=== PATIENT | female | born 2000 | race Caucasian/White ===

== ENCOUNTER 2021-09-24 18:46 | Emergency (ER) | payer MEDICAID, OTHER ==
[2021-09-24 18:57] VITALS: BP 139/86
== END 2021-09-24 21:17 | disposition left against medical advice (07) ==
LOC: ED 18:46
DX: Z53.21 Procedure and treatment not carried out due to patient leaving prior to being seen by health care provider (principal)

== ENCOUNTER 2021-10-07 08:49 | Outpatient (CLI) | payer OTHER | END 2021-10-07 08:50 | disposition short-term general hospital (02) | LOC: EMS 08:49 | DX: R10.31 Right lower quadrant pain (principal); R10.33 Periumbilical pain | CPT/HCPCS: A0425; A0427 ==

== ENCOUNTER 2021-12-06 16:07 | Emergency (ER) | payer OTHER ==
[2021-12-06 16:25] VITALS: BP 143/108
--- OUTSIDE RECORDS SUMMARY | 2021-12-06 16:31 | EXTERNAL MEDICAL SUMMARY RPT | Continuity of Care Document ---
:2000 Author Organization [facility] Address [address] [place] [address] Phone Allergies and Intolerances date description facility type (no date) Penicillins [facility] (unknown) (no date) amoxicillin [facility] (unknown) (no date) bismuth subsalicylate [facility] (unknow n) (no date) cinnamon [facility] (unknown) Encounters No information. Functional Status No information. Immunizations No information. Medications date description facility Ondansetron 4 MG Disintegrating Tablet [facility] + Acetaminophen 325 MG / Hydrocodone Is [facility] Bitartrate 5 MG Oral Tablet Problems No information. Procedures date description facility + General Physician [facility] Results/Labs test date author facility value unit interpret ation Result panel 1 (unknown) (no date) (unknown) (unknown) 0.6 % (unkn own) (unknown) (no date) (unknown) (unknown) 100 /uL (unkn own) (unknown) (no date) (unknown) (unknown) 12.0 X10 3/uL (unkn own) (unknown) (no date) (unknown) (unknown) 12.7 g/dL (unkn own) (unknown) (no date) (unknown) (unknown) 13.8 % (unkn own) (unknown) (no date) (unknown) (unknown) 2.0 % (unkn own) (unknown) (no date) (unknown) (unknown) 200 /uL (unkn own) (unknown) (no date) (unknown) (unknown) 22.3 % (unkn own) (unknown) (no date) (unknown) (unknown) 2700 /uL (unkn own) (unknown) (no date) (unknown) (unknown) 28.3 PG (unkn own) (unknown) (no date) (unknown) (unknown) 32.7 % (unkn own) (unknown) (no date) (unknown) (unknown) 359 X10 3/uL (unkn own) (unknown) (no date) (unknown) (unknown) 38.9 % (unkn own) (unknown) (no date) (unknown) (unknown) 4.49 X10 6/uL (unkn own) (unknown) (no date) (unknown) (unknown) 4.9 % (unkn own) (unknown) (no date) (unknown) (unknown) 600 /uL (unkn own) (unknown) (no date) (unknown) (unknown) 70.2 % (unkn own) (unknown) (no date) (unknown) (unknown) 8400 /uL (unkn own) (unknown) (no date) (unknown) (unknown) 86.7 fL (unkn own) Result panel 2 (unknown) (no (unknown) (unknown) (no value) (units (unk nown) date) unknown) (unknown) (no (unknown) (unknown) [address] [place] [address] (units (unknown) date) unknown) (unknown) (no (unknown) (unknown) [place], [place] (units ( unknown) date) [id number] unknown) (unknown) (no (unknown) (unknown) [facility] (units (unknown) date) unknown) (unknown) (no (unknown) (unknown) Signed (units (unkno wn) date) unknown) (unknown) (no (unknown) (unknown) Ultrasound Report (units (unknown) date) unknown) (unknown) (no (unknown) (unknown) (no value) (units (unk nown) date) unknown) (unknown) (no (unknown) (unknown) 09/30/21 (units (unkno wn) date) unknown) (unknown) (no (unknown) (unknown) Approved by: Juve (units (unknown) date) Lea Lagos on unknown) 09/30/2021 at 23:14 (unknown) (no (unknown) (unknown) Biliary ducts: (units (unknown) date) Intrahepatic bile unknown) ducts are non-dilated. Extrahepatic bile (unknown) (no (unknown) (unknown) COMPARISON: None. (units (unknown) date) unknown) (unknown) (no (unknown) (unknown) Dictated by: Juve (units (unknown) date) Lea Lagos on unknown) 09/30/2021 at 23:12 (unknown) (no (unknown) (unknown) FINDINGS: (units (unkn own) date) unknown) (unknown) (no (unknown) (unknown) Gallbladder: (units (u nknown) date) There is no unknown) gallstone. No gallbladder wall thickening or (unknown) (no (unknown) (unknown) Hepatomegaly and (units (unknown) date) hepatic steatosis. unknown) No discrete hepatic lesion. (unknown) (no (unknown) (unknown) IMPRESSION: (units (un known) date) unknown) (unknown) (no (unknown) (unknown) INDICATIONS: (units (u nknown) date) severe epigastric unknown) pain, radiation to back (unknown) (no (unknown) (unknown) Liver: Liver is (units (unknown) date) enlarged and unknown) measures 22.6 cm in length. Diffusely increased (unknown) (no (unknown) (unknown) No biliary ductal (units (unknown) date) dilatation. unknown) (unknown) (no (unknown) (unknown) Normal appearing (units (unknown) date) gallbladder. No unknown) cholelithiasis or acute cholecystitis. (unknown) (no (unknown) (unknown) Pancreas: (units (unkn own) date) Visualized unknown) portions of the pancreas are sonographically normal. (unknown) (no (unknown) (unknown) Real-time (units (unkn own) date) scanning was unknown) performed of the abdominal and retroperitoneal organs, (unknown) (no (unknown) (unknown) TECHNIQUE: (units (unk nown) date) unknown) (unknown) (no (unknown) (unknown) documentation. (units (unknown) date) unknown) (unknown) (no (unknown) (unknown) fluid. No (units (unkn own) date) sonographic Hassan unknown) sign. (unknown) (no (unknown) (unknown) measures 5.6 mm. (units (unknown) date) Normal is 6-7 mm unknown) or less in diameter, or 10 mm or less (unknown) (no (unknown) (unknown) parenchymal (units (un known) date) echotexture is unknown) seen. No discrete hepatic lesion. (unknown) (no (unknown) (unknown) post-cholecystect (units (unknown) date) pauline. unknown) (unknown) (no (unknown) (unknown) Accession Number: (units (unknown) date) [id number] unknown) (unknown) (no (unknown) (unknown) Age/Sex: 21 / F (units (unknown) date) Date of Service: unknown) (unknown) (no (unknown) (unknown) : 2000 (units (unknown) date) Acct:[id number] unknown) (unknown) (no (unknown) (unknown) Loc: ED (units (unkno wn) date) unknown) (unknown) (no (unknown) (unknown) [id number] (units (unk nown) date) unknown) (unknown) (no (unknown) (unknown) Ordering (units (unkno wn) date) Provider: unknown) Otto Rosa D.O. (unknown) (no (unknown) (unknown) PROCEDURE: US (units ( unknown) date) ABDOMEN LIMITED unknown) (unknown) (no (unknown) (unknown) Patient: (units (unkno wn) date) Emily Johnson J unknown) MR#: (unknown) (no (unknown) (unknown) Procedure: US (units ( unknown) date) abdomen limited unknown) (unknown) (no (unknown) (unknown) duct caliber (units (u nknown) date) unknown) (unknown) (no (unknown) (unknown) liver (units (unkno wn) date) unknown) (unknown) (no (unknown) (unknown) pericholecystic (units (unknown) date) unknown) (unknown) (no (unknown) (unknown) with image (units (unk nown) date) unknown) Result panel 3 (unknown) (no date) (unknown) (unknown) > 60 mL/min (unkn own) (unknown) (no date) (unknown) (unknown) 0.4 mg/dL (unkn own) (unknown) (no date) (unknown) (unknown) 0.59 mg/dL (unkn own) (unknown) (no date) (unknown) (unknown) 1.4 (units unknown) (unknown) (unknown) (no date) (unknown) (unknown) 10 mg/dL (unkn own) (unknown) (no date) (unknown) (unknown) 100 mg/dL (unkn own) (unknown) (no date) (unknown) (unknown) 104 U/L (unkn own) (unknown) (no date) (unknown) (unknown) 105 mmol/L (unkn own) (unknown) (no date) (unknown) (unknown) 137 mmol/L (unkn own) (unknown) (no date) (unknown) (unknown) 16.9 (units unknown) (unknown) (unknown) (no date) (unknown) (unknown) 24 mmol/L (unkn own) (unknown) (no date) (unknown) (unknown) 3.2 g/dL (unkn own) (unknown) (no date) (unknown) (unknown) 4.2 mmol/L (unkn own) (unknown) (no date) (unknown) (unknown) 4.6 g/dL (unkn own) (unknown) (no date) (unknown) (unknown) 44 IU/L (unkn own) (unknown) (no date) (unknown) (unknown) 7.8 g/dL (unkn own) (unknown) (no date) (unknown) (unknown) 77 IU/L (unkn own) (unknown) (no date) (unknown) (unknown) 8.9 mg/dL (unkn own) (unknown) (no date) (unknown) (unknown) 93 U/L (unkn own) Result panel 4 (unknown) (no (unknown) (unknown) (no value) (units (unk nown) date) unknown) (unknown) (no (unknown) (unknown) Date of Service: (units (unknown) date) 09/30/21 unknown) (unknown) (no (unknown) (unknown) (no value) (units (unk nown) date) unknown) (unknown) (no (unknown) (unknown) 09/30/21 20:50 (units (unknown) date) unknown) (unknown) (no (unknown) (unknown) Admin: 09/30/21 (units (unknown) date) 21:30 Dose: 1,000 unknown) mls/hr (unknown) (no (unknown) (unknown) Allergies (units (unkn own) date) unknown) (unknown) (no (unknown) (unknown) Documented By: (units (unknown) date) NR unknown) (unknown) (no (unknown) (unknown) ED Orders (units (unkn own) date) unknown) (unknown) (no (unknown) (unknown) Emergency Report (units (unknown) date) unknown) (unknown) (no (unknown) (unknown) [facility] (units (unknown) date) [address] unknown) [place] [address] (unknown) (no (unknown) (unknown) Lab Results (units (un known) date) unknown) (unknown) (no (unknown) (unknown) Last Admin: (units (un known) date) 09/30/21 20:49 unknown) Dose: 4 mg (unknown) (no (unknown) (unknown) Last Admin: (units (un known) date) 09/30/21 20:49 unknown) Dose: 40 mg (unknown) (no (unknown) (unknown) Last Admin: (units (un known) date) 09/30/21 21:29 unknown) Dose: 0.5 mg (unknown) (no (unknown) (unknown) Last Infusion: (units (unknown) date) 09/30/21 23:09 unknown) Dose: 0 mls/hr (unknown) (no (unknown) (unknown) Stop: 09/30/21 (units (unknown) date) 20:28 unknown) (unknown) (no (unknown) (unknown) Stop: 09/30/21 (units (unknown) date) 21:11 unknown) (unknown) (no (unknown) (unknown) Stop: 09/30/21 (units (unknown) date) 22:09 unknown) (unknown) (no (unknown) (unknown) Vital Signs - 8 (units (unknown) date) hr unknown) (unknown) (no (unknown) (unknown) (no value) (units (unk nown) date) unknown) (unknown) (no (unknown) (unknown) 09/30/21 (units (unkno wn) date) 09/30/21 unknown) Range/Units (unknown) (no (unknown) (unknown) 20:50 20:50 (units (un known) date) unknown) (unknown) (no (unknown) (unknown) 09/30/21 (units (unkno wn) date) unknown) (unknown) (no (unknown) (unknown) [id number] (units (unkn own) date) unknown) (unknown) (no (unknown) (unknown) 07/24/22 20:28 (units (unknown) date) unknown) (unknown) (no (unknown) (unknown) 09/30/21 20:50 (units (unknown) date) unknown) (unknown) (no (unknown) (unknown) 09/30/21 21:32 (units (unknown) date) unknown) (unknown) (no (unknown) (unknown) 20:15 (units (unkno wn) date) unknown) (unknown) (no (unknown) (unknown) ALT 44 H (<35) (units (unknown) date) IU/L unknown) (unknown) (no (unknown) (unknown) AST 77 H (14-36) (units (unknown) date) IU/L unknown) (unknown) (no (unknown) (unknown) Age/Sex: 21 / F (units (unknown) date) unknown) (unknown) (no (unknown) (unknown) Albumin 4.6 (units (un known) date) (3.5-5.0) g/dL unknown) (unknown) (no (unknown) (unknown) Albumin/Globulin (units (unknown) date) Ratio 1.4 unknown) (1.0-2.8) (unknown) (no (unknown) (unknown) Alkaline (units (unkno wn) date) Phosphatase 104 unknown) (38-126) U/L (unknown) (no (unknown) (unknown) Allergy/AdvReac (units (unknown) date) Type Severity unknown) Reaction Status Date / Time (unknown) (no (unknown) (unknown) BUN 10 (7-17) (units ( unknown) date) mg/dL unknown) (unknown) (no (unknown) (unknown) BUN/Creatinine (units (unknown) date) Ratio 16.9 (6-22) unknown) (unknown) (no (unknown) (unknown) Baso # (Auto) (units ( unknown) date) 100 (0-100) /uL unknown) (unknown) (no (unknown) (unknown) Baso % (Auto) (units ( unknown) date) 0.6 (0-2) % unknown) (unknown) (no (unknown) (unknown) Blood Pressure (units (unknown) date) 143/87 H 09/30/21 unknown) 20:15 (unknown) (no (unknown) (unknown) Blood Pressure (units (unknown) date) 143/87 H unknown) (unknown) (no (unknown) (unknown) COVID19 -Nasal (units (unknown) date) RAPID/Pre-Proc unknown) Stat (unknown) (no (unknown) (unknown) Calcium 8.9 (units (un known) date) (8.4-10.2) mg/dL unknown) (unknown) (no (unknown) (unknown) Carbon Dioxide (units (unknown) date) 24 (22-32) mmol/L unknown) (unknown) (no (unknown) (unknown) Chief complaint: (units (unknown) date) Nausea/Vomiting/D unknown) iarrhea (unknown) (no (unknown) (unknown) Chloride 105 (units (u nknown) date) (98-107) mmol/L unknown) (unknown) (no (unknown) (unknown) Complete Blood (units (unknown) date) Count AUTO DIFF unknown) Stat (unknown) (no (unknown) (unknown) Comprehensive (units ( unknown) date) Metabolic Panel unknown) Stat (unknown) (no (unknown) (unknown) Course (units (unkno wn) date) unknown) (unknown) (no (unknown) (unknown) Creatinine 0.59 (units (unknown) date) (0.52-1.04) mg/dL unknown) (unknown) (no (unknown) (unknown) : 2000 (units (unknown) date) Acct:[id number] unknown) (unknown) (no (unknown) (unknown) Discontinued (units (u nknown) date) Medications unknown) (unknown) (no (unknown) (unknown) ER Physician: (units ( unknown) date) Otto Rosa unknown) D.O. (unknown) (no (unknown) (unknown) Eos # (Auto) 200 (units (unknown) date) (0-450) /uL unknown) (unknown) (no (unknown) (unknown) Eos % (Auto) 2.0 (units (unknown) date) (2-4) % unknown) (unknown) (no (unknown) (unknown) Estimated GFR > (units (unknown) date) 60 (>60) mL/min unknown) (unknown) (no (unknown) (unknown) Exam (units (unkno wn) date) unknown) (unknown) (no (unknown) (unknown) General (units (unkno wn) date) unknown) (unknown) (no (unknown) (unknown) GenericComposite (units (unknown) date) [Plt Count 359 unknown) (150-400) X10^3/uL ] (unknown) (no (unknown) (unknown) GenericComposite (units (unknown) date) [RBC 4.49 unknown) (4.0-5.2) X10^6/uL ] (unknown) (no (unknown) (unknown) GenericComposite (units (unknown) date) [WBC 12.0 H unknown) (4.5-11.0) X10^3/uL ] (unknown) (no (unknown) (unknown) Globulin 3.2 (units (u nknown) date) (1.7-4.1) g/dL unknown) (unknown) (no (unknown) (unknown) Glucose 100 (units (un known) date) (70-100) mg/dL unknown) (unknown) (no (unknown) (unknown) HPI - (units (unkno wn) date) Nausea/Vomiting/D unknown) iarrhea (unknown) (no (unknown) (unknown) Hct 38.9 (36-46) (units (unknown) date) % unknown) (unknown) (no (unknown) (unknown) Hgb 12.7 (units (unkno wn) date) (12.0-16.0) g/dL unknown) (unknown) (no (unknown) (unknown) Hydromorphone (units ( unknown) date) HCl unknown) (Hydromorphone 0.5 Mg Inj) 0.5 mg IV NOW ONE (unknown) (no (unknown) (unknown) Initial Vital (units ( unknown) date) Signs unknown) (unknown) (no (unknown) (unknown) Initial Vital (units ( unknown) date) Signs: unknown) (unknown) (no (unknown) (unknown) Lab Data (units (unkno wn) date) unknown) (unknown) (no (unknown) (unknown) Labs: (units (unkno wn) date) unknown) (unknown) (no (unknown) (unknown) Lipase 93 (units (unkn own) date) (23-300) U/L unknown) (unknown) (no (unknown) (unknown) Lipase Stat (units (un known) date) unknown) (unknown) (no (unknown) (unknown) Lymph # (Auto) (units (unknown) date) 2700 (6692-2571) unknown) /uL (unknown) (no (unknown) (unknown) Lymph % (Auto) (units (unknown) date) 22.3 L (25-40) % unknown) (unknown) (no (unknown) (unknown) MCH 28.3 (26-34) (units (unknown) date) PG unknown) (unknown) (no (unknown) (unknown) MCHC 32.7 (units (unkn own) date) (30-36) % unknown) (unknown) (no (unknown) (unknown) MCV 86.7 (units (unkno wn) date) (80-100) fL unknown) (unknown) (no (unknown) (unknown) MDM - (units (unkno wn) date) Nausea/Vomiting/D unknown) iarrhea (unknown) (no (unknown) (unknown) Mode of arrival: (units (unknown) date) Ambulatory unknown) (unknown) (no (unknown) (unknown) Mills # (Auto) (units ( unknown) date) 600 (0-900) /uL unknown) (unknown) (no (unknown) (unknown) [place] % (Auto) (units ( unknown) date) 4.9 (3-14) % unknown) (unknown) (no (unknown) (unknown) Neut # (Auto) (units ( unknown) date) 8400 H unknown) (3363-0102) /uL (unknown) (no (unknown) (unknown) Neut % (Auto) (units ( unknown) date) 70.2 (50-75) % unknown) (unknown) (no (unknown) (unknown) Ondansetron HCl (units (unknown) date) (Ondansetron 4 unknown) Mg/2 Ml Inj) 4 mg IV NOW ONE (unknown) (no (unknown) (unknown) Ordered: (units (unkno wn) date) unknown) (unknown) (no (unknown) (unknown) Orders (units (unkno wn) date) unknown) (unknown) (no (unknown) (unknown) Oxygen Delivery (units (unknown) date) Method 09/30/21 unknown) 20:15 (unknown) (no (unknown) (unknown) Oxygen Delivery (units (unknown) date) Method Room Air unknown) (unknown) (no (unknown) (unknown) Pantoprazole (units (u nknown) date) Sodium unknown) (Pantoprazole 40 Mg Vial) 40 mg IV NOW ONE (unknown) (no (unknown) (unknown) Patient History (units (unknown) date) unknown) (unknown) (no (unknown) (unknown) Patient: (units (unkno wn) date) Emily Johnson J unknown) MR#: M (unknown) (no (unknown) (unknown) Penicillins (units (un known) date) Allergy Verified unknown) 09/30/21 20:17 (unknown) (no (unknown) (unknown) Potassium 4.2 (units ( unknown) date) (3.4-5.1) mmol/L unknown) (unknown) (no (unknown) (unknown) Pulse Oximetry (units (unknown) date) 98 09/30/21 20:15 unknown) (unknown) (no (unknown) (unknown) Pulse Oximetry (units (unknown) date) 98 unknown) (unknown) (no (unknown) (unknown) Pulse Rate 98 H (units (unknown) date) 09/30/21 20:15 unknown) (unknown) (no (unknown) (unknown) Pulse Rate 98 H (units (unknown) date) unknown) (unknown) (no (unknown) (unknown) RDW 13.8 (units (unkno wn) date) (11.6-14.8) % unknown) (unknown) (no (unknown) (unknown) Related Data (units (u nknown) date) unknown) (unknown) (no (unknown) (unknown) Respiratory Rate (units (unknown) date) 22 09/30/21 20:15 unknown) (unknown) (no (unknown) (unknown) Respiratory Rate (units (unknown) date) 22 unknown) (unknown) (no (unknown) (unknown) Result diagrams: (units (unknown) date) unknown) (unknown) (no (unknown) (unknown) Signed By: (units (unk nown) date) unknown) (unknown) (no (unknown) (unknown) Sodium 137 (units (unk n) date) (137-145) mmol/L unknown) (unknown) (no (unknown) (unknown) Sodium Chloride (units (unknown) date) (Normal Saline unknown) 0.9%) 1,000 mls @ 1,000 mls/hr IV BOLUS ONE (unknown) (no (unknown) (unknown) Source: patient (units (unknown) date) unknown) (unknown) (no (unknown) (unknown) Stated (units (unkno wn) date) complaint: acid unknown) reflux, vomiting four days (unknown) (no (unknown) (unknown) Temperature 97.9 (units (unknown) date) F 09/30/21 20:15 unknown) (unknown) (no (unknown) (unknown) Temperature 97.9 (units (unknown) date) F unknown) (unknown) (no (unknown) (unknown) Time Seen by (units (u nknown) date) Provider: unknown) 09/30/21 20:18 (unknown) (no (unknown) (unknown) Total Bilirubin (units (unknown) date) 0.4 (0.2-1.3) unknown) mg/dL (unknown) (no (unknown) (unknown) Total Protein (units ( unknown) date) 7.8 (6.3-8.2) unknown) g/dL (unknown) (no (unknown) (unknown) US abdomen (units (unk nown) date) limited Stat unknown) (unknown) (no (unknown) (unknown) Vital Signs (units (un known) date) unknown) (unknown) (no (unknown) (unknown) Vital signs: (units (u nknown) date) unknown) (unknown) (no (unknown) (unknown) [Embedded Image (units (unknown) date) Not Available] unknown) (unknown) (no (unknown) (unknown) tobacco type: (units ( unknown) date) vaping unknown) Result panel 5 (unknown) (no (unknown) (unknown) (no value) (units (unk nown) date) unknown) (unknown) (no (unknown) (unknown) [address] [place] [address] (units (unknown) date) unknown) (unknown) (no (unknown) (unknown) [place], [place] (units ( unknown) date) [id number] unknown) (unknown) (no (unknown) (unknown) CT Scan Report (units (unknown) date) unknown) (unknown) (no (unknown) (unknown) [facility] (units (unknown) date) unknown) (unknown) (no (unknown) (unknown) Signed (units (unkno wn) date) unknown) (unknown) (no (unknown) (unknown) (no value) (units (unk nown) date) unknown) (unknown) (no (unknown) (unknown) 09/30/21 (units (unkno wn) date) unknown) (unknown) (no (unknown) (unknown) 1. Normal (units (unkn own) date) appendix. unknown) Questionable ascending colon wall thickening, low-grade (unknown) (no (unknown) (unknown) 2. Mildly (units (unkn own) date) prominent unknown) mesenteric lymph nodes particularly in right lower quadrant (unknown) (no (unknown) (unknown) 3. (units (unkno wn) date) Hepatosplenomegaly unknown) . Moderate to severe hepatic steatosis, no discrete (unknown) (no (unknown) (unknown) ABDOMEN: (units (unkno wn) date) unknown) (unknown) (no (unknown) (unknown) Abdominal Nodes: (units (unknown) date) No retroperitoneal unknown) or mesenteric adenopathy by size criteria. (unknown) (no (unknown) (unknown) Adrenal Glands: (units (unknown) date) Unremarkable. unknown) (unknown) (no (unknown) (unknown) After the (units (unkn own) date) administration of unknown) intravenous contrast, axial sections acquired from (unknown) (no (unknown) (unknown) Approved by: Juve Burtonunits (unknown) dateRoselyn Lagos M.D. on unknown) 10/01/2021 at 0:13 (unknown) (no (unknown) (unknown) Biliary ducts: (units (unknown) date) Unremarkable. unknown) (unknown) (no (unknown) (unknown) Bladder: (units (unkno wn) date) Unremarkable. unknown) (unknown) (no (unknown) (unknown) Bones: There is (units (unknown) date) no suspicious bony unknown) lesion. No acute vertebral body (unknown) (no (unknown) (unknown) COMPARISON: (units (un known) date) [facility], unknown) US, US ABDOMEN LIMITED, 09/30/2021, 22:21. (unknown) (no (unknown) (unknown) Dictated by: Juve (units (unknown) date) Lea Lagos on unknown) 10/01/2021 at 0:07 (unknown) (no (unknown) (unknown) FINDINGS: (units (unkn own) date) unknown) (unknown) (no (unknown) (unknown) Gallbladder: (units (u nknown) date) Unremarkable. unknown) (unknown) (no (unknown) (unknown) Heart: No (units (unkn own) date) significant unknown) findings. (unknown) (no (unknown) (unknown) IMPRESSION: (units (un known) date) unknown) (unknown) (no (unknown) (unknown) INDICATIONS: (units (u nknown) date) severe abdominal unknown) pain (unknown) (no (unknown) (unknown) Image quality: (units (unknown) date) Excellent. unknown) (unknown) (no (unknown) (unknown) Kidneys and (units (un known) date) Ureters: No renal unknown) stones or hydronephrosis. Small bilateral renal (unknown) (no (unknown) (unknown) Liver: (units (unkno wn) date) Hepatomegaly and unknown) severe hepatic steatosis is seen, no discrete hepatic (unknown) (no (unknown) (unknown) Lung bases: (units (un known) date) Unremarkable. unknown) (unknown) (no (unknown) (unknown) Miscellaneous: No (units (unknown) date) hernias are seen. unknown) (unknown) (no (unknown) (unknown) PELVIS: (units (unkno wn) date) unknown) (unknown) (no (unknown) (unknown) Pancreas: (units (unkn own) date) Unremarkable. unknown) (unknown) (no (unknown) (unknown) Pelvic Nodes: No (units (unknown) date) enlarged lymph unknown) nodes. (unknown) (no (unknown) (unknown) Pelvic Organs: (units (unknown) date) Unremarkable. unknown) (unknown) (no (unknown) (unknown) Peritoneum: No (units (unknown) date) abnormal unknown) intraperitoneal fluid. No free air. (unknown) (no (unknown) (unknown) Small (units (unkno wn) date) unknown) (unknown) (no (unknown) (unknown) Spleen: There is (units (unknown) date) mild splenomegaly, unknown) no discrete splenic lesion.. (unknown) (no (unknown) (unknown) Stomach and (units (un known) date) Bowel: There is no unknown) bowel obstruction. No stomach or small bowel (unknown) (no (unknown) (unknown) TECHNIQUE: (units (unk nown) date) unknown) (unknown) (no (unknown) (unknown) Ventral Wall: (units ( unknown) date) Small umbilical unknown) hernia is seen containing fat only. (unknown) (no (unknown) (unknown) Vessels: Aorta (units (unknown) date) and inferior vena unknown) cava are normal in size. (unknown) (no (unknown) (unknown) bases to the (units (u nknown) date) pubic symphysis. unknown) Coronal and sagittal reformats were performed. (unknown) (no (unknown) (unknown) cannot be (units (unkn own) date) excluded. unknown) (unknown) (no (unknown) (unknown) collection. (units (un known) date) unknown) (unknown) (no (unknown) (unknown) colon wall (units (unk nown) date) thickening is unknown) seen. No significant mesenteric fat stranding. No (unknown) (no (unknown) (unknown) cysts are seen (units (unknown) date) measures up to 1 unknown) cm in size in midpole of left kidney. (unknown) (no (unknown) (unknown) fluid or free (units ( unknown) date) air. unknown) (unknown) (no (unknown) (unknown) fracture. (units (unkn own) date) Degenerative disc unknown) disease at L5-S1 level is seen. (unknown) (no (unknown) (unknown) lesion. (units (unkno wn) date) unknown) (unknown) (no (unknown) (unknown) lymph nodes are (units (unknown) date) seen scattered in unknown) right lower quadrant mesentery measures up to (unknown) (no (unknown) (unknown) of mA and/or kV (units (unknown) date) according to unknown) patient size. (unknown) (no (unknown) (unknown) radiation dose (units (unknown) date) reduction, the unknown) following was used: automated exposure control, (unknown) (no (unknown) (unknown) size. (units (unkno wn) date) unknown) (unknown) (no (unknown) (unknown) thickening. (units (un known) date) Appendix is unknown) visualized and is normal in size and appearance. Mild (unknown) (no (unknown) (unknown) which can be seen (units (unknown) date) associated with unknown) mesenteric adenitis. No abscess collection. (unknown) (no (unknown) (unknown) 7 mm in (units (unkno wn) date) unknown) (unknown) (no (unknown) (unknown) Accession Number: (units (unknown) date) [id number] unknown) (unknown) (no (unknown) (unknown) Age/Sex: 21 / F (units (unknown) date) Date of Service: unknown) (unknown) (no (unknown) (unknown) : 2000 (units (unknown) date) Acct:[id number] unknown) (unknown) (no (unknown) (unknown) For (units (unkno wn) date) unknown) (unknown) (no (unknown) (unknown) Loc: ED (units (unkno wn) date) unknown) (unknown) (no (unknown) (unknown) [id number] (units (unk nown) date) unknown) (unknown) (no (unknown) (unknown) No free (units (unkno wn) date) unknown) (unknown) (no (unknown) (unknown) Ordering (units (unkno wn) date) Provider: unknown) Otto Rosa D.O. (unknown) (no (unknown) (unknown) PROCEDURE: CT (units ( unknown) date) ABDOMEN PELVIS W unknown) CON (unknown) (no (unknown) (unknown) Patient: (units (unkno wn) date) Emily Johnson J unknown) MR#: (unknown) (no (unknown) (unknown) Procedure: CT (units ( unknown) date) abdomen pelvis w unknown) con (unknown) (no (unknown) (unknown) abdomen (units (unkno wn) date) unknown) (unknown) (no (unknown) (unknown) abscess (units (unkno wn) date) unknown) (unknown) (no (unknown) (unknown) adjustment (units (unk nown) date) unknown) (unknown) (no (unknown) (unknown) ascending (units (unkn own) date) unknown) (unknown) (no (unknown) (unknown) colitis (units (unkno wn) date) unknown) (unknown) (no (unknown) (unknown) compression (units (un known) date) unknown) (unknown) (no (unknown) (unknown) cortical (units (unkno wn) date) unknown) (unknown) (no (unknown) (unknown) hepatic (units (unkno wn) date) unknown) (unknown) (no (unknown) (unknown) lesion.. (units (unkno wn) date) unknown) (unknown) (no (unknown) (unknown) the lung (units (unkno wn) date) unknown) (unknown) (no (unknown) (unknown) wall (units (unkno wn) date) unknown) Result panel 6 (unknown) (no (unknown) (unknown) (no value) (units (unk nown) date) unknown) (unknown) (no (unknown) (unknown) Radiologist's (units ( unknown) date) Impression: unknown) (unknown) (no (unknown) (unknown) *Please continue (units (unknown) date) to take your unknown) regular medications as directed. (unknown) (no (unknown) (unknown) Date of Service: (units (unknown) date) 09/30/21 unknown) (unknown) (no (unknown) (unknown) (no value) (units (unk nown) date) unknown) (unknown) (no (unknown) (unknown) 09/30/21 20:50 (units (unknown) date) unknown) (unknown) (no (unknown) (unknown) [address] [place] [address] (units (unknown) date) unknown) (unknown) (no (unknown) (unknown) Admin: 09/30/21 (units (unknown) date) 21:30 Dose: 1,000 unknown) mls/hr (unknown) (no (unknown) (unknown) Allergies (units (unkn own) date) unknown) (unknown) (no (unknown) (unknown) [place], [place] (units ( unknown) date) [id number] unknown) (unknown) (no (unknown) (unknown) CT Scan Report (units (unknown) date) unknown) (unknown) (no (unknown) (unknown) Close (units (unkno wn) date) unknown) (unknown) (no (unknown) (unknown) Documented By: (units (unknown) date) ADK unknown) (unknown) (no (unknown) (unknown) Documented By: NR (units (unknown) date) unknown) (unknown) (no (unknown) (unknown) ED Orders (units (unkn own) date) unknown) (unknown) (no (unknown) (unknown) Emergency Report (units (unknown) date) unknown) (unknown) (no (unknown) (unknown) [facility] (units (unknown) date) unknown) (unknown) (no (unknown) (unknown) [facility] (units (unknown) date) [address] unknown) [place] [address] (unknown) (no (unknown) (unknown) Lab Results (units (un known) date) unknown) (unknown) (no (unknown) (unknown) Last Admin: (units (un known) date) 09/30/21 20:49 unknown) Dose: 4 mg (unknown) (no (unknown) (unknown) Last Admin: (units (un known) date) 09/30/21 20:49 unknown) Dose: 40 mg (unknown) (no (unknown) (unknown) Last Admin: (units (un known) date) 09/30/21 21:29 unknown) Dose: 0.5 mg (unknown) (no (unknown) (unknown) Last Admin: (units (un known) date) 09/30/21 23:34 unknown) Dose: 0.5 mg (unknown) (no (unknown) (unknown) Last Infusion: (units (unknown) date) 09/30/21 23:09 unknown) Dose: 0 mls/hr (unknown) (no (unknown) (unknown) Launch?Image (units (u nknown) date) unknown) (unknown) (no (unknown) (unknown) Signed (units (unkno wn) date) unknown) (unknown) (no (unknown) (unknown) Stop: 09/30/21 (units (unknown) date) 20:28 unknown) (unknown) (no (unknown) (unknown) Stop: 09/30/21 (units (unknown) date) 21:11 unknown) (unknown) (no (unknown) (unknown) Stop: 09/30/21 (units (unknown) date) 22:09 unknown) (unknown) (no (unknown) (unknown) Stop: 09/30/21 (units (unknown) date) 23:32 unknown) (unknown) (no (unknown) (unknown) Vital Signs - 8 (units (unknown) date) hr unknown) (unknown) (no (unknown) (unknown) [x ] New (units (unkno wn) date) medication unknown) prescriptions sent to your pharmacy: [ ] (unknown) (no (unknown) (unknown) (no value) (units (unk nown) date) unknown) (unknown) (no (unknown) (unknown) 09/30/21 09/30/21 (units (unknown) date) Range/Units unknown) (unknown) (no (unknown) (unknown) 20:50 20:50 (units (un known) date) unknown) (unknown) (no (unknown) (unknown) 09/30/21 (units (unkno wn) date) unknown) (unknown) (no (unknown) (unknown) Abdominal pain, (units (unknown) date) Acute mesenteric unknown) adenitis (unknown) (no (unknown) (unknown) Small (units (unkno wn) date) unknown) (unknown) (no (unknown) (unknown) rales, or (units (unkn own) date) rhonchi. unknown) (unknown) (no (unknown) (unknown) * As we discussed (units (unknown) date) your history and unknown) physical exam as well as labs and imaging are (unknown) (no (unknown) (unknown) *If you do not (units (unknown) date) have a primary unknown) care provider please contact the [facility] (unknown) (no (unknown) (unknown) *Please consider (units (unknown) date) a clear liquid unknown) diet for the next 24-48 hours and then slowly (unknown) (no (unknown) (unknown) *Please follow up (units (unknown) date) with your primary unknown) care provider in 2-3 days, call for an (unknown) (no (unknown) (unknown) *Return to (units (unk nown) date) Emergency unknown) Department if you should have any new, worsening or (unknown) (no (unknown) (unknown) *What to do: (units (u nknown) date) unknown) (unknown) (no (unknown) (unknown) *You have been (units (unknown) date) diagnosed with unknown) [abdominal pain likely due to mesenteric (unknown) (no (unknown) (unknown) - (units (unkno wn) date) unknown) (unknown) (no (unknown) (unknown) [phone] (units (unkn own) date) unknown) (unknown) (no (unknown) (unknown) 00:00 (units (unkno wn) date) unknown) (unknown) (no (unknown) (unknown) 09/30/21 (units (unkno wn) date) unknown) (unknown) (no (unknown) (unknown) 09/30/21 20:50 (units (unknown) date) unknown) (unknown) (no (unknown) (unknown) 09/30/21 21:32 (units (unknown) date) unknown) (unknown) (no (unknown) (unknown) 09/30/21 23:31 (units (unknown) date) unknown) (unknown) (no (unknown) (unknown) 10/01/21 00:00 (units (unknown) date) unknown) (unknown) (no (unknown) (unknown) 1. Normal (units (unkn own) date) appendix.? unknown) Questionable ascending colon wall thickening, low-grade (unknown) (no (unknown) (unknown) 12 point review (units (unknown) date) of systems is unknown) negative except for those stated above (unknown) (no (unknown) (unknown) 2. Mildly (units (unkn own) date) prominent unknown) mesenteric lymph nodes particularly in right lower quadrant (unknown) (no (unknown) (unknown) 20:15 09/30/21 (units (unknown) date) unknown) (unknown) (no (unknown) (unknown) 20:57 09/30/21 (units (unknown) date) unknown) (unknown) (no (unknown) (unknown) 20:58 (units (unkno wn) date) unknown) (unknown) (no (unknown) (unknown) 20:58 09/30/21 (units (unknown) date) unknown) (unknown) (no (unknown) (unknown) 21:00 09/30/21 (units (unknown) date) unknown) (unknown) (no (unknown) (unknown) 21:30 (units (unkno wn) date) unknown) (unknown) (no (unknown) (unknown) 22:00 09/30/21 (units (unknown) date) unknown) (unknown) (no (unknown) (unknown) 22:30 09/30/21 (units (unknown) date) unknown) (unknown) (no (unknown) (unknown) 21-year-old (units (un known) date) female nonsmoker unknown) with history of acid reflux and esophageal ulcers (unknown) (no (unknown) (unknown) 23:00 (units (unkno wn) date) unknown) (unknown) (no (unknown) (unknown) 23:30 10/01/21 (units (unknown) date) unknown) (unknown) (no (unknown) (unknown) 3.? (units (unkno wn) date) Hepatosplenomegaly unknown) .? Moderate to severe hepatic steatosis, no discrete (unknown) (no (unknown) (unknown) 7 mm in (units (unkno wn) date) unknown) (unknown) (no (unknown) (unknown) ? (units (unkno wn) date) unknown) (unknown) (no (unknown) (unknown) ABDOMEN: (units (unkno wn) date) unknown) (unknown) (no (unknown) (unknown) ALT 44 H (<35) (units (unknown) date) IU/L unknown) (unknown) (no (unknown) (unknown) AST 77 H (14-36) (units (unknown) date) IU/L unknown) (unknown) (no (unknown) (unknown) Abdomen (units (unkno wn) date) Ultrasound unknown) (Signed) (unknown) (no (unknown) (unknown) Abdomen/Pelvis CT (units (unknown) date) (Signed) unknown) (unknown) (no (unknown) (unknown) Abdominal Nodes:? (units (unknown) date) No retroperitoneal unknown) or mesenteric adenopathy by size criteria.? (unknown) (no (unknown) (unknown) Accession Number: (units (unknown) date) [id number] ?? unknown) (unknown) (no (unknown) (unknown) Acct:[id number] (units (unknown) date) unknown) (unknown) (no (unknown) (unknown) Activity (units (unkno wn) date) Restrictions/Addit unknown) ional Instructions: (unknown) (no (unknown) (unknown) Adrenal Glands:? (units (unknown) date) Unremarkable.? ? unknown) (unknown) (no (unknown) (unknown) After the (units (unkn own) date) administration of unknown) intravenous contrast, axial sections acquired from (unknown) (no (unknown) (unknown) Age/Sex: 21 / F (units (unknown) date) unknown) (unknown) (no (unknown) (unknown) Age/Sex: 21 / F (units (unknown) date) unknown) (unknown) (no (unknown) (unknown) Albumin 4.6 (units (un known) date) (3.5-5.0) g/dL unknown) (unknown) (no (unknown) (unknown) Albumin/Globulin (units (unknown) date) Ratio 1.4 unknown) (1.0-2.8) (unknown) (no (unknown) (unknown) Alkaline (units (unkno wn) date) Phosphatase 104 unknown) (38-126) U/L (unknown) (no (unknown) (unknown) Allergy/AdvReac (units (unknown) date) Type Severity unknown) Reaction Status Date / Time (unknown) (no (unknown) (unknown) Approved by: Juve (units (unknown) date) Lea Lagos on unknown) 10/01/2021 at 0:13 ? (unknown) (no (unknown) (unknown) BACK: Nontender (units (unknown) date) without deformity unknown) or crepitance. No flank tenderness. (unknown) (no (unknown) (unknown) BUN 10 (7-17) (units ( unknown) date) mg/dL unknown) (unknown) (no (unknown) (unknown) BUN/Creatinine (units (unknown) date) Ratio 16.9 (6-22) unknown) (unknown) (no (unknown) (unknown) Baso # (Auto) 100 (units (unknown) date) (0-100) /uL unknown) (unknown) (no (unknown) (unknown) Baso % (Auto) 0.6 (units (unknown) date) (0-2) % unknown) (unknown) (no (unknown) (unknown) Biliary ducts:? (units (unknown) date) Unremarkable.? ? unknown) (unknown) (no (unknown) (unknown) Bladder:? (units (unkn own) date) Unremarkable.? ? unknown) (unknown) (no (unknown) (unknown) Blood Pressure (units (unknown) date) unknown) (unknown) (no (unknown) (unknown) Blood Pressure (units (unknown) date) unknown) (unknown) (no (unknown) (unknown) Blood Pressure (units (unknown) date) 143/87 H 09/30/21 unknown) 20:15 (unknown) (no (unknown) (unknown) Blood Pressure (units (unknown) date) 129/81 unknown) (unknown) (no (unknown) (unknown) Blood Pressure (units (unknown) date) 143/87 H unknown) (unknown) (no (unknown) (unknown) Bones:? There is (units (unknown) date) no suspicious bony unknown) lesion.? No acute vertebral body compression (unknown) (no (unknown) (unknown) CARDIOVASCULAR: (units (unknown) date) Denies chest pain, unknown) palpitations, orthopnea, edema, (unknown) (no (unknown) (unknown) CARDIOVASCULAR: (units (unknown) date) Regular rate and unknown) rhythm without murmurs, gallops, or rubs. (unknown) (no (unknown) (unknown) COMPARISON:? (units (u nknown) date) [facility], unknown) US, ABDOMEN LIMITED, 09/30/2021, 22:21. (unknown) (no (unknown) (unknown) COVID19 -Nasal (units (unknown) date) RAPID/Pre-Proc unknown) Stat (unknown) (no (unknown) (unknown) CT abdomen pelvis (units (unknown) date) w con Stat unknown) (unknown) (no (unknown) (unknown) CT scan - (units (unkn own) date) abdomen/pelvis: unknown) (unknown) (no (unknown) (unknown) Calcium 8.9 (units (un known) date) (8.4-10.2) mg/dL unknown) (unknown) (no (unknown) (unknown) Carbon Dioxide 24 (units (unknown) date) (22-32) mmol/L unknown) (unknown) (no (unknown) (unknown) Chief complaint: (units (unknown) date) Nausea/Vomiting/Di unknown) arrhea (unknown) (no (unknown) (unknown) Chloride 105 (units (u nknown) date) (98-107) mmol/L unknown) (unknown) (no (unknown) (unknown) Clinical (units (unkno wn) date) Impression: unknown) (unknown) (no (unknown) (unknown) Complete Blood (units (unknown) date) Count AUTO DIFF unknown) Stat (unknown) (no (unknown) (unknown) Comprehensive (units ( unknown) date) Metabolic Panel unknown) Stat (unknown) (no (unknown) (unknown) Course (units (unkno wn) date) unknown) (unknown) (no (unknown) (unknown) Creatinine 0.59 (units (unknown) date) (0.52-1.04) mg/dL unknown) (unknown) (no (unknown) (unknown) : 2000 (units (unknown) date) Acct:[id number] unknown) (unknown) (no (unknown) (unknown) : 2000 (units (unknown) date) unknown) (unknown) (no (unknown) (unknown) Date of Service: (units (unknown) date) 09/30/21 unknown) (unknown) (no (unknown) (unknown) Departure (units (unkn own) date) unknown) (unknown) (no (unknown) (unknown) Dictated by: Juve (units (unknown) date) Lea Lagos on unknown) 10/01/2021 at 0:07 ? ? (unknown) (no (unknown) (unknown) Discharge Plan (units (unknown) date) unknown) (unknown) (no (unknown) (unknown) Discontinued (units (u nknown) date) Medications unknown) (unknown) (no (unknown) (unknown) ENT: Nose without (units (unknown) date) bleeding, purulent unknown) drainage. Throat without erythema, (unknown) (no (unknown) (unknown) ER Physician: (units ( unknown) date) Otto Rosa D.O. unknown) (unknown) (no (unknown) (unknown) EXTREMITIES: No (units (unknown) date) edema or joint unknown) tenderness. (unknown) (no (unknown) (unknown) EYES: Pupils (units (u nknown) date) equal round and unknown) reactive. Extraocular motions intact. No scleral (unknown) (no (unknown) (unknown) Eos # (Auto) 200 (units (unknown) date) (0-450) /uL unknown) (unknown) (no (unknown) (unknown) Eos % (Auto) 2.0 (units (unknown) date) (2-4) % unknown) (unknown) (no (unknown) (unknown) Estimated GFR > (units (unknown) date) 60 (>60) mL/min unknown) (unknown) (no (unknown) (unknown) Exam (units (unkno wn) date) unknown) (unknown) (no (unknown) (unknown) Exam Narrative: (units (unknown) date) unknown) (unknown) (no (unknown) (unknown) FINDINGS:? (units (unk nown) date) unknown) (unknown) (no (unknown) (unknown) Findings and (units (u nknown) date) discharge unknown) diagnosis discussed with patient/family followed by (unknown) (no (unknown) (unknown) For (units (unkno wn) date) unknown) (unknown) (no (unknown) (unknown) GASTROINTESTINAL: (units (unknown) date) See HPI unknown) (unknown) (no (unknown) (unknown) GASTROINTESTINAL: (units (unknown) date) Abdomen soft, unknown) tender in the epigastrium, nondistended. (unknown) (no (unknown) (unknown) GENERAL: Denies (units (unknown) date) chills, fatigue, unknown) malaise, fever, sweats. (unknown) (no (unknown) (unknown) GENERAL: [21] (units ( unknown) date) year old patient unknown) appears stated age. Well-developed patient, in (unknown) (no (unknown) (unknown) : Denies (units (unk nown) date) dysuria, unknown) frequency, incontinence, hematuria, urinary retention. (unknown) (no (unknown) (unknown) Gallbladder:? (units ( unknown) date) Unremarkable.? unknown) (unknown) (no (unknown) (unknown) General (units (unkno wn) date) unknown) (unknown) (no (unknown) (unknown) GenericComposite[ (units (unknown) date) Plt Count 359 unknown) (150-400) X10^3/uL ] (unknown) (no (unknown) (unknown) GenericComposite[ (units (unknown) date) RBC 4.49 (4.0-5.2) unknown) X10^6/uL ] (unknown) (no (unknown) (unknown) GenericComposite[ (units (unknown) date) WBC 12.0 H unknown) (4.5-11.0) X10^3/uL ] (unknown) (no (unknown) (unknown) Globulin 3.2 (units (u nknown) date) (1.7-4.1) g/dL unknown) (unknown) (no (unknown) (unknown) Glucose 100 (units (un known) date) (70-100) mg/dL unknown) (unknown) (no (unknown) (unknown) HEAD: Atraumatic. (units (unknown) date) Normocephalic. unknown) (unknown) (no (unknown) (unknown) HEENT: Denies (units ( unknown) date) sinus pain, ear unknown) pain, sore throat, difficulty swallowing, (unknown) (no (unknown) (unknown) HPI - (units (unkno wn) date) Nausea/Vomiting/Di unknown) arrhea (unknown) (no (unknown) (unknown) HPI Narrative: (units (unknown) date) unknown) (unknown) (no (unknown) (unknown) Hct 38.9 (36-46) (units (unknown) date) % unknown) (unknown) (no (unknown) (unknown) Heart:? No (units (unk nown) date) significant unknown) findings. (unknown) (no (unknown) (unknown) Hgb 12.7 (units (unkno wn) date) (12.0-16.0) g/dL unknown) (unknown) (no (unknown) (unknown) History of (units (unk nown) date) Present Illness unknown) (unknown) (no (unknown) (unknown) History, physical (units (unknown) date) exam, labs, unknown) imaging, and response to therapies have been (unknown) (no (unknown) (unknown) Hydromorphone HCl (units (unknown) date) (Hydromorphone 0.5 unknown) Mg Inj) 0.5 mg IV NOW ONE (unknown) (no (unknown) (unknown) IMPRESSION:? (units (u nknown) date) unknown) (unknown) (no (unknown) (unknown) INDICATIONS:? (units ( unknown) date) severe abdominal unknown) pain (unknown) (no (unknown) (unknown) Image quality:? (units (unknown) date) Excellent.? unknown) (unknown) (no (unknown) (unknown) Imaging Data (units (u nknown) date) unknown) (unknown) (no (unknown) (unknown) Initial Vital (units ( unknown) date) Signs unknown) (unknown) (no (unknown) (unknown) Initial Vital (units ( unknown) date) Signs: unknown) (unknown) (no (unknown) (unknown) Instructions: DI (units (unknown) date) for Abdominal unknown) Pain-Adult (unknown) (no (unknown) (unknown) Kidneys and (units (un known) date) Ureters:? No renal unknown) stones or hydronephrosis.? Small bilateral renal (unknown) (no (unknown) (unknown) Lab Data (units (unkno wn) date) unknown) (unknown) (no (unknown) (unknown) Labs: (units (unkno wn) date) unknown) (unknown) (no (unknown) (unknown) Lipase 93 (units (unkn own) date) (23-300) U/L unknown) (unknown) (no (unknown) (unknown) Lipase Stat (units (un known) date) unknown) (unknown) (no (unknown) (unknown) Lagos,Juve (units (unkno wn) date) unknown) (unknown) (no (unknown) (unknown) Liver:? (units (unkno wn) date) Hepatomegaly and unknown) severe hepatic steatosis is seen, no discrete hepatic (unknown) (no (unknown) (unknown) Loc: ED (units (unkno wn) date) unknown) (unknown) (no (unknown) (unknown) Lung bases:? (units (u nknown) date) Unremarkable. unknown) (unknown) (no (unknown) (unknown) Lymph # (Auto) (units (unknown) date) 2700 ([id number]) unknown) /uL (unknown) (no (unknown) (unknown) Lymph % (Auto) (units (unknown) date) 22.3 L (25-40) % unknown) (unknown) (no (unknown) (unknown) MCH 28.3 (26-34) (units (unknown) date) PG unknown) (unknown) (no (unknown) (unknown) MCHC 32.7 (30-36) (units (unknown) date) % unknown) (unknown) (no (unknown) (unknown) MCV 86.7 (80-100) (units (unknown) date) fL unknown) (unknown) (no (unknown) (unknown) MDM - (units (unkno wn) date) Nausea/Vomiting/Di unknown) arrhea (unknown) (no (unknown) (unknown) MDM Narrative (units ( unknown) date) unknown) (unknown) (no (unknown) (unknown) MR#: [id number] (units (unknown) date) unknown) (unknown) (no (unknown) (unknown) MUSCULOSKELETAL: (units (unknown) date) denies weakness, unknown) joint pain, or bony pain (unknown) (no (unknown) (unknown) Medical decision (units (unknown) date) making narrative: unknown) (unknown) (no (unknown) (unknown) Miscellaneous: No (units (unknown) date) hernias are seen. unknown) ? ? (unknown) (no (unknown) (unknown) Mode of arrival: (units (unknown) date) Ambulatory unknown) (unknown) (no (unknown) (unknown) Mills # (Auto) 600 (units (unknown) date) (0-900) /uL unknown) (unknown) (no (unknown) (unknown) Mills % (Auto) 4.9 (units (unknown) date) (3-14) % unknown) (unknown) (no (unknown) (unknown) Multiple (units (unkno wn) date) etiologies for unknown) patient's symptoms considered include, but not limited (unknown) (no (unknown) (unknown) NECK: Trachea (units ( unknown) date) midline. Non unknown) tender (unknown) (no (unknown) (unknown) NEURO: AOx3. (units (u nknown) date) unknown) (unknown) (no (unknown) (unknown) NEUROLOGIC: (units (un known) date) Denies weakness, unknown) headache, numbness, change in speech, confusion, (unknown) (no (unknown) (unknown) Narrative (units (unkn own) date) unknown) (unknown) (no (unknown) (unknown) Narrative: (units (unk nown) date) unknown) (unknown) (no (unknown) (unknown) Neut # (Auto) (units ( unknown) date) 8400 H (3952-6155) unknown) /uL (unknown) (no (unknown) (unknown) Neut % (Auto) (units ( unknown) date) 70.2 (50-75) % unknown) (unknown) (no (unknown) (unknown) No free (units (unkno wn) date) unknown) (unknown) (no (unknown) (unknown) Ondansetron HCl (units (unknown) date) (Ondansetron 4 unknown) Mg/2 Ml Inj) 4 mg IV NOW ONE (unknown) (no (unknown) (unknown) Ordered: (units (unkno wn) date) unknown) (unknown) (no (unknown) (unknown) Ordering (units (unkno wn) date) Provider: unknown) Otto Rosa D.O. (unknown) (no (unknown) (unknown) Orders (units (unkno wn) date) unknown) (unknown) (no (unknown) (unknown) Oxygen Delivery (units (unknown) date) Method unknown) (unknown) (no (unknown) (unknown) Oxygen Delivery (units (unknown) date) Method unknown) (unknown) (no (unknown) (unknown) Oxygen Delivery (units (unknown) date) Method 09/30/21 unknown) 20:15 (unknown) (no (unknown) (unknown) Oxygen Delivery (units (unknown) date) Method Room Air unknown) (unknown) (no (unknown) (unknown) PELVIS: (units (unkno wn) date) unknown) (unknown) (no (unknown) (unknown) PROCEDURE:? CT (units (unknown) date) ABDOMEN PELVIS W unknown) CON (unknown) (no (unknown) (unknown) PSYCHIATRIC: No (units (unknown) date) concerning unknown) psychosocial issues. (unknown) (no (unknown) (unknown) Pain has been (units ( unknown) date) well controlled unknown) and patient is tolerating oral hydration. (unknown) (no (unknown) (unknown) Pancreas:? (units (unk nown) date) Unremarkable.? ? unknown) (unknown) (no (unknown) (unknown) Pantoprazole (units (u nknown) date) Sodium unknown) (Pantoprazole 40 Mg Vial) 40 mg IV NOW ONE (unknown) (no (unknown) (unknown) Patient (units (unkno wn) date) Disposition: Home unknown) (unknown) (no (unknown) (unknown) Patient History (units (unknown) date) unknown) (unknown) (no (unknown) (unknown) Patient's (units (unkn own) date) symptoms improved unknown) over duration of stay with above-stated therapies. (unknown) (no (unknown) (unknown) Patient: (units (unkno wn) date) Emily Johnson unknown) MR#: M (unknown) (no (unknown) (unknown) Patient: (units (unkno wn) date) Emily Johnson unknown) (unknown) (no (unknown) (unknown) Pelvic Nodes: No (units (unknown) date) enlarged lymph unknown) nodes.? (unknown) (no (unknown) (unknown) Pelvic Organs:? (units (unknown) date) Unremarkable.? ? unknown) (unknown) (no (unknown) (unknown) Penicillins (units (un known) date) Allergy Verified unknown) 09/30/21 20:17 (unknown) (no (unknown) (unknown) Peritoneum:? No (units (unknown) date) abnormal unknown) intraperitoneal fluid.? No free air.? (unknown) (no (unknown) (unknown) Potassium 4.2 (units ( unknown) date) (3.4-5.1) mmol/L unknown) (unknown) (no (unknown) (unknown) Procedure: CT (units ( unknown) date) abdomen pelvis w unknown) con (unknown) (no (unknown) (unknown) Pulse Oximetry 98 (units (unknown) date) 09/30/21 20:15 unknown) (unknown) (no (unknown) (unknown) Pulse Oximetry 98 (units (unknown) date) 97 unknown) (unknown) (no (unknown) (unknown) Pulse Oximetry 97 (units (unknown) date) 93 unknown) (unknown) (no (unknown) (unknown) Pulse Oximetry 97 (units (unknown) date) 96 95 unknown) (unknown) (no (unknown) (unknown) Pulse Oximetry 98 (units (unknown) date) 99 99 unknown) (unknown) (no (unknown) (unknown) Pulse Rate 100 H (units (unknown) date) 91 H unknown) (unknown) (no (unknown) (unknown) Pulse Rate 98 H (units (unknown) date) 09/30/21 20:15 unknown) (unknown) (no (unknown) (unknown) Pulse Rate 81 78 (units (unknown) date) unknown) (unknown) (no (unknown) (unknown) Pulse Rate 89 89 (units (unknown) date) 92 H unknown) (unknown) (no (unknown) (unknown) Pulse Rate 98 H (units (unknown) date) 99 H 102 H unknown) (unknown) (no (unknown) (unknown) RDW 13.8 (units (unkno wn) date) (11.6-14.8) % unknown) (unknown) (no (unknown) (unknown) RESPIRATORY: Clear (units (unknown) date) to auscultation. unknown) Breath sounds equal bilaterally. No wheezes, (unknown) (no (unknown) (unknown) RESPIRATORY: (units (u nknown) date) Denies dyspnea, unknown) cough, wheezing, hemoptysis, sputum. (unknown) (no (unknown) (unknown) Related Data (units (u nknown) date) unknown) (unknown) (no (unknown) (unknown) Resource line at (units (unknown) date) [phone]. They unknown) will ask some questions about your medical (unknown) (no (unknown) (unknown) Respiratory Rate (units (unknown) date) unknown) (unknown) (no (unknown) (unknown) Respiratory Rate (units (unknown) date) unknown) (unknown) (no (unknown) (unknown) Respiratory Rate (units (unknown) date) 22 09/30/21 20:15 unknown) (unknown) (no (unknown) (unknown) Respiratory Rate (units (unknown) date) 22 unknown) (unknown) (no (unknown) (unknown) Result diagrams: (units (unknown) date) unknown) (unknown) (no (unknown) (unknown) Return (units (unkno wn) date) precautions unknown) discussed with patient/family whom verbalize understanding. (unknown) (no (unknown) (unknown) Review of Systems (units (unknown) date) unknown) (unknown) (no (unknown) (unknown) SKIN: Denies (units (u nknown) date) rash, skin unknown) lesions, or other (unknown) (no (unknown) (unknown) SKIN: No rash or (units (unknown) date) erythema of unknown) visible areas (unknown) (no (unknown) (unknown) She has had poor (units (unknown) date) appetite and unknown) multiple episodes of vomiting and feels weak, (unknown) (no (unknown) (unknown) Signed By: (units (unk nown) date) unknown) (unknown) (no (unknown) (unknown) Sodium 137 (units (unk nown) date) (137-145) mmol/L unknown) (unknown) (no (unknown) (unknown) Sodium Chloride (units (unknown) date) (Normal Saline unknown) 0.9%) 1,000 mls @ 1,000 mls/hr IV BOLUS ONE (unknown) (no (unknown) (unknown) Source: patient (units (unknown) date) unknown) (unknown) (no (unknown) (unknown) Spleen:? There is (units (unknown) date) mild splenomegaly, unknown) no discrete splenic lesion..? ? (unknown) (no (unknown) (unknown) Stated complaint: (units (unknown) date) acid reflux, unknown) vomiting four days (unknown) (no (unknown) (unknown) Stomach and (units (un known) date) Bowel:? There is unknown) no bowel obstruction.? No stomach or small bowel (unknown) (no (unknown) (unknown) TECHNIQUE:? (units (un known) date) unknown) (unknown) (no (unknown) (unknown) Temperature (units (un known) date) unknown) (unknown) (no (unknown) (unknown) Temperature (units (un known) date) unknown) (unknown) (no (unknown) (unknown) Temperature 97.9 (units (unknown) date) F 09/30/21 20:15 unknown) (unknown) (no (unknown) (unknown) Temperature 97.9 (units (unknown) date) F unknown) (unknown) (no (unknown) (unknown) Time Seen by (units (u nknown) date) Provider: 09/30/21 unknown) 20:18 (unknown) (no (unknown) (unknown) Total Bilirubin (units (unknown) date) 0.4 (0.2-1.3) unknown) mg/dL (unknown) (no (unknown) (unknown) Total Protein 7.8 (units (unknown) date) (6.3-8.2) g/dL unknown) (unknown) (no (unknown) (unknown) US - abdomen: (units ( unknown) date) unknown) (unknown) (no (unknown) (unknown) US abdomen (units (unk nown) date) limited Stat unknown) (unknown) (no (unknown) (unknown) Ventral Wall: ? (units (unknown) date) Small umbilical unknown) hernia is seen containing fat only. (unknown) (no (unknown) (unknown) Vessels:? Aorta (units (unknown) date) and inferior vena unknown) cava are normal in size.? (unknown) (no (unknown) (unknown) Vital Signs (units (un known) date) unknown) (unknown) (no (unknown) (unknown) Vital signs: (units (u nknown) date) unknown) (unknown) (no (unknown) (unknown) [Embedded Image (units (unknown) date) Not Available] unknown) (unknown) (no (unknown) (unknown) abdomen (units (unkno wn) date) unknown) (unknown) (no (unknown) (unknown) abscess (units (unkno wn) date) unknown) (unknown) (no (unknown) (unknown) adenitis.] (units (unk nown) date) unknown) (unknown) (no (unknown) (unknown) adjustment (units (unk nown) date) unknown) (unknown) (no (unknown) (unknown) advance to regular (units (unknown) date) as tolerated. unknown) Also, try to avoid alcohol, nicotine, caffeine, (unknown) (no (unknown) (unknown) appointment. Let (units (unknown) date) them know you were unknown) seen in the Emergency Department and that we (unknown) (no (unknown) (unknown) ascending (units (unkn own) date) unknown) (unknown) (no (unknown) (unknown) ask that you be (units (unknown) date) seen in follow up. unknown) We will electronically transmit a record of (unknown) (no (unknown) (unknown) bases to the (units (u nknown) date) pubic symphysis.? unknown) Coronal and sagittal reformats were performed.? (unknown) (no (unknown) (unknown) cannot be (units (unkn own) date) excluded. unknown) (unknown) (no (unknown) (unknown) colitis (units (unkno wn) date) unknown) (unknown) (no (unknown) (unknown) collection. (units (un known) date) unknown) (unknown) (no (unknown) (unknown) colon wall (units (unk nown) date) thickening is unknown) seen.? No significant mesenteric fat stranding.? No (unknown) (no (unknown) (unknown) concerning (units (unk nown) date) symptoms, such as unknown) [fever greater than 101 F, shaking chills, (unknown) (no (unknown) (unknown) constipation (units (u nknown) date) denies dysuria, unknown) frequency or urgency. (unknown) (no (unknown) (unknown) cortical (units (unkno wn) date) unknown) (unknown) (no (unknown) (unknown) cysts are seen (units (unknown) date) measures up to 1 unknown) cm in size in midpole of left kidney. (unknown) (no (unknown) (unknown) dizziness. (units (unk nown) date) unknown) (unknown) (no (unknown) (unknown) dizzy and (units (unkn own) date) lightheaded. She unknown) states she is felt this way in the past when her (unknown) (no (unknown) (unknown) evidence of (units (un known) date) gallbladder unknown) disease, pancreatitis, bowel obstruction, etc. (unknown) (no (unknown) (unknown) fluid or free (units ( unknown) date) air. unknown) (unknown) (no (unknown) (unknown) fracture.? (units (unk nown) date) Degenerative disc unknown) disease at L5-S1 level is seen. (unknown) (no (unknown) (unknown) hepatic (units (unkno wn) date) unknown) (unknown) (no (unknown) (unknown) history and help (units (unknown) date) get you set up unknown) with a doctor in the community. (unknown) (no (unknown) (unknown) icterus. No (units (un known) date) injection or unknown) drainage. (unknown) (no (unknown) (unknown) kidney stone (units (u nknown) date) versus unknown) diverticulitis versus other (unknown) (no (unknown) (unknown) lesion. (units (unkno wn) date) unknown) (unknown) (no (unknown) (unknown) lesion.. ? (units (unk nown) date) unknown) (unknown) (no (unknown) (unknown) lymph nodes are (units (unknown) date) seen scattered in unknown) right lower quadrant mesentery measures up to (unknown) (no (unknown) (unknown) mild distress. (units (unknown) date) unknown) (unknown) (no (unknown) (unknown) of mA and/or kV (units (unknown) date) according to unknown) patient size.? (unknown) (no (unknown) (unknown) prescribed and (units (unknown) date) denies any dietary unknown) indiscretions. She is had no diarrhea or (unknown) (no (unknown) (unknown) presents with a (units (unknown) date) chief complaint of unknown) epigastric pain and nausea and vomiting for (unknown) (no (unknown) (unknown) radiation dose (units (unknown) date) reduction, the unknown) following was used:? automated exposure control, (unknown) (no (unknown) (unknown) reassuring. (units (un known) date) unknown) (unknown) (no (unknown) (unknown) reflux is acting (units (unknown) date) up. She states she unknown) is been taking her medications as (unknown) (no (unknown) (unknown) require a (units (unkn own) date) specific or unknown) immediate intervention. Specifically, there is no (unknown) (no (unknown) (unknown) seizures, (units (unkn own) date) incoordination. unknown) (unknown) (no (unknown) (unknown) size. (units (unkno wn) date) unknown) (unknown) (no (unknown) (unknown) spicy, acidic or (units (unknown) date) fatty foods as unknown) this may worsen your symptoms (unknown) (no (unknown) (unknown) the lung (units (unkno wn) date) unknown) (unknown) (no (unknown) (unknown) the past few days. (units (unknown) date) She states her unknown) pain is across her upper abdomen and radiates (unknown) (no (unknown) (unknown) thickening.? (units (u nknown) date) Appendix is unknown) visualized and is normal in size and appearance.? Mild (unknown) (no (unknown) (unknown) to her back. She (units (unknown) date) states it seems to unknown) be worse when she moves as well as eats. (unknown) (no (unknown) (unknown) to: [Pancreatitis (units (unknown) date) versus gallbladder unknown) disease versus Bowel obstruction versus (unknown) (no (unknown) (unknown) tobacco type: (units ( unknown) date) vaping unknown) (unknown) (no (unknown) (unknown) today's note if (units (unknown) date) your PCP is in our unknown) system (unknown) (no (unknown) (unknown) tonsillar (units (unkn own) date) hypertrophy or unknown) exudate. Airway patent. (unknown) (no (unknown) (unknown) verbalization of (units (unknown) date) understanding unknown) (unknown) (no (unknown) (unknown) very reassuring. (units (unknown) date) There is no unknown) evidence of any severe diagnoses that would (unknown) (no (unknown) (unknown) wall (units (unkno wn) date) unknown) (unknown) (no (unknown) (unknown) which can be seen (units (unknown) date) associated with unknown) mesenteric adenitis.? No abscess collection.? (unknown) (no (unknown) (unknown) worsening pain, (units (unknown) date) persistent unknown) vomiting or other bothersome symptoms] Result panel 7 (unknown) (no date) (unknown) (unknown) Negative (units (unkn own) unknown) Result panel 8 (unknown) (no (unknown) (unknown) (no value) (units (unk nown) date) unknown) (unknown) (no (unknown) (unknown) Radiologist's (units ( unknown) date) Impression: unknown) (unknown) (no (unknown) (unknown) *Please continue (units (unknown) date) to take your unknown) regular medications as directed. (unknown) (no (unknown) (unknown) Date of Service: (units (unknown) date) 09/30/21 unknown) (unknown) (no (unknown) (unknown) (no value) (units (unk nown) date) unknown) (unknown) (no (unknown) (unknown) <Electronically (units (unknown) date) signed by Otto unknown) Maral Rosa> (unknown) (no (unknown) (unknown) 09/30/21 20:50 (units (unknown) date) unknown) (unknown) (no (unknown) (unknown) 10/01/21 0029 (units ( unknown) date) unknown) (unknown) (no (unknown) (unknown) [address] (units (unknown) date) unknown) (unknown) (no (unknown) (unknown) Admin: 09/30/21 (units (unknown) date) 21:30 Dose: 1,000 unknown) mls/hr (unknown) (no (unknown) (unknown) Allergies (units (unkn own) date) unknown) (unknown) (no (unknown) (unknown) [place] (units ( unknown) date) [id number] unknown) (unknown) (no (unknown) (unknown) CT Scan Report (units (unknown) date) unknown) (unknown) (no (unknown) (unknown) Close (units (unkno wn) date) unknown) (unknown) (no (unknown) (unknown) Documented By: (units (unknown) date) ADK unknown) (unknown) (no (unknown) (unknown) Documented By: NR (units (unknown) date) unknown) (unknown) (no (unknown) (unknown) ED Orders (units (unkn own) date) unknown) (unknown) (no (unknown) (unknown) Emergency Report (units (unknown) date) unknown) (unknown) (no (unknown) (unknown) [facility] (units (unknown) date) unknown) (unknown) (no (unknown) (unknown) [facility] (units (unknown) date) [address] unknown) [place] [id number] (unknown) (no (unknown) (unknown) Lab Results (units (un known) date) unknown) (unknown) (no (unknown) (unknown) Last Admin: (units (un known) date) 09/30/21 20:49 unknown) Dose: 4 mg (unknown) (no (unknown) (unknown) Last Admin: (units (un known) date) 09/30/21 20:49 unknown) Dose: 40 mg (unknown) (no (unknown) (unknown) Last Admin: (units (un known) date) 09/30/21 21:29 unknown) Dose: 0.5 mg (unknown) (no (unknown) (unknown) Last Admin: (units (un known) date) 09/30/21 23:34 unknown) Dose: 0.5 mg (unknown) (no (unknown) (unknown) Last Infusion: (units (unknown) date) 09/30/21 23:09 unknown) Dose: 0 mls/hr (unknown) (no (unknown) (unknown) Launch?Image (units (u nknown) date) unknown) (unknown) (no (unknown) (unknown) Signed (units (unkno wn) date) unknown) (unknown) (no (unknown) (unknown) Stop: 09/30/21 (units (unknown) date) 20:28 unknown) (unknown) (no (unknown) (unknown) Stop: 09/30/21 (units (unknown) date) 21:11 unknown) (unknown) (no (unknown) (unknown) Stop: 09/30/21 (units (unknown) date) 22:09 unknown) (unknown) (no (unknown) (unknown) Stop: 09/30/21 (units (unknown) date) 23:32 unknown) (unknown) (no (unknown) (unknown) Vital Signs - 8 (units (unknown) date) hr unknown) (unknown) (no (unknown) (unknown) [x ] New (units (unkno wn) date) medication unknown) prescriptions sent to your pharmacy: [ ] (unknown) (no (unknown) (unknown) (no value) (units (unk nown) date) unknown) (unknown) (no (unknown) (unknown) 09/30/21 09/30/21 (units (unknown) date) Range/Units unknown) (unknown) (no (unknown) (unknown) 20:50 20:50 (units (un known) date) unknown) (unknown) (no (unknown) (unknown) 09/30/21 (units (unkno wn) date) unknown) (unknown) (no (unknown) (unknown) Abdominal pain, (units (unknown) date) Acute mesenteric unknown) adenitis (unknown) (no (unknown) (unknown) Small (units (unkno wn) date) unknown) (unknown) (no (unknown) (unknown) rales, or (units (unkn own) date) rhonchi. unknown) (unknown) (no (unknown) (unknown) * As we discussed (units (unknown) date) your history and unknown) physical exam as well as labs and imaging are (unknown) (no (unknown) (unknown) *If you do not (units (unknown) date) have a primary unknown) care provider please contact the [facility] (unknown) (no (unknown) (unknown) *Please consider (units (unknown) date) a clear liquid unknown) diet for the next 24-48 hours and then slowly (unknown) (no (unknown) (unknown) *Please follow up (units (unknown) date) with your primary unknown) care provider in 2-3 days, call for an (unknown) (no (unknown) (unknown) *Return to (units (unk nown) date) Emergency unknown) Department if you should have any new, worsening or (unknown) (no (unknown) (unknown) *What to do: (units (u nknown) date) unknown) (unknown) (no (unknown) (unknown) *You have been (units (unknown) date) diagnosed with unknown) [abdominal pain likely due to mesenteric (unknown) (no (unknown) (unknown) - (units (unkno wn) date) unknown) (unknown) (no (unknown) (unknown) [id number] (units (unkn own) date) unknown) (unknown) (no (unknown) (unknown) 00:00 (units (unkno wn) date) unknown) (unknown) (no (unknown) (unknown) 09/30/21 (units (unkno wn) date) unknown) (unknown) (no (unknown) (unknown) 09/30/21 20:50 (units (unknown) date) unknown) (unknown) (no (unknown) (unknown) 09/30/21 21:32 (units (unknown) date) unknown) (unknown) (no (unknown) (unknown) 09/30/21 23:31 (units (unknown) date) unknown) (unknown) (no (unknown) (unknown) 10/01/21 00:00 (units (unknown) date) unknown) (unknown) (no (unknown) (unknown) 1. Normal (units (unkn own) date) appendix.? unknown) Questionable ascending colon wall thickening, low-grade (unknown) (no (unknown) (unknown) 12 point review (units (unknown) date) of systems is unknown) negative except for those stated above (unknown) (no (unknown) (unknown) 2. Mildly (units (unkn own) date) prominent unknown) mesenteric lymph nodes particularly in right lower quadrant (unknown) (no (unknown) (unknown) 20:15 09/30/21 (units (unknown) date) unknown) (unknown) (no (unknown) (unknown) 20:57 09/30/21 (units (unknown) date) unknown) (unknown) (no (unknown) (unknown) 20:58 (units (unkno wn) date) unknown) (unknown) (no (unknown) (unknown) 20:58 09/30/21 (units (unknown) date) unknown) (unknown) (no (unknown) (unknown) 21:00 09/30/21 (units (unknown) date) unknown) (unknown) (no (unknown) (unknown) 21:30 (units (unkno wn) date) unknown) (unknown) (no (unknown) (unknown) 22:00 09/30/21 (units (unknown) date) unknown) (unknown) (no (unknown) (unknown) 22:30 09/30/21 (units (unknown) date) unknown) (unknown) (no (unknown) (unknown) 21-year-old (units (un known) date) female nonsmoker unknown) with history of acid reflux and esophageal ulcers (unknown) (no (unknown) (unknown) 23:00 (units (unkno wn) date) unknown) (unknown) (no (unknown) (unknown) 23:30 10/01/21 (units (unknown) date) unknown) (unknown) (no (unknown) (unknown) 3.? (units (unkno wn) date) Hepatosplenomegaly unknown) .? Moderate to severe hepatic steatosis, no discrete (unknown) (no (unknown) (unknown) 7 mm in (units (unkno wn) date) unknown) (unknown) (no (unknown) (unknown) ? (units (unkno wn) date) unknown) (unknown) (no (unknown) (unknown) ABDOMEN: (units (unkno wn) date) unknown) (unknown) (no (unknown) (unknown) ALT 44 H (<35) (units (unknown) date) IU/L unknown) (unknown) (no (unknown) (unknown) AST 77 H (14-36) (units (unknown) date) IU/L unknown) (unknown) (no (unknown) (unknown) Abdomen (units (unkno wn) date) Ultrasound unknown) (Signed) (unknown) (no (unknown) (unknown) Abdomen/Pelvis CT (units (unknown) date) (Signed) unknown) (unknown) (no (unknown) (unknown) Abdominal Nodes:? (units (unknown) date) No retroperitoneal unknown) or mesenteric adenopathy by size criteria.? (unknown) (no (unknown) (unknown) Accession Number: (units (unknown) date) [id number] ?? unknown) (unknown) (no (unknown) (unknown) Acct:[id number] (units (unknown) date) unknown) (unknown) (no (unknown) (unknown) Activity (units (unkno wn) date) Restrictions/Addit unknown) ional Instructions: (unknown) (no (unknown) (unknown) Adrenal Glands:? (units (unknown) date) Unremarkable.? ? unknown) (unknown) (no (unknown) (unknown) After the (units (unkn own) date) administration of unknown) intravenous contrast, axial sections acquired from (unknown) (no (unknown) (unknown) Age/Sex: 21 / F (units (unknown) date) unknown) (unknown) (no (unknown) (unknown) Age/Sex: 21 / F (units (unknown) date) unknown) (unknown) (no (unknown) (unknown) Albumin 4.6 (units (un known) date) (3.5-5.0) g/dL unknown) (unknown) (no (unknown) (unknown) Albumin/Globulin (units (unknown) date) Ratio 1.4 unknown) (1.0-2.8) (unknown) (no (unknown) (unknown) Alkaline (units (unkno wn) date) Phosphatase 104 unknown) (38-126) U/L (unknown) (no (unknown) (unknown) Allergy/AdvReac (units (unknown) date) Type Severity unknown) Reaction Status Date / Time (unknown) (no (unknown) (unknown) Approved by: Juve Burtonunits (unknown) date) Lea Lagos on unknown) 10/01/2021 at 0:13 ? (unknown) (no (unknown) (unknown) BACK: Nontender (units (unknown) date) without deformity unknown) or crepitance. No flank tenderness. (unknown) (no (unknown) (unknown) BUN 10 (7-17) (units ( unknown) date) mg/dL unknown) (unknown) (no (unknown) (unknown) BUN/Creatinine (units (unknown) date) Ratio 16.9 (6-22) unknown) (unknown) (no (unknown) (unknown) Baso # (Auto) 100 (units (unknown) date) (0-100) /uL unknown) (unknown) (no (unknown) (unknown) Baso % (Auto) 0.6 (units (unknown) date) (0-2) % unknown) (unknown) (no (unknown) (unknown) Biliary ducts:? (units (unknown) date) Unremarkable.? ? unknown) (unknown) (no (unknown) (unknown) Bladder:? (units (unkn own) date) Unremarkable.? ? unknown) (unknown) (no (unknown) (unknown) Blood Pressure (units (unknown) date) unknown) (unknown) (no (unknown) (unknown) Blood Pressure (units (unknown) date) unknown) (unknown) (no (unknown) (unknown) Blood Pressure (units (unknown) date) 143/87 H 09/30/21 unknown) 20:15 (unknown) (no (unknown) (unknown) Blood Pressure (units (unknown) date) 129/81 unknown) (unknown) (no (unknown) (unknown) Blood Pressure (units (unknown) date) 143/87 H unknown) (unknown) (no (unknown) (unknown) Bones:? There is (units (unknown) date) no suspicious bony unknown) lesion.? No acute vertebral body compression (unknown) (no (unknown) (unknown) CARDIOVASCULAR: (units (unknown) date) Denies chest pain, unknown) palpitations, orthopnea, edema, (unknown) (no (unknown) (unknown) CARDIOVASCULAR: (units (unknown) date) Regular rate and unknown) rhythm without murmurs, gallops, or rubs. (unknown) (no (unknown) (unknown) COMPARISON:? (units (u nknown) date) [facility], unknown) US, US ABDOMEN LIMITED, 09/30/2021, 22:21. (unknown) (no (unknown) (unknown) COVID19 -Nasal (units (unknown) date) RAPID/Pre-Proc unknown) Stat (unknown) (no (unknown) (unknown) CT abdomen pelvis (units (unknown) date) w con Stat unknown) (unknown) (no (unknown) (unknown) CT scan - (units (unkn own) date) abdomen/pelvis: unknown) (unknown) (no (unknown) (unknown) Calcium 8.9 (units (un known) date) (8.4-10.2) mg/dL unknown) (unknown) (no (unknown) (unknown) Carbon Dioxide 24 (units (unknown) date) (22-32) mmol/L unknown) (unknown) (no (unknown) (unknown) Chief complaint: (units (unknown) date) Nausea/Vomiting/Di unknown) arrhea (unknown) (no (unknown) (unknown) Chloride 105 (units (u nknown) date) (98-107) mmol/L unknown) (unknown) (no (unknown) (unknown) Clinical (units (unkno wn) date) Impression: unknown) (unknown) (no (unknown) (unknown) Complete Blood (units (unknown) date) Count AUTO DIFF unknown) Stat (unknown) (no (unknown) (unknown) Comprehensive (units ( unknown) date) Metabolic Panel unknown) Stat (unknown) (no (unknown) (unknown) Course (units (unkno wn) date) unknown) (unknown) (no (unknown) (unknown) Creatinine 0.59 (units (unknown) date) (0.52-1.04) mg/dL unknown) (unknown) (no (unknown) (unknown) : 2000 (units (unknown) date) Acct:[id number] unknown) (unknown) (no (unknown) (unknown) : 2000 (units (unknown) date) unknown) (unknown) (no (unknown) (unknown) Date of Service: (units (unknown) date) 09/30/21 unknown) (unknown) (no (unknown) (unknown) Departure (units (unkn own) date) unknown) (unknown) (no (unknown) (unknown) Dictated by: Juve Burtonunits (unknown) date) Lea Lagos on unknown) 10/01/2021 at 0:07 ? ? (unknown) (no (unknown) (unknown) Discharge Plan (units (unknown) date) unknown) (unknown) (no (unknown) (unknown) Discontinued (units (u nknown) date) Medications unknown) (unknown) (no (unknown) (unknown) ENT: Nose without (units (unknown) date) bleeding, purulent unknown) drainage. Throat without erythema, (unknown) (no (unknown) (unknown) ER Physician: (units ( unknown) date) Otto Rosa D.O. unknown) (unknown) (no (unknown) (unknown) EXTREMITIES: No (units (unknown) date) edema or joint unknown) tenderness. (unknown) (no (unknown) (unknown) EYES: Pupils (units (u nknown) date) equal round and unknown) reactive. Extraocular motions intact. No scleral (unknown) (no (unknown) (unknown) Eos # (Auto) 200 (units (unknown) date) (0-450) /uL unknown) (unknown) (no (unknown) (unknown) Eos % (Auto) 2.0 (units (unknown) date) (2-4) % unknown) (unknown) (no (unknown) (unknown) Estimated GFR > (units (unknown) date) 60 (>60) mL/min unknown) (unknown) (no (unknown) (unknown) Exam (units (unkno wn) date) unknown) (unknown) (no (unknown) (unknown) Exam Narrative: (units (unknown) date) unknown) (unknown) (no (unknown) (unknown) FINDINGS:? (units (unk nown) date) unknown) (unknown) (no (unknown) (unknown) Findings and (units (u nknown) date) discharge unknown) diagnosis discussed with patient/family followed by (unknown) (no (unknown) (unknown) For (units (unkno wn) date) unknown) (unknown) (no (unknown) (unknown) GASTROINTESTINAL: (units (unknown) date) See HPI unknown) (unknown) (no (unknown) (unknown) GASTROINTESTINAL: (units (unknown) date) Abdomen soft, unknown) tender in the epigastrium, nondistended. (unknown) (no (unknown) (unknown) GENERAL: Denies (units (unknown) date) chills, fatigue, unknown) malaise, fever, sweats. (unknown) (no (unknown) (unknown) GENERAL: [21] (units ( unknown) date) year old patient unknown) appears stated age. Well-developed patient, in (unknown) (no (unknown) (unknown) : Denies (units (unk nown) date) dysuria, unknown) frequency, incontinence, hematuria, urinary retention. (unknown) (no (unknown) (unknown) Gallbladder:? (units ( unknown) date) Unremarkable.? unknown) (unknown) (no (unknown) (unknown) General (units (unkno wn) date) unknown) (unknown) (no (unknown) (unknown) GenericComposite[ (units (unknown) date) Plt Count 359 unknown) (150-400) X10^3/uL ] (unknown) (no (unknown) (unknown) GenericComposite[ (units (unknown) date) RBC 4.49 (4.0-5.2) unknown) X10^6/uL ] (unknown) (no (unknown) (unknown) GenericComposite[ (units (unknown) date) WBC 12.0 H unknown) (4.5-11.0) X10^3/uL ] (unknown) (no (unknown) (unknown) Globulin 3.2 (units (u nknown) date) (1.7-4.1) g/dL unknown) (unknown) (no (unknown) (unknown) Glucose 100 (units (un known) date) (70-100) mg/dL unknown) (unknown) (no (unknown) (unknown) HEAD: Atraumatic. (units (unknown) date) Normocephalic. unknown) (unknown) (no (unknown) (unknown) HEENT: Denies (units ( unknown) date) sinus pain, ear unknown) pain, sore throat, difficulty swallowing, (unknown) (no (unknown) (unknown) HPI - (units (unkno wn) date) Nausea/Vomiting/Di unknown) arrhea (unknown) (no (unknown) (unknown) HPI Narrative: (units (unknown) date) unknown) (unknown) (no (unknown) (unknown) Hct 38.9 (36-46) (units (unknown) date) % unknown) (unknown) (no (unknown) (unknown) Heart:? No (units (unk nown) date) significant unknown) findings. (unknown) (no (unknown) (unknown) Hgb 12.7 (units (unkno wn) date) (12.0-16.0) g/dL unknown) (unknown) (no (unknown) (unknown) History of (units (unk nown) date) Present Illness unknown) (unknown) (no (unknown) (unknown) History, physical (units (unknown) date) exam, labs, unknown) imaging, and response to therapies have been (unknown) (no (unknown) (unknown) Hydromorphone HCl (units (unknown) date) (Hydromorphone 0.5 unknown) Mg Inj) 0.5 mg IV NOW ONE (unknown) (no (unknown) (unknown) IMPRESSION:? (units (u nknown) date) unknown) (unknown) (no (unknown) (unknown) INDICATIONS:? (units ( unknown) date) severe abdominal unknown) pain (unknown) (no (unknown) (unknown) Image quality:? (units (unknown) date) Excellent.? unknown) (unknown) (no (unknown) (unknown) Imaging Data (units (u nknown) date) unknown) (unknown) (no (unknown) (unknown) Initial Vital (units ( unknown) date) Signs unknown) (unknown) (no (unknown) (unknown) Initial Vital (units ( unknown) date) Signs: unknown) (unknown) (no (unknown) (unknown) Instructions: DI (units (unknown) date) for Abdominal unknown) Pain-Adult (unknown) (no (unknown) (unknown) Kidneys and (units (un known) date) Ureters:? No renal unknown) stones or hydronephrosis.? Small bilateral renal (unknown) (no (unknown) (unknown) Lab Data (units (unkno wn) date) unknown) (unknown) (no (unknown) (unknown) Labs: (units (unkno wn) date) unknown) (unknown) (no (unknown) (unknown) Lipase 93 (units (unkn own) date) (23-300) U/L unknown) (unknown) (no (unknown) (unknown) Lipase Stat (units (un known) date) unknown) (unknown) (no (unknown) (unknown) [place],Juve (units (unkno wn) date) unknown) (unknown) (no (unknown) (unknown) Liver:? (units (unkno wn) date) Hepatomegaly and unknown) severe hepatic steatosis is seen, no discrete hepatic (unknown) (no (unknown) (unknown) Loc: ED (units (unkno wn) date) unknown) (unknown) (no (unknown) (unknown) Lung bases:? (units (u nknown) date) Unremarkable. unknown) (unknown) (no (unknown) (unknown) Lymph # (Auto) (units (unknown) date) 2700 ([id number]) unknown) /uL (unknown) (no (unknown) (unknown) Lymph % (Auto) (units (unknown) date) 22.3 L (25-40) % unknown) (unknown) (no (unknown) (unknown) MCH 28.3 (26-34) (units (unknown) date) PG unknown) (unknown) (no (unknown) (unknown) MCHC 32.7 (30-36) (units (unknown) date) % unknown) (unknown) (no (unknown) (unknown) MCV 86.7 (80-100) (units (unknown) date) fL unknown) (unknown) (no (unknown) (unknown) MDM - (units (unkno wn) date) Nausea/Vomiting/Di unknown) arrhea (unknown) (no (unknown) (unknown) MDM Narrative (units ( unknown) date) unknown) (unknown) (no (unknown) (unknown) MR#: [id number] (units (unknown) date) unknown) (unknown) (no (unknown) (unknown) MUSCULOSKELETAL: (units (unknown) date) denies weakness, unknown) joint pain, or bony pain (unknown) (no (unknown) (unknown) Medical decision (units (unknown) date) making narrative: unknown) (unknown) (no (unknown) (unknown) Miscellaneous: No (units (unknown) date) hernias are seen. unknown) ? ? (unknown) (no (unknown) (unknown) Mode of arrival: (units (unknown) date) Ambulatory unknown) (unknown) (no (unknown) (unknown) Mills # (Auto) 600 (units (unknown) date) (0-900) /uL unknown) (unknown) (no (unknown) (unknown) Mills % (Auto) 4.9 (units (unknown) date) (3-14) % unknown) (unknown) (no (unknown) (unknown) Multiple (units (unkno wn) date) etiologies for unknown) patient's symptoms considered include, but not limited (unknown) (no (unknown) (unknown) NECK: Trachea (units ( unknown) date) midline. Non unknown) tender (unknown) (no (unknown) (unknown) NEURO: AOx3. (units (u nknown) date) unknown) (unknown) (no (unknown) (unknown) NEUROLOGIC: (units (un known) date) Denies weakness, unknown) headache, numbness, change in speech, confusion, (unknown) (no (unknown) (unknown) Narrative (units (unkn own) date) unknown) (unknown) (no (unknown) (unknown) Narrative: (units (unk nown) date) unknown) (unknown) (no (unknown) (unknown) Neut # (Auto) (units ( unknown) date) 8400 H ([id number]) unknown) /uL (unknown) (no (unknown) (unknown) Neut % (Auto) (units ( unknown) date) 70.2 (50-75) % unknown) (unknown) (no (unknown) (unknown) No free (units (unkno wn) date) unknown) (unknown) (no (unknown) (unknown) Ondansetron HCl (units (unknown) date) (Ondansetron 4 unknown) Mg/2 Ml Inj) 4 mg IV NOW ONE (unknown) (no (unknown) (unknown) Ordered: (units (unkno wn) date) unknown) (unknown) (no (unknown) (unknown) Ordering (units (unkno wn) date) Provider: unknown) Otto Rosa D.O. (unknown) (no (unknown) (unknown) Orders (units (unkno wn) date) unknown) (unknown) (no (unknown) (unknown) Oxygen Delivery (units (unknown) date) Method unknown) (unknown) (no (unknown) (unknown) Oxygen Delivery (units (unknown) date) Method unknown) (unknown) (no (unknown) (unknown) Oxygen Delivery (units (unknown) date) Method 09/30/21 unknown) 20:15 (unknown) (no (unknown) (unknown) Oxygen Delivery (units (unknown) date) Method Room Air unknown) (unknown) (no (unknown) (unknown) PELVIS: (units (unkno wn) date) unknown) (unknown) (no (unknown) (unknown) PROCEDURE:? CT (units (unknown) date) ABDOMEN PELVIS W unknown) CON (unknown) (no (unknown) (unknown) PSYCHIATRIC: No (units (unknown) date) concerning unknown) psychosocial issues. (unknown) (no (unknown) (unknown) Pain has been (units ( unknown) date) well controlled unknown) and patient is tolerating oral hydration. (unknown) (no (unknown) (unknown) Pancreas:? (units (unk nown) date) Unremarkable.? ? unknown) (unknown) (no (unknown) (unknown) Pantoprazole (units (u nknown) date) Sodium unknown) (Pantoprazole 40 Mg Vial) 40 mg IV NOW ONE (unknown) (no (unknown) (unknown) Patient (units (unkno wn) date) Disposition: Home unknown) (unknown) (no (unknown) (unknown) Patient History (units (unknown) date) unknown) (unknown) (no (unknown) (unknown) Patient's (units (unkn own) date) symptoms improved unknown) over duration of stay with above-stated therapies. (unknown) (no (unknown) (unknown) Patient: (units (unkno wn) date) Emily Johnson unknown) MR#: M (unknown) (no (unknown) (unknown) Patient: (units (unkno wn) date) Emily Johnson unknown) (unknown) (no (unknown) (unknown) Pelvic Nodes: No (units (unknown) date) enlarged lymph unknown) nodes.? (unknown) (no (unknown) (unknown) Pelvic Organs:? (units (unknown) date) Unremarkable.? ? unknown) (unknown) (no (unknown) (unknown) Penicillins (units (un known) date) Allergy Verified unknown) 09/30/21 20:17 (unknown) (no (unknown) (unknown) Peritoneum:? No (units (unknown) date) abnormal unknown) intraperitoneal fluid.? No free air.? (unknown) (no (unknown) (unknown) Potassium 4.2 (units ( unknown) date) (3.4-5.1) mmol/L unknown) (unknown) (no (unknown) (unknown) Procedure: CT (units ( unknown) date) abdomen pelvis w unknown) con (unknown) (no (unknown) (unknown) Pulse Oximetry 98 (units (unknown) date) 09/30/21 20:15 unknown) (unknown) (no (unknown) (unknown) Pulse Oximetry 98 (units (unknown) date) 97 unknown) (unknown) (no (unknown) (unknown) Pulse Oximetry 97 (units (unknown) date) 93 unknown) (unknown) (no (unknown) (unknown) Pulse Oximetry 97 (units (unknown) date) 96 95 unknown) (unknown) (no (unknown) (unknown) Pulse Oximetry 98 (units (unknown) date) 99 99 unknown) (unknown) (no (unknown) (unknown) Pulse Rate 100 H (units (unknown) date) 91 H unknown) (unknown) (no (unknown) (unknown) Pulse Rate 98 H (units (unknown) date) 09/30/21 20:15 unknown) (unknown) (no (unknown) (unknown) Pulse Rate 81 78 (units (unknown) date) unknown) (unknown) (no (unknown) (unknown) Pulse Rate 89 89 (units (unknown) date) 92 H unknown) (unknown) (no (unknown) (unknown) Pulse Rate 98 H (units (unknown) date) 99 H 102 H unknown) (unknown) (no (unknown) (unknown) RDW 13.8 (units (unkno wn) date) (11.6-14.8) % unknown) (unknown) (no (unknown) (unknown) RESPIRATORY: Clear (units (unknown) date) to auscultation. unknown) Breath sounds equal bilaterally. No wheezes, (unknown) (no (unknown) (unknown) RESPIRATORY: (units (u nknown) date) Denies dyspnea, unknown) cough, wheezing, hemoptysis, sputum. (unknown) (no (unknown) (unknown) Related Data (units (u nknown) date) unknown) (unknown) (no (unknown) (unknown) Resource line at (units (unknown) date) [phone]. They unknown) will ask some questions about your medical (unknown) (no (unknown) (unknown) Respiratory Rate (units (unknown) date) unknown) (unknown) (no (unknown) (unknown) Respiratory Rate (units (unknown) date) unknown) (unknown) (no (unknown) (unknown) Respiratory Rate (units (unknown) date) 09/30/21 20:15 unknown) (unknown) (no (unknown) (unknown) Respiratory Rate (units (unknown) date) 22 unknown) (unknown) (no (unknown) (unknown) Result diagrams: (units (unknown) date) unknown) (unknown) (no (unknown) (unknown) Return (units (unkno wn) date) precautions unknown) discussed with patient/family whom verbalize understanding. (unknown) (no (unknown) (unknown) Review of Systems (units (unknown) date) unknown) (unknown) (no (unknown) (unknown) SKIN: Denies (units (u nknown) date) rash, skin unknown) lesions, or other (unknown) (no (unknown) (unknown) SKIN: No rash or (units (unknown) date) erythema of unknown) visible areas (unknown) (no (unknown) (unknown) She has had poor (units (unknown) date) appetite and unknown) multiple episodes of vomiting and feels weak, (unknown) (no (unknown) (unknown) Signed By: (units (unk nown) date) unknown) (unknown) (no (unknown) (unknown) Sodium 137 (units (unk nown) date) (137-145) mmol/L unknown) (unknown) (no (unknown) (unknown) Sodium Chloride (units (unknown) date) (Normal Saline unknown) 0.9%) 1,000 mls @ 1,000 mls/hr IV BOLUS ONE (unknown) (no (unknown) (unknown) Source: patient (units (unknown) date) unknown) (unknown) (no (unknown) (unknown) Spleen:? There is (units (unknown) date) mild splenomegaly, unknown) no discrete splenic lesion..? ? (unknown) (no (unknown) (unknown) Stated complaint: (units (unknown) date) acid reflux, unknown) vomiting four days (unknown) (no (unknown) (unknown) Stomach and (units (un known) date) Bowel:? There is unknown) no bowel obstruction.? No stomach or small bowel (unknown) (no (unknown) (unknown) TECHNIQUE:? (units (un known) date) unknown) (unknown) (no (unknown) (unknown) Temperature (units (un known) date) unknown) (unknown) (no (unknown) (unknown) Temperature (units (un known) date) unknown) (unknown) (no (unknown) (unknown) Temperature 97.9 (units (unknown) date) F 09/30/21 20:15 unknown) (unknown) (no (unknown) (unknown) Temperature 97.9 (units (unknown) date) F unknown) (unknown) (no (unknown) (unknown) Time Seen by (units (u nknown) date) Provider: 09/30/21 unknown) 20:18 (unknown) (no (unknown) (unknown) Total Bilirubin (units (unknown) date) 0.4 (0.2-1.3) unknown) mg/dL (unknown) (no (unknown) (unknown) Total Protein 7.8 (units (unknown) date) (6.3-8.2) g/dL unknown) (unknown) (no (unknown) (unknown) US - abdomen: (units ( unknown) date) unknown) (unknown) (no (unknown) (unknown) US abdomen (units (unk nown) date) limited Stat unknown) (unknown) (no (unknown) (unknown) Ventral Wall: ? (units (unknown) date) Small umbilical unknown) hernia is seen containing fat only. (unknown) (no (unknown) (unknown) Vessels:? Aorta (units (unknown) date) and inferior vena unknown) cava are normal in size.? (unknown) (no (unknown) (unknown) Vital Signs (units (un known) date) unknown) (unknown) (no (unknown) (unknown) Vital signs: (units (u nknown) date) unknown) (unknown) (no (unknown) (unknown) [Embedded Image (units (unknown) date) Not Available] unknown) (unknown) (no (unknown) (unknown) abdomen (units (unkno wn) date) unknown) (unknown) (no (unknown) (unknown) abscess (units (unkno wn) date) unknown) (unknown) (no (unknown) (unknown) adenitis.] (units (unk nown) date) unknown) (unknown) (no (unknown) (unknown) adjustment (units (unk nown) date) unknown) (unknown) (no (unknown) (unknown) advance to regular (units (unknown) date) as tolerated. unknown) Also, try to avoid alcohol, nicotine, caffeine, (unknown) (no (unknown) (unknown) appointment. Let (units (unknown) date) them know you were unknown) seen in the Emergency Department and that we (unknown) (no (unknown) (unknown) ascending (units (unkn own) date) unknown) (unknown) (no (unknown) (unknown) ask that you be (units (unknown) date) seen in follow up. unknown) We will electronically transmit a record of (unknown) (no (unknown) (unknown) bases to the (units (u nknown) date) pubic symphysis.? unknown) Coronal and sagittal reformats were performed.? (unknown) (no (unknown) (unknown) cannot be (units (unkn own) date) excluded. unknown) (unknown) (no (unknown) (unknown) colitis (units (unkno wn) date) unknown) (unknown) (no (unknown) (unknown) collection. (units (un known) date) unknown) (unknown) (no (unknown) (unknown) colon wall (units (unk nown) date) thickening is unknown) seen.? No significant mesenteric fat stranding.? No (unknown) (no (unknown) (unknown) concerning (units (unk nown) date) symptoms, such as unknown) [fever greater than 101 F, shaking chills, (unknown) (no (unknown) (unknown) constipation (units (u nknown) date) denies dysuria, unknown) frequency or urgency. (unknown) (no (unknown) (unknown) cortical (units (unkno wn) date) unknown) (unknown) (no (unknown) (unknown) cysts are seen (units (unknown) date) measures up to 1 unknown) cm in size in midpole of left kidney. (unknown) (no (unknown) (unknown) dizziness. (units (unk nown) date) unknown) (unknown) (no (unknown) (unknown) dizzy and (units (unkn own) date) lightheaded. She unknown) states she is felt this way in the past when her (unknown) (no (unknown) (unknown) evidence of (units (un known) date) gallbladder unknown) disease, pancreatitis, bowel obstruction, etc. (unknown) (no (unknown) (unknown) fluid or free (units ( unknown) date) air. unknown) (unknown) (no (unknown) (unknown) fracture.? (units (unk nown) date) Degenerative disc unknown) disease at L5-S1 level is seen. (unknown) (no (unknown) (unknown) hepatic (units (unkno wn) date) unknown) (unknown) (no (unknown) (unknown) history and help (units (unknown) date) get you set up unknown) with a doctor in the community. (unknown) (no (unknown) (unknown) icterus. No (units (un known) date) injection or unknown) drainage. (unknown) (no (unknown) (unknown) kidney stone (units (u nknown) date) versus unknown) diverticulitis versus other (unknown) (no (unknown) (unknown) lesion. (units (unkno wn) date) unknown) (unknown) (no (unknown) (unknown) lesion.. ? (units (unk nown) date) unknown) (unknown) (no (unknown) (unknown) lymph nodes are (units (unknown) date) seen scattered in unknown) right lower quadrant mesentery measures up to (unknown) (no (unknown) (unknown) mild distress. (units (unknown) date) unknown) (unknown) (no (unknown) (unknown) of mA and/or kV (units (unknown) date) according to unknown) patient size.? (unknown) (no (unknown) (unknown) prescribed and (units (unknown) date) denies any dietary unknown) indiscretions. She is had no diarrhea or (unknown) (no (unknown) (unknown) presents with a (units (unknown) date) chief complaint of unknown) epigastric pain and nausea and vomiting for (unknown) (no (unknown) (unknown) radiation dose (units (unknown) date) reduction, the unknown) following was used:? automated exposure control, (unknown) (no (unknown) (unknown) reassuring. (units (un known) date) unknown) (unknown) (no (unknown) (unknown) reflux is acting (units (unknown) date) up. She states she unknown) is been taking her medications as (unknown) (no (unknown) (unknown) require a (units (unkn own) date) specific or unknown) immediate intervention. Specifically, there is no (unknown) (no (unknown) (unknown) seizures, (units (unkn own) date) incoordination. unknown) (unknown) (no (unknown) (unknown) size. (units (unkno wn) date) unknown) (unknown) (no (unknown) (unknown) spicy, acidic or (units (unknown) date) fatty foods as unknown) this may worsen your symptoms (unknown) (no (unknown) (unknown) the lung (units (unkno wn) date) unknown) (unknown) (no (unknown) (unknown) the past few days. (units (unknown) date) She states her unknown) pain is across her upper abdomen and radiates (unknown) (no (unknown) (unknown) thickening.? (units (u nknown) date) Appendix is unknown) visualized and is normal in size and appearance.? Mild (unknown) (no (unknown) (unknown) to her back. She (units (unknown) date) states it seems to unknown) be worse when she moves as well as eats. (unknown) (no (unknown) (unknown) to: [Pancreatitis (units (unknown) date) versus gallbladder unknown) disease versus Bowel obstruction versus (unknown) (no (unknown) (unknown) tobacco type: (units ( unknown) date) vaping unknown) (unknown) (no (unknown) (unknown) today's note if (units (unknown) date) your PCP is in our unknown) system (unknown) (no (unknown) (unknown) tonsillar (units (unkn own) date) hypertrophy or unknown) exudate. Airway patent. (unknown) (no (unknown) (unknown) verbalization of (units (unknown) date) understanding unknown) (unknown) (no (unknown) (unknown) very reassuring. (units (unknown) date) There is no unknown) evidence of any severe diagnoses that would (unknown) (no (unknown) (unknown) wall (units (unkno wn) date) unknown) (unknown) (no (unknown) (unknown) which can be seen (units (unknown) date) associated with unknown) mesenteric adenitis.? No abscess collection.? (unknown) (no (unknown) (unknown) worsening pain, (units (unknown) date) persistent unknown) vomiting or other bothersome symptoms] Result panel 9 (unknown) (no date) (unknown) (unknown) 0 /uL (unkn own) (unknown) (no date) (unknown) (unknown) 0.5 % (unkn own) (unknown) (no date) (unknown) (unknown) 1.8 % (unkn own) (unknown) (no date) (unknown) (unknown) 100 /uL (unkn own) (unknown) (no date) (unknown) (unknown) 12.4 g/dL (unkn own) (unknown) (no date) (unknown) (unknown) 13.3 % (unkn own) (unknown) (no date) (unknown) (unknown) 1900 /uL (unkn own) (unknown) (no date) (unknown) (unknown) 22.5 % (unkn own) (unknown) (no date) (unknown) (unknown) 29.2 PG (unkn own) (unknown) (no date) (unknown) (unknown) 304 X10 3/uL (unkn own) (unknown) (no date) (unknown) (unknown) 33.7 % (unkn own) (unknown) (no date) (unknown) (unknown) 36.7 % (unkn own) (unknown) (no date) (unknown) (unknown) 4.24 X10 6/uL (unkn own) (unknown) (no date) (unknown) (unknown) 500 /uL (unkn own) (unknown) (no date) (unknown) (unknown) 5800 /uL (unkn own) (unknown) (no date) (unknown) (unknown) 6.4 % (unkn own) (unknown) (no date) (unknown) (unknown) 68.8 % (unkn own) (unknown) (no date) (unknown) (unknown) 8.4 X10 3/uL (unkn own) (unknown) (no date) (unknown) (unknown) 86.6 fL (unkn own) Result panel 10 (unknown) (no date) (unknown) (unknown) > 60 mL/min (unkn own) (unknown) (no date) (unknown) (unknown) 0.4 mg/dL (unkn own) (unknown) (no date) (unknown) (unknown) 0.66 mg/dL (unkn own) (unknown) (no date) (unknown) (unknown) 1.4 (units (unkn own) unknown) (unknown) (no date) (unknown) (unknown) 1.9 mg/dL (unkn own) (unknown) (no date) (unknown) (unknown) 105 mmol/L (unkn own) (unknown) (no date) (unknown) (unknown) 109 mg/dL (unkn own) (unknown) (no date) (unknown) (unknown) 13 mg/dL (unkn own) (unknown) (no date) (unknown) (unknown) 137 mmol/L (unkn own) (unknown) (no date) (unknown) (unknown) 19.7 (units (unkn own) unknown) (unknown) (no date) (unknown) (unknown) 27 mmol/L (unkn own) (unknown) (no date) (unknown) (unknown) 3.0 g/dL (unkn own) (unknown) (no date) (unknown) (unknown) 34 U/L (unkn own) (unknown) (no date) (unknown) (unknown) 38 IU/L (unkn own) (unknown) (no date) (unknown) (unknown) 4.2 g/dL (unkn own) (unknown) (no date) (unknown) (unknown) 4.2 mmol/L (unkn own) (unknown) (no date) (unknown) (unknown) 66 IU/L (unkn own) (unknown) (no date) (unknown) (unknown) 7.2 g/dL (unkn own) (unknown) (no date) (unknown) (unknown) 8.8 mg/dL (unkn own) (unknown) (no date) (unknown) (unknown) 80 U/L (unkn own) (unknown) (no date) (unknown) (unknown) 87 U/L (unkn own) (unknown) (no date) (unknown) (unknown) Test not % (unkn own) performed (unknown) (no date) (unknown) (unknown) Test not ng/mL (unkn own) performed Result panel 11 (unknown) (no (unknown) (unknown) (no value) (units (unk nown) date) unknown) (unknown) (no (unknown) (unknown) Date of Service: (units (unknown) date) 10/07/21 unknown) (unknown) (no (unknown) (unknown) (no value) (units (unk nown) date) unknown) (unknown) (no (unknown) (unknown) 10/07/21 09:45 (units (unknown) date) unknown) (unknown) (no (unknown) (unknown) 1 tab PO Q4-6H (units (unknown) date) PRN (Reason: unknown) pain) Qty: 10 0RF (unknown) (no (unknown) (unknown) 4 mg PO TID-QID (units (unknown) date) PRN (Reason: unknown) nausea and vomiting) Qty: 10 0RF (unknown) (no (unknown) (unknown) Allergies (units (unkn own) date) unknown) (unknown) (no (unknown) (unknown) ED Orders (units (unkn own) date) unknown) (unknown) (no (unknown) (unknown) Emergency Report (units (unknown) date) unknown) (unknown) (no (unknown) (unknown) [facility] (units (unknown) date) [address] unknown) [place] [address] (unknown) (no (unknown) (unknown) Lab Results (units (un known) date) unknown) (unknown) (no (unknown) (unknown) Previous Rx's (units ( unknown) date) unknown) (unknown) (no (unknown) (unknown) Stop: 10/07/21 (units (unknown) date) 10:03 unknown) (unknown) (no (unknown) (unknown) Vital Signs - 8 (units (unknown) date) hr unknown) (unknown) (no (unknown) (unknown) (no value) (units (unk nown) date) unknown) (unknown) (no (unknown) (unknown) 10/07/21 (units (unkno wn) date) 10/07/21 unknown) Range/Units (unknown) (no (unknown) (unknown) 09:45 09:45 (units (un known) date) unknown) (unknown) (no (unknown) (unknown) hydrocodone-acet (units (unknown) date) aminophen 5-325 unknown) mg tablet (unknown) (no (unknown) (unknown) ondansetron 4 mg (units (unknown) date) tablet,disintegra unknown) ting (unknown) (no (unknown) (unknown) 10/07/21 (units (unkno wn) date) unknown) (unknown) (no (unknown) (unknown) Medication (units (unk nown) date) Instructions unknown) Recorded (unknown) (no (unknown) (unknown) (bismuth)] (units (unk nown) date) unknown) (unknown) (no (unknown) (unknown) [id number] (units (unkn own) date) unknown) (unknown) (no (unknown) (unknown) 10/07/21 09:33 (units (unknown) date) unknown) (unknown) (no (unknown) (unknown) 10/07/21 09:45 (units (unknown) date) unknown) (unknown) (no (unknown) (unknown) 09:33 (units (unkno wn) date) unknown) (unknown) (no (unknown) (unknown) ALT 38 H (<35) (units (unknown) date) IU/L unknown) (unknown) (no (unknown) (unknown) AST 66 H (14-36) (units (unknown) date) IU/L unknown) (unknown) (no (unknown) (unknown) Age/Sex: 21 / F (units (unknown) date) unknown) (unknown) (no (unknown) (unknown) Albumin 4.2 (units (un known) date) (3.5-5.0) g/dL unknown) (unknown) (no (unknown) (unknown) Albumin/Globulin (units (unknown) date) Ratio 1.4 unknown) (1.0-2.8) (unknown) (no (unknown) (unknown) Alkaline (units (unkno wn) date) Phosphatase 87 unknown) (38-126) U/L (unknown) (no (unknown) (unknown) Allergy/AdvReac (units (unknown) date) Type Severity unknown) Reaction Status Date / Time (unknown) (no (unknown) (unknown) BUN 13 (7-17) (units ( unknown) date) mg/dL unknown) (unknown) (no (unknown) (unknown) BUN/Creatinine (units (unknown) date) Ratio 19.7 (6-22) unknown) (unknown) (no (unknown) (unknown) Baso # (Auto) 0 (units (unknown) date) (0-100) /uL unknown) (unknown) (no (unknown) (unknown) Baso % (Auto) (units ( unknown) date) 0.5 (0-2) % unknown) (unknown) (no (unknown) (unknown) CK-MB (CK-2) TNP (units (unknown) date) unknown) (unknown) (no (unknown) (unknown) CK-MB (CK-2) Rel (units (unknown) date) Index TNP unknown) (unknown) (no (unknown) (unknown) Calcium 8.8 (units (un known) date) (8.4-10.2) mg/dL unknown) (unknown) (no (unknown) (unknown) Carbon Dioxide (units (unknown) date) 27 (22-32) mmol/L unknown) (unknown) (no (unknown) (unknown) Chief Complaint: (units (unknown) date) Abdominal Pain unknown) (unknown) (no (unknown) (unknown) Chloride 105 (units (u nknown) date) (98-107) mmol/L unknown) (unknown) (no (unknown) (unknown) Complete Blood (units (unknown) date) Count AUTO DIFF unknown) Stat (unknown) (no (unknown) (unknown) Comprehensive (units ( unknown) date) Metabolic Panel unknown) Stat (unknown) (no (unknown) (unknown) Course (units (unkno wn) date) unknown) (unknown) (no (unknown) (unknown) Creatinine 0.66 (units (unknown) date) (0.52-1.04) mg/dL unknown) (unknown) (no (unknown) (unknown) : 2000 (units (unknown) date) Acct:[id number] unknown) (unknown) (no (unknown) (unknown) Departure (units (unkn own) date) unknown) (unknown) (no (unknown) (unknown) Discharge Plan (units (unknown) date) unknown) (unknown) (no (unknown) (unknown) Discontinued (units (u nknown) date) Medications unknown) (unknown) (no (unknown) (unknown) EKG-12 Lead Stat (units (unknown) date) unknown) (unknown) (no (unknown) (unknown) ER Physician: (units ( unknown) date) Dulce Fernandez unknown) D.O. (unknown) (no (unknown) (unknown) Eos # (Auto) 100 (units (unknown) date) (0-450) /uL unknown) (unknown) (no (unknown) (unknown) Eos % (Auto) 1.8 (units (unknown) date) L (2-4) % unknown) (unknown) (no (unknown) (unknown) Estimated GFR > (units (unknown) date) 60 (>60) mL/min unknown) (unknown) (no (unknown) (unknown) Exam (units (unkno wn) date) unknown) (unknown) (no (unknown) (unknown) General (units (unkno wn) date) unknown) (unknown) (no (unknown) (unknown) GenericComposite (units (unknown) date) [Plt Count 304 unknown) (150-400) X10^3/uL ] (unknown) (no (unknown) (unknown) GenericComposite (units (unknown) date) [RBC 4.24 unknown) (4.0-5.2) X10^6/uL ] (unknown) (no (unknown) (unknown) GenericComposite (units (unknown) date) [WBC 8.4 unknown) (4.5-11.0) X10^3/uL ] (unknown) (no (unknown) (unknown) Globulin 3.0 (units (u nknown) date) (1.7-4.1) g/dL unknown) (unknown) (no (unknown) (unknown) Glucose 109 H (units ( unknown) date) (70-100) mg/dL unknown) (unknown) (no (unknown) (unknown) HPI - Abdominal (units (unknown) date) Pain unknown) (unknown) (no (unknown) (unknown) Hct 36.7 (36-46) (units (unknown) date) % unknown) (unknown) (no (unknown) (unknown) Hgb 12.4 (units (unkno wn) date) (12.0-16.0) g/dL unknown) (unknown) (no (unknown) (unknown) Initial Vital (units ( unknown) date) Signs unknown) (unknown) (no (unknown) (unknown) Initial Vital (units ( unknown) date) Signs: unknown) (unknown) (no (unknown) (unknown) Ketorolac (units (unkn own) date) Tromethamine unknown) (Ketorolac 30 Mg/Ml Vial) 15 mg IV NOW ONE (unknown) (no (unknown) (unknown) Lab Data (units (unkno wn) date) unknown) (unknown) (no (unknown) (unknown) Labs: (units (unkno wn) date) unknown) (unknown) (no (unknown) (unknown) Lipase 80 (units (unkn own) date) (23-300) U/L unknown) (unknown) (no (unknown) (unknown) Lipase Stat (units (un known) date) unknown) (unknown) (no (unknown) (unknown) Lymph # (Auto) (units (unknown) date) 1900 (0320-6714) unknown) /uL (unknown) (no (unknown) (unknown) Lymph % (Auto) (units (unknown) date) 22.5 L (25-40) % unknown) (unknown) (no (unknown) (unknown) MCH 29.2 (26-34) (units (unknown) date) PG unknown) (unknown) (no (unknown) (unknown) MCHC 33.7 (units (unkn own) date) (30-36) % unknown) (unknown) (no (unknown) (unknown) MCV 86.6 (units (unkno wn) date) (80-100) fL unknown) (unknown) (no (unknown) (unknown) MDM - Abdominal (units (unknown) date) Pain unknown) (unknown) (no (unknown) (unknown) Magnesium 1.9 (units ( unknown) date) (1.6-2.3) mg/dL unknown) (unknown) (no (unknown) (unknown) Magnesium Stat (units (unknown) date) unknown) (unknown) (no (unknown) (unknown) Mode of arrival: (units (unknown) date) EMS unknown) (unknown) (no (unknown) (unknown) Mills # (Auto) (units ( unknown) date) 500 (0-900) /uL unknown) (unknown) (no (unknown) (unknown) Mills % (Auto) (units ( unknown) date) 6.4 (3-14) % unknown) (unknown) (no (unknown) (unknown) Neut # (Auto) (units ( unknown) date) 5800 (1328-8777) unknown) /uL (unknown) (no (unknown) (unknown) Neut % (Auto) (units ( unknown) date) 68.8 (50-75) % unknown) (unknown) (no (unknown) (unknown) No Action (units (unkn own) date) unknown) (unknown) (no (unknown) (unknown) Ordered: (units (unkno wn) date) unknown) (unknown) (no (unknown) (unknown) Orders (units (unkno wn) date) unknown) (unknown) (no (unknown) (unknown) Patient History (units (unknown) date) unknown) (unknown) (no (unknown) (unknown) Patient: (units (unkno wn) date) Volavsteven,Emily J unknown) MR#: M (unknown) (no (unknown) (unknown) Penicillins (units (un known) date) Allergy Verified unknown) 09/30/21 20:17 (unknown) (no (unknown) (unknown) Potassium 4.2 (units ( unknown) date) (3.4-5.1) mmol/L unknown) (unknown) (no (unknown) (unknown) Prescriptions: (units (unknown) date) unknown) (unknown) (no (unknown) (unknown) RDW 13.3 (units (unkno wn) date) (11.6-14.8) % unknown) (unknown) (no (unknown) (unknown) Related Data (units (u nknown) date) unknown) (unknown) (no (unknown) (unknown) Result diagrams: (units (unknown) date) unknown) (unknown) (no (unknown) (unknown) Signed By: (units (unk nown) date) unknown) (unknown) (no (unknown) (unknown) Smoking Status: (units (unknown) date) Former smoker unknown) (unknown) (no (unknown) (unknown) Smoking Status: (units (unknown) date) Former smoker unknown) (unknown) (no (unknown) (unknown) Social History (units (unknown) date) (Reviewed unknown) 10/01/21 @ 00:20 by Otto Rosa DO) (unknown) (no (unknown) (unknown) Sodium 137 (units (unk nown) date) (137-145) mmol/L unknown) (unknown) (no (unknown) (unknown) Source: patient (units (unknown) date) and EMS unknown) (unknown) (no (unknown) (unknown) Stated (units (unkno wn) date) Complaint: Abd unknown) pain (unknown) (no (unknown) (unknown) Substance Use (units ( unknown) date) Type: marijuana unknown) (unknown) (no (unknown) (unknown) Temperature 98.0 (units (unknown) date) F 10/07/21 09:33 unknown) (unknown) (no (unknown) (unknown) Temperature 98.0 (units (unknown) date) F unknown) (unknown) (no (unknown) (unknown) Time Seen by (units (u nknown) date) Provider: unknown) 10/07/21 09:34 (unknown) (no (unknown) (unknown) Total Bilirubin (units (unknown) date) 0.4 (0.2-1.3) unknown) mg/dL (unknown) (no (unknown) (unknown) Total Creatine (units (unknown) date) Kinase 34 unknown) (30-135) U/L (unknown) (no (unknown) (unknown) Total Protein (units ( unknown) date) 7.2 (6.3-8.2) unknown) g/dL (unknown) (no (unknown) (unknown) Troponin + CK (units ( unknown) date) Cardiac Panel unknown) Stat (unknown) (no (unknown) (unknown) Vital Signs (units (un known) date) unknown) (unknown) (no (unknown) (unknown) Vital signs: (units (u nknown) date) unknown) (unknown) (no (unknown) (unknown) [Embedded Image (units (unknown) date) Not Available] unknown) (unknown) (no (unknown) (unknown) [From Maalox (units (u nknown) date) Total Relief unknown) (unknown) (no (unknown) (unknown) alcohol intake (units (unknown) date) frequency: unknown) holidays/special occasions only (unknown) (no (unknown) (unknown) amoxicillin (units (un known) date) Allergy Verified unknown) 10/07/21 09:37 (unknown) (no (unknown) (unknown) bismuth (units (unkno wn) date) subsalicylate unknown) Allergy Verified 10/07/21 09:37 (unknown) (no (unknown) (unknown) cinnamon Allergy (units (unknown) date) Verified 10/07/21 unknown) 09:37 (unknown) (no (unknown) (unknown) hydrocodone 5 (units ( unknown) date) mg-acetaminophen unknown) 325 1 tab PO Q4-6H PRN pain #10 tabs 10/01/21 (unknown) (no (unknown) (unknown) mg tablet (units (unkn own) date) unknown) (unknown) (no (unknown) (unknown) ondansetron 4 mg (units (unknown) date) disintegrating 4 unknown) mg PO TID-QID PRN nausea and 10/01/21 (unknown) (no (unknown) (unknown) tablet vomiting (units (unknown) date) #10 tabs unknown) (unknown) (no (unknown) (unknown) tobacco type: (units ( unknown) date) vaping unknown) Result panel 12 (unknown) (no date) (unknown) (unknown) > 60 mL/min (unkn own) (unknown) (no date) (unknown) (unknown) < 0.012 ng/mL (unkn own) (unknown) (no date) (unknown) (unknown) 0.4 mg/dL (unkn own) (unknown) (no date) (unknown) (unknown) 0.66 mg/dL (unkn own) (unknown) (no date) (unknown) (unknown) 1.4 (units (unkn own) unknown) (unknown) (no date) (unknown) (unknown) 1.9 mg/dL (unkn own) (unknown) (no date) (unknown) (unknown) 105 mmol/L (unkn own) (unknown) (no date) (unknown) (unknown) 109 mg/dL (unkn own) (unknown) (no date) (unknown) (unknown) 13 mg/dL (unkn own) (unknown) (no date) (unknown) (unknown) 137 mmol/L (unkn own) (unknown) (no date) (unknown) (unknown) 19.7 (units (unkn own) unknown) (unknown) (no date) (unknown) (unknown) 27 mmol/L (unkn own) (unknown) (no date) (unknown) (unknown) 3.0 g/dL (unkn own) (unknown) (no date) (unknown) (unknown) 34 U/L (unkn own) (unknown) (no date) (unknown) (unknown) 38 IU/L (unkn own) (unknown) (no date) (unknown) (unknown) 4.2 g/dL (unkn own) (unknown) (no date) (unknown) (unknown) 4.2 mmol/L (unkn own) (unknown) (no date) (unknown) (unknown) 66 IU/L (unkn own) (unknown) (no date) (unknown) (unknown) 7.2 g/dL (unkn own) (unknown) (no date) (unknown) (unknown) 8.8 mg/dL (unkn own) (unknown) (no date) (unknown) (unknown) 80 U/L (unkn own) (unknown) (no date) (unknown) (unknown) 87 U/L (unkn own) (unknown) (no date) (unknown) (unknown) Test not % (unkn own) performed (unknown) (no date) (unknown) (unknown) Test not ng/mL (unkn own) performed Result panel 13 (unknown) (no (unknown) (unknown) (no value) (units (unk nown) date) unknown) (unknown) (no (unknown) (unknown) Date of Service: (units (unknown) date) 10/07/21 unknown) (unknown) (no (unknown) (unknown) (no value) (units (unk nown) date) unknown) (unknown) (no (unknown) (unknown) 10/07/21 09:45 (units (unknown) date) unknown) (unknown) (no (unknown) (unknown) 1 tab PO Q4-6H (units (unknown) date) PRN (Reason: pain) unknown) Qty: 10 0RF (unknown) (no (unknown) (unknown) 4 mg PO TID-QID (units (unknown) date) PRN (Reason: unknown) nausea and vomiting) Qty: 10 0RF (unknown) (no (unknown) (unknown) Allergies (units (unkn own) date) unknown) (unknown) (no (unknown) (unknown) ED Orders (units (unkn own) date) unknown) (unknown) (no (unknown) (unknown) Emergency Report (units (unknown) date) unknown) (unknown) (no (unknown) (unknown) [facility] (units (unknown) date) [address] unknown) [place] [address] (unknown) (no (unknown) (unknown) Lab Results (units (un known) date) unknown) (unknown) (no (unknown) (unknown) Previous Rx's (units ( unknown) date) unknown) (unknown) (no (unknown) (unknown) Stop: 10/07/21 (units (unknown) date) 10:03 unknown) (unknown) (no (unknown) (unknown) Vital Signs - 8 (units (unknown) date) hr unknown) (unknown) (no (unknown) (unknown) (no value) (units (unk nown) date) unknown) (unknown) (no (unknown) (unknown) 10/07/21 10/07/21 (units (unknown) date) Range/Units unknown) (unknown) (no (unknown) (unknown) 09:45 09:45 (units (un known) date) unknown) (unknown) (no (unknown) (unknown) hydrocodone-aceta (units (unknown) date) minophen 5-325 mg unknown) tablet (unknown) (no (unknown) (unknown) ondansetron 4 mg (units (unknown) date) tablet,disintegrat unknown) ing (unknown) (no (unknown) (unknown) 10/07/21 (units (unkno wn) date) unknown) (unknown) (no (unknown) (unknown) Medication (units (unk nown) date) Instructions unknown) Recorded (unknown) (no (unknown) (unknown) (bismuth)] (units (unk nown) date) unknown) (unknown) (no (unknown) (unknown) [id number] (units (unkn own) date) unknown) (unknown) (no (unknown) (unknown) 10/07/21 09:33 (units (unknown) date) unknown) (unknown) (no (unknown) (unknown) 10/07/21 09:45 (units (unknown) date) unknown) (unknown) (no (unknown) (unknown) 09:33 (units (unkno wn) date) unknown) (unknown) (no (unknown) (unknown) 12 point review (units (unknown) date) of systems is unknown) negative except for those stated above and HPI (unknown) (no (unknown) (unknown) ABDOMEN: Soft, (units (unknown) date) suprapubic pain no unknown) guarding no rebound no epigastric pain no (unknown) (no (unknown) (unknown) ALT 38 H (<35) (units (unknown) date) IU/L unknown) (unknown) (no (unknown) (unknown) AST 66 H (14-36) (units (unknown) date) IU/L unknown) (unknown) (no (unknown) (unknown) Age/Sex: 21 / F (units (unknown) date) unknown) (unknown) (no (unknown) (unknown) Albumin 4.2 (units (un known) date) (3.5-5.0) g/dL unknown) (unknown) (no (unknown) (unknown) Albumin/Globulin (units (unknown) date) Ratio 1.4 unknown) (1.0-2.8) (unknown) (no (unknown) (unknown) Alkaline (units (unkno wn) date) Phosphatase 87 unknown) (38-126) U/L (unknown) (no (unknown) (unknown) Allergy/AdvReac (units (unknown) date) Type Severity unknown) Reaction Status Date / Time (unknown) (no (unknown) (unknown) BUN 13 (7-17) (units ( unknown) date) mg/dL unknown) (unknown) (no (unknown) (unknown) BUN/Creatinine (units (unknown) date) Ratio 19.7 (6-22) unknown) (unknown) (no (unknown) (unknown) Baso # (Auto) 0 (units (unknown) date) (0-100) /uL unknown) (unknown) (no (unknown) (unknown) Baso % (Auto) 0.5 (units (unknown) date) (0-2) % unknown) (unknown) (no (unknown) (unknown) CARDIOVASCULAR: (units (unknown) date) Denies chest pain, unknown) palpitations, orthopnea, edema (unknown) (no (unknown) (unknown) CARDIOVASCULAR: (units (unknown) date) Regular rate and unknown) rhythm without murmurs, rubs or gallops. (unknown) (no (unknown) (unknown) CK-MB (CK-2) TNP (units (unknown) date) unknown) (unknown) (no (unknown) (unknown) CK-MB (CK-2) Rel (units (unknown) date) Index TNP unknown) (unknown) (no (unknown) (unknown) Calcium 8.8 (units (un known) date) (8.4-10.2) mg/dL unknown) (unknown) (no (unknown) (unknown) Carbon Dioxide 27 (units (unknown) date) (22-32) mmol/L unknown) (unknown) (no (unknown) (unknown) Chief Complaint: (units (unknown) date) Abdominal Pain unknown) (unknown) (no (unknown) (unknown) Chloride 105 (units (u nknown) date) (98-107) mmol/L unknown) (unknown) (no (unknown) (unknown) Complete Blood (units (unknown) date) Count AUTO DIFF unknown) Stat (unknown) (no (unknown) (unknown) Comprehensive (units ( unknown) date) Metabolic Panel unknown) Stat (unknown) (no (unknown) (unknown) Course (units (unkno wn) date) unknown) (unknown) (no (unknown) (unknown) Creatinine 0.66 (units (unknown) date) (0.52-1.04) mg/dL unknown) (unknown) (no (unknown) (unknown) : 2000 (units (unknown) date) Acct:[id number] unknown) (unknown) (no (unknown) (unknown) Departure (units (unkn own) date) unknown) (unknown) (no (unknown) (unknown) Discharge Plan (units (unknown) date) unknown) (unknown) (no (unknown) (unknown) Discontinued (units (u nknown) date) Medications unknown) (unknown) (no (unknown) (unknown) EKG-12 Lead Stat (units (unknown) date) unknown) (unknown) (no (unknown) (unknown) ER Physician: (units ( unknown) date) Dulce Fernandez unknown) D.O. (unknown) (no (unknown) (unknown) EXTREMITIES: (units (u nknown) date) Normal range of unknown) motion, no clubbing or edema. Neurovascularly (unknown) (no (unknown) (unknown) Eos # (Auto) 100 (units (unknown) date) (0-450) /uL unknown) (unknown) (no (unknown) (unknown) Eos % (Auto) 1.8 (units (unknown) date) L (2-4) % unknown) (unknown) (no (unknown) (unknown) Estimated GFR > (units (unknown) date) 60 (>60) mL/min unknown) (unknown) (no (unknown) (unknown) Exam (units (unkno wn) date) unknown) (unknown) (no (unknown) (unknown) GASTROINTESTINAL: (units (unknown) date) See HPI unknown) (unknown) (no (unknown) (unknown) GENERAL: Obese (units (unknown) date) 21-year-old female unknown) and in no acute distress. (unknown) (no (unknown) (unknown) GENERAL: Denies (units (unknown) date) chills, fatigue, unknown) malaise, fever, sweats, travel (unknown) (no (unknown) (unknown) : Denies (units (unkn own) date) dysuria, unknown) frequency, incontinence, hematuria, urinary retention, flank (unknown) (no (unknown) (unknown) : No CVA (units (unk nown) date) tenderness unknown) (unknown) (no (unknown) (unknown) General (units (unkno wn) date) unknown) (unknown) (no (unknown) (unknown) GenericComposite[ (units (unknown) date) Plt Count 304 unknown) (150-400) X10^3/uL ] (unknown) (no (unknown) (unknown) GenericComposite[ (units (unknown) date) RBC 4.24 (4.0-5.2) unknown) X10^6/uL ] (unknown) (no (unknown) (unknown) GenericComposite[ (units (unknown) date) WBC 8.4 (4.5-11.0) unknown) X10^3/uL ] (unknown) (no (unknown) (unknown) Globulin 3.0 (units (u nknown) date) (1.7-4.1) g/dL unknown) (unknown) (no (unknown) (unknown) Glucose 109 H (units ( unknown) date) (70-100) mg/dL unknown) (unknown) (no (unknown) (unknown) HEENT: Denies (units ( unknown) date) sinus pain, ear unknown) pain, sore throat, difficulty swallowing, neck (unknown) (no (unknown) (unknown) HEENT: Head (units (un known) date) atraumatic,EOMI, unknown) pupils reactive, face symmetric, moist mucous (unknown) (no (unknown) (unknown) HPI - Abdominal (units (unknown) date) Pain unknown) (unknown) (no (unknown) (unknown) HPI narrative: (units (unknown) date) unknown) (unknown) (no (unknown) (unknown) Hct 36.7 (36-46) (units (unknown) date) % unknown) (unknown) (no (unknown) (unknown) Hgb 12.4 (units (unkno wn) date) (12.0-16.0) g/dL unknown) (unknown) (no (unknown) (unknown) History of (units (unk nown) date) Present Illness unknown) (unknown) (no (unknown) (unknown) Initial Vital (units ( unknown) date) Signs unknown) (unknown) (no (unknown) (unknown) Initial Vital (units ( unknown) date) Signs: unknown) (unknown) (no (unknown) (unknown) Ketorolac (units (unkn own) date) Tromethamine unknown) (Ketorolac 30 Mg/Ml Vial) 15 mg IV NOW ONE (unknown) (no (unknown) (unknown) Lab Data (units (unkno wn) date) unknown) (unknown) (no (unknown) (unknown) Labs: (units (unkno wn) date) unknown) (unknown) (no (unknown) (unknown) Lipase 80 (units (unkn own) date) (23-300) U/L unknown) (unknown) (no (unknown) (unknown) Lipase Stat (units (un known) date) unknown) (unknown) (no (unknown) (unknown) Lymph # (Auto) (units (unknown) date) 1900 (6930-2352) unknown) /uL (unknown) (no (unknown) (unknown) Lymph % (Auto) (units (unknown) date) 22.5 L (25-40) % unknown) (unknown) (no (unknown) (unknown) MCH 29.2 (26-34) (units (unknown) date) PG unknown) (unknown) (no (unknown) (unknown) MCHC 33.7 (30-36) (units (unknown) date) % unknown) (unknown) (no (unknown) (unknown) MCV 86.6 (80-100) (units (unknown) date) fL unknown) (unknown) (no (unknown) (unknown) MDM - Abdominal (units (unknown) date) Pain unknown) (unknown) (no (unknown) (unknown) MUSCULOSKELETAL: (units (unknown) date) Denies weakness, unknown) joint pain, or bony pain (unknown) (no (unknown) (unknown) Magnesium 1.9 (units ( unknown) date) (1.6-2.3) mg/dL unknown) (unknown) (no (unknown) (unknown) Magnesium Stat (units (unknown) date) unknown) (unknown) (no (unknown) (unknown) Mode of arrival: (units (unknown) date) EMS unknown) (unknown) (no (unknown) (unknown) Mills # (Auto) 500 (units (unknown) date) (0-900) /uL unknown) (unknown) (no (unknown) (unknown) Mills % (Auto) 6.4 (units (unknown) date) (3-14) % unknown) (unknown) (no (unknown) (unknown) NEUROLOGIC: (units (un known) date) Denies weakness, unknown) dizziness, headache, numbness, change in speech, (unknown) (no (unknown) (unknown) NEUROLOGICAL: (units ( unknown) date) Alert and oriented unknown) x4.Normal gait and speech. (unknown) (no (unknown) (unknown) Narrative: (units (unk nown) date) unknown) (unknown) (no (unknown) (unknown) Neut # (Auto) (units ( unknown) date) 5800 (0042-0518) unknown) /uL (unknown) (no (unknown) (unknown) Neut % (Auto) (units ( unknown) date) 68.8 (50-75) % unknown) (unknown) (no (unknown) (unknown) No Action (units (unkn own) date) unknown) (unknown) (no (unknown) (unknown) Ordered: (units (unkno wn) date) unknown) (unknown) (no (unknown) (unknown) Orders (units (unkno wn) date) unknown) (unknown) (no (unknown) (unknown) PSYCHIATRIC: No (units (unknown) date) concerning unknown) psychosocial issues. (unknown) (no (unknown) (unknown) Patient History (units (unknown) date) unknown) (unknown) (no (unknown) (unknown) Patient is a (units (u nknown) date) 21-year-old female unknown) with history of depression anxiety presenting (unknown) (no (unknown) (unknown) Patient: (units (unkno wn) date) Emily Johnson J unknown) MR#: M (unknown) (no (unknown) (unknown) Penicillins (units (un known) date) Allergy Verified unknown) 09/30/21 20:17 (unknown) (no (unknown) (unknown) Potassium 4.2 (units ( unknown) date) (3.4-5.1) mmol/L unknown) (unknown) (no (unknown) (unknown) Prescriptions: (units (unknown) date) unknown) (unknown) (no (unknown) (unknown) RDW 13.3 (units (unkno wn) date) (11.6-14.8) % unknown) (unknown) (no (unknown) (unknown) RESPIRATORY: (units (u nknown) date) Breath sounds unknown) equal bilaterally, no wheezes rales or rhonchi. (unknown) (no (unknown) (unknown) RESPIRATORY: (units (u nknown) date) Denies dyspnea, unknown) cough, wheezing, hemoptysis, sputum. (unknown) (no (unknown) (unknown) Related Data (units (u nknown) date) unknown) (unknown) (no (unknown) (unknown) Result diagrams: (units (unknown) date) unknown) (unknown) (no (unknown) (unknown) Review of Systems (units (unknown) date) unknown) (unknown) (no (unknown) (unknown) SKIN: No rash, no (units (unknown) date) erythema, no unknown) pruritus (unknown) (no (unknown) (unknown) SKIN: Warm, dry, (units (unknown) date) no laceration, no unknown) petechiae, no rashes or lesions. (unknown) (no (unknown) (unknown) Signed By: (units (unk nown) date) unknown) (unknown) (no (unknown) (unknown) Smoking Status: (units (unknown) date) Former smoker unknown) (unknown) (no (unknown) (unknown) Smoking Status: (units (unknown) date) Former smoker unknown) (unknown) (no (unknown) (unknown) Social History (units (unknown) date) (Reviewed 10/07/21 unknown) @ 10:36 by Dulce Fernandez DO) (unknown) (no (unknown) (unknown) Sodium 137 (units (unk nown) date) (137-145) mmol/L unknown) (unknown) (no (unknown) (unknown) Source: patient (units (unknown) date) and EMS unknown) (unknown) (no (unknown) (unknown) Stated Complaint: (units (unknown) date) Abd pain unknown) (unknown) (no (unknown) (unknown) Substance Use (units ( unknown) date) Type: marijuana unknown) (unknown) (no (unknown) (unknown) Temperature 98.0 (units (unknown) date) F 10/07/21 09:33 unknown) (unknown) (no (unknown) (unknown) Temperature 98.0 (units (unknown) date) F unknown) (unknown) (no (unknown) (unknown) Time Seen by (units (u nknown) date) Provider: 10/07/21 unknown) 09:34 (unknown) (no (unknown) (unknown) Total Bilirubin (units (unknown) date) 0.4 (0.2-1.3) unknown) mg/dL (unknown) (no (unknown) (unknown) Total Creatine (units (unknown) date) Kinase 34 unknown) (30-135) U/L (unknown) (no (unknown) (unknown) Total Protein 7.2 (units (unknown) date) (6.3-8.2) g/dL unknown) (unknown) (no (unknown) (unknown) Troponin + CK (units ( unknown) date) Cardiac Panel Stat unknown) (unknown) (no (unknown) (unknown) Troponin I < (units (u nknown) date) 0.012 (0.01-0.034) unknown) ng/mL (unknown) (no (unknown) (unknown) Vital Signs (units (un known) date) unknown) (unknown) (no (unknown) (unknown) Vital signs: (units (u nknown) date) unknown) (unknown) (no (unknown) (unknown) [Embedded Image (units (unknown) date) Not Available] unknown) (unknown) (no (unknown) (unknown) [From Maalox (units (u nknown) date) Total Relief unknown) (unknown) (no (unknown) (unknown) adenitis with (units ( unknown) date) normal blood work. unknown) She was discharged home and was doing okay (unknown) (no (unknown) (unknown) alcohol intake (units (unknown) date) frequency: unknown) holidays/special occasions only (unknown) (no (unknown) (unknown) amoxicillin (units (un known) date) Allergy Verified unknown) 10/07/21 09:37 (unknown) (no (unknown) (unknown) and is feeling (units (unknown) date) slightly better. unknown) She denies any flank pain or radiation. No (unknown) (no (unknown) (unknown) bismuth (units (unkno wn) date) subsalicylate unknown) Allergy Verified 10/07/21 09:37 (unknown) (no (unknown) (unknown) breath but is not (units (unknown) date) right now. She no unknown) longer has chest pain. She is complaining (unknown) (no (unknown) (unknown) cinnamon Allergy (units (unknown) date) Verified 10/07/21 unknown) 09:37 (unknown) (no (unknown) (unknown) confusion (units (unkn own) date) unknown) (unknown) (no (unknown) (unknown) discharge. No (units ( unknown) date) significant unknown) vaginal bleeding. She was given morphine with EMS (unknown) (no (unknown) (unknown) epigastric or (units ( unknown) date) right upper unknown) quadrant pain. (unknown) (no (unknown) (unknown) had some (units (unkno wn) date) epigastric pain. 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 (units (unknown) date) She denies painful unknown) or frequent urination. No abnormal vaginal (unknown) (no (unknown) (unknown) ondansetron 4 mg (units (unknown) date) disintegrating 4 unknown) mg PO TID-QID PRN nausea and 10/01/21 (unknown) (no (unknown) (unknown) pain (units (unkno wn) date) unknown) (unknown) (no (unknown) (unknown) pain. (units (unkno wn) date) unknown) (unknown) (no (unknown) (unknown) radiates from her (units (unknown) date) suprapubic area up unknown) to her chest. She sometimes gets short of (unknown) (no (unknown) (unknown) right upper (units (un known) date) quadrant unknown) (unknown) (no (unknown) (unknown) tablet vomiting (units (unknown) date) #10 tabs unknown) (unknown) (no (unknown) (unknown) tobacco type: (units ( unknown) date) vaping unknown) (unknown) (no (unknown) (unknown) today with (units (unk nown) date) suprapubic pain. unknown) She was here and evaluated on 09/30/2021 when she (unknown) (no (unknown) (unknown) until this (units (unk nown) date) morning when she unknown) had sudden onset of suprapubic pain. She says it Result panel 14 (unknown) (no (unknown) (unknown) (no value) (units (unk nown) date) unknown) (unknown) (no (unknown) (unknown) [address] [place] [address] (units (unknown) date) unknown) (unknown) (no (unknown) (unknown) [place] (units ( unknown) date) [id number] unknown) (unknown) (no (unknown) (unknown) CT Scan Report (units (unknown) date) unknown) (unknown) (no (unknown) (unknown) [facility] (units (unknown) date) unknown) (unknown) (no (unknown) (unknown) Signed (units (unkno wn) date) unknown) (unknown) (no (unknown) (unknown) (no value) (units (unk nown) date) unknown) (unknown) (no (unknown) (unknown) Kidneys are (units (un known) date) normal in size, unknown) without hydronephrosis or nephrolithiasis. (unknown) (no (unknown) (unknown) 10/07/21 (units (unkno wn) date) unknown) (unknown) (no (unknown) (unknown) 1. Constipation (units (unknown) date) with distension of unknown) the terminal ileum by fecal material. (unknown) (no (unknown) (unknown) 2. Hepatomegaly, (units (unknown) date) diffuse hepatic unknown) steatosis. (unknown) (no (unknown) (unknown) 3. No evidence of (units (unknown) date) acute abdominal unknown) process. (unknown) (no (unknown) (unknown) ABDOMEN: (units (unkno wn) date) unknown) (unknown) (no (unknown) (unknown) Approved by: (units (u nknown) date) Brady Espitia unknownRoselyn Tate on 10/07/2021 at 11:50 (unknown) (no (unknown) (unknown) Bones: No (units (unkn own) date) suspicious bony unknown) lesions. No vertebral body compression fractures. (unknown) (no (unknown) (unknown) COMPARISON: (units (un known) date) [facility], unknown) CT, CT ABDOMEN PELVIS W CON, 09/30/2021, 23:53. (unknown) (no (unknown) (unknown) Dictated by: (units (u nknown) date) apoorva Smith M.D. on 10/07/2021 at 11:46 (unknown) (no (unknown) (unknown) FINDINGS: (units (unkn own) date) unknown) (unknown) (no (unknown) (unknown) Genitourinary: (units (unknown) date) Bladder wall unknown) thickness is normal. (unknown) (no (unknown) (unknown) IMPRESSION: (units (un known) date) unknown) (unknown) (no (unknown) (unknown) INDICATIONS: (units (u nknown) date) Continued unknown) suprapubic pain (unknown) (no (unknown) (unknown) Image quality: (units (unknown) date) Excellent. unknown) (unknown) (no (unknown) (unknown) Lung bases: Lung (units (unknown) date) bases are clear. unknown) Heart size is normal. (unknown) (no (unknown) (unknown) Miscellaneous: No (units (unknown) date) inguinal hernias unknown) or adenopathy. (unknown) (no (unknown) (unknown) Miscellaneous: No (units (unknown) date) ventral hernias. unknown) (unknown) (no (unknown) (unknown) Nodes and (units (unkn own) date) vessels: No unknown) retroperitoneal or mesenteric adenopathy by size (unknown) (no (unknown) (unknown) Noncontrast 5 mm (units (unknown) date) thick sections unknown) acquired from the diaphragms to the symphysis. (unknown) (no (unknown) (unknown) PELVIS: (units (unkno wn) date) unknown) (unknown) (no (unknown) (unknown) Peritoneum and (units (unknown) date) bowel: Unenhanced unknown) bowel loops demonstrate normal wall thickness (unknown) (no (unknown) (unknown) Solid organs: (units ( unknown) date) Again noted is a unknown) paddle megaly and moderate to severe diffuse (unknown) (no (unknown) (unknown) TECHNIQUE: (units (unk nown) date) unknown) (unknown) (no (unknown) (unknown) and inferior vena (units (unknown) date) cava are normal in unknown) caliber. (unknown) (no (unknown) (unknown) caliber. No free (units (unknown) date) fluid or air. unknown) Moderate right colonic fecal debris is (unknown) (no (unknown) (unknown) contours. Spleen (units (unknown) date) is normal in size. unknown) It measures 11.5 cm in length. No (unknown) (no (unknown) (unknown) coronal and (units (un known) date) sagittal reformats unknown) were then performed. For radiation dose (unknown) (no (unknown) (unknown) following was (units ( unknown) date) used: automated unknown) exposure control, adjustment of mA and/or kV (unknown) (no (unknown) (unknown) material. (units (unkn own) date) unknown) (unknown) (no (unknown) (unknown) patient size. (units ( unknown) date) unknown) (unknown) (no (unknown) (unknown) steatosis. (units (unk nown) date) Findings are unknown) unchanged. Gallbladder is unremarkable . Pancreas is (unknown) (no (unknown) (unknown) the previous (units (u nknown) date) study, the unknown) terminal ileum has developed distension secondary to (unknown) (no (unknown) (unknown) 5 mm (units (unkno wn) date) unknown) (unknown) (no (unknown) (unknown) Accession Number: (units (unknown) date) [id number] unknown) (unknown) (no (unknown) (unknown) Age/Sex: 21 / F (units (unknown) date) Date of Service: unknown) (unknown) (no (unknown) (unknown) : 2000 (units (unknown) date) Acct:[id number] unknown) (unknown) (no (unknown) (unknown) Loc: ED (units (unkno wn) date) unknown) (unknown) (no (unknown) (unknown) [id number] (units (unk nown) date) unknown) (unknown) (no (unknown) (unknown) Ordering (units (unkno wn) date) Provider: unknown) Dulce Fernandez D.O. (unknown) (no (unknown) (unknown) PROCEDURE: CT (units ( unknown) date) ABDOMEN PELVIS WO unknown) CON (unknown) (no (unknown) (unknown) Patient: (units (unkno wn) date) Emily Johnson J unknown) MR#: (unknown) (no (unknown) (unknown) Procedure: CT (units ( unknown) date) abdomen pelvis wo unknown) con (unknown) (no (unknown) (unknown) according to (units (u nknown) date) unknown) (unknown) (no (unknown) (unknown) adrenal nodules. (units (unknown) date) unknown) (unknown) (no (unknown) (unknown) and (units (unkno wn) date) unknown) (unknown) (no (unknown) (unknown) criteria. Aorta (units (unknown) date) unknown) (unknown) (no (unknown) (unknown) fecalized (units (unkn own) date) unknown) (unknown) (no (unknown) (unknown) hepatic (units (unkno wn) date) unknown) (unknown) (no (unknown) (unknown) normal in (units (unkn own) date) unknown) (unknown) (no (unknown) (unknown) present. Since (units (unknown) date) unknown) (unknown) (no (unknown) (unknown) reduction, the (units (unknown) date) unknown) Result panel 15 (unknown) (no date) (unknown) (unknown) Negative (units (unkn own) unknown) Result panel 16 (unknown) (no date) (unknown) (unknown) Negative (units (unkn own) unknown) Result panel 17 (unknown) (no (unknown) (unknown) (no value) (units (unk nown) date) unknown) (unknown) (no (unknown) (unknown) Radiologist's (units ( unknown) date) Impression: unknown) (unknown) (no (unknown) (unknown) Date of Service: (units (unknown) date) 10/07/21 unknown) (unknown) (no (unknown) (unknown) (no value) (units (unk nown) date) unknown) (unknown) (no (unknown) (unknown) 10/07/21 09:45 (units (unknown) date) unknown) (unknown) (no (unknown) (unknown) 1 tab PO Q4-6H (units (unknown) date) PRN (Reason: pain) unknown) Qty: 10 0RF (unknown) (no (unknown) (unknown) 4 mg PO TID-QID (units (unknown) date) PRN (Reason: unknown) nausea and vomiting) Qty: 10 0RF (unknown) (no (unknown) (unknown) Allergies (units (unkn own) date) unknown) (unknown) (no (unknown) (unknown) Documented By: (units (unknown) date) CSD unknown) (unknown) (no (unknown) (unknown) Documented By: (units (unknown) date) RLS unknown) (unknown) (no (unknown) (unknown) ED Orders (units (unkn own) date) unknown) (unknown) (no (unknown) (unknown) Emergency Report (units (unknown) date) unknown) (unknown) (no (unknown) (unknown) [facility] (units (unknown) date) [address] unknown) [place] [address] (unknown) (no (unknown) (unknown) Lab Results (units (un known) date) unknown) (unknown) (no (unknown) (unknown) Last Admin: (units (un known) date) 10/07/21 10:54 unknown) Dose: 15 mg (unknown) (no (unknown) (unknown) Last Admin: (units (un known) date) 10/07/21 12:13 unknown) Dose: 1 mg (unknown) (no (unknown) (unknown) Previous Rx's (units ( unknown) date) unknown) (unknown) (no (unknown) (unknown) Signed (units (unkno wn) date) unknown) (unknown) (no (unknown) (unknown) Stop: 10/07/21 (units (unknown) date) 10:03 unknown) (unknown) (no (unknown) (unknown) Stop: 10/07/21 (units (unknown) date) 11:43 unknown) (unknown) (no (unknown) (unknown) Vital Signs - 8 (units (unknown) date) hr unknown) (unknown) (no (unknown) (unknown) [At your request (units (unknown) date) you're medications unknown) have been faxed to] (unknown) (no (unknown) (unknown) (no value) (units (unk nown) date) unknown) (unknown) (no (unknown) (unknown) 10/07/21 10/07/21 (units (unknown) date) 10/07/21 unknown) Range/Units (unknown) (no (unknown) (unknown) 10/07/21 (units (unkno wn) date) Range/Units unknown) (unknown) (no (unknown) (unknown) 09:45 09:45 09:45 (units (unknown) date) unknown) (unknown) (no (unknown) (unknown) 11:07 (units (unkno wn) date) unknown) (unknown) (no (unknown) (unknown) hydrocodone-aceta (units (unknown) date) minophen 5-325 mg unknown) tablet (unknown) (no (unknown) (unknown) ondansetron 4 mg (units (unknown) date) tablet,disintegrat unknown) ing (unknown) (no (unknown) (unknown) 10/07/21 (units (unkno wn) date) unknown) (unknown) (no (unknown) (unknown) Constipation (units (u nknown) date) unknown) (unknown) (no (unknown) (unknown) Medication (units (unk nown) date) Instructions unknown) Recorded (unknown) (no (unknown) (unknown) nodules. (units (unkno wn) date) unknown) (unknown) (no (unknown) (unknown) symptoms (units (unkno wn) date) unknown) (unknown) (no (unknown) (unknown) (bismuth)] (units (unk nown) date) unknown) (unknown) (no (unknown) (unknown) *Continue to take (units (unknown) date) medications as unknown) directed (unknown) (no (unknown) (unknown) *Follow up with (units (unknown) date) your primary care unknown) provider in 2-3 days or call [phone] (unknown) (no (unknown) (unknown) *Return to ER if (units (unknown) date) you should have unknown) [such as] [or] any new, worsening or concerning (unknown) (no (unknown) (unknown) *What to do: At (units (unknown) date) this time your CT unknown) and blood work were reassuring. The lymph (unknown) (no (unknown) (unknown) *You have been (units (unknown) date) diagnosed with unknown) constipation (unknown) (no (unknown) (unknown) [id number] (units (unkn own) date) unknown) (unknown) (no (unknown) (unknown) 10/07/21 09:33 (units (unknown) date) unknown) (unknown) (no (unknown) (unknown) 10/07/21 09:45 (units (unknown) date) unknown) (unknown) (no (unknown) (unknown) 10/07/21 11:07 (units (unknown) date) unknown) (unknown) (no (unknown) (unknown) 10/07/21 11:42 (units (unknown) date) unknown) (unknown) (no (unknown) (unknown) 09:33 (units (unkno wn) date) unknown) (unknown) (no (unknown) (unknown) 1. Constipation (units (unknown) date) with distension of unknown) the terminal ileum by fecal material. (unknown) (no (unknown) (unknown) 12 point review (units (unknown) date) of systems is unknown) negative except for those stated above and HPI (unknown) (no (unknown) (unknown) 2. Hepatomegaly, (units (unknown) date) diffuse hepatic unknown) steatosis.? (unknown) (no (unknown) (unknown) 3. No evidence of (units (unknown) date) acute abdominal unknown) process. (unknown) (no (unknown) (unknown) 5 mm (units (unkno wn) date) unknown) (unknown) (no (unknown) (unknown) ? (units (unkno wn) date) unknown) (unknown) (no (unknown) (unknown) ?Kidneys are (units (u nknown) date) normal in size, unknown) without hydronephrosis or nephrolithiasis.? (unknown) (no (unknown) (unknown) ABDOMEN: Soft, (units (unknown) date) suprapubic pain no unknown) guarding no rebound no epigastric pain no (unknown) (no (unknown) (unknown) ABDOMEN:? (units (unkn own) date) unknown) (unknown) (no (unknown) (unknown) ALT (<35) IU/L (units (unknown) date) unknown) (unknown) (no (unknown) (unknown) ALT 38 H (<35) (units (unknown) date) IU/L unknown) (unknown) (no (unknown) (unknown) AST (14-36) IU/L (units (unknown) date) unknown) (unknown) (no (unknown) (unknown) AST 66 H (14-36) (units (unknown) date) IU/L unknown) (unknown) (no (unknown) (unknown) Accession Number: (units (unknown) date) [id number] ?? unknown) (unknown) (no (unknown) (unknown) Acct:[id number] (units (unknown) date) unknown) (unknown) (no (unknown) (unknown) Activity (units (unkno wn) date) Restrictions/Addit unknown) ional Instructions: (unknown) (no (unknown) (unknown) Age/Sex: 21 / F (units (unknown) date) unknown) (unknown) (no (unknown) (unknown) Age/Sex: 21 / F (units (unknown) date) unknown) (unknown) (no (unknown) (unknown) Albumin (3.5-5.0) (units (unknown) date) g/dL unknown) (unknown) (no (unknown) (unknown) Albumin 4.2 (units (un known) date) (3.5-5.0) g/dL unknown) (unknown) (no (unknown) (unknown) Albumin/Globulin (units (unknown) date) Ratio (1.0-2.8) unknown) (unknown) (no (unknown) (unknown) Albumin/Globulin (units (unknown) date) Ratio 1.4 unknown) (1.0-2.8) (unknown) (no (unknown) (unknown) Alkaline (units (unkno wn) date) Phosphatase unknown) (38-126) U/L (unknown) (no (unknown) (unknown) Alkaline (units (unkno wn) date) Phosphatase 87 unknown) (38-126) U/L (unknown) (no (unknown) (unknown) Allergy/AdvReac (units (unknown) date) Type Severity unknown) Reaction Status Date / Time (unknown) (no (unknown) (unknown) BUN (7-17) mg/dL (units (unknown) date) unknown) (unknown) (no (unknown) (unknown) BUN 13 (7-17) (units ( unknown) date) mg/dL unknown) (unknown) (no (unknown) (unknown) BUN/Creatinine (units (unknown) date) Ratio (6-22) unknown) (unknown) (no (unknown) (unknown) BUN/Creatinine (units (unknown) date) Ratio 19.7 (6-22) unknown) (unknown) (no (unknown) (unknown) Baso # (Auto) (units ( unknown) date) (0-100) /uL unknown) (unknown) (no (unknown) (unknown) Baso # (Auto) 0 (units (unknown) date) (0-100) /uL unknown) (unknown) (no (unknown) (unknown) Baso % (Auto) (units ( unknown) date) (0-2) % unknown) (unknown) (no (unknown) (unknown) Baso % (Auto) 0.5 (units (unknown) date) (0-2) % unknown) (unknown) (no (unknown) (unknown) Bones:? No (units (unk nown) date) suspicious bony unknown) lesions.? No vertebral body compression fractures.? (unknown) (no (unknown) (unknown) CARDIOVASCULAR: (units (unknown) date) Denies chest pain, unknown) palpitations, orthopnea, edema (unknown) (no (unknown) (unknown) CARDIOVASCULAR: (units (unknown) date) Regular rate and unknown) rhythm without murmurs, rubs or gallops. (unknown) (no (unknown) (unknown) CK-MB (CK-2) (units (u nknown) date) unknown) (unknown) (no (unknown) (unknown) CK-MB (CK-2) TNP (units (unknown) date) unknown) (unknown) (no (unknown) (unknown) CK-MB (CK-2) Rel (units (unknown) date) Index unknown) (unknown) (no (unknown) (unknown) CK-MB (CK-2) Rel (units (unknown) date) Index TNP unknown) (unknown) (no (unknown) (unknown) COMPARISON:? (units (u nknown) date) [facility], unknown) CT, CT ABDOMEN PELVIS W CON, 09/30/2021, 23:53. (unknown) (no (unknown) (unknown) COVID19 -Nasal (units (unknown) date) RAPID/Pre-Proc unknown) Stat (unknown) (no (unknown) (unknown) CT abdomen pelvis (units (unknown) date) wo con Stat unknown) (unknown) (no (unknown) (unknown) CT scan - (units (unkn own) date) abdomen/pelvis: unknown) (unknown) (no (unknown) (unknown) CT shows (units (unkno wn) date) resolution of unknown) previous mesenteric adenitis but does show new onset (unknown) (no (unknown) (unknown) Calcium (units (unkno wn) date) (8.4-10.2) mg/dL unknown) (unknown) (no (unknown) (unknown) Calcium 8.8 (units (un known) date) (8.4-10.2) mg/dL unknown) (unknown) (no (unknown) (unknown) Carbon Dioxide (units (unknown) date) (22-32) mmol/L unknown) (unknown) (no (unknown) (unknown) Carbon Dioxide 27 (units (unknown) date) (22-32) mmol/L unknown) (unknown) (no (unknown) (unknown) Chief Complaint: (units (unknown) date) Abdominal Pain unknown) (unknown) (no (unknown) (unknown) Chloride (98-107) (units (unknown) date) mmol/L unknown) (unknown) (no (unknown) (unknown) Chloride 105 (units (u nknown) date) (98-107) mmol/L unknown) (unknown) (no (unknown) (unknown) Clinical (units (unkno wn) date) Impression: unknown) (unknown) (no (unknown) (unknown) Complete Blood (units (unknown) date) Count AUTO DIFF unknown) Stat (unknown) (no (unknown) (unknown) Comprehensive (units ( unknown) date) Metabolic Panel unknown) Stat (unknown) (no (unknown) (unknown) Course (units (unkno wn) date) unknown) (unknown) (no (unknown) (unknown) Creatinine (units (unk nown) date) (0.52-1.04) mg/dL unknown) (unknown) (no (unknown) (unknown) Creatinine 0.66 (units (unknown) date) (0.52-1.04) mg/dL unknown) (unknown) (no (unknown) (unknown) : 2000 (units (unknown) date) Acct:[id number] unknown) (unknown) (no (unknown) (unknown) : 2000 (units (unknown) date) unknown) (unknown) (no (unknown) (unknown) Date of Service: (units (unknown) date) 10/07/21 unknown) (unknown) (no (unknown) (unknown) Departure (units (unkn own) date) unknown) (unknown) (no (unknown) (unknown) Dictated by: (units (u nknown) date) apoorva Smith M.D. on 10/07/2021 at 11:4 (unknown) (no (unknown) (unknown) Discharge Plan (units (unknown) date) unknown) (unknown) (no (unknown) (unknown) Discontinued (units (u nknown) date) Medications unknown) (unknown) (no (unknown) (unknown) EKG-12 Lead Stat (units (unknown) date) unknown) (unknown) (no (unknown) (unknown) ER Physician: (units ( unknown) date) Dulce Fernandez unknown) D.O. (unknown) (no (unknown) (unknown) EXTREMITIES: (units (u nknown) date) Normal range of unknown) motion, no clubbing or edema. Neurovascularly (unknown) (no (unknown) (unknown) Eos # (Auto) (units (u nknown) date) (0-450) /uL unknown) (unknown) (no (unknown) (unknown) Eos # (Auto) 100 (units (unknown) date) (0-450) /uL unknown) (unknown) (no (unknown) (unknown) Eos % (Auto) (units (u nknown) date) (2-4) % unknown) (unknown) (no (unknown) (unknown) Eos % (Auto) 1.8 (units (unknown) date) L (2-4) % unknown) (unknown) (no (unknown) (unknown) Estimated GFR > (units (unknown) date) 60 (>60) mL/min unknown) (unknown) (no (unknown) (unknown) Estimated GFR (units ( unknown) date) (>60) mL/min unknown) (unknown) (no (unknown) (unknown) Exam (units (unkno wn) date) unknown) (unknown) (no (unknown) (unknown) FINDINGS:? (units (unk nown) date) unknown) (unknown) (no (unknown) (unknown) GASTROINTESTINAL: (units (unknown) date) See HPI unknown) (unknown) (no (unknown) (unknown) GENERAL: Obese (units (unknown) date) 21-year-old female unknown) and in no acute distress. (unknown) (no (unknown) (unknown) GENERAL: Denies (units (unknown) date) chills, fatigue, unknown) malaise, fever, sweats, travel (unknown) (no (unknown) (unknown) : Denies (units (unkn own) date) dysuria, unknown) frequency, incontinence, hematuria, urinary retention, flank (unknown) (no (unknown) (unknown) : No CVA (units (unk nown) date) tenderness unknown) (unknown) (no (unknown) (unknown) General (units (unkno wn) date) unknown) (unknown) (no (unknown) (unknown) GenericComposite[ (units (unknown) date) Plt Count unknown) (150-400) X10^3/uL ] (unknown) (no (unknown) (unknown) GenericComposite[ (units (unknown) date) Plt Count 304 unknown) (150-400) X10^3/uL ] (unknown) (no (unknown) (unknown) GenericComposite[ (units (unknown) date) RBC (4.0-5.2) unknown) X10^6/uL ] (unknown) (no (unknown) (unknown) GenericComposite[ (units (unknown) date) RBC 4.24 (4.0-5.2) unknown) X10^6/uL ] (unknown) (no (unknown) (unknown) GenericComposite[ (units (unknown) date) WBC (4.5-11.0) unknown) X10^3/uL ] (unknown) (no (unknown) (unknown) GenericComposite[ (units (unknown) date) WBC 8.4 (4.5-11.0) unknown) X10^3/uL ] (unknown) (no (unknown) (unknown) Genitourinary:? (units (unknown) date) Bladder wall unknown) thickness is normal.? (unknown) (no (unknown) (unknown) Globulin (units (unkno wn) date) (1.7-4.1) g/dL unknown) (unknown) (no (unknown) (unknown) Globulin 3.0 (units (u nknown) date) (1.7-4.1) g/dL unknown) (unknown) (no (unknown) (unknown) Glucose (70-100) (units (unknown) date) mg/dL unknown) (unknown) (no (unknown) (unknown) Glucose 109 H (units ( unknown) date) (70-100) mg/dL unknown) (unknown) (no (unknown) (unknown) HEENT: Denies (units ( unknown) date) sinus pain, ear unknown) pain, sore throat, difficulty swallowing, neck (unknown) (no (unknown) (unknown) HEENT: Head (units (un known) date) atraumatic,EOMI, unknown) pupils reactive, face symmetric, moist mucous (unknown) (no (unknown) (unknown) HPI - Abdominal (units (unknown) date) Pain unknown) (unknown) (no (unknown) (unknown) HPI narrative: (units (unknown) date) unknown) (unknown) (no (unknown) (unknown) Hct (36-46) % (units ( unknown) date) unknown) (unknown) (no (unknown) (unknown) Hct 36.7 (36-46) (units (unknown) date) % unknown) (unknown) (no (unknown) (unknown) Hgb (12.0-16.0) (units (unknown) date) g/dL unknown) (unknown) (no (unknown) (unknown) Hgb 12.4 (units (unkno wn) date) (12.0-16.0) g/dL unknown) (unknown) (no (unknown) (unknown) History of (units (unk nown) date) Present Illness unknown) (unknown) (no (unknown) (unknown) Hydromorphone HCl (units (unknown) date) (Hydromorphone 1 unknown) Mg Inj) 1 mg IV NOW ONE (unknown) (no (unknown) (unknown) IMPRESSION:? (units (u nknown) date) unknown) (unknown) (no (unknown) (unknown) INDICATIONS:? (units ( unknown) date) Continued unknown) suprapubic pain (unknown) (no (unknown) (unknown) Image quality:? (units (unknown) date) Excellent.? unknown) (unknown) (no (unknown) (unknown) Imaging Data (units (u nknown) date) unknown) (unknown) (no (unknown) (unknown) Initial Vital (units ( unknown) date) Signs unknown) (unknown) (no (unknown) (unknown) Initial Vital (units ( unknown) date) Signs: unknown) (unknown) (no (unknown) (unknown) Instructions: DI (units (unknown) date) for Constipation unknown) (unknown) (no (unknown) (unknown) Ketorolac (units (unkn own) date) Tromethamine unknown) (Ketorolac 30 Mg/Ml Vial) 15 mg IV NOW ONE (unknown) (no (unknown) (unknown) Lab Data (units (unkno wn) date) unknown) (unknown) (no (unknown) (unknown) Labs: (units (unkno wn) date) unknown) (unknown) (no (unknown) (unknown) Lipase (23-300) (units (unknown) date) U/L unknown) (unknown) (no (unknown) (unknown) Lipase 80 (units (unkn own) date) (23-300) U/L unknown) (unknown) (no (unknown) (unknown) Lipase Stat (units (un known) date) unknown) (unknown) (no (unknown) (unknown) Loc: ED (units (unkno wn) date) unknown) (unknown) (no (unknown) (unknown) Lung bases:? Lung (units (unknown) date) bases are clear.? unknown) Heart size is normal.? (unknown) (no (unknown) (unknown) Lymph # (Auto) (units (unknown) date) (6784-3798) /uL unknown) (unknown) (no (unknown) (unknown) Lymph # (Auto) (units (unknown) date) 1900 (2432-3284) unknown) /uL (unknown) (no (unknown) (unknown) Lymph % (Auto) (units (unknown) date) (25-40) % unknown) (unknown) (no (unknown) (unknown) Lymph % (Auto) (units (unknown) date) 22.5 L (25-40) % unknown) (unknown) (no (unknown) (unknown) MCH (26-34) PG (units (unknown) date) unknown) (unknown) (no (unknown) (unknown) MCH 29.2 (26-34) (units (unknown) date) PG unknown) (unknown) (no (unknown) (unknown) MCHC (30-36) % (units (unknown) date) unknown) (unknown) (no (unknown) (unknown) MCHC 33.7 (30-36) (units (unknown) date) % unknown) (unknown) (no (unknown) (unknown) MCV (80-100) fL (units (unknown) date) unknown) (unknown) (no (unknown) (unknown) MCV 86.6 (80-100) (units (unknown) date) fL unknown) (unknown) (no (unknown) (unknown) MDM - Abdominal (units (unknown) date) Pain unknown) (unknown) (no (unknown) (unknown) MDM Narrative (units ( unknown) date) unknown) (unknown) (no (unknown) (unknown) MR#: [id number] (units (unknown) date) unknown) (unknown) (no (unknown) (unknown) MUSCULOSKELETAL: (units (unknown) date) Denies weakness, unknown) joint pain, or bony pain (unknown) (no (unknown) (unknown) Magnesium (units (unkn own) date) (1.6-2.3) mg/dL unknown) (unknown) (no (unknown) (unknown) Magnesium 1.9 (units ( unknown) date) (1.6-2.3) mg/dL unknown) (unknown) (no (unknown) (unknown) Magnesium Stat (units (unknown) date) unknown) (unknown) (no (unknown) (unknown) Medical decision (units (unknown) date) making narrative: unknown) (unknown) (no (unknown) (unknown) Miscellaneous:? (units (unknown) date) No inguinal unknown) hernias or adenopathy.? (unknown) (no (unknown) (unknown) Miscellaneous:? (units (unknown) date) No ventral unknown) hernias.? (unknown) (no (unknown) (unknown) Mode of arrival: (units (unknown) date) EMS unknown) (unknown) (no (unknown) (unknown) Mills # (Auto) (units ( unknown) date) (0-900) /uL unknown) (unknown) (no (unknown) (unknown) Mills # (Auto) 500 (units (unknown) date) (0-900) /uL unknown) (unknown) (no (unknown) (unknown) Mills % (Auto) (units ( unknown) date) (3-14) % unknown) (unknown) (no (unknown) (unknown) Mills % (Auto) 6.4 (units (unknown) date) (3-14) % unknown) (unknown) (no (unknown) (unknown) NEUROLOGIC: (units (un known) date) Denies weakness, unknown) dizziness, headache, numbness, change in speech, (unknown) (no (unknown) (unknown) NEUROLOGICAL: (units ( unknown) date) Alert and oriented unknown) x4.Normal gait and speech. (unknown) (no (unknown) (unknown) Narrative: (units (unk nown) date) unknown) (unknown) (no (unknown) (unknown) Neut # (Auto) (units ( unknown) date) (2875-1709) /uL unknown) (unknown) (no (unknown) (unknown) Neut # (Auto) (units ( unknown) date) 5800 (2629-2234) unknown) /uL (unknown) (no (unknown) (unknown) Neut % (Auto) (units ( unknown) date) (50-75) % unknown) (unknown) (no (unknown) (unknown) Neut % (Auto) (units ( unknown) date) 68.8 (50-75) % unknown) (unknown) (no (unknown) (unknown) No Action (units (unkn own) date) unknown) (unknown) (no (unknown) (unknown) Nodes and (units (unkn own) date) vessels:? No unknown) retroperitoneal or mesenteric adenopathy by size (unknown) (no (unknown) (unknown) Noncontrast 5 mm (units (unknown) date) thick sections unknown) acquired from the diaphragms to the symphysis.? (unknown) (no (unknown) (unknown) Ordered: (units (unkno wn) date) unknown) (unknown) (no (unknown) (unknown) Ordering (units (unkno wn) date) Provider: unknown) Botnick,Dulce D.O. (unknown) (no (unknown) (unknown) Orders (units (unkno wn) date) unknown) (unknown) (no (unknown) (unknown) PELVIS:? (units (unkno wn) date) unknown) (unknown) (no (unknown) (unknown) PROCEDURE:? CT (units (unknown) date) ABDOMEN PELVIS WO unknown) CON (unknown) (no (unknown) (unknown) PSYCHIATRIC: No (units (unknown) date) concerning unknown) psychosocial issues. (unknown) (no (unknown) (unknown) Patient (units (unkno wn) date) Disposition: Home unknown) (unknown) (no (unknown) (unknown) Patient History (units (unknown) date) unknown) (unknown) (no (unknown) (unknown) Patient is a (units (u nknown) date) 21-year-old female unknown) with history of depression anxiety presenting (unknown) (no (unknown) (unknown) Patient is here (units (unknown) date) today with unknown) suprapubic pain. Blood work is overall reassuring. (unknown) (no (unknown) (unknown) Patient: (units (unkno wn) date) DavidEmily avila unknown) MR#: M (unknown) (no (unknown) (unknown) Patient: (units (unkno wn) date) Salo Johnsonisaak Ceja unknown) (unknown) (no (unknown) (unknown) Penicillins (units (un known) date) Allergy Verified unknown) 09/30/21 20:17 (unknown) (no (unknown) (unknown) Peritoneum and (units (unknown) date) bowel:? Unenhanced unknown) bowel loops demonstrate normal wall thickness (unknown) (no (unknown) (unknown) Potassium (units (unkn own) date) (3.4-5.1) mmol/L unknown) (unknown) (no (unknown) (unknown) Potassium 4.2 (units ( unknown) date) (3.4-5.1) mmol/L unknown) (unknown) (no (unknown) (unknown) Test (units (unknown) date) Serum,Qual Stat unknown) (unknown) (no (unknown) (unknown) Prescriptions: (units (unknown) date) unknown) (unknown) (no (unknown) (unknown) Procedure: CT (units ( unknown) date) abdomen pelvis wo unknown) con (unknown) (no (unknown) (unknown) RDW (11.6-14.8) % (units (unknown) date) unknown) (unknown) (no (unknown) (unknown) RDW 13.3 (units (unkno wn) date) (11.6-14.8) % unknown) (unknown) (no (unknown) (unknown) RESPIRATORY: (units (u nknown) date) Breath sounds unknown) equal bilaterally, no wheezes rales or rhonchi. (unknown) (no (unknown) (unknown) RESPIRATORY: (units (u nknown) date) Denies dyspnea, unknown) cough, wheezing, hemoptysis, sputum. (unknown) (no (unknown) (unknown) Related Data (units (u nknown) date) unknown) (unknown) (no (unknown) (unknown) Result diagrams: (units (unknown) date) unknown) (unknown) (no (unknown) (unknown) Review of Systems (units (unknown) date) unknown) (unknown) (no (unknown) (unknown) SARS-CoV-2 (PCR) (units (unknown) date) (Negative) unknown) (unknown) (no (unknown) (unknown) SARS-CoV-2 (PCR) (units (unknown) date) Negative unknown) (Negative) (unknown) (no (unknown) (unknown) SKIN: No rash, no (units (unknown) date) erythema, no unknown) pruritus (unknown) (no (unknown) (unknown) SKIN: Warm, dry, (units (unknown) date) no laceration, no unknown) petechiae, no rashes or lesions. (unknown) (no (unknown) (unknown) Serum , (units (unknown) date) Qual Negative unknown) (Negative) (unknown) (no (unknown) (unknown) Serum , (units (unknown) date) Qual (Negative) unknown) (unknown) (no (unknown) (unknown) Signed By: (units (unk nown) date) unknown) (unknown) (no (unknown) (unknown) Smoking Status: (units (unknown) date) Former smoker unknown) (unknown) (no (unknown) (unknown) Smoking Status: (units (unknown) date) Former smoker unknown) (unknown) (no (unknown) (unknown) Social History (units (unknown) date) (Reviewed 10/07/21 unknown) @ 10:36 by Dulce Fernandez DO) (unknown) (no (unknown) (unknown) Sodium (137-145) (units (unknown) date) mmol/L unknown) (unknown) (no (unknown) (unknown) Sodium 137 (units (unk nown) date) (137-145) mmol/L unknown) (unknown) (no (unknown) (unknown) Solid organs:? (units (unknown) date) Again noted is a unknown) paddle megaly and moderate to severe diffuse (unknown) (no (unknown) (unknown) Source: patient (units (unknown) date) and EMS unknown) (unknown) (no (unknown) (unknown) Stated Complaint: (units (unknown) date) Abd pain unknown) (unknown) (no (unknown) (unknown) Substance Use (units ( unknown) date) Type: marijuana unknown) (unknown) (no (unknown) (unknown) TECHNIQUE:? (units (un known) date) unknown) (unknown) (no (unknown) (unknown) Temperature 98.0 (units (unknown) date) F 10/07/21 09:33 unknown) (unknown) (no (unknown) (unknown) Temperature 98.0 (units (unknown) date) F unknown) (unknown) (no (unknown) (unknown) Time Seen by (units (u nknown) date) Provider: 10/07/21 unknown) 09:34 (unknown) (no (unknown) (unknown) Total Bilirubin (units (unknown) date) (0.2-1.3) mg/dL unknown) (unknown) (no (unknown) (unknown) Total Bilirubin (units (unknown) date) 0.4 (0.2-1.3) unknown) mg/dL (unknown) (no (unknown) (unknown) Total Creatine (units (unknown) date) Kinase (30-135) unknown) U/L (unknown) (no (unknown) (unknown) Total Creatine (units (unknown) date) Kinase 34 unknown) (30-135) U/L (unknown) (no (unknown) (unknown) Total Protein (units ( unknown) date) (6.3-8.2) g/dL unknown) (unknown) (no (unknown) (unknown) Total Protein 7.2 (units (unknown) date) (6.3-8.2) g/dL unknown) (unknown) (no (unknown) (unknown) Troponin + CK (units ( unknown) date) Cardiac Panel Stat unknown) (unknown) (no (unknown) (unknown) Troponin I < (units (u nknown) date) 0.012 (0.01-0.034) unknown) ng/mL (unknown) (no (unknown) (unknown) Troponin I (units (unk nown) date) (0.01-0.034) ng/mL unknown) (unknown) (no (unknown) (unknown) Vital Signs (units (un known) date) unknown) (unknown) (no (unknown) (unknown) Vital signs: (units (u nknown) date) unknown) (unknown) (no (unknown) (unknown) [Embedded Image (units (unknown) date) Not Available] unknown) (unknown) (no (unknown) (unknown) [From Maalox (units (u nknown) date) Total Relief unknown) (unknown) (no (unknown) (unknown) [and follow up (units (unknown) date) with ortho, unknown) urology etc] (unknown) (no (unknown) (unknown) according to (units (u nknown) date) unknown) (unknown) (no (unknown) (unknown) adenitis with (units ( unknown) date) normal blood work. unknown) She was discharged home and was doing okay (unknown) (no (unknown) (unknown) alcohol intake (units (unknown) date) frequency: unknown) holidays/special occasions only (unknown) (no (unknown) (unknown) amoxicillin (units (un known) date) Allergy Verified unknown) 10/07/21 09:37 (unknown) (no (unknown) (unknown) and (units (unkno wn) date) unknown) (unknown) (no (unknown) (unknown) and inferior vena (units (unknown) date) cava are normal in unknown) caliber.? (unknown) (no (unknown) (unknown) and is feeling (units (unknown) date) slightly better. unknown) She denies any flank pain or radiation. No (unknown) (no (unknown) (unknown) bismuth (units (unkno wn) date) subsalicylate unknown) Allergy Verified 10/07/21 09:37 (unknown) (no (unknown) (unknown) breath but is not (units (unknown) date) right now. She no unknown) longer has chest pain. She is complaining (unknown) (no (unknown) (unknown) caliber.? No free (units (unknown) date) fluid or air.? unknown) Moderate right colonic fecal debris is (unknown) (no (unknown) (unknown) cinnamon Allergy (units (unknown) date) Verified 10/07/21 unknown) 09:37 (unknown) (no (unknown) (unknown) confusion (units (unkn own) date) unknown) (unknown) (no (unknown) (unknown) constipation. (units ( unknown) date) unknown) (unknown) (no (unknown) (unknown) contours.? Spleen (units (unknown) date) is normal in unknown) size.? It measures 11.5 cm in length.? No adrenal (unknown) (no (unknown) (unknown) coronal and (units (un known) date) sagittal reformats unknown) were then performed.? For radiation dose (unknown) (no (unknown) (unknown) criteria.? Aorta (units (unknown) date) unknown) (unknown) (no (unknown) (unknown) discharge. No (units ( unknown) date) significant unknown) vaginal bleeding. She was given morphine with EMS (unknown) (no (unknown) (unknown) epigastric or (units ( unknown) date) right upper unknown) quadrant pain. (unknown) (no (unknown) (unknown) fecalized (units (unkn own) date) unknown) (unknown) (no (unknown) (unknown) following was (units ( unknown) date) used:? automated unknown) exposure control, adjustment of mA and/or kV (unknown) (no (unknown) (unknown) had some (units (unkno wn) date) epigastric pain. 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 (units (unkn own) date) unknown) (unknown) (no (unknown) (unknown) membranes (units (unkn own) date) unknown) (unknown) (no (unknown) (unknown) mg tablet (units (unkn own) date) unknown) (unknown) (no (unknown) (unknown) nodes that were (units (unknown) date) previously swollen unknown) are better. Your CT today shows (unknown) (no (unknown) (unknown) normal in (units (unkn own) date) unknown) (unknown) (no (unknown) (unknown) of severe pain. (units (unknown) date) She denies painful unknown) or frequent urination. No abnormal vaginal (unknown) (no (unknown) (unknown) ondansetron 4 mg (units (unknown) date) disintegrating 4 unknown) mg PO TID-QID PRN nausea and 10/01/21 (unknown) (no (unknown) (unknown) pain (units (unkno wn) date) unknown) (unknown) (no (unknown) (unknown) pain. (units (unkno wn) date) unknown) (unknown) (no (unknown) (unknown) patient size.? (units (unknown) date) unknown) (unknown) (no (unknown) (unknown) present.? Since (units (unknown) date) unknown) (unknown) (no (unknown) (unknown) radiates from her (units (unknown) date) suprapubic area up unknown) to her chest. She sometimes gets short of (unknown) (no (unknown) (unknown) reduction, the (units (unknown) date) unknown) (unknown) (no (unknown) (unknown) right upper (units (un known) date) quadrant unknown) (unknown) (no (unknown) (unknown) steatosis.? (units (un known) date) Findings are unknown) unchanged.? Gallbladder is unremarkable .? Pancreas is (unknown) (no (unknown) (unknown) tablet vomiting (units (unknown) date) #10 tabs unknown) (unknown) (no (unknown) (unknown) the previous (units (u nknown) date) study, the unknown) terminal ileum has developed distension secondary to (unknown) (no (unknown) (unknown) tobacco type: (units ( unknown) date) vaping unknown) (unknown) (no (unknown) (unknown) today with (units (unk nown) date) suprapubic pain. unknown) She was here and evaluated on 09/30/2021 when she (unknown) (no (unknown) (unknown) until this (units (unk nown) date) morning when she unknown) had sudden onset of suprapubic pain. She says it Result panel 18 (unknown) (no (unknown) (unknown) (no value) (units (unk nown) date) unknown) (unknown) (no (unknown) (unknown) Radiologist's (units ( unknown) date) Impression: unknown) (unknown) (no (unknown) (unknown) Date of Service: (units (unknown) date) 10/07/21 unknown) (unknown) (no (unknown) (unknown) (no value) (units (unk nown) date) unknown) (unknown) (no (unknown) (unknown) 10/07/21 09:45 (units (unknown) date) unknown) (unknown) (no (unknown) (unknown) 1 tab PO Q4-6H (units (unknown) date) PRN (Reason: pain) unknown) Qty: 10 0RF (unknown) (no (unknown) (unknown) 4 mg PO TID-QID (units (unknown) date) PRN (Reason: unknown) nausea and vomiting) Qty: 10 0RF (unknown) (no (unknown) (unknown) Allergies (units (unkn own) date) unknown) (unknown) (no (unknown) (unknown) Documented By: (units (unknown) date) [facility]SD unknown) (unknown) (no (unknown) (unknown) Documented By: (units (unknown) date) RLS unknown) (unknown) (no (unknown) (unknown) ED Orders (units (unkn own) date) unknown) (unknown) (no (unknown) (unknown) Emergency Report (units (unknown) date) unknown) (unknown) (no (unknown) (unknown) [facility] (units (unknown) date) [address] unknown) [place] [address] (unknown) (no (unknown) (unknown) Lab Results (units (un known) date) unknown) (unknown) (no (unknown) (unknown) Last Admin: (units (un known) date) 10/07/21 10:54 unknown) Dose: 15 mg (unknown) (no (unknown) (unknown) Last Admin: (units (un known) date) 10/07/21 12:13 unknown) Dose: 1 mg (unknown) (no (unknown) (unknown) Previous Rx's (units ( unknown) date) unknown) (unknown) (no (unknown) (unknown) Signed (units (unkno wn) date) unknown) (unknown) (no (unknown) (unknown) Stop: 10/07/21 (units (unknown) date) 10:03 unknown) (unknown) (no (unknown) (unknown) Stop: 10/07/21 (units (unknown) date) 11:43 unknown) (unknown) (no (unknown) (unknown) Stop: 10/07/21 (units (unknown) date) 13:01 unknown) (unknown) (no (unknown) (unknown) Vital Signs - 8 (units (unknown) date) hr unknown) (unknown) (no (unknown) (unknown) (no value) (units (unk nown) date) unknown) (unknown) (no (unknown) (unknown) 10/07/21 10/07/21 (units (unknown) date) 10/07/21 unknown) Range/Units (unknown) (no (unknown) (unknown) 10/07/21 (units (unkno wn) date) Range/Units unknown) (unknown) (no (unknown) (unknown) 09:45 09:45 09:45 (units (unknown) date) unknown) (unknown) (no (unknown) (unknown) 11:07 (units (unkno wn) date) unknown) (unknown) (no (unknown) (unknown) hydrocodone-aceta (units (unknown) date) minophen 5-325 mg unknown) tablet (unknown) (no (unknown) (unknown) ondansetron 4 mg (units (unknown) date) tablet,disintegrat unknown) ing (unknown) (no (unknown) (unknown) 10/07/21 (units (unkno wn) date) unknown) (unknown) (no (unknown) (unknown) Constipation (units (u nknown) date) unknown) (unknown) (no (unknown) (unknown) Medication (units (unk nown) date) Instructions unknown) Recorded (unknown) (no (unknown) (unknown) nodules. (units (unkno wn) date) unknown) (unknown) (no (unknown) (unknown) (bismuth)] (units (unk nown) date) unknown) (unknown) (no (unknown) (unknown) *Continue to take (units (unknown) date) medications as unknown) directed (unknown) (no (unknown) (unknown) *Follow up with (units (unknown) date) your primary care unknown) provider in 2-3 days or call [phone] (unknown) (no (unknown) (unknown) *Return to ER if (units (unknown) date) you should have unknown) increasing abdominal pain persistent vomiting, (unknown) (no (unknown) (unknown) *What to do: At (units (unknown) date) this time your CT unknown) and blood work were reassuring. The lymph (unknown) (no (unknown) (unknown) *You have been (units (unknown) date) diagnosed with unknown) constipation (unknown) (no (unknown) (unknown) [id number] (units (unkn own) date) unknown) (unknown) (no (unknown) (unknown) 10/07/21 09:33 (units (unknown) date) unknown) (unknown) (no (unknown) (unknown) 10/07/21 09:45 (units (unknown) date) unknown) (unknown) (no (unknown) (unknown) 10/07/21 11:07 (units (unknown) date) unknown) (unknown) (no (unknown) (unknown) 10/07/21 11:42 (units (unknown) date) unknown) (unknown) (no (unknown) (unknown) 09:33 (units (unkno wn) date) unknown) (unknown) (no (unknown) (unknown) 1. Constipation (units (unknown) date) with distension of unknown) the terminal ileum by fecal material. (unknown) (no (unknown) (unknown) 12 point review (units (unknown) date) of systems is unknown) negative except for those stated above and HPI (unknown) (no (unknown) (unknown) 2. Hepatomegaly, (units (unknown) date) diffuse hepatic unknown) steatosis.? (unknown) (no (unknown) (unknown) 3. No evidence of (units (unknown) date) acute abdominal unknown) process. (unknown) (no (unknown) (unknown) 5 mm (units (unkno wn) date) unknown) (unknown) (no (unknown) (unknown) ? (units (unkno wn) date) unknown) (unknown) (no (unknown) (unknown) ?Kidneys are (units (u nknown) date) normal in size, unknown) without hydronephrosis or nephrolithiasis.? (unknown) (no (unknown) (unknown) ABDOMEN: Soft, (units (unknown) date) suprapubic pain no unknown) guarding no rebound no epigastric pain no (unknown) (no (unknown) (unknown) ABDOMEN:? (units (unkn own) date) unknown) (unknown) (no (unknown) (unknown) ALT (<35) IU/L (units (unknown) date) unknown) (unknown) (no (unknown) (unknown) ALT 38 H (<35) (units (unknown) date) IU/L unknown) (unknown) (no (unknown) (unknown) AST (14-36) IU/L (units (unknown) date) unknown) (unknown) (no (unknown) (unknown) AST 66 H (14-36) (units (unknown) date) IU/L unknown) (unknown) (no (unknown) (unknown) Accession Number: (units (unknown) date) [id number] ?? unknown) (unknown) (no (unknown) (unknown) Acct:[id number] (units (unknown) date) unknown) (unknown) (no (unknown) (unknown) Activity (units (unkno wn) date) Restrictions/Addit unknown) ional Instructions: (unknown) (no (unknown) (unknown) Age/Sex: 21 / F (units (unknown) date) unknown) (unknown) (no (unknown) (unknown) Age/Sex: 21 / F (units (unknown) date) unknown) (unknown) (no (unknown) (unknown) Albumin (units (unkno wn) date) (3.5-5.0) g/dL unknown) (unknown) (no (unknown) (unknown) Albumin 4.2 (units (un known) date) (3.5-5.0) g/dL unknown) (unknown) (no (unknown) (unknown) Albumin/Globulin (units (unknown) date) Ratio (1.0-2.8) unknown) (unknown) (no (unknown) (unknown) Albumin/Globulin (units (unknown) date) Ratio 1.4 unknown) (1.0-2.8) (unknown) (no (unknown) (unknown) Alkaline (units (unkno wn) date) Phosphatase unknown) (38-126) U/L (unknown) (no (unknown) (unknown) Alkaline (units (unkno wn) date) Phosphatase 87 unknown) (38-126) U/L (unknown) (no (unknown) (unknown) Allergy/AdvReac (units (unknown) date) Type Severity unknown) Reaction Status Date / Time (unknown) (no (unknown) (unknown) BUN (7-17) mg/dL (units (unknown) date) unknown) (unknown) (no (unknown) (unknown) BUN 13 (7-17) (units ( unknown) date) mg/dL unknown) (unknown) (no (unknown) (unknown) BUN/Creatinine (units (unknown) date) Ratio (6-22) unknown) (unknown) (no (unknown) (unknown) BUN/Creatinine (units (unknown) date) Ratio 19.7 (6-22) unknown) (unknown) (no (unknown) (unknown) Baso # (Auto) (units ( unknown) date) (0-100) /uL unknown) (unknown) (no (unknown) (unknown) Baso # (Auto) 0 (units (unknown) date) (0-100) /uL unknown) (unknown) (no (unknown) (unknown) Baso % (Auto) (units ( unknown) date) (0-2) % unknown) (unknown) (no (unknown) (unknown) Baso % (Auto) 0.5 (units (unknown) date) (0-2) % unknown) (unknown) (no (unknown) (unknown) Bones:? No (units (unk nown) date) suspicious bony unknown) lesions.? No vertebral body compression fractures.? (unknown) (no (unknown) (unknown) CARDIOVASCULAR: (units (unknown) date) Denies chest pain, unknown) palpitations, orthopnea, edema (unknown) (no (unknown) (unknown) CARDIOVASCULAR: (units (unknown) date) Regular rate and unknown) rhythm without murmurs, rubs or gallops. (unknown) (no (unknown) (unknown) CK-MB (CK-2) (units (u nknown) date) unknown) (unknown) (no (unknown) (unknown) CK-MB (CK-2) TNP (units (unknown) date) unknown) (unknown) (no (unknown) (unknown) CK-MB (CK-2) Rel (units (unknown) date) Index unknown) (unknown) (no (unknown) (unknown) CK-MB (CK-2) Rel (units (unknown) date) Index TNP unknown) (unknown) (no (unknown) (unknown) COMPARISON:? (units (u nknown) date) [facility], unknown) CT, CT ABDOMEN PELVIS W CON, 09/30/2021, 23:53. (unknown) (no (unknown) (unknown) COVID19 -Nasal (units (unknown) date) RAPID/Pre-Proc unknown) Stat (unknown) (no (unknown) (unknown) CT abdomen pelvis (units (unknown) date) wo con Stat unknown) (unknown) (no (unknown) (unknown) CT scan - (units (unkn own) date) abdomen/pelvis: unknown) (unknown) (no (unknown) (unknown) CT shows (units (unkno wn) date) resolution of unknown) previous mesenteric adenitis but does show new onset (unknown) (no (unknown) (unknown) Calcium (units (unkno wn) date) (8.4-10.2) mg/dL unknown) (unknown) (no (unknown) (unknown) Calcium 8.8 (units (un known) date) (8.4-10.2) mg/dL unknown) (unknown) (no (unknown) (unknown) Carbon Dioxide (units (unknown) date) (22-32) mmol/L unknown) (unknown) (no (unknown) (unknown) Carbon Dioxide 27 (units (unknown) date) (22-32) mmol/L unknown) (unknown) (no (unknown) (unknown) Chief Complaint: (units (unknown) date) Abdominal Pain unknown) (unknown) (no (unknown) (unknown) Chloride (98-107) (units (unknown) date) mmol/L unknown) (unknown) (no (unknown) (unknown) Chloride 105 (units (u nknown) date) (98-107) mmol/L unknown) (unknown) (no (unknown) (unknown) Clinical (units (unkno wn) date) Impression: unknown) (unknown) (no (unknown) (unknown) Complete Blood (units (unknown) date) Count AUTO DIFF unknown) Stat (unknown) (no (unknown) (unknown) Comprehensive (units ( unknown) date) Metabolic Panel unknown) Stat (unknown) (no (unknown) (unknown) Course (units (unkno wn) date) unknown) (unknown) (no (unknown) (unknown) Creatinine (units (unk nown) date) (0.52-1.04) mg/dL unknown) (unknown) (no (unknown) (unknown) Creatinine 0.66 (units (unknown) date) (0.52-1.04) mg/dL unknown) (unknown) (no (unknown) (unknown) : 2000 (units (unknown) date) Acct:[id number] unknown) (unknown) (no (unknown) (unknown) : 2000 (units (unknown) date) unknown) (unknown) (no (unknown) (unknown) Date of Service: (units (unknown) date) 10/07/21 unknown) (unknown) (no (unknown) (unknown) Departure (units (unkn own) date) unknown) (unknown) (no (unknown) (unknown) Dictated by: (units (u nknown) date) apoorva Smith M.D. on 10/07/2021 at 11:4 (unknown) (no (unknown) (unknown) Discharge Plan (units (unknown) date) unknown) (unknown) (no (unknown) (unknown) Discontinued (units (u nknown) date) Medications unknown) (unknown) (no (unknown) (unknown) EKG-12 Lead Stat (units (unknown) date) unknown) (unknown) (no (unknown) (unknown) ER Physician: (units ( unknown) date) Dulce Fernandez unknown) D.O. (unknown) (no (unknown) (unknown) EXTREMITIES: (units (u nknown) date) Normal range of unknown) motion, no clubbing or edema. Neurovascularly (unknown) (no (unknown) (unknown) Eos # (Auto) (units (u nknown) date) (0-450) /uL unknown) (unknown) (no (unknown) (unknown) Eos # (Auto) 100 (units (unknown) date) (0-450) /uL unknown) (unknown) (no (unknown) (unknown) Eos % (Auto) (units (u nknown) date) (2-4) % unknown) (unknown) (no (unknown) (unknown) Eos % (Auto) 1.8 (units (unknown) date) L (2-4) % unknown) (unknown) (no (unknown) (unknown) Estimated GFR > (units (unknown) date) 60 (>60) mL/min unknown) (unknown) (no (unknown) (unknown) Estimated GFR (units ( unknown) date) (>60) mL/min unknown) (unknown) (no (unknown) (unknown) Exam (units (unkno wn) date) unknown) (unknown) (no (unknown) (unknown) FINDINGS:? (units (unk nown) date) unknown) (unknown) (no (unknown) (unknown) GASTROINTESTINAL: (units (unknown) date) See HPI unknown) (unknown) (no (unknown) (unknown) GENERAL: Obese (units (unknown) date) 21-year-old female unknown) and in no acute distress. (unknown) (no (unknown) (unknown) GENERAL: Denies (units (unknown) date) chills, fatigue, unknown) malaise, fever, sweats, travel (unknown) (no (unknown) (unknown) : Denies (units (unkn own) date) dysuria, unknown) frequency, incontinence, hematuria, urinary retention, flank (unknown) (no (unknown) (unknown) : No CVA (units (unk nown) date) tenderness unknown) (unknown) (no (unknown) (unknown) General (units (unkno wn) date) unknown) (unknown) (no (unknown) (unknown) GenericComposite[ (units (unknown) date) Plt Count unknown) (150-400) X10^3/uL ] (unknown) (no (unknown) (unknown) GenericComposite[ (units (unknown) date) Plt Count 304 unknown) (150-400) X10^3/uL ] (unknown) (no (unknown) (unknown) GenericComposite[ (units (unknown) date) RBC (4.0-5.2) unknown) X10^6/uL ] (unknown) (no (unknown) (unknown) GenericComposite[ (units (unknown) date) RBC 4.24 (4.0-5.2) unknown) X10^6/uL ] (unknown) (no (unknown) (unknown) GenericComposite[ (units (unknown) date) WBC (4.5-11.0) unknown) X10^3/uL ] (unknown) (no (unknown) (unknown) GenericComposite[ (units (unknown) date) WBC 8.4 (4.5-11.0) unknown) X10^3/uL ] (unknown) (no (unknown) (unknown) Genitourinary:? (units (unknown) date) Bladder wall unknown) thickness is normal.? (unknown) (no (unknown) (unknown) Globulin (units (unkno wn) date) (1.7-4.1) g/dL unknown) (unknown) (no (unknown) (unknown) Globulin 3.0 (units (u nknown) date) (1.7-4.1) g/dL unknown) (unknown) (no (unknown) (unknown) Glucose (70-100) (units (unknown) date) mg/dL unknown) (unknown) (no (unknown) (unknown) Glucose 109 H (units ( unknown) date) (70-100) mg/dL unknown) (unknown) (no (unknown) (unknown) HEENT: Denies (units ( unknown) date) sinus pain, ear unknown) pain, sore throat, difficulty swallowing, neck (unknown) (no (unknown) (unknown) HEENT: Head (units (un known) date) atraumatic,EOMI, unknown) pupils reactive, face symmetric, moist mucous (unknown) (no (unknown) (unknown) HPI - Abdominal (units (unknown) date) Pain unknown) (unknown) (no (unknown) (unknown) HPI narrative: (units (unknown) date) unknown) (unknown) (no (unknown) (unknown) Hct (36-46) % (units ( unknown) date) unknown) (unknown) (no (unknown) (unknown) Hct 36.7 (36-46) (units (unknown) date) % unknown) (unknown) (no (unknown) (unknown) Hgb (12.0-16.0) (units (unknown) date) g/dL unknown) (unknown) (no (unknown) (unknown) Hgb 12.4 (units (unkno wn) date) (12.0-16.0) g/dL unknown) (unknown) (no (unknown) (unknown) History of (units (unk nown) date) Present Illness unknown) (unknown) (no (unknown) (unknown) Hydromorphone HCl (units (unknown) date) (Hydromorphone 1 unknown) Mg Inj) 1 mg IV NOW ONE (unknown) (no (unknown) (unknown) IMPRESSION:? (units (u nknown) date) unknown) (unknown) (no (unknown) (unknown) INDICATIONS:? (units ( unknown) date) Continued unknown) suprapubic pain (unknown) (no (unknown) (unknown) Image quality:? (units (unknown) date) Excellent.? unknown) (unknown) (no (unknown) (unknown) Imaging Data (units (u nknown) date) unknown) (unknown) (no (unknown) (unknown) Initial Vital (units ( unknown) date) Signs unknown) (unknown) (no (unknown) (unknown) Initial Vital (units ( unknown) date) Signs: unknown) (unknown) (no (unknown) (unknown) Instructions: DI (units (unknown) date) for Constipation unknown) (unknown) (no (unknown) (unknown) Ketorolac (units (unkn own) date) Tromethamine unknown) (Ketorolac 30 Mg/Ml Vial) 15 mg IV NOW ONE (unknown) (no (unknown) (unknown) Lab Data (units (unkno wn) date) unknown) (unknown) (no (unknown) (unknown) Labs: (units (unkno wn) date) unknown) (unknown) (no (unknown) (unknown) Lipase (23-300) (units (unknown) date) U/L unknown) (unknown) (no (unknown) (unknown) Lipase 80 (units (unkn own) date) (23-300) U/L unknown) (unknown) (no (unknown) (unknown) Lipase Stat (units (un known) date) unknown) (unknown) (no (unknown) (unknown) Loc: ED (units (unkno wn) date) unknown) (unknown) (no (unknown) (unknown) Lung bases:? Lung (units (unknown) date) bases are clear.? unknown) Heart size is normal.? (unknown) (no (unknown) (unknown) Lymph # (Auto) (units (unknown) date) (0938-8810) /uL unknown) (unknown) (no (unknown) (unknown) Lymph # (Auto) (units (unknown) date) 1900 (3751-7014) unknown) /uL (unknown) (no (unknown) (unknown) Lymph % (Auto) (units (unknown) date) (25-40) % unknown) (unknown) (no (unknown) (unknown) Lymph % (Auto) (units (unknown) date) 22.5 L (25-40) % unknown) (unknown) (no (unknown) (unknown) MCH (26-34) PG (units (unknown) date) unknown) (unknown) (no (unknown) (unknown) MCH 29.2 (26-34) (units (unknown) date) PG unknown) (unknown) (no (unknown) (unknown) MCHC (30-36) % (units (unknown) date) unknown) (unknown) (no (unknown) (unknown) MCHC 33.7 (30-36) (units (unknown) date) % unknown) (unknown) (no (unknown) (unknown) MCV (80-100) fL (units (unknown) date) unknown) (unknown) (no (unknown) (unknown) MCV 86.6 (80-100) (units (unknown) date) fL unknown) (unknown) (no (unknown) (unknown) MDM - Abdominal (units (unknown) date) Pain unknown) (unknown) (no (unknown) (unknown) MDM Narrative (units ( unknown) date) unknown) (unknown) (no (unknown) (unknown) MR#: [id number] (units (unknown) date) unknown) (unknown) (no (unknown) (unknown) MUSCULOSKELETAL: (units (unknown) date) Denies weakness, unknown) joint pain, or bony pain (unknown) (no (unknown) (unknown) Magnesium (units (unkn own) date) (1.6-2.3) mg/dL unknown) (unknown) (no (unknown) (unknown) Magnesium 1.9 (units ( unknown) date) (1.6-2.3) mg/dL unknown) (unknown) (no (unknown) (unknown) Magnesium Citrate (units (unknown) date) (Magnesium Citrate unknown) 300 Ml Solution) 300 ml PO NOW ONE (unknown) (no (unknown) (unknown) Magnesium Stat (units (unknown) date) unknown) (unknown) (no (unknown) (unknown) Magnesium citrate (units (unknown) date) 1 bottle as needed unknown) for constipation (unknown) (no (unknown) (unknown) Medical decision (units (unknown) date) making narrative: unknown) (unknown) (no (unknown) (unknown) Miscellaneous:? (units (unknown) date) No inguinal unknown) hernias or adenopathy.? (unknown) (no (unknown) (unknown) Miscellaneous:? (units (unknown) date) No ventral unknown) hernias.? (unknown) (no (unknown) (unknown) Mode of arrival: (units (unknown) date) EMS unknown) (unknown) (no (unknown) (unknown) Mills # (Auto) (units ( unknown) date) (0-900) /uL unknown) (unknown) (no (unknown) (unknown) Mills # (Auto) 500 (units (unknown) date) (0-900) /uL unknown) (unknown) (no (unknown) (unknown) Mills % (Auto) (units ( unknown) date) (3-14) % unknown) (unknown) (no (unknown) (unknown) Mills % (Auto) 6.4 (units (unknown) date) (3-14) % unknown) (unknown) (no (unknown) (unknown) NEUROLOGIC: (units (un known) date) Denies weakness, unknown) dizziness, headache, numbness, change in speech, (unknown) (no (unknown) (unknown) NEUROLOGICAL: (units ( unknown) date) Alert and oriented unknown) x4.Normal gait and speech. (unknown) (no (unknown) (unknown) Narrative: (units (unk nown) date) unknown) (unknown) (no (unknown) (unknown) Neut # (Auto) (units ( unknown) date) (8866-2493) /uL unknown) (unknown) (no (unknown) (unknown) Neut # (Auto) (units ( unknown) date) 5800 (2027-9245) unknown) /uL (unknown) (no (unknown) (unknown) Neut % (Auto) (units ( unknown) date) (50-75) % unknown) (unknown) (no (unknown) (unknown) Neut % (Auto) (units ( unknown) date) 68.8 (50-75) % unknown) (unknown) (no (unknown) (unknown) No Action (units (unkn own) date) unknown) (unknown) (no (unknown) (unknown) Nodes and (units (unkn own) date) vessels:? No unknown) retroperitoneal or mesenteric adenopathy by size (unknown) (no (unknown) (unknown) Noncontrast 5 mm (units (unknown) date) thick sections unknown) acquired from the diaphragms to the symphysis.? (unknown) (no (unknown) (unknown) Ordered: (units (unkno wn) date) unknown) (unknown) (no (unknown) (unknown) Ordering (units (unkno wn) date) Provider: unknown) Dulce Fernandez D.O. (unknown) (no (unknown) (unknown) Orders (units (unkno wn) date) unknown) (unknown) (no (unknown) (unknown) PELVIS:? (units (unkno wn) date) unknown) (unknown) (no (unknown) (unknown) PROCEDURE:? CT (units (unknown) date) ABDOMEN PELVIS WO unknown) CON (unknown) (no (unknown) (unknown) PSYCHIATRIC: No (units (unknown) date) concerning unknown) psychosocial issues. (unknown) (no (unknown) (unknown) Pain was (units (unkno wn) date) significantly unknown) worse this. She has been constipated in the past she is (unknown) (no (unknown) (unknown) Patient (units (unkno wn) date) Disposition: Home unknown) (unknown) (no (unknown) (unknown) Patient History (units (unknown) date) unknown) (unknown) (no (unknown) (unknown) Patient is a (units (u nknown) date) 21-year-old female unknown) with history of depression anxiety presenting (unknown) (no (unknown) (unknown) Patient is here (units (unknown) date) today with unknown) suprapubic pain. Blood work is overall reassuring. (unknown) (no (unknown) (unknown) Patient: (units (unkno wn) date) Emily Johnson unknown) MR#: [id number] (unknown) (no (unknown) (unknown) Patient: (units (unkno wn) date) Emily Johnson unknown) (unknown) (no (unknown) (unknown) Penicillins (units (un known) date) Allergy Verified unknown) 09/30/21 20:17 (unknown) (no (unknown) (unknown) Peritoneum and (units (unknown) date) bowel:? Unenhanced unknown) bowel loops demonstrate normal wall thickness (unknown) (no (unknown) (unknown) Potassium (units (unkn own) date) (3.4-5.1) mmol/L unknown) (unknown) (no (unknown) (unknown) Potassium 4.2 (units ( unknown) date) (3.4-5.1) mmol/L unknown) (unknown) (no (unknown) (unknown) Test (units (unknown) date) Serum,Qual Stat unknown) (unknown) (no (unknown) (unknown) Prescriptions: (units (unknown) date) unknown) (unknown) (no (unknown) (unknown) Procedure: CT (units ( unknown) date) abdomen pelvis wo unknown) con (unknown) (no (unknown) (unknown) RDW (11.6-14.8) % (units (unknown) date) unknown) (unknown) (no (unknown) (unknown) RDW 13.3 (units (unkno wn) date) (11.6-14.8) % unknown) (unknown) (no (unknown) (unknown) RESPIRATORY: (units (u nknown) date) Breath sounds unknown) equal bilaterally, no wheezes rales or rhonchi. (unknown) (no (unknown) (unknown) RESPIRATORY: (units (u nknown) date) Denies dyspnea, unknown) cough, wheezing, hemoptysis, sputum. (unknown) (no (unknown) (unknown) Related Data (units (u nknown) date) unknown) (unknown) (no (unknown) (unknown) Result diagrams: (units (unknown) date) unknown) (unknown) (no (unknown) (unknown) Review of Systems (units (unknown) date) unknown) (unknown) (no (unknown) (unknown) SARS-CoV-2 (PCR) (units (unknown) date) (Negative) unknown) (unknown) (no (unknown) (unknown) SARS-CoV-2 (PCR) (units (unknown) date) Negative unknown) (Negative) (unknown) (no (unknown) (unknown) SKIN: No rash, no (units (unknown) date) erythema, no unknown) pruritus (unknown) (no (unknown) (unknown) SKIN: Warm, dry, (units (unknown) date) no laceration, no unknown) petechiae, no rashes or lesions. (unknown) (no (unknown) (unknown) Serum , (units (unknown) date) Qual Negative unknown) (Negative) (unknown) (no (unknown) (unknown) Serum , (units (unknown) date) Qual (Negative) unknown) (unknown) (no (unknown) (unknown) Signed By: (units (unk nown) date) unknown) (unknown) (no (unknown) (unknown) Smoking Status: (units (unknown) date) Former smoker unknown) (unknown) (no (unknown) (unknown) Smoking Status: (units (unknown) date) Former smoker unknown) (unknown) (no (unknown) (unknown) Social History (units (unknown) date) (Reviewed 10/07/21 unknown) @ 10:36 by Dulce Fernandez DO) (unknown) (no (unknown) (unknown) Sodium (137-145) (units (unknown) date) mmol/L unknown) (unknown) (no (unknown) (unknown) Sodium 137 (units (unk nown) date) (137-145) mmol/L unknown) (unknown) (no (unknown) (unknown) Solid organs:? (units (unknown) date) Again noted is a unknown) paddle megaly and moderate to severe diffuse (unknown) (no (unknown) (unknown) Source: patient (units (unknown) date) and EMS unknown) (unknown) (no (unknown) (unknown) Stated Complaint: (units (unknown) date) Abd pain unknown) (unknown) (no (unknown) (unknown) Substance Use (units ( unknown) date) Type: marijuana unknown) (unknown) (no (unknown) (unknown) TECHNIQUE:? (units (un known) date) unknown) (unknown) (no (unknown) (unknown) Temperature 98.0 (units (unknown) date) F 10/07/21 09:33 unknown) (unknown) (no (unknown) (unknown) Temperature 98.0 (units (unknown) date) F unknown) (unknown) (no (unknown) (unknown) Time Seen by (units (u nknown) date) Provider: 10/07/21 unknown) 09:34 (unknown) (no (unknown) (unknown) Total Bilirubin (units (unknown) date) (0.2-1.3) mg/dL unknown) (unknown) (no (unknown) (unknown) Total Bilirubin (units (unknown) date) 0.4 (0.2-1.3) unknown) mg/dL (unknown) (no (unknown) (unknown) Total Creatine (units (unknown) date) Kinase (30-135) unknown) U/L (unknown) (no (unknown) (unknown) Total Creatine (units (unknown) date) Kinase 34 (30-135) unknown) U/L (unknown) (no (unknown) (unknown) Total Protein (units ( unknown) date) (6.3-8.2) g/dL unknown) (unknown) (no (unknown) (unknown) Total Protein 7.2 (units (unknown) date) (6.3-8.2) g/dL unknown) (unknown) (no (unknown) (unknown) Troponin + CK (units ( unknown) date) Cardiac Panel Stat unknown) (unknown) (no (unknown) (unknown) Troponin I < (units (u nknown) date) 0.012 (0.01-0.034) unknown) ng/mL (unknown) (no (unknown) (unknown) Troponin I (units (unk nown) date) (0.01-0.034) ng/mL unknown) (unknown) (no (unknown) (unknown) Vital Signs (units (un known) date) unknown) (unknown) (no (unknown) (unknown) Vital signs: (units (u nknown) date) unknown) (unknown) (no (unknown) (unknown) [Embedded Image (units (unknown) date) Not Available] unknown) (unknown) (no (unknown) (unknown) [From Maalox (units (u nknown) date) Total Relief unknown) (unknown) (no (unknown) (unknown) according to (units (u nknown) date) unknown) (unknown) (no (unknown) (unknown) adenitis with (units ( unknown) date) normal blood work. unknown) She was discharged home and was doing okay (unknown) (no (unknown) (unknown) alcohol intake (units (unknown) date) frequency: unknown) holidays/special occasions only (unknown) (no (unknown) (unknown) allergic to some (units (unknown) date) MiraLax but states unknown) magnesium citrate helps her. (unknown) (no (unknown) (unknown) amoxicillin (units (un known) date) Allergy Verified unknown) 10/07/21 09:37 (unknown) (no (unknown) (unknown) and (units (unkno wn) date) unknown) (unknown) (no (unknown) (unknown) and inferior vena (units (unknown) date) cava are normal in unknown) caliber.? (unknown) (no (unknown) (unknown) and is feeling (units (unknown) date) slightly better. unknown) She denies any flank pain or radiation. No (unknown) (no (unknown) (unknown) bismuth (units (unkno wn) date) subsalicylate unknown) Allergy Verified 10/07/21 09:37 (unknown) (no (unknown) (unknown) breath but is not (units (unknown) date) right now. She no unknown) longer has chest pain. She is complaining (unknown) (no (unknown) (unknown) caliber.? No free (units (unknown) date) fluid or air.? unknown) Moderate right colonic fecal debris is (unknown) (no (unknown) (unknown) cinnamon Allergy (units (unknown) date) Verified 10/07/21 unknown) 09:37 (unknown) (no (unknown) (unknown) confusion (units (unkn own) date) unknown) (unknown) (no (unknown) (unknown) constipation. (units ( unknown) date) unknown) (unknown) (no (unknown) (unknown) constipation. (units ( unknown) date) Patient states unknown) that she did have a bowel movement last night. (unknown) (no (unknown) (unknown) contours.? Spleen (units (unknown) date) is normal in unknown) size.? It measures 11.5 cm in length.? No adrenal (unknown) (no (unknown) (unknown) coronal and (units (un known) date) sagittal reformats unknown) were then performed.? For radiation dose (unknown) (no (unknown) (unknown) criteria.? Aorta (units (unknown) date) unknown) (unknown) (no (unknown) (unknown) discharge. No (units ( unknown) date) significant unknown) vaginal bleeding. She was given morphine with EMS (unknown) (no (unknown) (unknown) epigastric or (units ( unknown) date) right upper unknown) quadrant pain. (unknown) (no (unknown) (unknown) fecalized (units (unkn own) date) unknown) (unknown) (no (unknown) (unknown) fever greater (units ( unknown) date) than 100.4 or any unknown) new, worsening or concerning symptoms (unknown) (no (unknown) (unknown) following was (units ( unknown) date) used:? automated unknown) exposure control, adjustment of mA and/or kV (unknown) (no (unknown) (unknown) had some (units (unkno wn) date) epigastric pain. 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 (units (unkn own) date) unknown) (unknown) (no (unknown) (unknown) membranes (units (unkn own) date) unknown) (unknown) (no (unknown) (unknown) mg tablet (units (unkn own) date) unknown) (unknown) (no (unknown) (unknown) nodes that were (units (unknown) date) previously swollen unknown) are better. Your CT today shows (unknown) (no (unknown) (unknown) normal in (units (unkn own) date) unknown) (unknown) (no (unknown) (unknown) of severe pain. (units (unknown) date) She denies painful unknown) or frequent urination. No abnormal vaginal (unknown) (no (unknown) (unknown) ondansetron 4 mg (units (unknown) date) disintegrating 4 unknown) mg PO TID-QID PRN nausea and 10/01/21 (unknown) (no (unknown) (unknown) pain (units (unkno wn) date) unknown) (unknown) (no (unknown) (unknown) pain. (units (unkno wn) date) unknown) (unknown) (no (unknown) (unknown) patient size.? (units (unknown) date) unknown) (unknown) (no (unknown) (unknown) present.? Since (units (unknown) date) unknown) (unknown) (no (unknown) (unknown) radiates from her (units (unknown) date) suprapubic area up unknown) to her chest. She sometimes gets short of (unknown) (no (unknown) (unknown) reduction, the (units (unknown) date) unknown) (unknown) (no (unknown) (unknown) right upper (units (un known) date) quadrant unknown) (unknown) (no (unknown) (unknown) steatosis.? (units (un known) date) Findings are unknown) unchanged.? Gallbladder is unremarkable .? Pancreas is (unknown) (no (unknown) (unknown) tablet vomiting (units (unknown) date) #10 tabs unknown) (unknown) (no (unknown) (unknown) the previous (units (u nknown) date) study, the unknown) terminal ileum has developed distension secondary to (unknown) (no (unknown) (unknown) tobacco type: (units ( unknown) date) vaping unknown) (unknown) (no (unknown) (unknown) today with (units (unk nown) date) suprapubic pain. unknown) She was here and evaluated on 09/30/2021 when she (unknown) (no (unknown) (unknown) until this (units (unk nown) date) morning when she unknown) had sudden onset of suprapubic pain. She says it Result panel 19 (unknown) (no (unknown) (unknown) (no value) (units (unk nown) date) unknown) (unknown) (no (unknown) (unknown) Radiologist's (units ( unknown) date) Impression: unknown) (unknown) (no (unknown) (unknown) Date of Service: (units (unknown) date) 10/07/21 unknown) (unknown) (no (unknown) (unknown) (no value) (units (unk nown) date) unknown) (unknown) (no (unknown) (unknown) <Electronically (units (unknown) date) signed by Dulce unknown) Maral Fernandez> (unknown) (no (unknown) (unknown) 10/07/21 09:45 (units (unknown) date) unknown) (unknown) (no (unknown) (unknown) 10/07/21 1702 (units ( unknown) date) unknown) (unknown) (no (unknown) (unknown) 1 tab PO Q4-6H (units (unknown) date) PRN (Reason: pain) unknown) Qty: 10 0RF (unknown) (no (unknown) (unknown) 4 mg PO TID-QID (units (unknown) date) PRN (Reason: unknown) nausea and vomiting) Qty: 10 0RF (unknown) (no (unknown) (unknown) Allergies (units (unkn own) date) unknown) (unknown) (no (unknown) (unknown) Documented By: AT (units (unknown) date) unknown) (unknown) (no (unknown) (unknown) Documented By: (units (unknown) date) CSD unknown) (unknown) (no (unknown) (unknown) Documented By: (units (unknown) date) RLS unknown) (unknown) (no (unknown) (unknown) ED Orders (units (unkn own) date) unknown) (unknown) (no (unknown) (unknown) Emergency Report (units (unknown) date) unknown) (unknown) (no (unknown) (unknown) [facility] (units (unknown) date) [address] unknown) [place] [address] (unknown) (no (unknown) (unknown) Lab Results (units (un known) date) unknown) (unknown) (no (unknown) (unknown) Last Admin: (units (un known) date) 10/07/21 10:54 unknown) Dose: 15 mg (unknown) (no (unknown) (unknown) Last Admin: (units (un known) date) 10/07/21 12:13 unknown) Dose: 1 mg (unknown) (no (unknown) (unknown) Last Admin: (units (un known) date) 10/07/21 13:25 unknown) Dose: 300 ml (unknown) (no (unknown) (unknown) Previous Rx's (units ( unknown) date) unknown) (unknown) (no (unknown) (unknown) Signed (units (unkno wn) date) unknown) (unknown) (no (unknown) (unknown) Stop: 10/07/21 (units (unknown) date) 10:03 unknown) (unknown) (no (unknown) (unknown) Stop: 10/07/21 (units (unknown) date) 11:43 unknown) (unknown) (no (unknown) (unknown) Stop: 10/07/21 (units (unknown) date) 13:01 unknown) (unknown) (no (unknown) (unknown) Vital Signs - 8 (units (unknown) date) hr unknown) (unknown) (no (unknown) (unknown) (no value) (units (unk nown) date) unknown) (unknown) (no (unknown) (unknown) 10/07/21 10/07/21 (units (unknown) date) 10/07/21 unknown) Range/Units (unknown) (no (unknown) (unknown) 10/07/21 (units (unkno wn) date) Range/Units unknown) (unknown) (no (unknown) (unknown) 09:45 09:45 09:45 (units (unknown) date) unknown) (unknown) (no (unknown) (unknown) 11:07 (units (unkno wn) date) unknown) (unknown) (no (unknown) (unknown) hydrocodone-aceta (units (unknown) date) minophen 5-325 mg unknown) tablet (unknown) (no (unknown) (unknown) ondansetron 4 mg (units (unknown) date) tablet,disintegrat unknown) ing (unknown) (no (unknown) (unknown) 10/07/21 (units (unkno wn) date) unknown) (unknown) (no (unknown) (unknown) Constipation (units (u nknown) date) unknown) (unknown) (no (unknown) (unknown) Medication (units (unk nown) date) Instructions unknown) Recorded (unknown) (no (unknown) (unknown) nodules. (units (unkno wn) date) unknown) (unknown) (no (unknown) (unknown) (bismuth)] (units (unk nown) date) unknown) (unknown) (no (unknown) (unknown) *Continue to take (units (unknown) date) medications as unknown) directed (unknown) (no (unknown) (unknown) *Follow up with (units (unknown) date) your primary care unknown) provider in 2-3 days or call [phone] (unknown) (no (unknown) (unknown) *Return to ER if (units (unknown) date) you should have unknown) increasing abdominal pain persistent vomiting, (unknown) (no (unknown) (unknown) *What to do: At (units (unknown) date) this time your CT unknown) and blood work were reassuring. The lymph (unknown) (no (unknown) (unknown) *You have been (units (unknown) date) diagnosed with unknown) constipation (unknown) (no (unknown) (unknown) [id number] (units (unkn own) date) unknown) (unknown) (no (unknown) (unknown) 10/07/21 09:33 (units (unknown) date) unknown) (unknown) (no (unknown) (unknown) 10/07/21 09:45 (units (unknown) date) unknown) (unknown) (no (unknown) (unknown) 10/07/21 11:07 (units (unknown) date) unknown) (unknown) (no (unknown) (unknown) 10/07/21 11:42 (units (unknown) date) unknown) (unknown) (no (unknown) (unknown) 09:24 10/07/21 (units (unknown) date) unknown) (unknown) (no (unknown) (unknown) 09:27 (units (unkno wn) date) unknown) (unknown) (no (unknown) (unknown) 09:27 10/07/21 (units (unknown) date) unknown) (unknown) (no (unknown) (unknown) 09:30 (units (unkno wn) date) unknown) (unknown) (no (unknown) (unknown) 09:30 10/07/21 (units (unknown) date) unknown) (unknown) (no (unknown) (unknown) 09:33 10/07/21 (units (unknown) date) unknown) (unknown) (no (unknown) (unknown) 1. Constipation (units (unknown) date) with distension of unknown) the terminal ileum by fecal material. (unknown) (no (unknown) (unknown) 10:00 10/07/21 (units (unknown) date) unknown) (unknown) (no (unknown) (unknown) 10:30 (units (unkno wn) date) unknown) (unknown) (no (unknown) (unknown) 10:30 10/07/21 (units (unknown) date) unknown) (unknown) (no (unknown) (unknown) 11:00 (units (unkno wn) date) unknown) (unknown) (no (unknown) (unknown) 11:00 10/07/21 (units (unknown) date) unknown) (unknown) (no (unknown) (unknown) 11:03 10/07/21 (units (unknown) date) unknown) (unknown) (no (unknown) (unknown) 11:30 (units (unkno wn) date) unknown) (unknown) (no (unknown) (unknown) 11:30 10/07/21 (units (unknown) date) unknown) (unknown) (no (unknown) (unknown) 12 point review (units (unknown) date) of systems is unknown) negative except for those stated above and HPI (unknown) (no (unknown) (unknown) 12:07 10/07/21 (units (unknown) date) unknown) (unknown) (no (unknown) (unknown) 12:16 (units (unkno wn) date) unknown) (unknown) (no (unknown) (unknown) 12:16 10/07/21 (units (unknown) date) unknown) (unknown) (no (unknown) (unknown) 12:30 (units (unkno wn) date) unknown) (unknown) (no (unknown) (unknown) 12:30 10/07/21 (units (unknown) date) unknown) (unknown) (no (unknown) (unknown) 13:00 (units (unkno wn) date) unknown) (unknown) (no (unknown) (unknown) 13:00 10/07/21 (units (unknown) date) unknown) (unknown) (no (unknown) (unknown) 2. Hepatomegaly, (units (unknown) date) diffuse hepatic unknown) steatosis.? (unknown) (no (unknown) (unknown) 3. No evidence of (units (unknown) date) acute abdominal unknown) process. (unknown) (no (unknown) (unknown) 5 mm (units (unkno wn) date) unknown) (unknown) (no (unknown) (unknown) ? (units (unkno wn) date) unknown) (unknown) (no (unknown) (unknown) ?Kidneys are (units (u nknown) date) normal in size, unknown) without hydronephrosis or nephrolithiasis.? (unknown) (no (unknown) (unknown) ABDOMEN: Soft, (units (unknown) date) suprapubic pain no unknown) guarding no rebound no epigastric pain no (unknown) (no (unknown) (unknown) ABDOMEN:? (units (unkn own) date) unknown) (unknown) (no (unknown) (unknown) ALT (<35) IU/L (units (unknown) date) unknown) (unknown) (no (unknown) (unknown) ALT 38 H (<35) (units (unknown) date) IU/L unknown) (unknown) (no (unknown) (unknown) AST (14-36) IU/L (units (unknown) date) unknown) (unknown) (no (unknown) (unknown) AST 66 H (14-36) (units (unknown) date) IU/L unknown) (unknown) (no (unknown) (unknown) Accession Number: (units (unknown) date) [id number] ?? unknown) (unknown) (no (unknown) (unknown) Acct:[id number] (units (unknown) date) unknown) (unknown) (no (unknown) (unknown) Activity (units (unkno wn) date) Restrictions/Addit unknown) ional Instructions: (unknown) (no (unknown) (unknown) Age/Sex: 21 / F (units (unknown) date) unknown) (unknown) (no (unknown) (unknown) Age/Sex: 21 / F (units (unknown) date) unknown) (unknown) (no (unknown) (unknown) Albumin (3.5-5.0) (units (unknown) date) g/dL unknown) (unknown) (no (unknown) (unknown) Albumin 4.2 (units (un known) date) (3.5-5.0) g/dL unknown) (unknown) (no (unknown) (unknown) Albumin/Globulin (units (unknown) date) Ratio (1.0-2.8) unknown) (unknown) (no (unknown) (unknown) Albumin/Globulin (units (unknown) date) Ratio 1.4 unknown) (1.0-2.8) (unknown) (no (unknown) (unknown) Alkaline (units (unkno wn) date) Phosphatase unknown) (38-126) U/L (unknown) (no (unknown) (unknown) Alkaline (units (unkno wn) date) Phosphatase 87 unknown) (38-126) U/L (unknown) (no (unknown) (unknown) Allergy/AdvReac (units (unknown) date) Type Severity unknown) Reaction Status Date / Time (unknown) (no (unknown) (unknown) BUN (7-17) mg/dL (units (unknown) date) unknown) (unknown) (no (unknown) (unknown) BUN 13 (7-17) (units ( unknown) date) mg/dL unknown) (unknown) (no (unknown) (unknown) BUN/Creatinine (units (unknown) date) Ratio (6-22) unknown) (unknown) (no (unknown) (unknown) BUN/Creatinine (units (unknown) date) Ratio 19.7 (6-22) unknown) (unknown) (no (unknown) (unknown) Baso # (Auto) (units ( unknown) date) (0-100) /uL unknown) (unknown) (no (unknown) (unknown) Baso # (Auto) 0 (units (unknown) date) (0-100) /uL unknown) (unknown) (no (unknown) (unknown) Baso % (Auto) (units ( unknown) date) (0-2) % unknown) (unknown) (no (unknown) (unknown) Baso % (Auto) 0.5 (units (unknown) date) (0-2) % unknown) (unknown) (no (unknown) (unknown) Blood Pressure (units (unknown) date) unknown) (unknown) (no (unknown) (unknown) Blood Pressure (units (unknown) date) 129/72 unknown) (unknown) (no (unknown) (unknown) Blood Pressure (units (unknown) date) 128/71 unknown) (unknown) (no (unknown) (unknown) Blood Pressure (units (unknown) date) 135/102 H unknown) (unknown) (no (unknown) (unknown) Blood Pressure (units (unknown) date) 101/57 L 96/61 unknown) (unknown) (no (unknown) (unknown) Blood Pressure (units (unknown) date) 118/58 L 121/83 unknown) (unknown) (no (unknown) (unknown) Blood Pressure (units (unknown) date) 127/90 116/73 unknown) (unknown) (no (unknown) (unknown) Blood Pressure (units (unknown) date) 95/62 unknown) (unknown) (no (unknown) (unknown) Bones:? No (units (unk nown) date) suspicious bony unknown) lesions.? No vertebral body compression fractures.? (unknown) (no (unknown) (unknown) CARDIOVASCULAR: (units (unknown) date) Denies chest pain, unknown) palpitations, orthopnea, edema (unknown) (no (unknown) (unknown) CARDIOVASCULAR: (units (unknown) date) Regular rate and unknown) rhythm without murmurs, rubs or gallops. (unknown) (no (unknown) (unknown) CK-MB (CK-2) (units (u nknown) date) unknown) (unknown) (no (unknown) (unknown) CK-MB (CK-2) TNP (units (unknown) date) unknown) (unknown) (no (unknown) (unknown) CK-MB (CK-2) Rel (units (unknown) date) Index unknown) (unknown) (no (unknown) (unknown) CK-MB (CK-2) Rel (units (unknown) date) Index TNP unknown) (unknown) (no (unknown) (unknown) COMPARISON:? (units (u nknown) date) [facility], unknown) CT, CT ABDOMEN PELVIS W JETT, 09/30/2021, 23:53. (unknown) (no (unknown) (unknown) COVID19 -Nasal (units (unknown) date) RAPID/Pre-Proc unknown) Stat (unknown) (no (unknown) (unknown) CT abdomen pelvis (units (unknown) date) wo con Stat unknown) (unknown) (no (unknown) (unknown) CT scan - (units (unkn own) date) abdomen/pelvis: unknown) (unknown) (no (unknown) (unknown) CT shows (units (unkno wn) date) resolution of unknown) previous mesenteric adenitis but does show new onset (unknown) (no (unknown) (unknown) Calcium (units (unkno wn) date) (8.4-10.2) mg/dL unknown) (unknown) (no (unknown) (unknown) Calcium 8.8 (units (un known) date) (8.4-10.2) mg/dL unknown) (unknown) (no (unknown) (unknown) Carbon Dioxide (units (unknown) date) (22-32) mmol/L unknown) (unknown) (no (unknown) (unknown) Carbon Dioxide 27 (units (unknown) date) (22-32) mmol/L unknown) (unknown) (no (unknown) (unknown) Chief Complaint: (units (unknown) date) Abdominal Pain unknown) (unknown) (no (unknown) (unknown) Chloride (98-107) (units (unknown) date) mmol/L unknown) (unknown) (no (unknown) (unknown) Chloride 105 (units (u nknown) date) (98-107) mmol/L unknown) (unknown) (no (unknown) (unknown) Clinical (units (unkno wn) date) Impression: unknown) (unknown) (no (unknown) (unknown) Complete Blood (units (unknown) date) Count AUTO DIFF unknown) Stat (unknown) (no (unknown) (unknown) Comprehensive (units ( unknown) date) Metabolic Panel unknown) Stat (unknown) (no (unknown) (unknown) Course (units (unkno wn) date) unknown) (unknown) (no (unknown) (unknown) Creatinine (units (unk nown) date) (0.52-1.04) mg/dL unknown) (unknown) (no (unknown) (unknown) Creatinine 0.66 (units (unknown) date) (0.52-1.04) mg/dL unknown) (unknown) (no (unknown) (unknown) : 2000 (units (unknown) date) Acct:[id number] unknown) (unknown) (no (unknown) (unknown) : 2000 (units (unknown) date) unknown) (unknown) (no (unknown) (unknown) Date of Service: (units (unknown) date) 10/07/21 unknown) (unknown) (no (unknown) (unknown) Departure (units (unkn own) date) unknown) (unknown) (no (unknown) (unknown) Dictated by: (units (u nknown) date) apoorva Smith M.D. on 10/07/2021 at 11:4 (unknown) (no (unknown) (unknown) Discharge Plan (units (unknown) date) unknown) (unknown) (no (unknown) (unknown) Discontinued (units (u nknown) date) Medications unknown) (unknown) (no (unknown) (unknown) EKG-12 Lead Stat (units (unknown) date) unknown) (unknown) (no (unknown) (unknown) ER Physician: (units ( unknown) date) Dulce Fernandez unknown) D.O. (unknown) (no (unknown) (unknown) EXTREMITIES: (units (u nknown) date) Normal range of unknown) motion, no clubbing or edema. Neurovascularly (unknown) (no (unknown) (unknown) Eos # (Auto) (units (u nknown) date) (0-450) /uL unknown) (unknown) (no (unknown) (unknown) Eos # (Auto) 100 (units (unknown) date) (0-450) /uL unknown) (unknown) (no (unknown) (unknown) Eos % (Auto) (units (u nknown) date) (2-4) % unknown) (unknown) (no (unknown) (unknown) Eos % (Auto) 1.8 (units (unknown) date) L (2-4) % unknown) (unknown) (no (unknown) (unknown) Estimated GFR > (units (unknown) date) 60 (>60) mL/min unknown) (unknown) (no (unknown) (unknown) Estimated GFR (units ( unknown) date) (>60) mL/min unknown) (unknown) (no (unknown) (unknown) Exam (units (unkno wn) date) unknown) (unknown) (no (unknown) (unknown) FINDINGS:? (units (unk nown) date) unknown) (unknown) (no (unknown) (unknown) GASTROINTESTINAL: (units (unknown) date) See HPI unknown) (unknown) (no (unknown) (unknown) GENERAL: Obese (units (unknown) date) 21-year-old female unknown) and in no acute distress. (unknown) (no (unknown) (unknown) GENERAL: Denies (units (unknown) date) chills, fatigue, unknown) malaise, fever, sweats, travel (unknown) (no (unknown) (unknown) : Denies (units (unkn own) date) dysuria, unknown) frequency, incontinence, hematuria, urinary retention, flank (unknown) (no (unknown) (unknown) : No CVA (units (unk nown) date) tenderness unknown) (unknown) (no (unknown) (unknown) General (units (unkno wn) date) unknown) (unknown) (no (unknown) (unknown) GenericComposite[ (units (unknown) date) Plt Count unknown) (150-400) X10^3/uL ] (unknown) (no (unknown) (unknown) GenericComposite[ (units (unknown) date) Plt Count 304 unknown) (150-400) X10^3/uL ] (unknown) (no (unknown) (unknown) GenericComposite[ (units (unknown) date) RBC (4.0-5.2) unknown) X10^6/uL ] (unknown) (no (unknown) (unknown) GenericComposite[ (units (unknown) date) RBC 4.24 (4.0-5.2) unknown) X10^6/uL ] (unknown) (no (unknown) (unknown) GenericComposite[ (units (unknown) date) WBC (4.5-11.0) unknown) X10^3/uL ] (unknown) (no (unknown) (unknown) GenericComposite[ (units (unknown) date) WBC 8.4 (4.5-11.0) unknown) X10^3/uL ] (unknown) (no (unknown) (unknown) Genitourinary:? (units (unknown) date) Bladder wall unknown) thickness is normal.? (unknown) (no (unknown) (unknown) Globulin (units (unkno wn) date) (1.7-4.1) g/dL unknown) (unknown) (no (unknown) (unknown) Globulin 3.0 (units (u nknown) date) (1.7-4.1) g/dL unknown) (unknown) (no (unknown) (unknown) Glucose (70-100) (units (unknown) date) mg/dL unknown) (unknown) (no (unknown) (unknown) Glucose 109 H (units (unknown) date) (70-100) mg/dL unknown) (unknown) (no (unknown) (unknown) HEENT: Denies (units ( unknown) date) sinus pain, ear unknown) pain, sore throat, difficulty swallowing, neck (unknown) (no (unknown) (unknown) HEENT: Head (units (un known) date) atraumatic,EOMI, unknown) pupils reactive, face symmetric, moist mucous (unknown) (no (unknown) (unknown) HPI - Abdominal (units (unknown) date) Pain unknown) (unknown) (no (unknown) (unknown) HPI narrative: (units (unknown) date) unknown) (unknown) (no (unknown) (unknown) Hct (36-46) % (units ( unknown) date) unknown) (unknown) (no (unknown) (unknown) Hct 36.7 (36-46) (units (unknown) date) % unknown) (unknown) (no (unknown) (unknown) Hgb (12.0-16.0) (units (unknown) date) g/dL unknown) (unknown) (no (unknown) (unknown) Hgb 12.4 (units (unkno wn) date) (12.0-16.0) g/dL unknown) (unknown) (no (unknown) (unknown) History of (units (unk nown) date) Present Illness unknown) (unknown) (no (unknown) (unknown) Hydromorphone HCl (units (unknown) date) (Hydromorphone 1 unknown) Mg Inj) 1 mg IV NOW ONE (unknown) (no (unknown) (unknown) IMPRESSION:? (units (u nknown) date) unknown) (unknown) (no (unknown) (unknown) INDICATIONS:? (units ( unknown) date) Continued unknown) suprapubic pain (unknown) (no (unknown) (unknown) Image quality:? (units (unknown) date) Excellent.? unknown) (unknown) (no (unknown) (unknown) Imaging Data (units (u nknown) date) unknown) (unknown) (no (unknown) (unknown) Initial Vital (units ( unknown) date) Signs unknown) (unknown) (no (unknown) (unknown) Initial Vital (units ( unknown) date) Signs: unknown) (unknown) (no (unknown) (unknown) Instructions: DI (units (unknown) date) for Constipation unknown) (unknown) (no (unknown) (unknown) Ketorolac (units (unkn own) date) Tromethamine unknown) (Ketorolac 30 Mg/Ml Vial) 15 mg IV NOW ONE (unknown) (no (unknown) (unknown) Lab Data (units (unkno wn) date) unknown) (unknown) (no (unknown) (unknown) Labs: (units (unkno wn) date) unknown) (unknown) (no (unknown) (unknown) Lipase (23-300) (units (unknown) date) U/L unknown) (unknown) (no (unknown) (unknown) Lipase 80 (units (unkn own) date) (23-300) U/L unknown) (unknown) (no (unknown) (unknown) Lipase Stat (units (un known) date) unknown) (unknown) (no (unknown) (unknown) Loc: ED (units (unkno wn) date) unknown) (unknown) (no (unknown) (unknown) Lung bases:? Lung (units (unknown) date) bases are clear.? unknown) Heart size is normal.? (unknown) (no (unknown) (unknown) Lymph # (Auto) (units (unknown) date) (8797-3335) /uL unknown) (unknown) (no (unknown) (unknown) Lymph # (Auto) (units (unknown) date) 1900 (1732-4786) unknown) /uL (unknown) (no (unknown) (unknown) Lymph % (Auto) (units (unknown) date) (25-40) % unknown) (unknown) (no (unknown) (unknown) Lymph % (Auto) (units (unknown) date) 22.5 L (25-40) % unknown) (unknown) (no (unknown) (unknown) MCH (26-34) PG (units (unknown) date) unknown) (unknown) (no (unknown) (unknown) MCH 29.2 (26-34) (units (unknown) date) PG unknown) (unknown) (no (unknown) (unknown) MCHC (30-36) % (units (unknown) date) unknown) (unknown) (no (unknown) (unknown) MCHC 33.7 (30-36) (units (unknown) date) % unknown) (unknown) (no (unknown) (unknown) MCV (80-100) fL (units (unknown) date) unknown) (unknown) (no (unknown) (unknown) MCV 86.6 (80-100) (units (unknown) date) fL unknown) (unknown) (no (unknown) (unknown) MDM - Abdominal (units (unknown) date) Pain unknown) (unknown) (no (unknown) (unknown) MDM Narrative (units ( unknown) date) unknown) (unknown) (no (unknown) (unknown) MR#: [id number] (units (unknown) date) unknown) (unknown) (no (unknown) (unknown) MUSCULOSKELETAL: (units (unknown) date) Denies weakness, unknown) joint pain, or bony pain (unknown) (no (unknown) (unknown) Magnesium (units (unkn own) date) (1.6-2.3) mg/dL unknown) (unknown) (no (unknown) (unknown) Magnesium 1.9 (units ( unknown) date) (1.6-2.3) mg/dL unknown) (unknown) (no (unknown) (unknown) Magnesium Citrate (units (unknown) date) (Magnesium Citrate unknown) 300 Ml Solution) 300 ml PO NOW ONE (unknown) (no (unknown) (unknown) Magnesium Stat (units (unknown) date) unknown) (unknown) (no (unknown) (unknown) Magnesium citrate (units (unknown) date) 1 bottle as needed unknown) for constipation (unknown) (no (unknown) (unknown) Medical decision (units (unknown) date) making narrative: unknown) (unknown) (no (unknown) (unknown) Miscellaneous:? (units (unknown) date) No inguinal unknown) hernias or adenopathy.? (unknown) (no (unknown) (unknown) Miscellaneous:? (units (unknown) date) No ventral unknown) hernias.? (unknown) (no (unknown) (unknown) Mode of arrival: (units (unknown) date) EMS unknown) (unknown) (no (unknown) (unknown) Mills # (Auto) (units ( unknown) date) (0-900) /uL unknown) (unknown) (no (unknown) (unknown) Mills # (Auto) 500 (units (unknown) date) (0-900) /uL unknown) (unknown) (no (unknown) (unknown) Mills % (Auto) (units ( unknown) date) (3-14) % unknown) (unknown) (no (unknown) (unknown) Mills % (Auto) 6.4 (units (unknown) date) (3-14) % unknown) (unknown) (no (unknown) (unknown) NEUROLOGIC: (units (un known) date) Denies weakness, unknown) dizziness, headache, numbness, change in speech, (unknown) (no (unknown) (unknown) NEUROLOGICAL: (units ( unknown) date) Alert and oriented unknown) x4.Normal gait and speech. (unknown) (no (unknown) (unknown) Narrative: (units (unk nown) date) unknown) (unknown) (no (unknown) (unknown) Neut # (Auto) (units ( unknown) date) (0312-0068) /uL unknown) (unknown) (no (unknown) (unknown) Neut # (Auto) (units ( unknown) date) 5800 (1683-3664) unknown) /uL (unknown) (no (unknown) (unknown) Neut % (Auto) (units ( unknown) date) (50-75) % unknown) (unknown) (no (unknown) (unknown) Neut % (Auto) (units ( unknown) date) 68.8 (50-75) % unknown) (unknown) (no (unknown) (unknown) No Action (units (unkn own) date) unknown) (unknown) (no (unknown) (unknown) Nodes and (units (unkn own) date) vessels:? No unknown) retroperitoneal or mesenteric adenopathy by size (unknown) (no (unknown) (unknown) Noncontrast 5 mm (units (unknown) date) thick sections unknown) acquired from the diaphragms to the symphysis.? (unknown) (no (unknown) (unknown) Ordered: (units (unkno wn) date) unknown) (unknown) (no (unknown) (unknown) Ordering (units (unkno wn) date) Provider: unknown) Dulce Frenandez D.O. (unknown) (no (unknown) (unknown) Orders (units (unkno wn) date) unknown) (unknown) (no (unknown) (unknown) Oxygen Delivery (units (unknown) date) Method unknown) (unknown) (no (unknown) (unknown) Oxygen Delivery (units (unknown) date) Method unknown) (unknown) (no (unknown) (unknown) Oxygen Delivery (units (unknown) date) Method Room Air unknown) (unknown) (no (unknown) (unknown) PELVIS:? (units (unkno wn) date) unknown) (unknown) (no (unknown) (unknown) PROCEDURE:? CT (units (unknown) date) ABDOMEN PELVIS WO unknown) CON (unknown) (no (unknown) (unknown) PSYCHIATRIC: No (units (unknown) date) concerning unknown) psychosocial issues. (unknown) (no (unknown) (unknown) Pain was (units (unkno wn) date) significantly unknown) worse this. She has been constipated in the past she is (unknown) (no (unknown) (unknown) Patient (units (unkno wn) date) Disposition: Home unknown) (unknown) (no (unknown) (unknown) Patient History (units (unknown) date) unknown) (unknown) (no (unknown) (unknown) Patient is a (units (u nknown) date) 21-year-old female unknown) with history of depression anxiety presenting (unknown) (no (unknown) (unknown) Patient is here (units (unknown) date) today with unknown) suprapubic pain. Blood work is overall reassuring. (unknown) (no (unknown) (unknown) Patient: (units (unkno wn) date) Emily Johnson unknown) MR#: M (unknown) (no (unknown) (unknown) Patient: (units (unkno wn) date) Emily Johnson unknown) (unknown) (no (unknown) (unknown) Penicillins (units (un known) date) Allergy Verified unknown) 09/30/21 20:17 (unknown) (no (unknown) (unknown) Peritoneum and (units (unknown) date) bowel:? Unenhanced unknown) bowel loops demonstrate normal wall thickness (unknown) (no (unknown) (unknown) Potassium (units (unkn own) date) (3.4-5.1) mmol/L unknown) (unknown) (no (unknown) (unknown) Potassium 4.2 (units ( unknown) date) (3.4-5.1) mmol/L unknown) (unknown) (no (unknown) (unknown) Test (units (unknown) date) Serum,Qual Stat unknown) (unknown) (no (unknown) (unknown) Prescriptions: (units (unknown) date) unknown) (unknown) (no (unknown) (unknown) Procedure: CT (units ( unknown) date) abdomen pelvis wo unknown) con (unknown) (no (unknown) (unknown) Pulse Oximetry 93 (units (unknown) date) unknown) (unknown) (no (unknown) (unknown) Pulse Oximetry 94 (units (unknown) date) unknown) (unknown) (no (unknown) (unknown) Pulse Oximetry 95 (units (unknown) date) unknown) (unknown) (no (unknown) (unknown) Pulse Oximetry 95 (units (unknown) date) unknown) (unknown) (no (unknown) (unknown) Pulse Oximetry 96 (units (unknown) date) unknown) (unknown) (no (unknown) (unknown) Pulse Oximetry 96 (units (unknown) date) 10/07/21 09:24 unknown) (unknown) (no (unknown) (unknown) Pulse Oximetry 95 (units (unknown) date) 92 96 unknown) (unknown) (no (unknown) (unknown) Pulse Oximetry 97 (units (unknown) date) 95 unknown) (unknown) (no (unknown) (unknown) Pulse Oximetry 97 (units (unknown) date) 96 unknown) (unknown) (no (unknown) (unknown) Pulse Rate 77 (units ( unknown) date) unknown) (unknown) (no (unknown) (unknown) Pulse Rate 75 (units ( unknown) date) unknown) (unknown) (no (unknown) (unknown) Pulse Rate 77 (units ( unknown) date) unknown) (unknown) (no (unknown) (unknown) Pulse Rate 83 (units ( unknown) date) unknown) (unknown) (no (unknown) (unknown) Pulse Rate 94 H (units (unknown) date) unknown) (unknown) (no (unknown) (unknown) Pulse Rate 94 H (units (unknown) date) 10/07/21 09:24 unknown) (unknown) (no (unknown) (unknown) Pulse Rate 68 81 (units (unknown) date) 86 unknown) (unknown) (no (unknown) (unknown) Pulse Rate 86 71 (units (unknown) date) unknown) (unknown) (no (unknown) (unknown) Pulse Rate 89 87 (units (unknown) date) unknown) (unknown) (no (unknown) (unknown) RDW (11.6-14.8) % (units (unknown) date) unknown) (unknown) (no (unknown) (unknown) RDW 13.3 (units (unkno wn) date) (11.6-14.8) % unknown) (unknown) (no (unknown) (unknown) RESPIRATORY: (units (u nknown) date) Breath sounds unknown) equal bilaterally, no wheezes rales or rhonchi. (unknown) (no (unknown) (unknown) RESPIRATORY: (units (u nknown) date) Denies dyspnea, unknown) cough, wheezing, hemoptysis, sputum. (unknown) (no (unknown) (unknown) Related Data (units (u nknown) date) unknown) (unknown) (no (unknown) (unknown) Respiratory Rate (units (unknown) date) unknown) (unknown) (no (unknown) (unknown) Respiratory Rate (units (unknown) date) 22 unknown) (unknown) (no (unknown) (unknown) Respiratory Rate (units (unknown) date) 18 unknown) (unknown) (no (unknown) (unknown) Respiratory Rate (units (unknown) date) 20 unknown) (unknown) (no (unknown) (unknown) Respiratory Rate (units (unknown) date) 21 unknown) (unknown) (no (unknown) (unknown) Respiratory Rate (units (unknown) date) 17 16 21 unknown) (unknown) (no (unknown) (unknown) Respiratory Rate (units (unknown) date) 23 17 unknown) (unknown) (no (unknown) (unknown) Result diagrams: (units (unknown) date) unknown) (unknown) (no (unknown) (unknown) Review of Systems (units (unknown) date) unknown) (unknown) (no (unknown) (unknown) SARS-CoV-2 (PCR) (units (unknown) date) (Negative) unknown) (unknown) (no (unknown) (unknown) SARS-CoV-2 (PCR) (units (unknown) date) Negative unknown) (Negative) (unknown) (no (unknown) (unknown) SKIN: No rash, no (units (unknown) date) erythema, no unknown) pruritus (unknown) (no (unknown) (unknown) SKIN: Warm, dry, (units (unknown) date) no laceration, no unknown) petechiae, no rashes or lesions. (unknown) (no (unknown) (unknown) Serum , (units (unknown) date) Qual Negative unknown) (Negative) (unknown) (no (unknown) (unknown) Serum , (units (unknown) date) Qual (Negative) unknown) (unknown) (no (unknown) (unknown) Signed By: (units (unk nown) date) unknown) (unknown) (no (unknown) (unknown) Smoking Status: (units (unknown) date) Former smoker unknown) (unknown) (no (unknown) (unknown) Smoking Status: (units (unknown) date) Former smoker unknown) (unknown) (no (unknown) (unknown) Social History (units (unknown) date) (Reviewed 10/07/21 unknown) @ 10:36 by Dulce Fernandez DO) (unknown) (no (unknown) (unknown) Sodium (137-145) (units (unknown) date) mmol/L unknown) (unknown) (no (unknown) (unknown) Sodium 137 (units (unk nown) date) (137-145) mmol/L unknown) (unknown) (no (unknown) (unknown) Solid organs:? (units (unknown) date) Again noted is a unknown) paddle megaly and moderate to severe diffuse (unknown) (no (unknown) (unknown) Source: patient (units (unknown) date) and EMS unknown) (unknown) (no (unknown) (unknown) Stated Complaint: (units (unknown) date) Abd pain unknown) (unknown) (no (unknown) (unknown) Substance Use (units ( unknown) date) Type: marijuana unknown) (unknown) (no (unknown) (unknown) TECHNIQUE:? (units (un known) date) unknown) (unknown) (no (unknown) (unknown) Temperature (units (un known) date) unknown) (unknown) (no (unknown) (unknown) Temperature (units (un known) date) unknown) (unknown) (no (unknown) (unknown) Temperature 98.0 (units (unknown) date) F unknown) (unknown) (no (unknown) (unknown) Time Seen by (units (u nknown) date) Provider: 10/07/21 unknown) 09:34 (unknown) (no (unknown) (unknown) Total Bilirubin (units (unknown) date) (0.2-1.3) mg/dL unknown) (unknown) (no (unknown) (unknown) Total Bilirubin (units (unknown) date) 0.4 (0.2-1.3) unknown) mg/dL (unknown) (no (unknown) (unknown) Total Creatine (units (unknown) date) Kinase (30-135) unknown) U/L (unknown) (no (unknown) (unknown) Total Creatine (units (unknown) date) Kinase 34 (30-135) unknown) U/L (unknown) (no (unknown) (unknown) Total Protein (units ( unknown) date) (6.3-8.2) g/dL unknown) (unknown) (no (unknown) (unknown) Total Protein 7.2 (units (unknown) date) (6.3-8.2) g/dL unknown) (unknown) (no (unknown) (unknown) Troponin + CK (units ( unknown) date) Cardiac Panel Stat unknown) (unknown) (no (unknown) (unknown) Troponin I < (units (u nknown) date) 0.012 (0.01-0.034) unknown) ng/mL (unknown) (no (unknown) (unknown) Troponin I (units (unk nown) date) (0.01-0.034) ng/mL unknown) (unknown) (no (unknown) (unknown) Visit Report (units (u nknown) date) Forms: Patient unknown) Portal/API (unknown) (no (unknown) (unknown) Vital Signs (units (un known) date) unknown) (unknown) (no (unknown) (unknown) Vital signs: (units (u nknown) date) unknown) (unknown) (no (unknown) (unknown) [Embedded Image (units (unknown) date) Not Available] unknown) (unknown) (no (unknown) (unknown) [From Maalox (units (u nknown) date) Total Relief unknown) (unknown) (no (unknown) (unknown) according to (units (u nknown) date) unknown) (unknown) (no (unknown) (unknown) adenitis with (units ( unknown) date) normal blood work. unknown) She was discharged home and was doing okay (unknown) (no (unknown) (unknown) alcohol intake (units (unknown) date) frequency: unknown) holidays/special occasions only (unknown) (no (unknown) (unknown) allergic to some (units (unknown) date) MiraLax but states unknown) magnesium citrate helps her. (unknown) (no (unknown) (unknown) amoxicillin (units (un known) date) Allergy Verified unknown) 10/07/21 09:37 (unknown) (no (unknown) (unknown) and (units (unkno wn) date) unknown) (unknown) (no (unknown) (unknown) and inferior vena (units (unknown) date) cava are normal in unknown) caliber.? (unknown) (no (unknown) (unknown) and is feeling (units (unknown) date) slightly better. unknown) She denies any flank pain or radiation. No (unknown) (no (unknown) (unknown) bismuth (units (unkno wn) date) subsalicylate unknown) Allergy Verified 10/07/21 09:37 (unknown) (no (unknown) (unknown) breath but is not (units (unknown) date) right now. She no unknown) longer has chest pain. She is complaining (unknown) (no (unknown) (unknown) caliber.? No free (units (unknown) date) fluid or air.? unknown) Moderate right colonic fecal debris is (unknown) (no (unknown) (unknown) cinnamon Allergy (units (unknown) date) Verified 10/07/21 unknown) 09:37 (unknown) (no (unknown) (unknown) confusion (units (unkn own) date) unknown) (unknown) (no (unknown) (unknown) constipation. (units ( unknown) date) unknown) (unknown) (no (unknown) (unknown) constipation. (units ( unknown) date) Patient states unknown) that she did have a bowel movement last night. (unknown) (no (unknown) (unknown) contours.? Spleen (units (unknown) date) is normal in unknown) size.? It measures 11.5 cm in length.? No adrenal (unknown) (no (unknown) (unknown) coronal and (units (un known) date) sagittal reformats unknown) were then performed.? For radiation dose (unknown) (no (unknown) (unknown) criteria.? Aorta (units (unknown) date) unknown) (unknown) (no (unknown) (unknown) discharge. No (units ( unknown) date) significant unknown) vaginal bleeding. She was given morphine with EMS (unknown) (no (unknown) (unknown) epigastric or (units ( unknown) date) right upper unknown) quadrant pain. (unknown) (no (unknown) (unknown) fecalized (units (unkn own) date) unknown) (unknown) (no (unknown) (unknown) fever greater (units ( unknown) date) than 100.4 or any unknown) new, worsening or concerning symptoms (unknown) (no (unknown) (unknown) following was (units ( unknown) date) used:? automated unknown) exposure control, adjustment of mA and/or kV (unknown) (no (unknown) (unknown) had some (units (unkno wn) date) epigastric pain. 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 (units (unkn own) date) unknown) (unknown) (no (unknown) (unknown) membranes (units (unkn own) date) unknown) (unknown) (no (unknown) (unknown) mg tablet (units (unkn own) date) unknown) (unknown) (no (unknown) (unknown) nodes that were (units (unknown) date) previously swollen unknown) are better. Your CT today shows (unknown) (no (unknown) (unknown) normal in (units (unkn own) date) unknown) (unknown) (no (unknown) (unknown) of severe pain. (units (unknown) date) She denies painful unknown) or frequent urination. No abnormal vaginal (unknown) (no (unknown) (unknown) ondansetron 4 mg (units (unknown) date) disintegrating 4 unknown) mg PO TID-QID PRN nausea and 10/01/21 (unknown) (no (unknown) (unknown) pain (units (unkno wn) date) unknown) (unknown) (no (unknown) (unknown) pain. (units (unkno wn) date) unknown) (unknown) (no (unknown) (unknown) patient size.? (units (unknown) date) unknown) (unknown) (no (unknown) (unknown) present.? Since (units (unknown) date) unknown) (unknown) (no (unknown) (unknown) radiates from her (units (unknown) date) suprapubic area up unknown) to her chest. She sometimes gets short of (unknown) (no (unknown) (unknown) reduction, the (units (unknown) date) unknown) (unknown) (no (unknown) (unknown) right upper (units (un known) date) quadrant unknown) (unknown) (no (unknown) (unknown) steatosis.? (units (un known) date) Findings are unknown) unchanged.? Gallbladder is unremarkable .? Pancreas is (unknown) (no (unknown) (unknown) tablet vomiting (units (unknown) date) #10 tabs unknown) (unknown) (no (unknown) (unknown) the previous (units (u nknown) date) study, the unknown) terminal ileum has developed distension secondary to (unknown) (no (unknown) (unknown) tobacco type: (units ( unknown) date) vaping unknown) (unknown) (no (unknown) (unknown) today with (units (unk nown) date) suprapubic pain. unknown) She was here and evaluated on 09/30/2021 when she (unknown) (no (unknown) (unknown) until this (units (unk nown) date) morning when she unknown) had sudden onset of suprapubic pain. She says it Result panel 20 (unknown) (no (unknown) (unknown) (no value) (units (unk nown) date) unknown) (unknown) (no (unknown) (unknown) [address]units (unkn own) date) [address] unknown) (unknown) (no (unknown) (unknown) [place] (units ( unknown) date) [id number] unknown) (unknown) (no (unknown) (unknown) [facility] (units (unknown) date) unknown) (unknown) (no (unknown) (unknown) Signed (units (unkno wn) date) unknown) (unknown) (no (unknown) (unknown) XRay Report (units (un known) date) unknown) (unknown) (no (unknown) (unknown) (no value) (units (unk nown) date) unknown) (unknown) (no (unknown) (unknown) 10/21/21 (units (unkno wn) date) unknown) (unknown) (no (unknown) (unknown) Approved by: (units (u nknown) date) Dangelo Clement unknown) Lea Torres on 10/21/2021 at 11:58 (unknown) (no (unknown) (unknown) Bones: No (units (unkn own) date) fractures or unknown) dislocations. Ankle mortise is normally aligned. No (unknown) (no (unknown) (unknown) COMPARISON: (units (un known) date) None. unknown) (unknown) (no (unknown) (unknown) Dictated by: (units (u nknown) date) Dangelo washington) Lea Torres on 10/21/2021 at 11:57 (unknown) (no (unknown) (unknown) FINDINGS: (units (unkn own) date) unknown) (unknown) (no (unknown) (unknown) IMPRESSION: (units (un known) date) Soft tissue unknown) swelling is seen, without an acute bony abnormality (unknown) (no (unknown) (unknown) INDICATIONS: (units (u nknown) date) pain unknown) (unknown) (no (unknown) (unknown) If there is (units (un known) date) point tenderness unknown) (or other clinical suspicion for a fracture not (unknown) (no (unknown) (unknown) Soft tissues: (units ( unknown) date) Generalized soft unknown) tissue swelling is seen. (unknown) (no (unknown) (unknown) TECHNIQUE: 3 (units (u nknown) date) views of the unknown) ankle were acquired. (unknown) (no (unknown) (unknown) bony lesions. (units ( unknown) date) The talar dome unknown) demonstrates no mark anthony abnormality. Incidental (unknown) (no (unknown) (unknown) considered for (units (unknown) date) further unknown) evaluation, as clinically appropriate. (unknown) (no (unknown) (unknown) of an accessory (units (unknown) date) ossicle, an os unknown) peroneum. (unknown) (no (unknown) (unknown) plain film. (units (un known) date) unknown) (unknown) (no (unknown) (unknown) these images) (units ( unknown) date) then a dedicated unknown) CT or a short-term followup plain film series (unknown) (no (unknown) (unknown) Accession (units (unkn own) date) Number: unknown) [id number] (unknown) (no (unknown) (unknown) Age/Sex: 21 / F (units (unknown) date) Date of Service: unknown) (unknown) (no (unknown) (unknown) : 2000 (units (unknown) date) Acct:[id number] unknown) (unknown) (no (unknown) (unknown) Loc: ED (units (unkno wn) date) unknown) (unknown) (no (unknown) (unknown) [id number] (units (unk nown) date) unknown) (unknown) (no (unknown) (unknown) Ordering (units (unkno wn) date) Provider: unknown) Dulce Fernandez D.O. (unknown) (no (unknown) (unknown) PROCEDURE: XR (units ( unknown) date) ANKLE RT MIN 3V unknown) (unknown) (no (unknown) (unknown) Patient: (units (unkno wn) date) Emily Johnson unknown) Marcial MR#: (unknown) (no (unknown) (unknown) Procedure: XR (units ( unknown) date) ankle RT min 3V unknown) (unknown) (no (unknown) (unknown) could be (units (unkno wn) date) unknown) (unknown) (no (unknown) (unknown) note is made (units (u nknown) date) unknown) (unknown) (no (unknown) (unknown) seen by (units (unkno wn) date) unknown) (unknown) (no (unknown) (unknown) seen on (units (unkno wn) date) unknown) (unknown) (no (unknown) (unknown) suspicious (units (unk nown) date) unknown) Result panel 21 (unknown) (no (unknown) (unknown) (no value) (units (unk nown) date) unknown) (unknown) (no (unknown) (unknown) Radiologist's (units ( unknown) date) Impression: unknown) (unknown) (no (unknown) (unknown) Date of Service: (units (unknown) date) 10/21/21 unknown) (unknown) (no (unknown) (unknown) (no value) (units (unk nown) date) unknown) (unknown) (no (unknown) (unknown) 1 tab PO Q4-6H (units (unknown) date) PRN (Reason: pain) unknown) Qty: 10 0RF (unknown) (no (unknown) (unknown) 4 mg PO TID-QID (units (unknown) date) PRN (Reason: unknown) nausea and vomiting) Qty: 10 0RF (unknown) (no (unknown) (unknown) Allergies (units (unkn own) date) unknown) (unknown) (no (unknown) (unknown) ED Orders (units (unkn own) date) unknown) (unknown) (no (unknown) (unknown) Emergency Report (units (unknown) date) unknown) (unknown) (no (unknown) (unknown) [facility] (units (unknown) date) [address] unknown) [place] [address] (unknown) (no (unknown) (unknown) Previous Rx's (units ( unknown) date) unknown) (unknown) (no (unknown) (unknown) Signed (units (unkno wn) date) unknown) (unknown) (no (unknown) (unknown) Vital Signs - 8 (units (unknown) date) hr unknown) (unknown) (no (unknown) (unknown) XRay Report (units (un known) date) unknown) (unknown) (no (unknown) (unknown) (no value) (units (unk nown) date) unknown) (unknown) (no (unknown) (unknown) hydrocodone-aceta (units (unknown) date) minophen 5-325 mg unknown) tablet (unknown) (no (unknown) (unknown) ondansetron 4 mg (units (unknown) date) tablet,disintegrat unknown) ing (unknown) (no (unknown) (unknown) 10/21/21 (units (unkno wn) date) unknown) (unknown) (no (unknown) (unknown) Ankle sprain (units (u nknown) date) unknown) (unknown) (no (unknown) (unknown) Medication (units (unk nown) date) Instructions unknown) Recorded (unknown) (no (unknown) (unknown) (bismuth)] (units (unk nown) date) unknown) (unknown) (no (unknown) (unknown) *Continue to take (units (unknown) date) medications as unknown) directed (unknown) (no (unknown) (unknown) *Follow up with (units (unknown) date) your primary care unknown) provider in 2-3 days or call [phone] (unknown) (no (unknown) (unknown) *Return to ER if (units (unknown) date) you should have unknown) increasing pain swelling redness or any new, (unknown) (no (unknown) (unknown) *What to do: At (units (unknown) date) this time use unknown) crutches as needed. Elevate and ice. Try ankle (unknown) (no (unknown) (unknown) *You have been (units (unknown) date) diagnosed with unknown) right ankle sprain (unknown) (no (unknown) (unknown) [id number] (units (unkn own) date) unknown) (unknown) (no (unknown) (unknown) 10/21/21 12:34 (units (unknown) date) unknown) (unknown) (no (unknown) (unknown) 12:30 (units (unkno wn) date) unknown) (unknown) (no (unknown) (unknown) 8 point review of (units (unknown) date) systems is unknown) negative except for those stated above and HPI (unknown) (no (unknown) (unknown) ? (units (unkno wn) date) unknown) (unknown) (no (unknown) (unknown) Accession Number: (units (unknown) date) [id number] ?? unknown) (unknown) (no (unknown) (unknown) Acct:[id number] (units (unknown) date) unknown) (unknown) (no (unknown) (unknown) Activity (units (unkno wn) date) Restrictions/Addit unknown) ional Instructions: (unknown) (no (unknown) (unknown) Age/Sex: 21 / F (units (unknown) date) unknown) (unknown) (no (unknown) (unknown) Age/Sex: 21 / F (units (unknown) date) unknown) (unknown) (no (unknown) (unknown) Allergy/AdvReac (units (unknown) date) Type Severity unknown) Reaction Status Date / Time (unknown) (no (unknown) (unknown) Blood Pressure (units (unknown) date) 138/89 10/21/21 unknown) 12:30 (unknown) (no (unknown) (unknown) Blood Pressure (units (unknown) date) 138/89 unknown) (unknown) (no (unknown) (unknown) Bones:? No (units (unk nown) date) fractures or unknown) dislocations.? Ankle mortise is normally aligned.? No (unknown) (no (unknown) (unknown) CARDIOVASCULAR: (units (unknown) date) Denies chest pain, unknown) palpitations (unknown) (no (unknown) (unknown) CARDIOVASCULAR: (units (unknown) date) peripheral pulses unknown) in tact, cap refill <2 sec (unknown) (no (unknown) (unknown) COMPARISON:? (units (u nknown) date) None. unknown) (unknown) (no (unknown) (unknown) Chief complaint: (units (unknown) date) Extremity unknown) Problem,Nontraumat ic (unknown) (no (unknown) (unknown) Clinical (units (unkno wn) date) Impression: unknown) (unknown) (no (unknown) (unknown) Course (units (unkno wn) date) unknown) (unknown) (no (unknown) (unknown) : 2000 (units (unknown) date) Acct:[id number] unknown) (unknown) (no (unknown) (unknown) : 2000 (units (unknown) date) unknown) (unknown) (no (unknown) (unknown) Date of Service: (units (unknown) date) 10/21/21 unknown) (unknown) (no (unknown) (unknown) Departure (units (unkn own) date) unknown) (unknown) (no (unknown) (unknown) Dictated by: (units (u nknown) date) Dangelo Torres, unknownRoselyn Tate on 10/21/2021 at 11:57 ? ? (unknown) (no (unknown) (unknown) Discharge Plan (units (unknown) date) unknown) (unknown) (no (unknown) (unknown) ER Physician: (units ( unknown) date) Dulce Fernandez unknown) D.O. (unknown) (no (unknown) (unknown) EXTREMITIES: (units (u nknown) date) Normal range of unknown) motion, no clubbing or edema. Neurovascularly (unknown) (no (unknown) (unknown) Exam (units (unkno wn) date) unknown) (unknown) (no (unknown) (unknown) Extremity x-ray (units (unknown) date) #1: unknown) (unknown) (no (unknown) (unknown) FINDINGS:? (units (unk nown) date) unknown) (unknown) (no (unknown) (unknown) GASTROINTESTINAL: (units (unknown) date) Denies nausea, unknown) vomiting (unknown) (no (unknown) (unknown) GENERAL: Alert (units (unknown) date) 21-year-old female unknown) BMI 54 (unknown) (no (unknown) (unknown) GENERAL: Denies (units (unknown) date) chills,fever unknown) (unknown) (no (unknown) (unknown) General (units (unkno wn) date) unknown) (unknown) (no (unknown) (unknown) HEENT: Denies (units ( unknown) date) throat pain unknown) (unknown) (no (unknown) (unknown) HPI - Extremity (units (unknown) date) Problem unknown) (unknown) (no (unknown) (unknown) HPI Narrative: (units (unknown) date) unknown) (unknown) (no (unknown) (unknown) History of (units (unk nown) date) Present Illness unknown) (unknown) (no (unknown) (unknown) IMPRESSION:? Soft (units (unknown) date) tissue swelling is unknown) seen, without an acute bony abnormality (unknown) (no (unknown) (unknown) INDICATIONS:? (units ( unknown) date) pain unknown) (unknown) (no (unknown) (unknown) Ibuprofen 600 mg (units (unknown) date) every 6 hours if unknown) needed for [id number] pain (unknown) (no (unknown) (unknown) If there is point (units (unknown) date) tenderness (or unknown) other clinical suspicion for a fracture not (unknown) (no (unknown) (unknown) Imaging Data (units (u nknown) date) unknown) (unknown) (no (unknown) (unknown) Initial Vital (units ( unknown) date) Signs unknown) (unknown) (no (unknown) (unknown) Initial Vital (units ( unknown) date) Signs: unknown) (unknown) (no (unknown) (unknown) Instructions: (units ( unknown) date) Ankle Sprain unknown) (unknown) (no (unknown) (unknown) Loc: ED (units (unkno wn) date) unknown) (unknown) (no (unknown) (unknown) MDM - Extremity (units (unknown) date) (Nontraumatic) unknown) (unknown) (no (unknown) (unknown) MR#: [id number] (units (unknown) date) unknown) (unknown) (no (unknown) (unknown) MUSCULOSKELETAL: (units (unknown) date) See HPI unknown) (unknown) (no (unknown) (unknown) Minimal swelling (units (unknown) date) noted around right unknown) ankle distal pedal pulses felt foot is (unknown) (no (unknown) (unknown) Mode of arrival: (units (unknown) date) Family Vehicle unknown) (unknown) (no (unknown) (unknown) NEUROLOGIC: (units (un known) date) Denies weakness, unknown) dizziness, headache, numbness (unknown) (no (unknown) (unknown) NEUROLOGICAL: (units ( unknown) date) Cranial nerves II unknown) through XII grossly intact. Normal gait and (unknown) (no (unknown) (unknown) Narrative: (units (unk nown) date) unknown) (unknown) (no (unknown) (unknown) No Action (units (unkn own) date) unknown) (unknown) (no (unknown) (unknown) Ordered: (units (unkno wn) date) unknown) (unknown) (no (unknown) (unknown) Ordering (units (unkno wn) date) Provider: unknown) Dulce Fernandez D.O. (unknown) (no (unknown) (unknown) Orders (units (unkno wn) date) unknown) (unknown) (no (unknown) (unknown) Oxygen Delivery (units (unknown) date) Method 10/21/21 unknown) 12:30 (unknown) (no (unknown) (unknown) Oxygen Delivery (units (unknown) date) Method Room Air unknown) (unknown) (no (unknown) (unknown) PROCEDURE:? XR (units (unknown) date) ANKLE RT MIN 3V unknown) (unknown) (no (unknown) (unknown) Patient (units (unkno wn) date) Disposition: Home unknown) (unknown) (no (unknown) (unknown) Patient History (units (unknown) date) unknown) (unknown) (no (unknown) (unknown) Patient is a (units (u nknown) date) 21-year-old female unknown) with history of depression anxiety obesity (unknown) (no (unknown) (unknown) Patient: (units (unkno wn) date) Emily Johnson unknown) MR#: M (unknown) (no (unknown) (unknown) Patient: (units (unkno wn) date) Emily Johnson unknown) (unknown) (no (unknown) (unknown) Penicillins (units (un known) date) Allergy Verified unknown) 09/30/21 20:17 (unknown) (no (unknown) (unknown) Prescriptions: (units (unknown) date) unknown) (unknown) (no (unknown) (unknown) Procedure: XR (units ( unknown) date) ankle RT min 3V unknown) (unknown) (no (unknown) (unknown) Pulse Oximetry 98 (units (unknown) date) 10/21/21 12:30 unknown) (unknown) (no (unknown) (unknown) Pulse Oximetry 98 (units (unknown) date) unknown) (unknown) (no (unknown) (unknown) Pulse Rate 63 (units ( unknown) date) 10/21/21 12:30 unknown) (unknown) (no (unknown) (unknown) Pulse Rate 63 (units ( unknown) date) unknown) (unknown) (no (unknown) (unknown) RESPIRATORY: (units (u nknown) date) Denies dyspnea, unknown) cough, wheezing (unknown) (no (unknown) (unknown) RESPIRATORY: No (units (unknown) date) respiratory unknown) distress, speaks in full sentences without (unknown) (no (unknown) (unknown) Related Data (units (u nknown) date) unknown) (unknown) (no (unknown) (unknown) Respiratory Rate (units (unknown) date) 20 10/21/21 12:30 unknown) (unknown) (no (unknown) (unknown) Respiratory Rate (units (unknown) date) 20 unknown) (unknown) (no (unknown) (unknown) Review of Systems (units (unknown) date) unknown) (unknown) (no (unknown) (unknown) SKIN: No rash, no (units (unknown) date) laceration, no unknown) pruritus (unknown) (no (unknown) (unknown) SKIN: Warm, dry, (units (unknown) date) no petechiae, no unknown) rashes or lesions. (unknown) (no (unknown) (unknown) Signed By: (units (unk nown) date) unknown) (unknown) (no (unknown) (unknown) Smoking Status: (units (unknown) date) Former smoker unknown) (unknown) (no (unknown) (unknown) Smoking Status: (units (unknown) date) Former smoker unknown) (unknown) (no (unknown) (unknown) Social History (units (unknown) date) (Reviewed 10/21/21 unknown) @ 13:56 by Dulce Fernandez DO) (unknown) (no (unknown) (unknown) Soft tissues:? (units (unknown) date) Generalized soft unknown) tissue swelling is seen. (unknown) (no (unknown) (unknown) Source: patient (units (unknown) date) unknown) (unknown) (no (unknown) (unknown) Stated complaint: (units (unknown) date) right ankle pain, unknown) unable to walk on it (unknown) (no (unknown) (unknown) Substance Use (units ( unknown) date) Type: marijuana unknown) (unknown) (no (unknown) (unknown) TECHNIQUE:? 3 (units ( unknown) date) views of the ankle unknown) were acquired.? (unknown) (no (unknown) (unknown) Temperature 97.4 (units (unknown) date) F L 10/21/21 12:30 unknown) (unknown) (no (unknown) (unknown) Temperature 97.4 (units (unknown) date) F L unknown) (unknown) (no (unknown) (unknown) Time Seen by (units (u nknown) date) Provider: 10/21/21 unknown) 13:22 (unknown) (no (unknown) (unknown) Tylenol 1000 mg (units (unknown) date) every 6 hours if unknown) needed for [id number] (unknown) (no (unknown) (unknown) Vital Signs (units (un known) date) unknown) (unknown) (no (unknown) (unknown) Vital signs: (units (u nknown) date) unknown) (unknown) (no (unknown) (unknown) XR ankle RT min (units (unknown) date) 3V Stat unknown) (unknown) (no (unknown) (unknown) [From Maalox (units (u nknown) date) Total Relief unknown) (unknown) (no (unknown) (unknown) alcohol intake (units (unknown) date) frequency: unknown) holidays/special occasions only (unknown) (no (unknown) (unknown) amoxicillin (units (un known) date) Allergy Verified unknown) 10/07/21 09:37 (unknown) (no (unknown) (unknown) ankle and up into (units (unknown) date) her leg. No other unknown) injuries. She has been taking ibuprofen at (unknown) (no (unknown) (unknown) bismuth (units (unkno wn) date) subsalicylate unknown) Allergy Verified 10/07/21 09:37 (unknown) (no (unknown) (unknown) bony lesions.? (units (unknown) date) The talar dome unknown) demonstrates no mark anthony abnormality.? Incidental (unknown) (no (unknown) (unknown) brace (units (unkno wn) date) unknown) (unknown) (no (unknown) (unknown) cinnamon Allergy (units (unknown) date) Verified 10/07/21 unknown) 09:37 (unknown) (no (unknown) (unknown) considered for (units (unknown) date) further unknown) evaluation, as clinically appropriate. (unknown) (no (unknown) (unknown) could be (units (unkno wn) date) unknown) (unknown) (no (unknown) (unknown) difficulty (units (unk nown) date) unknown) (unknown) (no (unknown) (unknown) home without any (units (unknown) date) relief. unknown) (unknown) (no (unknown) (unknown) hydrocodone 5 (units ( unknown) date) mg-acetaminophen unknown) 325 1 tab PO Q4-6H PRN pain #10 tabs 10/01/21 (unknown) (no (unknown) (unknown) intact (units (unkno wn) date) unknown) (unknown) (no (unknown) (unknown) mg tablet (units (unkn own) date) unknown) (unknown) (no (unknown) (unknown) note is made (units (u nknown) date) unknown) (unknown) (no (unknown) (unknown) of an accessory (units (unknown) date) ossicle, an os unknown) peroneum.? (unknown) (no (unknown) (unknown) ondansetron 4 mg (units (unknown) date) disintegrating 4 unknown) mg PO TID-QID PRN nausea and 10/01/21 (unknown) (no (unknown) (unknown) plain film. (units (un known) date) unknown) (unknown) (no (unknown) (unknown) presenting today (units (unknown) date) for right ankle unknown) pain ongoing for last 4 days. She does not (unknown) (no (unknown) (unknown) remember injuring (units (unknown) date) it. She now is unknown) having increased difficulty ambulating and (unknown) (no (unknown) (unknown) seen by (units (unkno wn) date) unknown) (unknown) (no (unknown) (unknown) seen on (units (unkno wn) date) unknown) (unknown) (no (unknown) (unknown) speech. (units (unkno wn) date) unknown) (unknown) (no (unknown) (unknown) stable and (units (unk nown) date) nontender unknown) (unknown) (no (unknown) (unknown) suspicious (units (unk nown) date) unknown) (unknown) (no (unknown) (unknown) tablet vomiting (units (unknown) date) #10 tabs unknown) (unknown) (no (unknown) (unknown) these images) (units ( unknown) date) then a dedicated unknown) CT or a short-term followup plain film series (unknown) (no (unknown) (unknown) tobacco type: (units ( unknown) date) cigarettes and unknown) vaping (unknown) (no (unknown) (unknown) weight bearing. (units (unknown) date) She feels like unknown) when she puts weight down it goes all around her (unknown) (no (unknown) (unknown) worsening or (units (u nknown) date) concerning unknown) symptoms Result panel 22 (unknown) (no (unknown) (unknown) (no value) (units (unk nown) date) unknown) (unknown) (no (unknown) (unknown) Radiologist's (units ( unknown) date) Impression: unknown) (unknown) (no (unknown) (unknown) Date of Service: (units (unknown) date) 10/21/21 unknown) (unknown) (no (unknown) (unknown) (no value) (units (unk nown) date) unknown) (unknown) (no (unknown) (unknown) <Electronically (units (unknown) date) signed by Dulce washington) Maral Fernandez> (unknown) (no (unknown) (unknown) 10/21/21 1713 (units ( unknown) date) unknown) (unknown) (no (unknown) (unknown) 1 tab PO Q4-6H (units (unknown) date) PRN (Reason: pain) unknown) Qty: 10 0RF (unknown) (no (unknown) (unknown) 4 mg PO TID-QID (units (unknown) date) PRN (Reason: unknown) nausea and vomiting) Qty: 10 0RF (unknown) (no (unknown) (unknown) Allergies (units (unkn own) date) unknown) (unknown) (no (unknown) (unknown) ED Orders (units (unkn own) date) unknown) (unknown) (no (unknown) (unknown) Emergency Report (units (unknown) date) unknown) (unknown) (no (unknown) (unknown) [facility] (units (unknown) date) [address] [place] [address] unknown) [place] [address] (unknown) (no (unknown) (unknown) Previous Rx's (units ( unknown) date) unknown) (unknown) (no (unknown) (unknown) Signed (units (unkno wn) date) unknown) (unknown) (no (unknown) (unknown) Vital Signs - 8 (units (unknown) date) hr unknown) (unknown) (no (unknown) (unknown) XRay Report (units (un known) date) unknown) (unknown) (no (unknown) (unknown) (no value) (units (unk nown) date) unknown) (unknown) (no (unknown) (unknown) hydrocodone-aceta (units (unknown) date) minophen 5-325 mg unknown) tablet (unknown) (no (unknown) (unknown) ondansetron 4 mg (units (unknown) date) tablet,disintegrat unknown) ing (unknown) (no (unknown) (unknown) 10/21/21 (units (unkno wn) date) unknown) (unknown) (no (unknown) (unknown) Ankle sprain (units (u nknown) date) unknown) (unknown) (no (unknown) (unknown) Medication (units (unk nown) date) Instructions unknown) Recorded (unknown) (no (unknown) (unknown) (bismuth)] (units (unk nown) date) unknown) (unknown) (no (unknown) (unknown) *Continue to take (units (unknown) date) medications as unknown) directed (unknown) (no (unknown) (unknown) *Follow up with (units (unknown) date) your primary care unknown) provider in 2-3 days or call [phone] (unknown) (no (unknown) (unknown) *Return to ER if (units (unknown) date) you should have unknown) increasing pain swelling redness or any new, (unknown) (no (unknown) (unknown) *What to do: At (units (unknown) date) this time use unknown) crutches as needed. Elevate and ice. Try ankle (unknown) (no (unknown) (unknown) *You have been (units (unknown) date) diagnosed with unknown) right ankle sprain (unknown) (no (unknown) (unknown) [id number] (units (unkn own) date) unknown) (unknown) (no (unknown) (unknown) 10/21/21 12:34 (units (unknown) date) unknown) (unknown) (no (unknown) (unknown) 12:30 (units (unkno wn) date) unknown) (unknown) (no (unknown) (unknown) 8 point review of (units (unknown) date) systems is unknown) negative except for those stated above and HPI (unknown) (no (unknown) (unknown) ? (units (unkno wn) date) unknown) (unknown) (no (unknown) (unknown) Accession Number: (units (unknown) date) [id number] ?? unknown) (unknown) (no (unknown) (unknown) Acct:[id number] (units (unknown) date) unknown) (unknown) (no (unknown) (unknown) Grzegorz wrap. (units (unkn own) date) Supportive care unknown) only. She really denies any injury. (unknown) (no (unknown) (unknown) Activity (units (unkno wn) date) Restrictions/Addit unknown) ional Instructions: (unknown) (no (unknown) (unknown) Age/Sex: 21 / F (units (unknown) date) unknown) (unknown) (no (unknown) (unknown) Age/Sex: 21 / F (units (unknown) date) unknown) (unknown) (no (unknown) (unknown) Allergy/AdvReac (units (unknown) date) Type Severity unknown) Reaction Status Date / Time (unknown) (no (unknown) (unknown) Blood Pressure (units (unknown) date) 138/89 10/21/21 unknown) 12:30 (unknown) (no (unknown) (unknown) Blood Pressure (units (unknown) date) 138/89 unknown) (unknown) (no (unknown) (unknown) Bones:? No (units (unk nown) date) fractures or unknown) dislocations.? Ankle mortise is normally aligned.? No (unknown) (no (unknown) (unknown) CARDIOVASCULAR: (units (unknown) date) Denies chest pain, unknown) palpitations (unknown) (no (unknown) (unknown) CARDIOVASCULAR: (units (unknown) date) peripheral pulses unknown) in tact, cap refill <2 sec (unknown) (no (unknown) (unknown) COMPARISON:? (units (u nknown) date) None. unknown) (unknown) (no (unknown) (unknown) Chief complaint: (units (unknown) date) Extremity unknown) Problem,Nontraumat ic (unknown) (no (unknown) (unknown) Clinical (units (unkno wn) date) Impression: unknown) (unknown) (no (unknown) (unknown) Course (units (unkno wn) date) unknown) (unknown) (no (unknown) (unknown) : 2000 (units (unknown) date) Acct:[id number] unknown) (unknown) (no (unknown) (unknown) : 2000 (units (unknown) date) unknown) (unknown) (no (unknown) (unknown) Date of Service: (units (unknown) date) 10/21/21 unknown) (unknown) (no (unknown) (unknown) Departure (units (unkn own) date) unknown) (unknown) (no (unknown) (unknown) Dictated by: (units (u nknown) date) Dangelo Torres unknownRoselyn Tate on 10/21/2021 at 11:57 ? ? (unknown) (no (unknown) (unknown) Discharge Plan (units (unknown) date) unknown) (unknown) (no (unknown) (unknown) ER Physician: (units ( unknown) date) Dulce Fernandez unknown) D.O. (unknown) (no (unknown) (unknown) EXTREMITIES: (units (u nknown) date) Normal range of unknown) motion, no clubbing or edema. Neurovascularly (unknown) (no (unknown) (unknown) Exam (units (unkno wn) date) unknown) (unknown) (no (unknown) (unknown) Extremity x-ray (units (unknown) date) #1: unknown) (unknown) (no (unknown) (unknown) FINDINGS:? (units (unk nown) date) unknown) (unknown) (no (unknown) (unknown) GASTROINTESTINAL: (units (unknown) date) Denies nausea, unknown) vomiting (unknown) (no (unknown) (unknown) GENERAL: Alert (units (unknown) date) 21-year-old female unknown) BMI 54 (unknown) (no (unknown) (unknown) GENERAL: Denies (units (unknown) date) chills,fever unknown) (unknown) (no (unknown) (unknown) General (units (unkno wn) date) unknown) (unknown) (no (unknown) (unknown) HEENT: Denies (units ( unknown) date) throat pain unknown) (unknown) (no (unknown) (unknown) HPI - Extremity (units (unknown) date) Problem unknown) (unknown) (no (unknown) (unknown) HPI Narrative: (units (unknown) date) unknown) (unknown) (no (unknown) (unknown) History of (units (unk nown) date) Present Illness unknown) (unknown) (no (unknown) (unknown) IMPRESSION:? Soft (units (unknown) date) tissue swelling is unknown) seen, without an acute bony abnormality (unknown) (no (unknown) (unknown) INDICATIONS:? (units ( unknown) date) pain unknown) (unknown) (no (unknown) (unknown) Ibuprofen 600 mg (units (unknown) date) every 6 hours if unknown) needed for [id number] pain (unknown) (no (unknown) (unknown) If there is point (units (unknown) date) tenderness (or unknown) other clinical suspicion for a fracture not (unknown) (no (unknown) (unknown) Imaging Data (units (u nknown) date) unknown) (unknown) (no (unknown) (unknown) Initial Vital (units ( unknown) date) Signs unknown) (unknown) (no (unknown) (unknown) Initial Vital (units ( unknown) date) Signs: unknown) (unknown) (no (unknown) (unknown) Instructions: (units ( unknown) date) Ankle Sprain unknown) (unknown) (no (unknown) (unknown) Loc: ED (units (unkno wn) date) unknown) (unknown) (no (unknown) (unknown) MDM - Extremity (units (unknown) date) (Nontraumatic) unknown) (unknown) (no (unknown) (unknown) MDM Narrative (units ( unknown) date) unknown) (unknown) (no (unknown) (unknown) MR#: [id number] (units (unknown) date) unknown) (unknown) (no (unknown) (unknown) MUSCULOSKELETAL: (units (unknown) date) See HPI unknown) (unknown) (no (unknown) (unknown) Medical decision (units (unknown) date) making narrative: unknown) (unknown) (no (unknown) (unknown) Minimal swelling (units (unknown) date) noted around right unknown) ankle distal pedal pulses felt foot is (unknown) (no (unknown) (unknown) Mode of arrival: (units (unknown) date) Family Vehicle unknown) (unknown) (no (unknown) (unknown) NEUROLOGIC: (units (un known) date) Denies weakness, unknown) dizziness, headache, numbness (unknown) (no (unknown) (unknown) NEUROLOGICAL: (units ( unknown) date) Cranial nerves II unknown) through XII grossly intact. Normal gait and (unknown) (no (unknown) (unknown) Narrative: (units (unk nown) date) unknown) (unknown) (no (unknown) (unknown) No Action (units (unkn own) date) unknown) (unknown) (no (unknown) (unknown) Ordered: (units (unkno wn) date) unknown) (unknown) (no (unknown) (unknown) Ordering (units (unkno wn) date) Provider: unknown) Dulce Fernandez D.O. (unknown) (no (unknown) (unknown) Orders (units (unkno wn) date) unknown) (unknown) (no (unknown) (unknown) Oxygen Delivery (units (unknown) date) Method 10/21/21 unknown) 12:30 (unknown) (no (unknown) (unknown) Oxygen Delivery (units (unknown) date) Method Room Air unknown) (unknown) (no (unknown) (unknown) PROCEDURE:? XR (units (unknown) date) ANKLE RT MIN 3V unknown) (unknown) (no (unknown) (unknown) Patient (units (unkno wn) date) Disposition: Home unknown) (unknown) (no (unknown) (unknown) Patient History (units (unknown) date) unknown) (unknown) (no (unknown) (unknown) Patient is a (units (u nknown) date) 21-year-old female unknown) with history of depression anxiety obesity (unknown) (no (unknown) (unknown) Patient: (units (unkno wn) date) Emily Johnson unknown) MR#: M (unknown) (no (unknown) (unknown) Patient: (units (unkno wn) date) Emily Johnson unknown) (unknown) (no (unknown) (unknown) Penicillins (units (un known) date) Allergy Verified unknown) 09/30/21 20:17 (unknown) (no (unknown) (unknown) Prescriptions: (units (unknown) date) unknown) (unknown) (no (unknown) (unknown) Procedure: XR (units ( unknown) date) ankle RT min 3V unknown) (unknown) (no (unknown) (unknown) Pulse Oximetry 98 (units (unknown) date) 10/21/21 12:30 unknown) (unknown) (no (unknown) (unknown) Pulse Oximetry 98 (units (unknown) date) unknown) (unknown) (no (unknown) (unknown) Pulse Rate 63 (units ( unknown) date) 10/21/21 12:30 unknown) (unknown) (no (unknown) (unknown) Pulse Rate 63 (units ( unknown) date) unknown) (unknown) (no (unknown) (unknown) RESPIRATORY: (units (u nknown) date) Denies dyspnea, unknown) cough, wheezing (unknown) (no (unknown) (unknown) RESPIRATORY: No (units (unknown) date) respiratory unknown) distress, speaks in full sentences without (unknown) (no (unknown) (unknown) Related Data (units (u nknown) date) unknown) (unknown) (no (unknown) (unknown) Respiratory Rate (units (unknown) date) 20 10/21/21 12:30 unknown) (unknown) (no (unknown) (unknown) Respiratory Rate (units (unknown) date) 20 unknown) (unknown) (no (unknown) (unknown) Review of Systems (units (unknown) date) unknown) (unknown) (no (unknown) (unknown) SKIN: No rash, no (units (unknown) date) laceration, no unknown) pruritus (unknown) (no (unknown) (unknown) SKIN: Warm, dry, (units (unknown) date) no petechiae, no unknown) rashes or lesions. (unknown) (no (unknown) (unknown) Signed By: (units (unk nown) date) unknown) (unknown) (no (unknown) (unknown) Smoking Status: (units (unknown) date) Former smoker unknown) (unknown) (no (unknown) (unknown) Smoking Status: (units (unknown) date) Former smoker unknown) (unknown) (no (unknown) (unknown) Social History (units (unknown) date) (Reviewed 10/21/21 unknown) @ 13:56 by Dulce Fernandez DO) (unknown) (no (unknown) (unknown) Soft tissues:? (units (unknown) date) Generalized soft unknown) tissue swelling is seen. (unknown) (no (unknown) (unknown) Source: patient (units (unknown) date) unknown) (unknown) (no (unknown) (unknown) Stated complaint: (units (unknown) date) right ankle pain, unknown) unable to walk on it (unknown) (no (unknown) (unknown) Substance Use (units ( unknown) date) Type: marijuana unknown) (unknown) (no (unknown) (unknown) TECHNIQUE:? 3 (units ( unknown) date) views of the ankle unknown) were acquired.? (unknown) (no (unknown) (unknown) Temperature 97.4 (units (unknown) date) F L 10/21/21 12:30 unknown) (unknown) (no (unknown) (unknown) Temperature 97.4 (units (unknown) date) F L unknown) (unknown) (no (unknown) (unknown) The patient has (units (unknown) date) some mild swelling unknown) x-ray is negative. She is given crutches and (unknown) (no (unknown) (unknown) Time Seen by (units (u nknown) date) Provider: 10/21/21 unknown) 13:22 (unknown) (no (unknown) (unknown) Tylenol 1000 mg (units (unknown) date) every 6 hours if unknown) needed for [id number] (unknown) (no (unknown) (unknown) Visit Report (units (u nknown) date) Forms: Patient unknown) Portal/API (unknown) (no (unknown) (unknown) Vital Signs (units (un known) date) unknown) (unknown) (no (unknown) (unknown) Vital signs: (units (u nknown) date) unknown) (unknown) (no (unknown) (unknown) XR ankle RT min (units (unknown) date) 3V Stat unknown) (unknown) (no (unknown) (unknown) [From Maalox (units (u nknown) date) Total Relief unknown) (unknown) (no (unknown) (unknown) alcohol intake (units (unknown) date) frequency: unknown) holidays/special occasions only (unknown) (no (unknown) (unknown) amoxicillin (units (un known) date) Allergy Verified unknown) 10/07/21 09:37 (unknown) (no (unknown) (unknown) ankle and up into (units (unknown) date) her leg. No other unknown) injuries. She has been taking ibuprofen at (unknown) (no (unknown) (unknown) bismuth (units (unkno wn) date) subsalicylate unknown) Allergy Verified 10/07/21 09:37 (unknown) (no (unknown) (unknown) bony lesions.? (units (unknown) date) The talar dome unknown) demonstrates no mark anthony abnormality.? Incidental (unknown) (no (unknown) (unknown) brace (units (unkno wn) date) unknown) (unknown) (no (unknown) (unknown) cinnamon Allergy (units (unknown) date) Verified 10/07/21 unknown) 09:37 (unknown) (no (unknown) (unknown) considered for (units (unknown) date) further unknown) evaluation, as clinically appropriate. (unknown) (no (unknown) (unknown) could be (units (unkno wn) date) unknown) (unknown) (no (unknown) (unknown) difficulty (units (unk nown) date) unknown) (unknown) (no (unknown) (unknown) home without any (units (unknown) date) relief. unknown) (unknown) (no (unknown) (unknown) hydrocodone 5 (units ( unknown) date) mg-acetaminophen unknown) 325 1 tab PO Q4-6H PRN pain #10 tabs 10/01/21 (unknown) (no (unknown) (unknown) intact (units (unkno wn) date) unknown) (unknown) (no (unknown) (unknown) mg tablet (units (unkn own) date) unknown) (unknown) (no (unknown) (unknown) note is made (units (u nknown) date) unknown) (unknown) (no (unknown) (unknown) of an accessory (units (unknown) date) ossicle, an os unknown) peroneum.? (unknown) (no (unknown) (unknown) ondansetron 4 mg (units (unknown) date) disintegrating 4 unknown) mg PO TID-QID PRN nausea and 10/01/21 (unknown) (no (unknown) (unknown) plain film. (units (un known) date) unknown) (unknown) (no (unknown) (unknown) presenting today (units (unknown) date) for right ankle unknown) pain ongoing for last 4 days. She does not (unknown) (no (unknown) (unknown) remember injuring (units (unknown) date) it. She now is unknown) having increased difficulty ambulating and (unknown) (no (unknown) (unknown) seen by (units (unkno wn) date) unknown) (unknown) (no (unknown) (unknown) seen on (units (unkno wn) date) unknown) (unknown) (no (unknown) (unknown) speech. (units (unkno wn) date) unknown) (unknown) (no (unknown) (unknown) stable and (units (unk nown) date) nontender unknown) (unknown) (no (unknown) (unknown) suspicious (units (unk nown) date) unknown) (unknown) (no (unknown) (unknown) tablet vomiting (units (unknown) date) #10 tabs unknown) (unknown) (no (unknown) (unknown) these images) (units ( unknown) date) then a dedicated unknown) CT or a short-term followup plain film series (unknown) (no (unknown) (unknown) tobacco type: (units ( unknown) date) cigarettes and unknown) vaping (unknown) (no (unknown) (unknown) weight bearing. (units (unknown) date) She feels like unknown) when she puts weight down it goes all around her (unknown) (no (unknown) (unknown) worsening or (units (u nknown) date) concerning unknown) symptoms Result panel 23 (unknown) (no (unknown) (unknown) (no value) (units (unk nown) date) unknown) (unknown) (no (unknown) (unknown) (bismuth)] (units (unk nown) date) unknown) (unknown) (no (unknown) (unknown) [id number] (units (unkn own) date) unknown) (unknown) (no (unknown) (unknown) 08:51 (units (unkno wn) date) unknown) (unknown) (no (unknown) (unknown) 11/15/21 (units (unkno wn) date) unknown) (unknown) (no (unknown) (unknown) 1 tab PO Q4-6H (units (unknown) date) PRN (Reason: unknown) pain) Qty: 10 0RF (unknown) (no (unknown) (unknown) 100 mg PO BID (units ( unknown) date) Qty: 14 0RF unknown) (unknown) (no (unknown) (unknown) 4 mg PO TID-QID (units (unknown) date) PRN (Reason: unknown) nausea and vomiting) Qty: 10 0RF (unknown) (no (unknown) (unknown) Activity (units (unkno wn) date) Restrictions/Teddy unknown) tional Instructions: (unknown) (no (unknown) (unknown) Age/Sex: 21 / F (units (unknown) date) unknown) (unknown) (no (unknown) (unknown) Allergies (units (unkn own) date) unknown) (unknown) (no (unknown) (unknown) Allergy/AdvReac (units (unknown) date) Type Severity unknown) Reaction Status Date / Time (unknown) (no (unknown) (unknown) Blood Pressure (units (unknown) date) 126/77 11/15/21 unknown) 08:51 (unknown) (no (unknown) (unknown) Blood Pressure (units (unknown) date) 126 unknown) (unknown) (no (unknown) (unknown) Montes,Melissa, (units (unknown) date) DPM [Physician] unknown) (unknown) (no (unknown) (unknown) Call provided (units ( unknown) date) podiatry office unknown) today to make appointment for your ingrown (unknown) (no (unknown) (unknown) Chief complaint: (units (unknown) date) Extremity unknown) Problem,Nontrauma tic (unknown) (no (unknown) (unknown) Clinical (units (unkno wn) date) Impression: unknown) (unknown) (no (unknown) (unknown) Continue (units (unkno wn) date) doxycycline unknown) antibiotic that has been prescribed and sent to your (unknown) (no (unknown) (unknown) Course (units (unkno wn) date) unknown) (unknown) (no (unknown) (unknown) : 2000 (units (unknown) date) Acct:[id number] unknown) (unknown) (no (unknown) (unknown) Date of Service: (units (unknown) date) 11/15/21 unknown) (unknown) (no (unknown) (unknown) Departure (units (unkn own) date) unknown) (unknown) (no (unknown) (unknown) Discharge Plan (units (unknown) date) unknown) (unknown) (no (unknown) (unknown) Doxycycline (units (un known) date) Hyclate unknown) (Doxycycline Hyclate 100 Mg Tablet) 100 mg PO NOW ONE (unknown) (no (unknown) (unknown) ER Physician: (units ( unknown) date) Markel Bermeo MD unknown) (unknown) (no (unknown) (unknown) Emergency Report (units (unknown) date) unknown) (unknown) (no (unknown) (unknown) Exam (units (unkno wn) date) unknown) (unknown) (no (unknown) (unknown) General (units (unkno wn) date) unknown) (unknown) (no (unknown) (unknown) HPI - Extremity (units (unknown) date) Problem unknown) (unknown) (no (unknown) (unknown) Ingrowing (units (unkn own) date) toenail of left unknown) foot (unknown) (no (unknown) (unknown) Initial Vital (units ( unknown) date) Signs unknown) (unknown) (no (unknown) (unknown) Initial Vital (units ( unknown) date) Signs: unknown) (unknown) (no (unknown) (unknown) Instructions: DI (units (unknown) date) for Ingrown unknown) Toenail (unknown) (no (unknown) (unknown) [facility] (units (unknown) date) [address] unknown) [place] [id number] (unknown) (no (unknown) (unknown) Medication (units (unk nown) date) Instructions unknown) Recorded (unknown) (no (unknown) (unknown) Mode of arrival: (units (unknown) date) Ambulatory unknown) (unknown) (no (unknown) (unknown) New (units (unkno wn) date) unknown) (unknown) (no (unknown) (unknown) No Action (units (unkn own) date) unknown) (unknown) (no (unknown) (unknown) Ordered: (units (unkno wn) date) unknown) (unknown) (no (unknown) (unknown) Orders (units (unkno wn) date) unknown) (unknown) (no (unknown) (unknown) Oxygen Delivery (units (unknown) date) Method 11/15/21 unknown) 08:51 (unknown) (no (unknown) (unknown) Oxygen Delivery (units (unknown) date) Method Room Air unknown) (unknown) (no (unknown) (unknown) Patient (units (unkno wn) date) Disposition: Home unknown) (unknown) (no (unknown) (unknown) Patient History (units (unknown) date) unknown) (unknown) (no (unknown) (unknown) Patient: (units (unkno wn) date) Emily Johnson J unknown) MR#: M (unknown) (no (unknown) (unknown) Penicillins (units (un known) date) Allergy Verified unknown) 09/30/21 20:17 (unknown) (no (unknown) (unknown) Prescriptions: (units (unknown) date) unknown) (unknown) (no (unknown) (unknown) Previous Rx's (units ( unknown) date) unknown) (unknown) (no (unknown) (unknown) Pulse Oximetry (units (unknown) date) 98 11/15/21 08:51 unknown) (unknown) (no (unknown) (unknown) Pulse Oximetry (units (unknown) date) 98 unknown) (unknown) (no (unknown) (unknown) Pulse Rate 85 (units ( unknown) date) 11/15/21 08:51 unknown) (unknown) (no (unknown) (unknown) Pulse Rate 85 (units ( unknown) date) unknown) (unknown) (no (unknown) (unknown) Referrals: (units (unk nown) date) unknown) (unknown) (no (unknown) (unknown) Related Data (units (u nknown) date) unknown) (unknown) (no (unknown) (unknown) Respiratory Rate (units (unknown) date) 16 11/15/21 08:51 unknown) (unknown) (no (unknown) (unknown) Respiratory Rate (units (unknown) date) 16 unknown) (unknown) (no (unknown) (unknown) Signed By: (units (unk nown) date) unknown) (unknown) (no (unknown) (unknown) Smoking Status: (units (unknown) date) Former smoker unknown) (unknown) (no (unknown) (unknown) Social History (units (unknown) date) (Reviewed unknown) 10/21/21 @ 13:56 by Dulce Fernandez DO) (unknown) (no (unknown) (unknown) Source: patient (units (unknown) date) unknown) (unknown) (no (unknown) (unknown) Stated (units (unkno wn) date) complaint: Thinks unknown) infection in left big toe (unknown) (no (unknown) (unknown) Stop: 11/15/21 (units (unknown) date) 10:28 unknown) (unknown) (no (unknown) (unknown) Substance Use (units ( unknown) date) Type: marijuana unknown) (unknown) (no (unknown) (unknown) Temperature 98.5 (units (unknown) date) F 11/15/21 08:51 unknown) (unknown) (no (unknown) (unknown) Temperature 98.5 (units (unknown) date) F unknown) (unknown) (no (unknown) (unknown) Time Seen by (units (u nknown) date) Provider: unknown) 11/15/21 10:19 (unknown) (no (unknown) (unknown) Vital Signs - 8 (units (unknown) date) hr unknown) (unknown) (no (unknown) (unknown) Vital Signs (units (un known) date) unknown) (unknown) (no (unknown) (unknown) Vital signs: (units (u nknown) date) unknown) (unknown) (no (unknown) (unknown) [From Maalox (units (u nknown) date) Total Relief unknown) (unknown) (no (unknown) (unknown) alcohol intake (units (unknown) date) frequency: unknown) holidays/special occasions only (unknown) (no (unknown) (unknown) amoxicillin (units (un known) date) Allergy Verified unknown) 10/07/21 09:37 (unknown) (no (unknown) (unknown) bismuth (units (unkno wn) date) subsalicylate unknown) Allergy Verified 10/07/21 09:37 (unknown) (no (unknown) (unknown) cinnamon Allergy (units (unknown) date) Verified 10/07/21 unknown) 09:37 (unknown) (no (unknown) (unknown) doxycycline (units (un known) date) hyclate 100 mg unknown) capsule 100 mg PO BID #14 caps 11/15/21 (unknown) (no (unknown) (unknown) doxycycline (units (un known) date) hyclate 100 mg unknown) capsule (unknown) (no (unknown) (unknown) hydrocodone 5 (units ( unknown) date) mg-acetaminophen unknown) 325 1 tab PO Q4-6H PRN pain #10 tabs 10/01/21 (unknown) (no (unknown) (unknown) hydrocodone-acet (units (unknown) date) aminophen 5-325 unknown) mg tablet (unknown) (no (unknown) (unknown) mg tablet (units (unkn own) date) unknown) (unknown) (no (unknown) (unknown) ondansetron 4 mg (units (unknown) date) disintegrating 4 unknown) mg PO TID-QID PRN nausea and 10/01/21 (unknown) (no (unknown) (unknown) ondansetron 4 mg (units (unknown) date) tablet,disintegra unknown) ting (unknown) (no (unknown) (unknown) pharmacy. May (units ( unknown) date) continue unknown) ibuprofen or Tylenol for pain. Return if worse if any (unknown) (no (unknown) (unknown) questions or (units (u nknown) date) concerns unknown) (unknown) (no (unknown) (unknown) tablet vomiting (units (unknown) date) #10 tabs unknown) (unknown) (no (unknown) (unknown) tobacco type: (units ( unknown) date) cigarettes and unknown) vaping (unknown) (no (unknown) (unknown) toenail. (units (unkno wn) date) Continue Epsom unknown) salt toe soaks 20 minutes at a time 3 times a day. Result panel 24 (unknown) (no (unknown) (unknown) (no value) (units (unk nown) date) unknown) (unknown) (no (unknown) (unknown) (bismuth)] (units (unk nown) date) unknown) (unknown) (no (unknown) (unknown) [id number] (units (unkn own) date) unknown) (unknown) (no (unknown) (unknown) 08:51 (units (unkno wn) date) unknown) (unknown) (no (unknown) (unknown) 11/15/21 (units (unkno wn) date) unknown) (unknown) (no (unknown) (unknown) 1 tab PO Q4-6H (units (unknown) date) PRN (Reason: unknown) pain) Qty: 10 0RF (unknown) (no (unknown) (unknown) 100 mg PO BID (units ( unknown) date) Qty: 14 0RF unknown) (unknown) (no (unknown) (unknown) 4 mg PO TID-QID (units (unknown) date) PRN (Reason: unknown) nausea and vomiting) Qty: 10 0RF (unknown) (no (unknown) (unknown) Activity (units (unkno wn) date) Restrictions/Teddy unknown) tional Instructions: (unknown) (no (unknown) (unknown) Age/Sex: 21 / F (units (unknown) date) unknown) (unknown) (no (unknown) (unknown) Allergies (units (unkn own) date) unknown) (unknown) (no (unknown) (unknown) Allergy/AdvReac (units (unknown) date) Type Severity unknown) Reaction Status Date / Time (unknown) (no (unknown) (unknown) Appropriate for (units (unknown) date) discharge home. unknown) Exam reassuring. No immediate urgent toenail (unknown) (no (unknown) (unknown) Blood Pressure (units (unknown) date) 126/77 11/15/21 unknown) 08:51 (unknown) (no (unknown) (unknown) Blood Pressure (units (unknown) date) 126/77 unknown) (unknown) (no (unknown) (unknown) Melissa Montes, (units (unknown) date) DPM [Physician] unknown) (unknown) (no (unknown) (unknown) CARDIOVASCULAR: (units (unknown) date) Denies chest unknown) pain, palpitations (unknown) (no (unknown) (unknown) [place]. (units (un known) date) Return unknown) precautions reviewed with patient. She desires discharge (unknown) (no (unknown) (unknown) Call provided (units ( unknown) date) podiatry office unknown) today to make appointment for your ingrown (unknown) (no (unknown) (unknown) Chief complaint: (units (unknown) date) Extremity unknown) Problem,Nontrauma tic (unknown) (no (unknown) (unknown) Clinical (units (unkno wn) date) Impression: unknown) (unknown) (no (unknown) (unknown) Continue (units (unkno wn) date) doxycycline unknown) antibiotic that has been prescribed and sent to your (unknown) (no (unknown) (unknown) Course (units (unkno wn) date) Narrative: unknown) (unknown) (no (unknown) (unknown) Course (units (unkno wn) date) unknown) (unknown) (no (unknown) (unknown) : 2000 (units (unknown) date) Acct:[id number] unknown) (unknown) (no (unknown) (unknown) Date of Service: (units (unknown) date) 11/15/21 unknown) (unknown) (no (unknown) (unknown) Departure (units (unkn own) date) unknown) (unknown) (no (unknown) (unknown) Differential (units (u nknown) date) Diagnosis unknown) (unknown) (no (unknown) (unknown) Differential (units (un known) date) diagnosis: Likely unknown) cellulitis and other (Paronychia/ingro wn toenail) (unknown) (no (unknown) (unknown) Discharge Plan (units (unknown) date) unknown) (unknown) (no (unknown) (unknown) Doxycycline (units (un known) date) Hyclate unknown) (Doxycycline Hyclate 100 Mg Tablet) 100 mg PO NOW ONE (unknown) (no (unknown) (unknown) ER Physician: (units ( unknown) date) Markel Bermeo MD unknown) (unknown) (no (unknown) (unknown) EXTREMITIES: No (units (unknown) date) gross unknown) deformities. Examination left foot. At the medial (unknown) (no (unknown) (unknown) EYES: Pupils (units (u nknown) date) equal round No unknown) scleral icterus. (unknown) (no (unknown) (unknown) Emergency Report (units (unknown) date) unknown) (unknown) (no (unknown) (unknown) Exam Narrative: (units (unknown) date) unknown) (unknown) (no (unknown) (unknown) Exam (units (unkno wn) date) unknown) (unknown) (no (unknown) (unknown) GASTROINTESTINAL (units (unknown) date) : Denies nausea, unknown) vomiting, abdominal pain (unknown) (no (unknown) (unknown) GENERAL: Denies (units (unknown) date) chills, fatigue, unknown) malaise, fever, sweats. (unknown) (no (unknown) (unknown) GENERAL: in no (units (unknown) date) distress, not unknown) toxic not dyspneic (unknown) (no (unknown) (unknown) : Denies (units (unk nown) date) dysuria, unknown) frequency, hematuria (unknown) (no (unknown) (unknown) General (units (unkno wn) date) unknown) (unknown) (no (unknown) (unknown) HEAD: (units (unkno wn) date) Normocephalic. unknown) (unknown) (no (unknown) (unknown) HEENT: Denies (units ( unknown) date) sinus pain, ear unknown) pain, sore throat (unknown) (no (unknown) (unknown) HPI - Extremity (units (unknown) date) Problem unknown) (unknown) (no (unknown) (unknown) HPI Narrative: (units (unknown) date) unknown) (unknown) (no (unknown) (unknown) History of (units (unk nown) date) Present Illness unknown) (unknown) (no (unknown) (unknown) Ingrowing (units (unkn own) date) toenail of left unknown) foot (unknown) (no (unknown) (unknown) Initial Vital (units ( unknown) date) Signs unknown) (unknown) (no (unknown) (unknown) Initial Vital (units ( unknown) date) Signs: unknown) (unknown) (no (unknown) (unknown) Instructions: DI (units (unknown) date) for Ingrown unknown) Toenail (unknown) (no (unknown) (unknown) [facility] (units (unknown) date) [address] unknown) [place] [address] (unknown) (no (unknown) (unknown) MDM - Extremity (units (unknown) date) (Nontraumatic) unknown) (unknown) (no (unknown) (unknown) MDM Narrative (units ( unknown) date) unknown) (unknown) (no (unknown) (unknown) MUSCULOSKELETAL: (units (unknown) date) denies muscle or unknown) bony pain (unknown) (no (unknown) (unknown) Medical decision (units (unknown) date) making narrative: unknown) (unknown) (no (unknown) (unknown) Medication (units (unk nown) date) Instructions unknown) Recorded (unknown) (no (unknown) (unknown) Mode of arrival: (units (unknown) date) Ambulatory unknown) (unknown) (no (unknown) (unknown) NEURO: AOx4. (units (u nknown) date) unknown) (unknown) (no (unknown) (unknown) NEUROLOGIC: (units (un known) date) Denies weakness, unknown) numbness (unknown) (no (unknown) (unknown) Narrative (units (unkn own) date) unknown) (unknown) (no (unknown) (unknown) Narrative: (units (unk nown) date) unknown) (unknown) (no (unknown) (unknown) New (units (unkno wn) date) unknown) (unknown) (no (unknown) (unknown) No Action (units (unkn own) date) unknown) (unknown) (no (unknown) (unknown) No new issues (units ( unknown) date) during course of unknown) stay (unknown) (no (unknown) (unknown) No red (units (unkno wn) date) streaking. No unknown) fluctuance. Toenail was intact. No bleeding. No oozing (unknown) (no (unknown) (unknown) Ordered: (units (unkno wn) date) unknown) (unknown) (no (unknown) (unknown) Orders (units (unkno wn) date) unknown) (unknown) (no (unknown) (unknown) Oxygen Delivery (units (unknown) date) Method 11/15/21 unknown) 08:51 (unknown) (no (unknown) (unknown) Oxygen Delivery (units (unknown) date) Method Room Air unknown) (unknown) (no (unknown) (unknown) PSYCH: Not (units (unk nown) date) anxious, is unknown) cooperative (unknown) (no (unknown) (unknown) Patient (units (unkno wn) date) Disposition: Home unknown) (unknown) (no (unknown) (unknown) Patient History (units (unknown) date) unknown) (unknown) (no (unknown) (unknown) Patient desires (units (unknown) date) referral for unknown) Podiatry. Her last podiatry visit was in (unknown) (no (unknown) (unknown) Patient here for (units (unknown) date) pain and swelling unknown) to the left great toe. Patient states has (unknown) (no (unknown) (unknown) Patient: (units (unkno wn) date) Emily Johnson J unknown) MR#: M (unknown) (no (unknown) (unknown) Penicillins (units (un known) date) Allergy Verified unknown) 09/30/21 20:17 (unknown) (no (unknown) (unknown) Prescriptions: (units (unknown) date) unknown) (unknown) (no (unknown) (unknown) Previous Rx's (units ( unknown) date) unknown) (unknown) (no (unknown) (unknown) Pulse Oximetry (units (unknown) date) 98 11/15/21 08:51 unknown) (unknown) (no (unknown) (unknown) Pulse Oximetry (units (unknown) date) 98 unknown) (unknown) (no (unknown) (unknown) Pulse Rate 85 (units ( unknown) date) 11/15/21 08:51 unknown) (unknown) (no (unknown) (unknown) Pulse Rate 85 (units ( unknown) date) unknown) (unknown) (no (unknown) (unknown) RESPIRATORY: (units (u nknown) date) Denies dyspnea, unknown) cough (unknown) (no (unknown) (unknown) ROS Unobtainable: (units (unknown) date) All systems unknown) reviewed + are unremarkable except as noted in HPI (unknown) (no (unknown) (unknown) Reevaluation #1: (units (unknown) date) unknown) (unknown) (no (unknown) (unknown) Reevaluation(s) (units (unknown) date) unknown) (unknown) (no (unknown) (unknown) Referrals: (units (unk nown) date) unknown) (unknown) (no (unknown) (unknown) Related Data (units (u nknown) date) unknown) (unknown) (no (unknown) (unknown) Respiratory Rate (units (unknown) date) 16 11/15/21 08:51 unknown) (unknown) (no (unknown) (unknown) Respiratory Rate (units (unknown) date) 16 unknown) (unknown) (no (unknown) (unknown) Review of (units (unkn own) date) Systems unknown) (unknown) (no (unknown) (unknown) SKIN: Denies (units (u nknown) date) rash, skin unknown) lesions positive for edema/erythema (unknown) (no (unknown) (unknown) SKIN: Warm and (units (unknown) date) dry unknown) (unknown) (no (unknown) (unknown) Signed By: (units (unk nown) date) unknown) (unknown) (no (unknown) (unknown) Smoking Status: (units (unknown) date) Former smoker unknown) (unknown) (no (unknown) (unknown) Social History (units (unknown) date) (Reviewed unknown) 11/15/21 @ 10:32 by Markel Bermeo MD) (unknown) (no (unknown) (unknown) Source: patient (units (unknown) date) unknown) (unknown) (no (unknown) (unknown) Stated (units (unkno wn) date) complaint: Thinks unknown) infection in left big toe (unknown) (no (unknown) (unknown) Stop: 11/15/21 (units (unknown) date) 10:28 unknown) (unknown) (no (unknown) (unknown) Substance Use (units ( unknown) date) Type: marijuana unknown) (unknown) (no (unknown) (unknown) Temperature 98.5 (units (unknown) date) F 11/15/21 08:51 unknown) (unknown) (no (unknown) (unknown) Temperature 98.5 (units (unknown) date) F unknown) (unknown) (no (unknown) (unknown) Time Seen by (units (u nknown) date) Provider: unknown) 11/15/21 10:19 (unknown) (no (unknown) (unknown) Time: 10:33 (units (un known) date) unknown) (unknown) (no (unknown) (unknown) Vital Signs - 8 (units (unknown) date) hr unknown) (unknown) (no (unknown) (unknown) Vital Signs (units (un known) date) unknown) (unknown) (no (unknown) (unknown) Vital signs: (units (u nknown) date) unknown) (unknown) (no (unknown) (unknown) [From Maalox (units (u nknown) date) Total Relief unknown) (unknown) (no (unknown) (unknown) alcohol intake (units (unknown) date) frequency: unknown) holidays/special occasions only (unknown) (no (unknown) (unknown) amoxicillin (units (un known) date) Allergy Verified unknown) 10/07/21 09:37 (unknown) (no (unknown) (unknown) and below (units (unkn own) date) unknown) (unknown) (no (unknown) (unknown) aspect of the (units ( unknown) date) left great unknown) toe/toenail there is erythema edema. Tender to touch. (unknown) (no (unknown) (unknown) been trying to (units (unknown) date) treat at home unknown) ingrown toenail that was improving but now got (unknown) (no (unknown) (unknown) bismuth (units (unkno wn) date) subsalicylate unknown) Allergy Verified 10/07/21 09:37 (unknown) (no (unknown) (unknown) cinnamon Allergy (units (unknown) date) Verified 10/07/21 unknown) 09:37 (unknown) (no (unknown) (unknown) doxycycline (units (un known) date) hyclate 100 mg unknown) capsule 100 mg PO BID #14 caps 11/15/21 (unknown) (no (unknown) (unknown) doxycycline (units (un known) date) hyclate 100 mg unknown) capsule (unknown) (no (unknown) (unknown) her. (units (unkno wn) date) unknown) (unknown) (no (unknown) (unknown) home (units (unkno wn) date) unknown) (unknown) (no (unknown) (unknown) hydrocodone 5 (units ( unknown) date) mg-acetaminophen unknown) 325 1 tab PO Q4-6H PRN pain #10 tabs 10/01/21 (unknown) (no (unknown) (unknown) hydrocodone-acet (units (unknown) date) aminophen 5-325 unknown) mg tablet (unknown) (no (unknown) (unknown) intervention. No (units (unknown) date) fever chills. No unknown) drainage from the toe. Patient denies (unknown) (no (unknown) (unknown) mg tablet (units (unkn own) date) unknown) (unknown) (no (unknown) (unknown) ondansetron 4 mg (units (unknown) date) disintegrating 4 unknown) mg PO TID-QID PRN nausea and 10/01/21 (unknown) (no (unknown) (unknown) ondansetron 4 mg (units (unknown) date) tablet,disintegra unknown) ting (unknown) (no (unknown) (unknown) or drainage (units (un known) date) unknown) (unknown) (no (unknown) (unknown) pharmacy. May (units ( unknown) date) continue unknown) ibuprofen or Tylenol for pain. Return if worse if any (unknown) (no (unknown) (unknown) does (units (unknown) date) not want a unknown) test. (unknown) (no (unknown) (unknown) questions or (units (u nknown) date) concerns unknown) (unknown) (no (unknown) (unknown) removal needed. (units (unknown) date) Appropriate for unknown) outpatient podiatry services. Patient agrees (unknown) (no (unknown) (unknown) tablet vomiting (units (unknown) date) #10 tabs unknown) (unknown) (no (unknown) (unknown) tobacco type: (units ( unknown) date) cigarettes and unknown) vaping (unknown) (no (unknown) (unknown) toenail. (units (unkno wn) date) Continue Epsom unknown) salt toe soaks 20 minutes at a time 3 times a day. (unknown) (no (unknown) (unknown) with treatment (units (unknown) date) plan. Antibiotics unknown) provided. Return precautions reviewed with (unknown) (no (unknown) (unknown) worse. History (units (unknown) date) of ingrown unknown) toenails on both feet in the past with surgical Result panel 25 (unknown) (no (unknown) (unknown) (no value) (units (unk nown) date) unknown) (unknown) (no (unknown) (unknown) <Electronically (units (unknown) date) signed by Markel unknown) MD Elvie> (unknown) (no (unknown) (unknown) (bismuth)] (units (unk nown) date) unknown) (unknown) (no (unknown) (unknown) [id number] (units (unkn own) date) unknown) (unknown) (no (unknown) (unknown) 11/15/21 1822 (units ( unknown) date) unknown) (unknown) (no (unknown) (unknown) 11/15/21 (units (unkno wn) date) unknown) (unknown) (no (unknown) (unknown) 1 tab PO Q4-6H (units (unknown) date) PRN (Reason: unknown) pain) Qty: 10 0RF (unknown) (no (unknown) (unknown) 100 mg PO BID (units ( unknown) date) Qty: 14 0RF unknown) (unknown) (no (unknown) (unknown) 10:38 (units (unkno wn) date) unknown) (unknown) (no (unknown) (unknown) 4 mg PO TID-QID (units (unknown) date) PRN (Reason: unknown) nausea and vomiting) Qty: 10 0RF (unknown) (no (unknown) (unknown) Activity (units (unkno wn) date) Restrictions/Teddy unknown) tional Instructions: (unknown) (no (unknown) (unknown) Age/Sex: 21 / F (units (unknown) date) unknown) (unknown) (no (unknown) (unknown) Allergies (units (unkn own) date) unknown) (unknown) (no (unknown) (unknown) Allergy/AdvReac (units (unknown) date) Type Severity unknown) Reaction Status Date / Time (unknown) (no (unknown) (unknown) Appropriate for (units (unknown) date) discharge home. unknown) Exam reassuring. No immediate urgent toenail (unknown) (no (unknown) (unknown) Blood Pressure (units (unknown) date) 115/73 unknown) (unknown) (no (unknown) (unknown) Blood Pressure (units (unknown) date) 126/77 11/15/21 unknown) 08:51 (unknown) (no (unknown) (unknown) Montes,Melissa, (units (unknown) date) DPM [Physician] unknown) (unknown) (no (unknown) (unknown) CARDIOVASCULAR: (units (unknown) date) Denies chest unknown) pain, palpitations (unknown) (no (unknown) (unknown) [place]. (units (un known) date) Return unknown) precautions reviewed with patient. She desires discharge (unknown) (no (unknown) (unknown) Call provided (units ( unknown) date) podiatry office unknown) today to make appointment for your ingrown (unknown) (no (unknown) (unknown) Chief complaint: (units (unknown) date) Extremity unknown) Problem,Nontrauma tic (unknown) (no (unknown) (unknown) Clinical (units (unkno wn) date) Impression: unknown) (unknown) (no (unknown) (unknown) Continue (units (unkno wn) date) doxycycline unknown) antibiotic that has been prescribed and sent to your (unknown) (no (unknown) (unknown) Course (units (unkno wn) date) Narrative: unknown) (unknown) (no (unknown) (unknown) Course (units (unkno wn) date) unknown) (unknown) (no (unknown) (unknown) : 2000 (units (unknown) date) Acct:[id number] unknown) (unknown) (no (unknown) (unknown) Date of Service: (units (unknown) date) 11/15/21 unknown) (unknown) (no (unknown) (unknown) Departure (units (unkn own) date) unknown) (unknown) (no (unknown) (unknown) Differential (units (u nknown) date) Diagnosis unknown) (unknown) (no (unknown) (unknown) Differential (units (un known) date) diagnosis: Likely unknown) cellulitis and other (Paronychia/ingro wn toenail) (unknown) (no (unknown) (unknown) Discharge Plan (units (unknown) date) unknown) (unknown) (no (unknown) (unknown) Discontinued (units (u nknown) date) Medications unknown) (unknown) (no (unknown) (unknown) Documented By: (units (unknown) date) JG unknown) (unknown) (no (unknown) (unknown) Doxycycline (units (un known) date) Hyclate unknown) (Doxycycline Hyclate 100 Mg Tablet) 100 mg PO NOW ONE (unknown) (no (unknown) (unknown) ER Physician: (units ( unknown) date) Markel Bermeo MD unknown) (unknown) (no (unknown) (unknown) EXTREMITIES: No (units (unknown) date) gross unknown) deformities. Examination left foot. At the medial (unknown) (no (unknown) (unknown) EYES: Pupils (units (u nknown) date) equal round No unknown) scleral icterus. (unknown) (no (unknown) (unknown) Emergency Report (units (unknown) date) unknown) (unknown) (no (unknown) (unknown) Exam Narrative: (units (unknown) date) unknown) (unknown) (no (unknown) (unknown) Exam (units (unkno wn) date) unknown) (unknown) (no (unknown) (unknown) GASTROINTESTINAL (units (unknown) date) : Denies nausea, unknown) vomiting, abdominal pain (unknown) (no (unknown) (unknown) GENERAL: Denies (units (unknown) date) chills, fatigue, unknown) malaise, fever, sweats. (unknown) (no (unknown) (unknown) GENERAL: in no (units (unknown) date) distress, not unknown) toxic not dyspneic (unknown) (no (unknown) (unknown) : Denies (units (unk nown) date) dysuria, unknown) frequency, hematuria (unknown) (no (unknown) (unknown) General (units (unkno wn) date) unknown) (unknown) (no (unknown) (unknown) HEAD: (units (unkno wn) date) Normocephalic. unknown) (unknown) (no (unknown) (unknown) HEENT: Denies (units ( unknown) date) sinus pain, ear unknown) pain, sore throat (unknown) (no (unknown) (unknown) HPI - Extremity (units (unknown) date) Problem unknown) (unknown) (no (unknown) (unknown) HPI Narrative: (units (unknown) date) unknown) (unknown) (no (unknown) (unknown) History of (units (unk nown) date) Present Illness unknown) (unknown) (no (unknown) (unknown) Ingrowing (units (unkn own) date) toenail of left unknown) foot (unknown) (no (unknown) (unknown) Initial Vital (units ( unknown) date) Signs unknown) (unknown) (no (unknown) (unknown) Initial Vital (units ( unknown) date) Signs: unknown) (unknown) (no (unknown) (unknown) Instructions: DI (units (unknown) date) for Ingrown unknown) Toenail (unknown) (no (unknown) (unknown) [facility] (units (unknown) date) [address] unknown) [place] [address] (unknown) (no (unknown) (unknown) Last Admin: (units (un known) date) 11/15/21 10:42 unknown) Dose: 100 mg (unknown) (no (unknown) (unknown) MDM - Extremity (units (unknown) date) (Nontraumatic) unknown) (unknown) (no (unknown) (unknown) MDM Narrative (units ( unknown) date) unknown) (unknown) (no (unknown) (unknown) MUSCULOSKELETAL: (units (unknown) date) denies muscle or unknown) bony pain (unknown) (no (unknown) (unknown) Medical decision (units (unknown) date) making narrative: unknown) (unknown) (no (unknown) (unknown) Medication (units (unk nown) date) Instructions unknown) Recorded (unknown) (no (unknown) (unknown) Mode of arrival: (units (unknown) date) Ambulatory unknown) (unknown) (no (unknown) (unknown) NEURO: AOx4. (units (u nknown) date) unknown) (unknown) (no (unknown) (unknown) NEUROLOGIC: (units (un known) date) Denies weakness, unknown) numbness (unknown) (no (unknown) (unknown) Narrative (units (unkn own) date) unknown) (unknown) (no (unknown) (unknown) Narrative: (units (unk nown) date) unknown) (unknown) (no (unknown) (unknown) New (units (unkno wn) date) unknown) (unknown) (no (unknown) (unknown) No Action (units (unkn own) date) unknown) (unknown) (no (unknown) (unknown) No new issues (units ( unknown) date) during course of unknown) stay (unknown) (no (unknown) (unknown) No red (units (unkno wn) date) streaking. No unknown) fluctuance. Toenail was intact. No bleeding. No oozing (unknown) (no (unknown) (unknown) Ordered: (units (unkno wn) date) unknown) (unknown) (no (unknown) (unknown) Orders (units (unkno wn) date) unknown) (unknown) (no (unknown) (unknown) Oxygen Delivery (units (unknown) date) Method 11/15/21 unknown) 08:51 (unknown) (no (unknown) (unknown) Oxygen Delivery (units (unknown) date) Method Room Air unknown) (unknown) (no (unknown) (unknown) PSYCH: Not (units (unk nown) date) anxious, is unknown) cooperative (unknown) (no (unknown) (unknown) Patient (units (unkno wn) date) Disposition: Home unknown) (unknown) (no (unknown) (unknown) Patient History (units (unknown) date) unknown) (unknown) (no (unknown) (unknown) Patient desires (units (unknown) date) referral for unknown) Podiatry. Her last podiatry visit was in (unknown) (no (unknown) (unknown) Patient here for (units (unknown) date) pain and swelling unknown) to the left great toe. Patient states has (unknown) (no (unknown) (unknown) Patient: (units (unkno wn) date) AlexEmily J unknown) MR#: M (unknown) (no (unknown) (unknown) Penicillins (units (un known) date) Allergy Verified unknown) 09/30/21 20:17 (unknown) (no (unknown) (unknown) Prescriptions: (units (unknown) date) unknown) (unknown) (no (unknown) (unknown) Previous Rx's (units ( unknown) date) unknown) (unknown) (no (unknown) (unknown) Pulse Oximetry (units (unknown) date) 98 11/15/21 08:51 unknown) (unknown) (no (unknown) (unknown) Pulse Oximetry (units (unknown) date) 98 unknown) (unknown) (no (unknown) (unknown) Pulse Rate 85 (units ( unknown) date) 11/15/21 08:51 unknown) (unknown) (no (unknown) (unknown) Pulse Rate 86 (units ( unknown) date) unknown) (unknown) (no (unknown) (unknown) RESPIRATORY: (units (u nknown) date) Denies dyspnea, unknown) cough (unknown) (no (unknown) (unknown) ROS Unobtainable: (units (unknown) date) All systems unknown) reviewed + are unremarkable except as noted in HPI (unknown) (no (unknown) (unknown) Reevaluation #1: (units (unknown) date) unknown) (unknown) (no (unknown) (unknown) Reevaluation(s) (units (unknown) date) unknown) (unknown) (no (unknown) (unknown) Referrals: (units (unk nown) date) unknown) (unknown) (no (unknown) (unknown) Related Data (units (u nknown) date) unknown) (unknown) (no (unknown) (unknown) Respiratory Rate (units (unknown) date) 16 11/15/21 08:51 unknown) (unknown) (no (unknown) (unknown) Respiratory Rate (units (unknown) date) 16 unknown) (unknown) (no (unknown) (unknown) Review of (units (unkn own) date) Systems unknown) (unknown) (no (unknown) (unknown) SKIN: Denies (units (u nknown) date) rash, skin unknown) lesions positive for edema/erythema (unknown) (no (unknown) (unknown) SKIN: Warm and (units (unknown) date) dry unknown) (unknown) (no (unknown) (unknown) Signed By: (units (unk nown) date) unknown) (unknown) (no (unknown) (unknown) Smoking Status: (units (unknown) date) Former smoker unknown) (unknown) (no (unknown) (unknown) Social History (units (unknown) date) (Reviewed unknown) 11/15/21 @ 10:32 by Markel Bermeo MD) (unknown) (no (unknown) (unknown) Source: patient (units (unknown) date) unknown) (unknown) (no (unknown) (unknown) Stated (units (unkno wn) date) complaint: Thinks unknown) infection in left big toe (unknown) (no (unknown) (unknown) Stop: 11/15/21 (units (unknown) date) 10:28 unknown) (unknown) (no (unknown) (unknown) Substance Use (units ( unknown) date) Type: marijuana unknown) (unknown) (no (unknown) (unknown) Temperature 98.5 (units (unknown) date) F 11/15/21 08:51 unknown) (unknown) (no (unknown) (unknown) Time Seen by (units (u nknown) date) Provider: unknown) 11/15/21 10:19 (unknown) (no (unknown) (unknown) Time: 10:33 (units (un known) date) unknown) (unknown) (no (unknown) (unknown) Visit Report (units (u nknown) date) Forms: Patient unknown) Portal/API (unknown) (no (unknown) (unknown) Vital Signs - 8 (units (unknown) date) hr unknown) (unknown) (no (unknown) (unknown) Vital Signs (units (un known) date) unknown) (unknown) (no (unknown) (unknown) Vital signs: (units (u nknown) date) unknown) (unknown) (no (unknown) (unknown) [From Maalox (units (u nknown) date) Total Relief unknown) (unknown) (no (unknown) (unknown) alcohol intake (units (unknown) date) frequency: unknown) holidays/special occasions only (unknown) (no (unknown) (unknown) amoxicillin (units (un known) date) Allergy Verified unknown) 10/07/21 09:37 (unknown) (no (unknown) (unknown) and below (units (unkn own) date) unknown) (unknown) (no (unknown) (unknown) aspect of the (units ( unknown) date) left great unknown) toe/toenail there is erythema edema. Tender to touch. (unknown) (no (unknown) (unknown) been trying to (units (unknown) date) treat at home unknown) ingrown toenail that was improving but now got (unknown) (no (unknown) (unknown) bismuth (units (unkno wn) date) subsalicylate unknown) Allergy Verified 10/07/21 09:37 (unknown) (no (unknown) (unknown) cinnamon Allergy (units (unknown) date) Verified 10/07/21 unknown) 09:37 (unknown) (no (unknown) (unknown) doxycycline (units (un known) date) hyclate 100 mg unknown) capsule 100 mg PO BID #14 caps 11/15/21 (unknown) (no (unknown) (unknown) doxycycline (units (un known) date) hyclate 100 mg unknown) capsule (unknown) (no (unknown) (unknown) her. (units (unkno wn) date) unknown) (unknown) (no (unknown) (unknown) home (units (unkno wn) date) unknown) (unknown) (no (unknown) (unknown) hydrocodone 5 (units ( unknown) date) mg-acetaminophen unknown) 325 1 tab PO Q4-6H PRN pain #10 tabs 10/01/21 (unknown) (no (unknown) (unknown) hydrocodone-acet (units (unknown) date) aminophen 5-325 unknown) mg tablet (unknown) (no (unknown) (unknown) intervention. No (units (unknown) date) fever chills. No unknown) drainage from the toe. Patient denies (unknown) (no (unknown) (unknown) mg tablet (units (unkn own) date) unknown) (unknown) (no (unknown) (unknown) ondansetron 4 mg (units (unknown) date) disintegrating 4 unknown) mg PO TID-QID PRN nausea and 10/01/21 (unknown) (no (unknown) (unknown) ondansetron 4 mg (units (unknown) date) tablet,disintegra unknown) ting (unknown) (no (unknown) (unknown) or drainage (units (un known) date) unknown) (unknown) (no (unknown) (unknown) pharmacy. May (units ( unknown) date) continue unknown) ibuprofen or Tylenol for pain. Return if worse if any (unknown) (no (unknown) (unknown) does (units (unknown) date) not want a unknown) test. (unknown) (no (unknown) (unknown) questions or (units (u nknown) date) concerns unknown) (unknown) (no (unknown) (unknown) removal needed. (units (unknown) date) Appropriate for unknown) outpatient podiatry services. Patient agrees (unknown) (no (unknown) (unknown) tablet vomiting (units (unknown) date) #10 tabs unknown) (unknown) (no (unknown) (unknown) tobacco type: (units ( unknown) date) cigarettes and unknown) vaping (unknown) (no (unknown) (unknown) toenail. (units (unkno wn) date) Continue Epsom unknown) salt toe soaks 20 minutes at a time 3 times a day. (unknown) (no (unknown) (unknown) with treatment (units (unknown) date) plan. Antibiotics unknown) provided. Return precautions reviewed with (unknown) (no (unknown) (unknown) worse. History (units (unknown) date) of ingrown unknown) toenails on both feet in the past with surgical Result panel 26 (unknown) (no (unknown) (unknown) (no value) (units (unk nown) date) unknown) (unknown) (no (unknown) (unknown) 12/01/21 (units (unkno wn) date) unknown) (unknown) (no (unknown) (unknown) [address] [place] [address] (units (unknown) date) unknown) (unknown) (no (unknown) (unknown) Accession Number: (units (unknown) date) [id number] unknown) (unknown) (no (unknown) (unknown) Age/Sex: 21 / F (units (unknown) date) Date of Service: unknown) (unknown) (no (unknown) (unknown) [place], [place] (units ( unknown) date) [id number] unknown) (unknown) (no (unknown) (unknown) Approved by: (units (u nknown) date) apoorva Edwards M.D. on 12/01/2021 at 14:41 (unknown) (no (unknown) (unknown) Bones and chest (units (unknown) date) wall: No unknown) suspicious bony abnormalities. Soft tissues appear (unknown) (no (unknown) (unknown) COMPARISON: None. (units (unknown) date) unknown) (unknown) (no (unknown) (unknown) : 2000 (units (unknown) date) Acct:[id number] unknown) (unknown) (no (unknown) (unknown) Dictated by: (units (u nknown) date) apoorva Edwards M.D. on 12/01/2021 at 14:41 (unknown) (no (unknown) (unknown) FINDINGS: (units (unkn own) date) unknown) (unknown) (no (unknown) (unknown) IMPRESSION: No (units (unknown) date) acute unknown) cardiopulmonary abnormality. (unknown) (no (unknown) (unknown) INDICATIONS: (units (u nknown) date) Respiratory unknown) Symptoms (unknown) (no (unknown) (unknown) [facility] (units (unknown) date) unknown) (unknown) (no (unknown) (unknown) Loc: ED (units (unkno wn) date) unknown) (unknown) (no (unknown) (unknown) Lungs and pleura: (units (unknown) date) Lungs are clear. unknown) No pleural effusions or pneumothorax. (unknown) (no (unknown) (unknown) [id number] (units (unk nown) date) unknown) (unknown) (no (unknown) (unknown) Mediastinum: (units (u nknown) date) Mediastinal unknown) contours are normal. Heart size is normal. (unknown) (no (unknown) (unknown) Ordering (units (unkno wn) date) Provider: unknown) Mil Farrell P.A-C (unknown) (no (unknown) (unknown) PROCEDURE: XR (units ( unknown) date) CHEST 2V unknown) (unknown) (no (unknown) (unknown) Patient: (units (unkno wn) date) Emily Johnson J unknown) MR#: (unknown) (no (unknown) (unknown) Procedure: XR (units ( unknown) date) chest 2V unknown) (unknown) (no (unknown) (unknown) Signed (units (unkno wn) date) unknown) (unknown) (no (unknown) (unknown) Surgical changes (units (unknown) date) and devices: None. unknown) (unknown) (no (unknown) (unknown) TECHNIQUE: 2 (units (u nknown) date) views of the chest unknown) were acquired. (unknown) (no (unknown) (unknown) XRay Report (units (un known) date) unknown) (unknown) (no (unknown) (unknown) unremarkable. (units ( unknown) date) unknown) Result panel 27 (unknown) (no date) (unknown) (unknown) Flu A (units (unkn own) NEGATIVE unknown) (unknown) (no date) (unknown) (unknown) Flu B (units (unkn own) NEGATIVE unknown) (unknown) (no date) (unknown) (unknown) Negative (units (unkn own) unknown) (unknown) (no date) (unknown) (unknown) Negative (units (unkn own) unknown) Result panel 28 (unknown) (no date) (unknown) (unknown) 1.4 % (unkn own) (unknown) (no date) (unknown) (unknown) 10.0 x10 3/ul (unkn own) (unknown) (no date) (unknown) (unknown) 100 /ul (unkn own) (unknown) (no date) (unknown) (unknown) 12.3 g/dl (unkn own) (unknown) (no date) (unknown) (unknown) 13.3 % (unkn own) (unknown) (no date) (unknown) (unknown) 2.0 % (unkn own) (unknown) (no date) (unknown) (unknown) 200 /ul (unkn own) (unknown) (no date) (unknown) (unknown) 22.4 % (unkn own) (unknown) (no date) (unknown) (unknown) 2300 /ul (unkn own) (unknown) (no date) (unknown) (unknown) 28.6 pg (unkn own) (unknown) (no date) (unknown) (unknown) 305 x10 3/ul (unkn own) (unknown) (no date) (unknown) (unknown) 33.3 % (unkn own) (unknown) (no date) (unknown) (unknown) 36.8 % (unkn own) (unknown) (no date) (unknown) (unknown) 4.30 x10 6/ul (unkn own) (unknown) (no date) (unknown) (unknown) 5.2 % (unkn own) (unknown) (no date) (unknown) (unknown) 500 /ul (unkn own) (unknown) (no date) (unknown) (unknown) 69.0 % (unkn own) (unknown) (no date) (unknown) (unknown) 6900 /ul (unkn own) (unknown) (no date) (unknown) (unknown) 85.7 fl (unkn own) Result panel 29 (unknown) (no (unknown) (unknown) (no value) (units (unk nown) date) unknown) (unknown) (no (unknown) (unknown) (bismuth)] (units (unk nown) date) unknown) (unknown) (no (unknown) (unknown) [id number] (units (unkn own) date) unknown) (unknown) (no (unknown) (unknown) 12/01/21 14:22 (units (unknown) date) unknown) (unknown) (no (unknown) (unknown) 12/01/21 14:24 (units (unknown) date) unknown) (unknown) (no (unknown) (unknown) 12/01/21 14:28 (units (unknown) date) unknown) (unknown) (no (unknown) (unknown) 12/01/21 16:45 (units (unknown) date) unknown) (unknown) (no (unknown) (unknown) 12/01/21 (units (unkno wn) date) Range/Units unknown) (unknown) (no (unknown) (unknown) 12/01/21 (units (unkno wn) date) unknown) (unknown) (no (unknown) (unknown) 1 tab PO Q4-6H (units (unknown) date) PRN (Reason: pain) unknown) Qty: 10 0RF (unknown) (no (unknown) (unknown) 100 mg PO BID (units ( unknown) date) Qty: 14 0RF unknown) (unknown) (no (unknown) (unknown) 14:13 (units (unkno wn) date) unknown) (unknown) (no (unknown) (unknown) 14:22 (units (unkno wn) date) unknown) (unknown) (no (unknown) (unknown) 4 mg PO TID-QID (units (unknown) date) PRN (Reason: unknown) nausea and vomiting) Qty: 10 0RF (unknown) (no (unknown) (unknown) ? (units (unkno wn) date) unknown) (unknown) (no (unknown) (unknown) Age/Sex: 21 / F (units (unknown) date) unknown) (unknown) (no (unknown) (unknown) Allergies (units (unkn own) date) unknown) (unknown) (no (unknown) (unknown) Allergy/AdvReac (units (unknown) date) Type Severity unknown) Reaction Status Date / Time (unknown) (no (unknown) (unknown) Approved by: (units (u nknown) date) apoorva Edwards M.D. on 12/01/2021 at 14:41 (unknown) (no (unknown) (unknown) Blood Pressure (units (unknown) date) 125/91 H 12/01/21 unknown) 14:13 (unknown) (no (unknown) (unknown) Blood Pressure (units (unknown) date) 125/91 H unknown) (unknown) (no (unknown) (unknown) Bones and chest (units (unknown) date) wall:? No unknown) suspicious bony abnormalities.? Soft tissues appear (unknown) (no (unknown) (unknown) CBC Auto Diff (units ( unknown) date) [Complete Blood unknown) Count AUTO DIFF] Stat (unknown) (no (unknown) (unknown) CMP (units (unkno wn) date) [Comprehensive unknown) Metabolic Panel] Stat (unknown) (no (unknown) (unknown) COMPARISON:? (units (u nknown) date) None. unknown) (unknown) (no (unknown) (unknown) Cardiovascular: (units (unknown) date) No chest pain or unknown) palpitations (unknown) (no (unknown) (unknown) Chest [XR chest (units (unknown) date) 2V] Stat unknown) (unknown) (no (unknown) (unknown) Chest was ordered (units (unknown) date) and was negative. unknown) Respiratory panel strep throat so ordered (unknown) (no (unknown) (unknown) Chest x-ray: (units (u nknown) date) unknown) (unknown) (no (unknown) (unknown) Chest: Lungs (units (u nknown) date) CTAB, no rales, unknown) rhonchi or wheezes. ?? (unknown) (no (unknown) (unknown) Chief Complaint: (units (unknown) date) Upper Respiratory unknown) Symptoms (unknown) (no (unknown) (unknown) Clinical (units (unkno wn) date) Impression: unknown) (unknown) (no (unknown) (unknown) Course (units (unkno wn) date) unknown) (unknown) (no (unknown) (unknown) Covid-19 + FLU (units (unknown) date) A/B + RSV - PCR unknown) Stat (unknown) (no (unknown) (unknown) : 2000 (units (unknown) date) Acct:[id number] unknown) (unknown) (no (unknown) (unknown) Date of Service: (units (unknown) date) 12/01/21 unknown) (unknown) (no (unknown) (unknown) Departure (units (unkn own) date) unknown) (unknown) (no (unknown) (unknown) Dictated by: (units (u nknown) date) Nader Bear, unknown) Lea on 12/01/2021 at 14:41 ? ? (unknown) (no (unknown) (unknown) Discharge Plan (units (unknown) date) unknown) (unknown) (no (unknown) (unknown) ED Orders (units (unkn own) date) unknown) (unknown) (no (unknown) (unknown) ER Physician: (units ( unknown) date) Mil Farrell unknown) Deja (unknown) (no (unknown) (unknown) Emergency Report (units (unknown) date) unknown) (unknown) (no (unknown) (unknown) Exam Narrative: (units (unknown) date) unknown) (unknown) (no (unknown) (unknown) Exam (units (unkno wn) date) unknown) (unknown) (no (unknown) (unknown) Extremities: (units (u nknown) date) Warm, well unknown) perfused, FROM, no deformities, no edema. ?? (unknown) (no (unknown) (unknown) Eyes: PERRLA, (units ( unknown) date) EOM's full, unknown) conjunctivae clear. ? (unknown) (no (unknown) (unknown) FINDINGS:? (units (unk nown) date) unknown) (unknown) (no (unknown) (unknown) Gastrointestinal: (units (unknown) date) Nausea and unknown) vomiting (unknown) (no (unknown) (unknown) Gastrointestinal: (units (unknown) date) Soft; NT; ND; Pos unknown) BS with Neg. rebound tenderness. No scars or (unknown) (no (unknown) (unknown) General (units (unkno wn) date) unknown) (unknown) (no (unknown) (unknown) General: No (units (un known) date) fever, chills or unknown) fatigue. (unknown) (no (unknown) (unknown) General: normal (units (unknown) date) appearance, well unknown) developed, well nourished, alert, and awake. (unknown) (no (unknown) (unknown) HEENT: No (units (unkn own) date) congestion, ear unknown) pain, rhinorrhea, sore throat or tinnitus (unknown) (no (unknown) (unknown) HPI - URI/Sore (units (unknown) date) Throat unknown) (unknown) (no (unknown) (unknown) HPI Narrative: (units (unknown) date) unknown) (unknown) (no (unknown) (unknown) Head: (units (unkno wn) date) Normocephalic, no unknown) lesions. (unknown) (no (unknown) (unknown) Heart: RRR, no (units (unknown) date) murmurs, rubs or unknown) gallops. (unknown) (no (unknown) (unknown) History of (units (unk nown) date) Present Illness unknown) (unknown) (no (unknown) (unknown) IMPRESSION:? No (units (unknown) date) acute unknown) cardiopulmonary abnormality. (unknown) (no (unknown) (unknown) INDICATIONS:? (units ( unknown) date) Respiratory unknown) Symptoms (unknown) (no (unknown) (unknown) Imaging Data (units (u nknown) date) unknown) (unknown) (no (unknown) (unknown) Influenza A (units (un known) date) (RT-PCR) Flu a unknown) negative (NEGATIVE) (unknown) (no (unknown) (unknown) Influenza B (units (un known) date) (RT-PCR) Flu b unknown) negative (NEGATIVE) (unknown) (no (unknown) (unknown) Initial Vital (units ( unknown) date) Signs unknown) (unknown) (no (unknown) (unknown) Initial Vital (units ( unknown) date) Signs: unknown) (unknown) (no (unknown) (unknown) [facility] (units (unknown) date) [address] unknown) [place] [address] (unknown) (no (unknown) (unknown) Lab Data (units (unkno wn) date) unknown) (unknown) (no (unknown) (unknown) Lab Results (units (un known) date) unknown) (unknown) (no (unknown) (unknown) Labs: (units (unkno wn) date) unknown) (unknown) (no (unknown) (unknown) Lungs and (units (unkn own) date) pleura:? Lungs are unknown) clear.? No pleural effusions or pneumothorax.? (unknown) (no (unknown) (unknown) MDM - URI/Sore (units (unknown) date) Throat unknown) (unknown) (no (unknown) (unknown) MDM Narrative (units ( unknown) date) unknown) (unknown) (no (unknown) (unknown) Mediastinum:? (units ( unknown) date) Mediastinal unknown) contours are normal.? Heart size is normal.? (unknown) (no (unknown) (unknown) Medical decision (units (unknown) date) making narrative: unknown) (unknown) (no (unknown) (unknown) Medication (units (unk nown) date) Instructions unknown) Recorded (unknown) (no (unknown) (unknown) Musculoskeletal: (units (unknown) date) No pain in muscles unknown) or joints, no limitation of range of motion, (unknown) (no (unknown) (unknown) Narrative (units (unkn own) date) unknown) (unknown) (no (unknown) (unknown) Narrative: (units (unk nown) date) unknown) (unknown) (no (unknown) (unknown) Neuro: (units (unkno wn) date) Physiological, no unknown) localizing findings, CN3-12 intact. ?? (unknown) (no (unknown) (unknown) Neurological: (units ( unknown) date) Awake, alert and unknown) in not apparent distress. No Headaches, changes (unknown) (no (unknown) (unknown) No Action (units (unkn own) date) unknown) (unknown) (no (unknown) (unknown) Not in acute (units (u nknown) date) distress. ? unknown) (unknown) (no (unknown) (unknown) Ordered: (units (unkno wn) date) unknown) (unknown) (no (unknown) (unknown) Orders (units (unkno wn) date) unknown) (unknown) (no (unknown) (unknown) Oxygen Delivery (units (unknown) date) Method 12/01/21 unknown) 14:13 (unknown) (no (unknown) (unknown) Oxygen Delivery (units (unknown) date) Method Room Air unknown) (unknown) (no (unknown) (unknown) PROCEDURE:? XR (units (unknown) date) CHEST 2V unknown) (unknown) (no (unknown) (unknown) PSYCHIATRIC: The (units (unknown) date) mood is good, no unknown) blunted affect. Speech is clear. Thought (unknown) (no (unknown) (unknown) Patient (units (unkno wn) date) Disposition: Home unknown) (unknown) (no (unknown) (unknown) Patient History (units (unknown) date) unknown) (unknown) (no (unknown) (unknown) Patient has a (units ( unknown) date) 21-year-old female unknown) who presents to the emergency room today with (unknown) (no (unknown) (unknown) Patient is a (units (u nknown) date) 21-year-old female unknown) who presents to the emergency room today with (unknown) (no (unknown) (unknown) Patient: (units (unkno wn) date) Emily Johnson J unknown) MR#: M (unknown) (no (unknown) (unknown) Penicillins (units (un known) date) Allergy Verified unknown) 09/30/21 20:17 (unknown) (no (unknown) (unknown) Physical Exam: ? (units (unknown) date) unknown) (unknown) (no (unknown) (unknown) Prescriptions: (units (unknown) date) unknown) (unknown) (no (unknown) (unknown) Previous Rx's (units ( unknown) date) unknown) (unknown) (no (unknown) (unknown) Pulse Oximetry 96 (units (unknown) date) 12/01/21 14:13 unknown) (unknown) (no (unknown) (unknown) Pulse Oximetry 96 (units (unknown) date) unknown) (unknown) (no (unknown) (unknown) Pulse Rate 98 H (units (unknown) date) 12/01/21 14:13 unknown) (unknown) (no (unknown) (unknown) Pulse Rate 98 H (units (unknown) date) unknown) (unknown) (no (unknown) (unknown) R.O.S.: (units (unkno wn) date) unknown) (unknown) (no (unknown) (unknown) RSV (PCR) (units (unkn own) date) Negative unknown) (Negative) (unknown) (no (unknown) (unknown) Radiologist's (units ( unknown) date) Impression: unknown) (unknown) (no (unknown) (unknown) Related Data (units (u nknown) date) unknown) (unknown) (no (unknown) (unknown) Respiratory Panel (units (unknown) date) (Film Array) Stat unknown) (unknown) (no (unknown) (unknown) Respiratory Rate (units (unknown) date) 20 12/01/21 14:13 unknown) (unknown) (no (unknown) (unknown) Respiratory Rate (units (unknown) date) 20 unknown) (unknown) (no (unknown) (unknown) Respiratory: (units (u nknown) date) Cough and sore unknown) throat (unknown) (no (unknown) (unknown) Result diagrams: (units (unknown) date) unknown) (unknown) (no (unknown) (unknown) Review of Systems (units (unknown) date) unknown) (unknown) (no (unknown) (unknown) SARS-CoV-2 (PCR) (units (unknown) date) Negative unknown) (Negative) (unknown) (no (unknown) (unknown) Signed By: (units (unk nown) date) unknown) (unknown) (no (unknown) (unknown) Skin: No rash or (units (unknown) date) associated unknown) abnormalities (unknown) (no (unknown) (unknown) Skin: Normal, no (units (unknown) date) rashes, no lesions unknown) noted. ?? (unknown) (no (unknown) (unknown) Smoking Status: (units (unknown) date) Former smoker unknown) (unknown) (no (unknown) (unknown) Social History (units (unknown) date) (Reviewed 11/15/21 unknown) @ 10:32 by Markel Bermeo MD) (unknown) (no (unknown) (unknown) Stated Complaint: (units (unknown) date) Nausea, fever, unknown) chills, vomiting (unknown) (no (unknown) (unknown) Substance Use (units ( unknown) date) Type: marijuana unknown) (unknown) (no (unknown) (unknown) Surgical changes (units (unknown) date) and devices:? unknown) None.? (unknown) (no (unknown) (unknown) TECHNIQUE:? 2 (units ( unknown) date) views of the chest unknown) were acquired.? (unknown) (no (unknown) (unknown) Temperature 96.6 (units (unknown) date) F L 12/01/21 14:13 unknown) (unknown) (no (unknown) (unknown) Temperature 96.6 (units (unknown) date) F L unknown) (unknown) (no (unknown) (unknown) Time Seen by (units (u nknown) date) Provider: 12/01/21 unknown) 13:49 (unknown) (no (unknown) (unknown) URI complaints to (units (unknown) date) include nausea unknown) vomiting migraine started about 3 days ago. (unknown) (no (unknown) (unknown) Upper respiratory (units (unknown) date) infection unknown) (unknown) (no (unknown) (unknown) Vital Signs - 8 (units (unknown) date) hr unknown) (unknown) (no (unknown) (unknown) Vital Signs (units (un known) date) unknown) (unknown) (no (unknown) (unknown) Vital signs: (units (u nknown) date) unknown) (unknown) (no (unknown) (unknown) [Embedded Image (units (unknown) date) Not Available] unknown) (unknown) (no (unknown) (unknown) [From Maalox (units (u nknown) date) Total Relief unknown) (unknown) (no (unknown) (unknown) alcohol intake (units (unknown) date) frequency: unknown) holidays/special occasions only (unknown) (no (unknown) (unknown) also like a (units (un known) date) letter for work. unknown) (unknown) (no (unknown) (unknown) amoxicillin (units (un known) date) Allergy Verified unknown) 10/07/21 09:37 (unknown) (no (unknown) (unknown) bismuth (units (unkno wn) date) subsalicylate unknown) Allergy Verified 10/07/21 09:37 (unknown) (no (unknown) (unknown) chest pain or (units ( unknown) date) shortness of unknown) breath but is periodically fever and chills. Would (unknown) (no (unknown) (unknown) child who had (units ( unknown) date) upper respiratory unknown) complaints that preceded her ears. Denies any (unknown) (no (unknown) (unknown) cinnamon Allergy (units (unknown) date) Verified 10/07/21 unknown) 09:37 (unknown) (no (unknown) (unknown) complaint of (units (u nknown) date) cough sore throat unknown) body aches migraine and nausea and vomiting for (unknown) (no (unknown) (unknown) doxycycline (units (un known) date) hyclate 100 mg unknown) capsule 100 mg PO BID #14 caps 11/15/21 (unknown) (no (unknown) (unknown) doxycycline (units (un known) date) hyclate 100 mg unknown) capsule (unknown) (no (unknown) (unknown) hydrocodone 5 (units ( unknown) date) mg-acetaminophen unknown) 325 1 tab PO Q4-6H PRN pain #10 tabs 10/01/21 (unknown) (no (unknown) (unknown) hydrocodone-aceta (units (unknown) date) minophen 5-325 mg unknown) tablet (unknown) (no (unknown) (unknown) in vision or (units (u nknown) date) other related unknown) neurological concerns. (unknown) (no (unknown) (unknown) major deformities (units (unknown) date) noted on Visual unknown) Inspection. (unknown) (no (unknown) (unknown) mg tablet (units (unkn own) date) unknown) (unknown) (no (unknown) (unknown) no paresthesia or (units (unknown) date) numbness. ?? unknown) (unknown) (no (unknown) (unknown) ondansetron 4 mg (units (unknown) date) disintegrating 4 unknown) mg PO TID-QID PRN nausea and 10/01/21 (unknown) (no (unknown) (unknown) ondansetron 4 mg (units (unknown) date) tablet,disintegrat unknown) ing (unknown) (no (unknown) (unknown) process is (units (unk nown) date) linear, thought unknown) content is appropriate. The voice is without (unknown) (no (unknown) (unknown) significant (units (un known) date) inflection. unknown) (unknown) (no (unknown) (unknown) tablet vomiting (units (unknown) date) #10 tabs unknown) (unknown) (no (unknown) (unknown) the past 3 days. (units (unknown) date) States that she unknown) has roommates with another woman who has a (unknown) (no (unknown) (unknown) tobacco type: (units ( unknown) date) cigarettes and unknown) vaping (unknown) (no (unknown) (unknown) unremarkable.? (units (unknown) date) unknown) (unknown) (no (unknown) (unknown) with labs to rule (units (unknown) date) out any acute unknown) emergent concerns. Result panel 30 (unknown) (no date) (unknown) (unknown) > 60 ml/min (unkn own) (unknown) (no date) (unknown) (unknown) > 60 ml/min (unkn own) (unknown) (no date) (unknown) (unknown) 0.3 mg/dl (unkn own) (unknown) (no date) (unknown) (unknown) 0.53 mg/dl (unkn own) (unknown) (no date) (unknown) (unknown) 1.2 (units unknown) (unknown) (unknown) (no date) (unknown) (unknown) 10 mg/dl (unkn own) (unknown) (no date) (unknown) (unknown) 105 mmol/l (unkn own) (unknown) (no date) (unknown) (unknown) 140 mmol/l (unkn own) (unknown) (no date) (unknown) (unknown) 18.9 (units unknown) (unknown) (unknown) (no date) (unknown) (unknown) 28 mmol/l (unkn own) (unknown) (no date) (unknown) (unknown) 3.5 g/dl (unkn own) (unknown) (no date) (unknown) (unknown) 33 iu/l (unkn own) (unknown) (no date) (unknown) (unknown) 4.1 g/dl (unkn own) (unknown) (no date) (unknown) (unknown) 4.1 mmol/l (unkn own) (unknown) (no date) (unknown) (unknown) 46 iu/l (unkn own) (unknown) (no date) (unknown) (unknown) 7.6 g/dl (unkn own) (unknown) (no date) (unknown) (unknown) 8.7 mg/dl (unkn own) (unknown) (no date) (unknown) (unknown) 89 mg/dl (unkn own) (unknown) (no date) (unknown) (unknown) 89 mg/dl (unkn own) (unknown) (no date) (unknown) (unknown) 89 u/l (unkn own) Result panel 31 (unknown) (no (unknown) (unknown) (no value) (units (unk nown) date) unknown) (unknown) (no (unknown) (unknown) (bismuth)] (units (unk nown) date) unknown) (unknown) (no (unknown) (unknown) *If you do not (units (unknown) date) have a primary unknown) care provider please contact the [facility] (unknown) (no (unknown) (unknown) *Please continue (units (unknown) date) to take your unknown) regular medications as directed. (unknown) (no (unknown) (unknown) *Please follow up (units (unknown) date) with your primary unknown) care provider in 2-3 days, call for an (unknown) (no (unknown) (unknown) *Return to (units (unk nown) date) Emergency unknown) Department if you should have any new, worsening or (unknown) (no (unknown) (unknown) [phone] (units (unkn own) date) unknown) (unknown) (no (unknown) (unknown) 12/01/21 12/01/21 (units (unknown) date) 12/01/21 unknown) Range/Units (unknown) (no (unknown) (unknown) 12/01/21 14:22 (units (unknown) date) unknown) (unknown) (no (unknown) (unknown) 12/01/21 14:24 (units (unknown) date) unknown) (unknown) (no (unknown) (unknown) 12/01/21 16:45 (units (unknown) date) unknown) (unknown) (no (unknown) (unknown) 12/01/21 (units (unkno wn) date) unknown) (unknown) (no (unknown) (unknown) 1 tab PO Q4-6H (units (unknown) date) PRN (Reason: pain) unknown) Qty: 10 0RF (unknown) (no (unknown) (unknown) 100 mg PO BID (units ( unknown) date) Qty: 14 0RF unknown) (unknown) (no (unknown) (unknown) 14:13 (units (unkno wn) date) unknown) (unknown) (no (unknown) (unknown) 14:22 16:45 16:45 (units (unknown) date) unknown) (unknown) (no (unknown) (unknown) 4 mg PO TID-QID (units (unknown) date) PRN (Reason: unknown) nausea and vomiting) Qty: 10 0RF (unknown) (no (unknown) (unknown) ? (units (unkno wn) date) unknown) (unknown) (no (unknown) (unknown) ALT 33 (<35) IU/L (units (unknown) date) unknown) (unknown) (no (unknown) (unknown) AST 46 H (14-36) (units (unknown) date) IU/L unknown) (unknown) (no (unknown) (unknown) Activity (units (unkno wn) date) Restrictions/Addit unknown) ional Instructions: (unknown) (no (unknown) (unknown) Age/Sex: 21 / F (units (unknown) date) unknown) (unknown) (no (unknown) (unknown) Albumin 4.1 (units (un known) date) (3.5-5.0) g/dL unknown) (unknown) (no (unknown) (unknown) Albumin/Globulin (units (unknown) date) Ratio 1.2 unknown) (1.0-2.8) (unknown) (no (unknown) (unknown) Alkaline (units (unkno wn) date) Phosphatase 89 unknown) (38-126) U/L (unknown) (no (unknown) (unknown) Allergies (units (unkn own) date) unknown) (unknown) (no (unknown) (unknown) Allergy/AdvReac (units (unknown) date) Type Severity unknown) Reaction Status Date / Time (unknown) (no (unknown) (unknown) Approved by: (units (u nknown) date) apoorva Edwards M.D. on 12/01/2021 at 14:41 (unknown) (no (unknown) (unknown) BUN 10 (7-17) (units ( unknown) date) mg/dL unknown) (unknown) (no (unknown) (unknown) BUN/Creatinine (units (unknown) date) Ratio 18.9 (6-22) unknown) (unknown) (no (unknown) (unknown) Baso # (Auto) 100 (units (unknown) date) (0-100) /uL unknown) (unknown) (no (unknown) (unknown) Baso % (Auto) 1.4 (units (unknown) date) (0-2) % unknown) (unknown) (no (unknown) (unknown) Blood Pressure (units (unknown) date) 125/91 H 12/01/21 unknown) 14:13 (unknown) (no (unknown) (unknown) Blood Pressure (units (unknown) date) 125/91 H unknown) (unknown) (no (unknown) (unknown) Bones and chest (units (unknown) date) wall:? No unknown) suspicious bony abnormalities.? Soft tissues appear (unknown) (no (unknown) (unknown) CBC Auto Diff (units ( unknown) date) [Complete Blood unknown) Count AUTO DIFF] Stat (unknown) (no (unknown) (unknown) CMP (units (unkno wn) date) [Comprehensive unknown) Metabolic Panel] Stat (unknown) (no (unknown) (unknown) COMPARISON:? (units (u nknown) date) None. unknown) (unknown) (no (unknown) (unknown) Calcium 8.7 (units (un known) date) (8.4-10.2) mg/dL unknown) (unknown) (no (unknown) (unknown) Carbon Dioxide 28 (units (unknown) date) (22-32) mmol/L unknown) (unknown) (no (unknown) (unknown) Cardiovascular: (units (unknown) date) No chest pain or unknown) palpitations (unknown) (no (unknown) (unknown) Chest [XR chest (units (unknown) date) 2V] Stat unknown) (unknown) (no (unknown) (unknown) Chest was ordered (units (unknown) date) and was negative. unknown) Respiratory panel strep throat so ordered (unknown) (no (unknown) (unknown) Chest x-ray: (units (u nknown) date) unknown) (unknown) (no (unknown) (unknown) Chest: Lungs (units (u nknown) date) CTAB, no rales, unknown) rhonchi or wheezes. ?? (unknown) (no (unknown) (unknown) Chief Complaint: (units (unknown) date) Upper Respiratory unknown) Symptoms (unknown) (no (unknown) (unknown) Chloride 105 (units (u nknown) date) (98-107) mmol/L unknown) (unknown) (no (unknown) (unknown) Clinical (units (unkno wn) date) Impression: unknown) (unknown) (no (unknown) (unknown) Course (units (unkno wn) date) unknown) (unknown) (no (unknown) (unknown) Covid-19 + FLU (units (unknown) date) A/B + RSV - PCR unknown) Stat (unknown) (no (unknown) (unknown) Creatinine 0.53 (units (unknown) date) (0.52-1.04) mg/dL unknown) (unknown) (no (unknown) (unknown) : 2000 (units (unknown) date) Acct:[id number] unknown) (unknown) (no (unknown) (unknown) Date of Service: (units (unknown) date) 12/01/21 unknown) (unknown) (no (unknown) (unknown) Departure (units (unkn own) date) unknown) (unknown) (no (unknown) (unknown) Dictated by: (units (u nknown) date) Nader Bear unknownRoselyn Tate on 12/01/2021 at 14:41 ? ? (unknown) (no (unknown) (unknown) Discharge Plan (units (unknown) date) unknown) (unknown) (no (unknown) (unknown) ED Orders (units (unkn own) date) unknown) (unknown) (no (unknown) (unknown) ER Physician: (units ( unknown) date) Mli Farrell unknown) P.AAlejandra (unknown) (no (unknown) (unknown) Emergency Report (units (unknown) date) unknown) (unknown) (no (unknown) (unknown) Eos # (Auto) 200 (units (unknown) date) (0-450) /uL unknown) (unknown) (no (unknown) (unknown) Eos % (Auto) 2.0 (units (unknown) date) (2-4) % unknown) (unknown) (no (unknown) (unknown) Estimated GFR > (units (unknown) date) 60 (>60) mL/min unknown) (unknown) (no (unknown) (unknown) Exam Narrative: (units (unknown) date) unknown) (unknown) (no (unknown) (unknown) Exam (units (unkno wn) date) unknown) (unknown) (no (unknown) (unknown) Extremities: (units (u nknown) date) Warm, well unknown) perfused, FROM, no deformities, no edema. ?? (unknown) (no (unknown) (unknown) Eyes: PERRLA, (units ( unknown) date) EOM's full, unknown) conjunctivae clear. ? (unknown) (no (unknown) (unknown) FINDINGS:? (units (unk nown) date) unknown) (unknown) (no (unknown) (unknown) Gastrointestinal: (units (unknown) date) Nausea and unknown) vomiting (unknown) (no (unknown) (unknown) Gastrointestinal: (units (unknown) date) Soft; NT; ND; Pos unknown) BS with Neg. rebound tenderness. No scars or (unknown) (no (unknown) (unknown) General (units (unkno wn) date) unknown) (unknown) (no (unknown) (unknown) General: No (units (un known) date) fever, chills or unknown) fatigue. (unknown) (no (unknown) (unknown) General: normal (units (unknown) date) appearance, well unknown) developed, well nourished, alert, and awake. (unknown) (no (unknown) (unknown) Globulin 3.5 (units (u nknown) date) (1.7-4.1) g/dL unknown) (unknown) (no (unknown) (unknown) Glucose 89 (units (unk nown) date) (70-100) mg/dL unknown) (unknown) (no (unknown) (unknown) HEENT: No (units (unkn own) date) congestion, ear unknown) pain, rhinorrhea, sore throat or tinnitus (unknown) (no (unknown) (unknown) HPI - URI/Sore (units (unknown) date) Throat unknown) (unknown) (no (unknown) (unknown) HPI Narrative: (units (unknown) date) unknown) (unknown) (no (unknown) (unknown) Hct 36.8 (36-46) (units (unknown) date) % unknown) (unknown) (no (unknown) (unknown) Head: (units (unkno wn) date) Normocephalic, no unknown) lesions. (unknown) (no (unknown) (unknown) Heart: RRR, no (units (unknown) date) murmurs, rubs or unknown) gallops. (unknown) (no (unknown) (unknown) Hgb 12.3 (units (unkno wn) date) (12.0-16.0) g/dL unknown) (unknown) (no (unknown) (unknown) History of (units (unk nown) date) Present Illness unknown) (unknown) (no (unknown) (unknown) IMPRESSION:? No (units (unknown) date) acute unknown) cardiopulmonary abnormality. (unknown) (no (unknown) (unknown) INDICATIONS:? (units ( unknown) date) Respiratory unknown) Symptoms (unknown) (no (unknown) (unknown) Imaging Data (units (u nknown) date) unknown) (unknown) (no (unknown) (unknown) Influenza A (units (un known) date) (RT-PCR) Flu a unknown) negative (NEGATIVE) (unknown) (no (unknown) (unknown) Influenza B (units (un known) date) (RT-PCR) Flu b unknown) negative (NEGATIVE) (unknown) (no (unknown) (unknown) Initial Vital (units ( unknown) date) Signs unknown) (unknown) (no (unknown) (unknown) Initial Vital (units ( unknown) date) Signs: unknown) (unknown) (no (unknown) (unknown) Instructions: DI (units (unknown) date) for Viral Upper unknown) Respiratory Infection -- Adult (unknown) (no (unknown) (unknown) [facility] (units (unknown) date) [address] unknown) [place] [address] (unknown) (no (unknown) (unknown) Lab Data (units (unkno wn) date) unknown) (unknown) (no (unknown) (unknown) Lab Results (units (un known) date) unknown) (unknown) (no (unknown) (unknown) Labs: (units (unkno wn) date) unknown) (unknown) (no (unknown) (unknown) Lungs and (units (unkn own) date) pleura:? Lungs are unknown) clear.? No pleural effusions or pneumothorax.? (unknown) (no (unknown) (unknown) Lymph # (Auto) (units (unknown) date) 2300 ([id number]) unknown) /uL (unknown) (no (unknown) (unknown) Lymph % (Auto) (units (unknown) date) 22.4 L (25-40) % unknown) (unknown) (no (unknown) (unknown) MCH 28.6 (26-34) (units (unknown) date) PG unknown) (unknown) (no (unknown) (unknown) MCHC 33.3 (30-36) (units (unknown) date) % unknown) (unknown) (no (unknown) (unknown) MCV 85.7 (80-100) (units (unknown) date) fL unknown) (unknown) (no (unknown) (unknown) MDM - URI/Sore (units (unknown) date) Throat unknown) (unknown) (no (unknown) (unknown) MDM Narrative (units ( unknown) date) unknown) (unknown) (no (unknown) (unknown) Mediastinum:? (units ( unknown) date) Mediastinal unknown) contours are normal.? Heart size is normal.? (unknown) (no (unknown) (unknown) Medical decision (units (unknown) date) making narrative: unknown) (unknown) (no (unknown) (unknown) Medication (units (unk nown) date) Instructions unknown) Recorded (unknown) (no (unknown) (unknown) Mills # (Auto) 500 (units (unknown) date) (0-900) /uL unknown) (unknown) (no (unknown) (unknown) Mills % (Auto) 5.2 (units (unknown) date) (3-14) % unknown) (unknown) (no (unknown) (unknown) Musculoskeletal: (units (unknown) date) No pain in muscles unknown) or joints, no limitation of range of motion, (unknown) (no (unknown) (unknown) Narrative (units (unkn own) date) unknown) (unknown) (no (unknown) (unknown) Narrative: (units (unk nown) date) unknown) (unknown) (no (unknown) (unknown) Neuro: (units (unkno wn) date) Physiological, no unknown) localizing findings, CN3-12 intact. ?? (unknown) (no (unknown) (unknown) Neurological: (units ( unknown) date) Awake, alert and unknown) in not apparent distress. No Headaches, changes (unknown) (no (unknown) (unknown) Neut # (Auto) (units ( unknown) date) 6900 ([id number]) unknown) /uL (unknown) (no (unknown) (unknown) Neut % (Auto) (units ( unknown) date) 69.0 (50-75) % unknown) (unknown) (no (unknown) (unknown) No Action (units (unkn own) date) unknown) (unknown) (no (unknown) (unknown) Not in acute (units (u nknown) date) distress. ? unknown) (unknown) (no (unknown) (unknown) Ordered: (units (unkno wn) date) unknown) (unknown) (no (unknown) (unknown) Orders (units (unkno wn) date) unknown) (unknown) (no (unknown) (unknown) Oxygen Delivery (units (unknown) date) Method 12/01/21 unknown) 14:13 (unknown) (no (unknown) (unknown) Oxygen Delivery (units (unknown) date) Method Room Air unknown) (unknown) (no (unknown) (unknown) PROCEDURE:? XR (units (unknown) date) CHEST 2V unknown) (unknown) (no (unknown) (unknown) PSYCHIATRIC: The (units (unknown) date) mood is good, no unknown) blunted affect. Speech is clear. Thought (unknown) (no (unknown) (unknown) Patient (units (unkno wn) date) Disposition: Home unknown) (unknown) (no (unknown) (unknown) Patient History (units (unknown) date) unknown) (unknown) (no (unknown) (unknown) Patient agrees (units (unknown) date) with plan unknown) (unknown) (no (unknown) (unknown) Patient has a (units ( unknown) date) 21-year-old female unknown) who presents to the emergency room today with (unknown) (no (unknown) (unknown) Patient is a (units (u nknown) date) 21-year-old female unknown) who presents to the emergency room today with (unknown) (no (unknown) (unknown) Patient: (units (unkno wn) date) Emily Johnson unknown) MR#: M (unknown) (no (unknown) (unknown) Penicillins (units (un known) date) Allergy Verified unknown) 09/30/21 20:17 (unknown) (no (unknown) (unknown) Physical Exam: ? (units (unknown) date) unknown) (unknown) (no (unknown) (unknown) Plt Count 305 (units ( unknown) date) (150-400) X103/uL unknown) (unknown) (no (unknown) (unknown) Potassium 4.1 (units ( unknown) date) (3.4-5.1) mmol/L unknown) (unknown) (no (unknown) (unknown) Prescriptions: (units (unknown) date) unknown) (unknown) (no (unknown) (unknown) Previous Rx's (units ( unknown) date) unknown) (unknown) (no (unknown) (unknown) Pulse Oximetry 96 (units (unknown) date) 12/01/21 14:13 unknown) (unknown) (no (unknown) (unknown) Pulse Oximetry 96 (units (unknown) date) unknown) (unknown) (no (unknown) (unknown) Pulse Rate 98 H (units (unknown) date) 12/01/21 14:13 unknown) (unknown) (no (unknown) (unknown) Pulse Rate 98 H (units (unknown) date) unknown) (unknown) (no (unknown) (unknown) R.O.S.: (units (unkno wn) date) unknown) (unknown) (no (unknown) (unknown) RBC 4.30 (units (unkno wn) date) (4.0-5.2) X106/uL unknown) (unknown) (no (unknown) (unknown) RDW 13.3 (units (unkno wn) date) (11.6-14.8) % unknown) (unknown) (no (unknown) (unknown) RSV (PCR) (units (unkn own) date) Negative unknown) (Negative) (unknown) (no (unknown) (unknown) Radiologist's (units ( unknown) date) Impression: unknown) (unknown) (no (unknown) (unknown) Related Data (units (u nknown) date) unknown) (unknown) (no (unknown) (unknown) Resource line at (units (unknown) date) [phone]. They unknown) will ask some questions about your medical (unknown) (no (unknown) (unknown) Respiratory Panel (units (unknown) date) (Film Array) Stat unknown) (unknown) (no (unknown) (unknown) Respiratory Rate (units (unknown) date) 20 12/01/21 14:13 unknown) (unknown) (no (unknown) (unknown) Respiratory Rate (units (unknown) date) 20 unknown) (unknown) (no (unknown) (unknown) Respiratory: (units (u nknown) date) Cough and sore unknown) throat (unknown) (no (unknown) (unknown) Result diagrams: (units (unknown) date) unknown) (unknown) (no (unknown) (unknown) Review of Systems (units (unknown) date) unknown) (unknown) (no (unknown) (unknown) SARS-CoV-2 (PCR) (units (unknown) date) Negative unknown) (Negative) (unknown) (no (unknown) (unknown) Signed By: (units (unk nown) date) unknown) (unknown) (no (unknown) (unknown) Skin: No rash or (units (unknown) date) associated unknown) abnormalities (unknown) (no (unknown) (unknown) Skin: Normal, no (units (unknown) date) rashes, no lesions unknown) noted. ?? (unknown) (no (unknown) (unknown) Smoking Status: (units (unknown) date) Former smoker unknown) (unknown) (no (unknown) (unknown) Social History (units (unknown) date) (Reviewed 11/15/21 unknown) @ 10:32 by Markel Bermeo MD) (unknown) (no (unknown) (unknown) Sodium 140 (units (unk nown) date) (137-145) mmol/L unknown) (unknown) (no (unknown) (unknown) Stated Complaint: (units (unknown) date) Nausea, fever, unknown) chills, vomiting (unknown) (no (unknown) (unknown) Substance Use (units ( unknown) date) Type: marijuana unknown) (unknown) (no (unknown) (unknown) Surgical changes (units (unknown) date) and devices:? unknown) None.? (unknown) (no (unknown) (unknown) TECHNIQUE:? 2 (units ( unknown) date) views of the chest unknown) were acquired.? (unknown) (no (unknown) (unknown) Temperature 96.6 (units (unknown) date) F L 12/01/21 14:13 unknown) (unknown) (no (unknown) (unknown) Temperature 96.6 (units (unknown) date) F L unknown) (unknown) (no (unknown) (unknown) Time Seen by (units (u nknown) date) Provider: 12/01/21 unknown) 13:49 (unknown) (no (unknown) (unknown) Total Bilirubin (units (unknown) date) 0.3 (0.2-1.3) unknown) mg/dL (unknown) (no (unknown) (unknown) Total Protein 7.6 (units (unknown) date) (6.3-8.2) g/dL unknown) (unknown) (no (unknown) (unknown) URI complaints to (units (unknown) date) include nausea unknown) vomiting migraine started about 3 days ago. (unknown) (no (unknown) (unknown) Upper respiratory (units (unknown) date) infection unknown) (unknown) (no (unknown) (unknown) Vital Signs - 8 (units (unknown) date) hr unknown) (unknown) (no (unknown) (unknown) Vital Signs (units (un known) date) unknown) (unknown) (no (unknown) (unknown) Vital signs: (units (u nknown) date) unknown) (unknown) (no (unknown) (unknown) WBC 10.0 (units (unkno wn) date) (4.5-11.0) X103/uL unknown) (unknown) (no (unknown) (unknown) [ ] New (units (unkno wn) date) medication unknown) prescriptions sent to your pharmacy: [ ] (unknown) (no (unknown) (unknown) [ ] New (units (unkno wn) date) medication written unknown) as a paper prescription (unknown) (no (unknown) (unknown) [Embedded Image (units (unknown) date) Not Available] unknown) (unknown) (no (unknown) (unknown) [From Maalox (units (u nknown) date) Total Relief unknown) (unknown) (no (unknown) (unknown) [x] No new (units (unk nown) date) medications given unknown) (unknown) (no (unknown) (unknown) advised patient (units (unknown) date) to return to unknown) emergency room if any emergent concerns arise. (unknown) (no (unknown) (unknown) advised that she (units (unknown) date) will be notified unknown) of any positive result of concern for (unknown) (no (unknown) (unknown) alcohol intake (units (unknown) date) frequency: unknown) holidays/special occasions only (unknown) (no (unknown) (unknown) also like a (units (un known) date) letter for work. unknown) (unknown) (no (unknown) (unknown) amoxicillin (units (un known) date) Allergy Verified unknown) 10/07/21 09:37 (unknown) (no (unknown) (unknown) appointment. Let (units (unknown) date) them know you were unknown) seen in the Emergency Department and that we (unknown) (no (unknown) (unknown) ask that you be (units (unknown) date) seen in follow up. unknown) We will electronically transmit a record of (unknown) (no (unknown) (unknown) bismuth (units (unkno wn) date) subsalicylate unknown) Allergy Verified 10/07/21 09:37 (unknown) (no (unknown) (unknown) chest pain or (units ( unknown) date) shortness of unknown) breath but is periodically fever and chills. Would (unknown) (no (unknown) (unknown) child who had (units ( unknown) date) upper respiratory unknown) complaints that preceded her ears. Denies any (unknown) (no (unknown) (unknown) cinnamon Allergy (units (unknown) date) Verified 10/07/21 unknown) 09:37 (unknown) (no (unknown) (unknown) complaint of (units (u nknown) date) cough sore throat unknown) body aches migraine and nausea and vomiting for (unknown) (no (unknown) (unknown) concerning (units (unk nown) date) symptoms, such as unknown) [fever greater than 101 F, shaking chills, (unknown) (no (unknown) (unknown) diagnostic study (units (unknown) date) these holes that unknown) were C were negative. Patient discharged and (unknown) (no (unknown) (unknown) discomfort. (units (un known) date) Provide also unknown) discussed UR related concerns to the patient and (unknown) (no (unknown) (unknown) do: (units (unkno wn) date) unknown) (unknown) (no (unknown) (unknown) doxycycline (units (un known) date) hyclate 100 mg unknown) capsule 100 mg PO BID #14 caps 11/15/21 (unknown) (no (unknown) (unknown) doxycycline (units (un known) date) hyclate 100 mg unknown) capsule (unknown) (no (unknown) (unknown) history and help (units (unknown) date) get you set up unknown) with a doctor in the community. (unknown) (no (unknown) (unknown) hydrocodone 5 (units ( unknown) date) mg-acetaminophen unknown) 325 1 tab PO Q4-6H PRN pain #10 tabs 10/01/21 (unknown) (no (unknown) (unknown) hydrocodone-aceta (units (unknown) date) minophen 5-325 mg unknown) tablet (unknown) (no (unknown) (unknown) in vision or (units (u nknown) date) other related unknown) neurological concerns. (unknown) (no (unknown) (unknown) major deformities (units (unknown) date) noted on Visual unknown) Inspection. (unknown) (no (unknown) (unknown) mg tablet (units (unkn own) date) unknown) (unknown) (no (unknown) (unknown) no paresthesia or (units (unknown) date) numbness. ?? unknown) (unknown) (no (unknown) (unknown) ondansetron 4 mg (units (unknown) date) disintegrating 4 unknown) mg PO TID-QID PRN nausea and 10/01/21 (unknown) (no (unknown) (unknown) ondansetron 4 mg (units (unknown) date) tablet,disintegrat unknown) ing (unknown) (no (unknown) (unknown) process is (units (unk nown) date) linear, thought unknown) content is appropriate. The voice is without (unknown) (no (unknown) (unknown) significant (units (un known) date) inflection. unknown) (unknown) (no (unknown) (unknown) tablet vomiting (units (unknown) date) #10 tabs unknown) (unknown) (no (unknown) (unknown) the past 3 days. (units (unknown) date) States that she unknown) has roommates with another woman who has a (unknown) (no (unknown) (unknown) tobacco type: (units ( unknown) date) cigarettes and unknown) vaping (unknown) (no (unknown) (unknown) today's note if (units (unknown) date) your PCP is in our unknown) system (unknown) (no (unknown) (unknown) unremarkable.? (units (unknown) date) unknown) (unknown) (no (unknown) (unknown) with labs to rule (units (unknown) date) out any acute unknown) emergent concerns. All lab results and (unknown) (no (unknown) (unknown) worsening pain, (units (unknown) date) persistent unknown) vomiting or other bothersome symptoms] Result panel 32 (unknown) (no (unknown) (unknown) (no value) (units (unk nown) date) unknown) (unknown) (no (unknown) (unknown) <Electronically (units (unknown) date) signed by Mil unknown) Deja Farrell> (unknown) (no (unknown) (unknown) (bismuth)] (units (unk nown) date) unknown) (unknown) (no (unknown) (unknown) *If you do not (units (unknown) date) have a primary unknown) care provider please contact the [facility] (unknown) (no (unknown) (unknown) *Please follow up (units (unknown) date) with your primary unknown) care provider in 2-3 days, call for an (unknown) (no (unknown) (unknown) *Return to (units (unk nown) date) Emergency unknown) Department if you should have any new, worsening or (unknown) (no (unknown) (unknown) *What to do: (units (u nknown) date) unknown) (unknown) (no (unknown) (unknown) *You have been (units (unknown) date) diagnosed with a unknown) viral upper respiratory infection.? No chest (unknown) (no (unknown) (unknown) [id number] (units (unkn own) date) unknown) (unknown) (no (unknown) (unknown) 12/01/21 12/01/21 (units (unknown) date) 12/01/21 unknown) Range/Units (unknown) (no (unknown) (unknown) 12/01/21 14:22 (units (unknown) date) unknown) (unknown) (no (unknown) (unknown) 12/01/21 14:24 (units (unknown) date) unknown) (unknown) (no (unknown) (unknown) 12/01/21 16:45 (units (unknown) date) unknown) (unknown) (no (unknown) (unknown) 12/01/21 1749 (units ( unknown) date) unknown) (unknown) (no (unknown) (unknown) 12/01/21 (units (unkno wn) date) unknown) (unknown) (no (unknown) (unknown) 1 tab PO Q4-6H (units (unknown) date) PRN (Reason: pain) unknown) Qty: 10 0RF (unknown) (no (unknown) (unknown) 100 mg PO BID (units ( unknown) date) Qty: 14 0RF unknown) (unknown) (no (unknown) (unknown) 14:13 (units (unkno wn) date) unknown) (unknown) (no (unknown) (unknown) 14:22 16:45 16:45 (units (unknown) date) unknown) (unknown) (no (unknown) (unknown) 4 mg PO TID-QID (units (unknown) date) PRN (Reason: unknown) nausea and vomiting) Qty: 10 0RF (unknown) (no (unknown) (unknown) ? [ ] New (units (unknown) date) medication unknown) prescriptions sent to your pharmacy: [ ] (unknown) (no (unknown) (unknown) ? [ ] New (units (unknown) date) medication written unknown) as a paper prescription (unknown) (no (unknown) (unknown) ? [x] No (units (unknown) date) new medications unknown) given (unknown) (no (unknown) (unknown) ? (units (unkno wn) date) unknown) (unknown) (no (unknown) (unknown) ?? ? *Please (units (u nknown) date) continue to take unknown) your regular medications as directed. (unknown) (no (unknown) (unknown) ALT 33 (<35) IU/L (units (unknown) date) unknown) (unknown) (no (unknown) (unknown) AST 46 H (14-36) (units (unknown) date) IU/L unknown) (unknown) (no (unknown) (unknown) Activity (units (unkno wn) date) Restrictions/Addit unknown) ional Instructions: (unknown) (no (unknown) (unknown) Age/Sex: 21 / F (units (unknown) date) unknown) (unknown) (no (unknown) (unknown) Albumin 4.1 (units (un known) date) (3.5-5.0) g/dL unknown) (unknown) (no (unknown) (unknown) Albumin/Globulin (units (unknown) date) Ratio 1.2 unknown) (1.0-2.8) (unknown) (no (unknown) (unknown) Alkaline (units (unkno wn) date) Phosphatase 89 unknown) (38-126) U/L (unknown) (no (unknown) (unknown) Allergies (units (unkn own) date) unknown) (unknown) (no (unknown) (unknown) Allergy/AdvReac (units (unknown) date) Type Severity unknown) Reaction Status Date / Time (unknown) (no (unknown) (unknown) Approved by: (units (u nknown) date) apoorva Edwards M.D. on 12/01/2021 at 14:41 (unknown) (no (unknown) (unknown) BUN 10 (7-17) (units ( unknown) date) mg/dL unknown) (unknown) (no (unknown) (unknown) BUN/Creatinine (units (unknown) date) Ratio 18.9 (6-22) unknown) (unknown) (no (unknown) (unknown) Baso # (Auto) 100 (units (unknown) date) (0-100) /uL unknown) (unknown) (no (unknown) (unknown) Baso % (Auto) 1.4 (units (unknown) date) (0-2) % unknown) (unknown) (no (unknown) (unknown) Blood Pressure (units (unknown) date) 125/91 H 12/01/21 unknown) 14:13 (unknown) (no (unknown) (unknown) Blood Pressure (units (unknown) date) 125/91 H unknown) (unknown) (no (unknown) (unknown) Bones and chest (units (unknown) date) wall:? No unknown) suspicious bony abnormalities.? Soft tissues appear (unknown) (no (unknown) (unknown) CBC Auto Diff (units ( unknown) date) [Complete Blood unknown) Count AUTO DIFF] Stat (unknown) (no (unknown) (unknown) CMP (units (unkno wn) date) [Comprehensive unknown) Metabolic Panel] Stat (unknown) (no (unknown) (unknown) COMPARISON:? (units (u nknown) date) None. unknown) (unknown) (no (unknown) (unknown) Calcium 8.7 (units (un known) date) (8.4-10.2) mg/dL unknown) (unknown) (no (unknown) (unknown) Carbon Dioxide 28 (units (unknown) date) (22-32) mmol/L unknown) (unknown) (no (unknown) (unknown) Cardiovascular: (units (unknown) date) No chest pain or unknown) palpitations (unknown) (no (unknown) (unknown) Chest [XR chest (units (unknown) date) 2V] Stat unknown) (unknown) (no (unknown) (unknown) Chest was ordered (units (unknown) date) and was negative. unknown) Respiratory panel strep throat so ordered (unknown) (no (unknown) (unknown) Chest x-ray: (units (u nknown) date) unknown) (unknown) (no (unknown) (unknown) Chest: Lungs (units (u nknown) date) CTAB, no rales, unknown) rhonchi or wheezes. ?? (unknown) (no (unknown) (unknown) Chief Complaint: (units (unknown) date) Upper Respiratory unknown) Symptoms (unknown) (no (unknown) (unknown) Chloride 105 (units (u nknown) date) (98-107) mmol/L unknown) (unknown) (no (unknown) (unknown) Clinical (units (unkno wn) date) Impression: unknown) (unknown) (no (unknown) (unknown) Course (units (unkno wn) date) unknown) (unknown) (no (unknown) (unknown) Covid-19 + FLU (units (unknown) date) A/B + RSV - PCR unknown) Stat (unknown) (no (unknown) (unknown) Creatinine 0.53 (units (unknown) date) (0.52-1.04) mg/dL unknown) (unknown) (no (unknown) (unknown) : 2000 (units (unknown) date) Acct:[id number] unknown) (unknown) (no (unknown) (unknown) Date of Service: (units (unknown) date) 12/01/21 unknown) (unknown) (no (unknown) (unknown) Departure (units (unkn own) date) unknown) (unknown) (no (unknown) (unknown) Dictated by: (units (u nknown) date) apoorva Edwards M.D. on 12/01/2021 at 14:41 ? ? (unknown) (no (unknown) (unknown) Discharge Plan (units (unknown) date) unknown) (unknown) (no (unknown) (unknown) ED Orders (units (unkn own) date) unknown) (unknown) (no (unknown) (unknown) ER Physician: (units ( unknown) date) Mil Farrell unknown) P.A-C (unknown) (no (unknown) (unknown) Emergency Report (units (unknown) date) unknown) (unknown) (no (unknown) (unknown) Eos # (Auto) 200 (units (unknown) date) (0-450) /uL unknown) (unknown) (no (unknown) (unknown) Eos % (Auto) 2.0 (units (unknown) date) (2-4) % unknown) (unknown) (no (unknown) (unknown) Estimated GFR > (units (unknown) date) 60 (>60) mL/min unknown) (unknown) (no (unknown) (unknown) Exam Narrative: (units (unknown) date) unknown) (unknown) (no (unknown) (unknown) Exam (units (unkno wn) date) unknown) (unknown) (no (unknown) (unknown) Extremities: (units (u nknown) date) Warm, well unknown) perfused, FROM, no deformities, no edema. ?? (unknown) (no (unknown) (unknown) Eyes: PERRLA, (units ( unknown) date) EOM's full, unknown) conjunctivae clear. ? (unknown) (no (unknown) (unknown) FINDINGS:? (units (unk nown) date) unknown) (unknown) (no (unknown) (unknown) Gastrointestinal: (units (unknown) date) Nausea and unknown) vomiting (unknown) (no (unknown) (unknown) Gastrointestinal: (units (unknown) date) Soft; NT; ND; Pos unknown) BS with Neg. rebound tenderness. No scars or (unknown) (no (unknown) (unknown) General (units (unkno wn) date) unknown) (unknown) (no (unknown) (unknown) General: No (units (un known) date) fever, chills or unknown) fatigue. (unknown) (no (unknown) (unknown) General: normal (units (unknown) date) appearance, well unknown) developed, well nourished, alert, and awake. (unknown) (no (unknown) (unknown) Globulin 3.5 (units (u nknown) date) (1.7-4.1) g/dL unknown) (unknown) (no (unknown) (unknown) Glucose 89 (units (unk nown) date) (70-100) mg/dL unknown) (unknown) (no (unknown) (unknown) HEENT: No (units (unkn own) date) congestion, ear unknown) pain, rhinorrhea, sore throat or tinnitus (unknown) (no (unknown) (unknown) HPI - URI/Sore (units (unknown) date) Throat unknown) (unknown) (no (unknown) (unknown) HPI Narrative: (units (unknown) date) unknown) (unknown) (no (unknown) (unknown) Hct 36.8 (36-46) (units (unknown) date) % unknown) (unknown) (no (unknown) (unknown) Head: (units (unkno wn) date) Normocephalic, no unknown) lesions. (unknown) (no (unknown) (unknown) Heart: RRR, no (units (unknown) date) murmurs, rubs or unknown) gallops. (unknown) (no (unknown) (unknown) Hgb 12.3 (units (unkno wn) date) (12.0-16.0) g/dL unknown) (unknown) (no (unknown) (unknown) History of (units (unk nown) date) Present Illness unknown) (unknown) (no (unknown) (unknown) IMPRESSION:? No (units (unknown) date) acute unknown) cardiopulmonary abnormality. (unknown) (no (unknown) (unknown) INDICATIONS:? (units ( unknown) date) Respiratory unknown) Symptoms (unknown) (no (unknown) (unknown) Imaging Data (units (u nknown) date) unknown) (unknown) (no (unknown) (unknown) Influenza A (units (un known) date) (RT-PCR) Flu a unknown) negative (NEGATIVE) (unknown) (no (unknown) (unknown) Influenza B (units (un known) date) (RT-PCR) Flu b unknown) negative (NEGATIVE) (unknown) (no (unknown) (unknown) Initial Vital (units ( unknown) date) Signs unknown) (unknown) (no (unknown) (unknown) Initial Vital (units ( unknown) date) Signs: unknown) (unknown) (no (unknown) (unknown) [facility] (units (unknown) date) [address] unknown) [place] [address] (unknown) (no (unknown) (unknown) Lab Data (units (unkno wn) date) unknown) (unknown) (no (unknown) (unknown) Lab Results (units (un known) date) unknown) (unknown) (no (unknown) (unknown) Labs: (units (unkno wn) date) unknown) (unknown) (no (unknown) (unknown) Lungs and (units (unkn own) date) pleura:? Lungs are unknown) clear.? No pleural effusions or pneumothorax.? (unknown) (no (unknown) (unknown) Lymph # (Auto) (units (unknown) date) 2300 ([phone]) unknown) /uL (unknown) (no (unknown) (unknown) Lymph % (Auto) (units (unknown) date) 22.4 L (25-40) % unknown) (unknown) (no (unknown) (unknown) MCH 28.6 (26-34) (units (unknown) date) PG unknown) (unknown) (no (unknown) (unknown) MCHC 33.3 (30-36) (units (unknown) date) % unknown) (unknown) (no (unknown) (unknown) MCV 85.7 (80-100) (units (unknown) date) fL unknown) (unknown) (no (unknown) (unknown) MDM - URI/Sore (units (unknown) date) Throat unknown) (unknown) (no (unknown) (unknown) MDM Narrative (units ( unknown) date) unknown) (unknown) (no (unknown) (unknown) Mediastinum:? (units ( unknown) date) Mediastinal unknown) contours are normal.? Heart size is normal.? (unknown) (no (unknown) (unknown) Medical decision (units (unknown) date) making narrative: unknown) (unknown) (no (unknown) (unknown) Medication (units (unk nown) date) Instructions unknown) Recorded (unknown) (no (unknown) (unknown) Mills # (Auto) 500 (units (unknown) date) (0-900) /uL unknown) (unknown) (no (unknown) (unknown) Mills % (Auto) 5.2 (units (unknown) date) (3-14) % unknown) (unknown) (no (unknown) (unknown) Musculoskeletal: (units (unknown) date) No pain in muscles unknown) or joints, no limitation of range of motion, (unknown) (no (unknown) (unknown) Narrative (units (unkn own) date) unknown) (unknown) (no (unknown) (unknown) Narrative: (units (unk nown) date) unknown) (unknown) (no (unknown) (unknown) Neuro: (units (unkno wn) date) Physiological, no unknown) localizing findings, CN3-12 intact. ?? (unknown) (no (unknown) (unknown) Neurological: (units ( unknown) date) Awake, alert and unknown) in not apparent distress. No Headaches, changes (unknown) (no (unknown) (unknown) Neut # (Auto) (units ( unknown) date) 6900 ([id number]) unknown) /uL (unknown) (no (unknown) (unknown) Neut % (Auto) (units ( unknown) date) 69.0 (50-75) % unknown) (unknown) (no (unknown) (unknown) No Action (units (unkn own) date) unknown) (unknown) (no (unknown) (unknown) Not in acute (units (u nknown) date) distress. ? unknown) (unknown) (no (unknown) (unknown) Ordered: (units (unkno wn) date) unknown) (unknown) (no (unknown) (unknown) Orders (units (unkno wn) date) unknown) (unknown) (no (unknown) (unknown) Oxygen Delivery (units (unknown) date) Method 12/01/21 unknown) 14:13 (unknown) (no (unknown) (unknown) Oxygen Delivery (units (unknown) date) Method Room Air unknown) (unknown) (no (unknown) (unknown) PROCEDURE:? XR (units (unknown) date) CHEST 2V unknown) (unknown) (no (unknown) (unknown) PSYCHIATRIC: The (units (unknown) date) mood is good, no unknown) blunted affect. Speech is clear. Thought (unknown) (no (unknown) (unknown) Patient (units (unkno wn) date) Disposition: Home unknown) (unknown) (no (unknown) (unknown) Patient History (units (unknown) date) unknown) (unknown) (no (unknown) (unknown) Patient agrees (units (unknown) date) with plan. unknown) (unknown) (no (unknown) (unknown) Patient has a (units ( unknown) date) 21-year-old female unknown) who presents to the emergency room today with (unknown) (no (unknown) (unknown) Patient is a (units (u nknown) date) 21-year-old female unknown) who presents to the emergency room today with (unknown) (no (unknown) (unknown) Patient: (units (unkno wn) date) AlexEmily J unknown) MR#: [id number] (unknown) (no (unknown) (unknown) Penicillins (units (un known) date) Allergy Verified unknown) 09/30/21 20:17 (unknown) (no (unknown) (unknown) Physical Exam: ? (units (unknown) date) unknown) (unknown) (no (unknown) (unknown) Plt Count 305 (units ( unknown) date) (150-400) X103/uL unknown) (unknown) (no (unknown) (unknown) Potassium 4.1 (units ( unknown) date) (3.4-5.1) mmol/L unknown) (unknown) (no (unknown) (unknown) Prescriptions: (units (unknown) date) unknown) (unknown) (no (unknown) (unknown) Previous Rx's (units ( unknown) date) unknown) (unknown) (no (unknown) (unknown) Pulse Oximetry 96 (units (unknown) date) 12/01/21 14:13 unknown) (unknown) (no (unknown) (unknown) Pulse Oximetry 96 (units (unknown) date) unknown) (unknown) (no (unknown) (unknown) Pulse Rate 98 H (units (unknown) date) 12/01/21 14:13 unknown) (unknown) (no (unknown) (unknown) Pulse Rate 98 H (units (unknown) date) unknown) (unknown) (no (unknown) (unknown) R.O.S.: (units (unkno wn) date) unknown) (unknown) (no (unknown) (unknown) RBC 4.30 (units (unkno wn) date) (4.0-5.2) X106/uL unknown) (unknown) (no (unknown) (unknown) RDW 13.3 (units (unkno wn) date) (11.6-14.8) % unknown) (unknown) (no (unknown) (unknown) RSV (PCR) (units (unkn own) date) Negative unknown) (Negative) (unknown) (no (unknown) (unknown) Radiologist's (units ( unknown) date) Impression: unknown) (unknown) (no (unknown) (unknown) Related Data (units (u nknown) date) unknown) (unknown) (no (unknown) (unknown) Resource line at (units (unknown) date) [phone]. They unknown) will ask some questions about your medical (unknown) (no (unknown) (unknown) Respiratory Panel (units (unknown) date) (Film Array) Stat unknown) (unknown) (no (unknown) (unknown) Respiratory Rate (units (unknown) date) 20 12/01/21 14:13 unknown) (unknown) (no (unknown) (unknown) Respiratory Rate (units (unknown) date) 20 unknown) (unknown) (no (unknown) (unknown) Respiratory: (units (u nknown) date) Cough and sore unknown) throat (unknown) (no (unknown) (unknown) Result diagrams: (units (unknown) date) unknown) (unknown) (no (unknown) (unknown) Review of Systems (units (unknown) date) unknown) (unknown) (no (unknown) (unknown) SARS-CoV-2 (PCR) (units (unknown) date) Negative unknown) (Negative) (unknown) (no (unknown) (unknown) Signed By: (units (unk nown) date) unknown) (unknown) (no (unknown) (unknown) Skin: No rash or (units (unknown) date) associated unknown) abnormalities (unknown) (no (unknown) (unknown) Skin: Normal, no (units (unknown) date) rashes, no lesions unknown) noted. ?? (unknown) (no (unknown) (unknown) Smoking Status: (units (unknown) date) Former smoker unknown) (unknown) (no (unknown) (unknown) Social History (units (unknown) date) (Reviewed 11/15/21 unknown) @ 10:32 by Markel Bermeo MD) (unknown) (no (unknown) (unknown) Sodium 140 (units (unk nown) date) (137-145) mmol/L unknown) (unknown) (no (unknown) (unknown) Stand Alone (units (un known) date) Forms: Work unknown) Release Note (unknown) (no (unknown) (unknown) Stated Complaint: (units (unknown) date) Nausea, fever, unknown) chills, vomiting (unknown) (no (unknown) (unknown) Substance Use (units ( unknown) date) Type: marijuana unknown) (unknown) (no (unknown) (unknown) Suggest you (units (un known) date) continue to unknown) hydrate and take [id number] medications for cough (unknown) (no (unknown) (unknown) Surgical changes (units (unknown) date) and devices:? unknown) None.? (unknown) (no (unknown) (unknown) TECHNIQUE:? 2 (units ( unknown) date) views of the chest unknown) were acquired.? (unknown) (no (unknown) (unknown) Temperature 96.6 (units (unknown) date) F L 12/01/21 14:13 unknown) (unknown) (no (unknown) (unknown) Temperature 96.6 (units (unknown) date) F L unknown) (unknown) (no (unknown) (unknown) Time Seen by (units (u nknown) date) Provider: 12/01/21 unknown) 13:49 (unknown) (no (unknown) (unknown) Total Bilirubin (units (unknown) date) 0.3 (0.2-1.3) unknown) mg/dL (unknown) (no (unknown) (unknown) Total Protein 7.6 (units (unknown) date) (6.3-8.2) g/dL unknown) (unknown) (no (unknown) (unknown) URI complaints to (units (unknown) date) include nausea unknown) vomiting migraine started about 3 days ago. (unknown) (no (unknown) (unknown) Upper respiratory (units (unknown) date) infection unknown) (unknown) (no (unknown) (unknown) Vital Signs - 8 (units (unknown) date) hr unknown) (unknown) (no (unknown) (unknown) Vital Signs (units (un known) date) unknown) (unknown) (no (unknown) (unknown) Vital signs: (units (u nknown) date) unknown) (unknown) (no (unknown) (unknown) WBC 10.0 (units (unkno wn) date) (4.5-11.0) X103/uL unknown) (unknown) (no (unknown) (unknown) [Embedded Image (units (unknown) date) Not Available] unknown) (unknown) (no (unknown) (unknown) [From Maalox (units (u nknown) date) Total Relief unknown) (unknown) (no (unknown) (unknown) advised patient (units (unknown) date) to return to unknown) emergency room if any emergent concerns arise. (unknown) (no (unknown) (unknown) advised that she (units (unknown) date) will be notified unknown) of any positive result of concern for (unknown) (no (unknown) (unknown) alcohol intake (units (unknown) date) frequency: unknown) holidays/special occasions only (unknown) (no (unknown) (unknown) also like a (units (un known) date) letter for work. unknown) (unknown) (no (unknown) (unknown) amoxicillin (units (un known) date) Allergy Verified unknown) 10/07/21 09:37 (unknown) (no (unknown) (unknown) and related URI (units (unknown) date) symptoms.? Advised unknown) return to emergency room if any emergent (unknown) (no (unknown) (unknown) appointment. Let (units (unknown) date) them know you were unknown) seen in the Emergency Department and that we (unknown) (no (unknown) (unknown) ask that you be (units (unknown) date) seen in follow up. unknown) We will electronically transmit a record of (unknown) (no (unknown) (unknown) bismuth (units (unkno wn) date) subsalicylate unknown) Allergy Verified 10/07/21 09:37 (unknown) (no (unknown) (unknown) chest pain or (units ( unknown) date) shortness of unknown) breath but is periodically fever and chills. Would (unknown) (no (unknown) (unknown) child who had (units ( unknown) date) upper respiratory unknown) complaints that preceded her ears. Denies any (unknown) (no (unknown) (unknown) cinnamon Allergy (units (unknown) date) Verified 10/07/21 unknown) 09:37 (unknown) (no (unknown) (unknown) complaint of (units (u nknown) date) cough sore throat unknown) body aches migraine and nausea and vomiting for (unknown) (no (unknown) (unknown) concerning (units (unk nown) date) symptoms, such as unknown) [fever greater than 101 F, shaking chills, (unknown) (no (unknown) (unknown) concerns arise.? (units (unknown) date) [ ] unknown) (unknown) (no (unknown) (unknown) diagnostic study (units (unknown) date) these holes that unknown) were C were negative. Patient discharged and (unknown) (no (unknown) (unknown) discomfort. 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 We are awaiting some (unknown) (no (unknown) (unknown) further results (units (unknown) date) of those are unknown) positive will be returned to utilize the nail.? (unknown) (no (unknown) (unknown) history and help (units (unknown) date) get you set up unknown) with a doctor in the community. (unknown) (no (unknown) (unknown) hydrocodone 5 (units ( unknown) date) mg-acetaminophen unknown) 325 1 tab PO Q4-6H PRN pain #10 tabs 10/01/21 (unknown) (no (unknown) (unknown) hydrocodone-aceta (units (unknown) date) minophen 5-325 mg unknown) tablet (unknown) (no (unknown) (unknown) in vision or (units (u nknown) date) other related unknown) neurological concerns. (unknown) (no (unknown) (unknown) major deformities (units (unknown) date) noted on Visual unknown) Inspection. (unknown) (no (unknown) (unknown) mg tablet (units (unkn own) date) unknown) (unknown) (no (unknown) (unknown) no paresthesia or (units (unknown) date) numbness. ?? unknown) (unknown) (no (unknown) (unknown) ondansetron 4 mg (units (unknown) date) disintegrating 4 unknown) mg PO TID-QID PRN nausea and 10/01/21 (unknown) (no (unknown) (unknown) ondansetron 4 mg (units (unknown) date) tablet,disintegrat unknown) ing (unknown) (no (unknown) (unknown) process is (units (unk nown) date) linear, thought unknown) content is appropriate. The voice is without (unknown) (no (unknown) (unknown) significant (units (un known) date) inflection. unknown) (unknown) (no (unknown) (unknown) tablet vomiting (units (unknown) date) #10 tabs unknown) (unknown) (no (unknown) (unknown) the past 3 days. (units (unknown) date) States that she unknown) has roommates with another woman who has a (unknown) (no (unknown) (unknown) tobacco type: (units ( unknown) date) cigarettes and unknown) vaping (unknown) (no (unknown) (unknown) today's note if (units (unknown) date) your PCP is in our unknown) system (unknown) (no (unknown) (unknown) unremarkable.? (units (unknown) date) unknown) (unknown) (no (unknown) (unknown) with labs to rule (units (unknown) date) out any acute unknown) emergent concerns. All lab results and (unknown) (no (unknown) (unknown) worsening pain, (units (unknown) date) persistent unknown) vomiting or other bothersome symptoms] Result panel 33 (unknown) (no (unknown) (unknown) (no value) (units (unk nown) date) unknown) (unknown) (no (unknown) (unknown) <Mil Farrell, (units (unknown) date) JOSE - Last Filed: unknown) 12/01/21 17:49> (unknown) (no (unknown) (unknown) <Electronically (units (unknown) date) signed by Mil unknown) Deja Farrell> (unknown) (no (unknown) (unknown) <Electronically (units (unknown) date) signed by Charla Mackey unknown) Bijal MARES> (unknown) (no (unknown) (unknown) <Electronically (units (unknown) date) signed by Charla Mackey unknown) MD Bijal> (unknown) (no (unknown) (unknown) <Charla Mackey (units (unkn own) date) MD Bijal - Last unknown) Filed: 12/03/21 11:39> (unknown) (no (unknown) (unknown) <cosigner> (units (unk nown) date) unknown) (unknown) (no (unknown) (unknown) (bismuth)] (units (unk nown) date) unknown) (unknown) (no (unknown) (unknown) *If you do not (units (unknown) date) have a primary unknown) care provider please contact the [facility] (unknown) (no (unknown) (unknown) *Please follow up (units (unknown) date) with your primary unknown) care provider in 2-3 days, call for an (unknown) (no (unknown) (unknown) *Return to (units (unk nown) date) Emergency unknown) Department if you should have any new, worsening or (unknown) (no (unknown) (unknown) *What to do: (units (u nknown) date) unknown) (unknown) (no (unknown) (unknown) *You have been (units (unknown) date) diagnosed with a unknown) viral upper respiratory infection.? No chest (unknown) (no (unknown) (unknown) [id number] (units (unkn own) date) unknown) (unknown) (no (unknown) (unknown) 12/01/21 12/01/21 (units (unknown) date) 12/01/21 unknown) Range/Units (unknown) (no (unknown) (unknown) 12/01/21 14:22 (units (unknown) date) unknown) (unknown) (no (unknown) (unknown) 12/01/21 14:24 (units (unknown) date) unknown) (unknown) (no (unknown) (unknown) 12/01/21 16:45 (units (unknown) date) unknown) (unknown) (no (unknown) (unknown) 12/01/21 1749 (units ( unknown) date) unknown) (unknown) (no (unknown) (unknown) 12/01/21 (units (unkno wn) date) unknown) (unknown) (no (unknown) (unknown) 12/03/21 1140 (units ( unknown) date) unknown) (unknown) (no (unknown) (unknown) 1 tab PO Q4-6H (units (unknown) date) PRN (Reason: pain) unknown) Qty: 10 0RF (unknown) (no (unknown) (unknown) 100 mg PO BID (units ( unknown) date) Qty: 14 0RF unknown) (unknown) (no (unknown) (unknown) 14:13 (units (unkno wn) date) unknown) (unknown) (no (unknown) (unknown) 14:22 16:45 16:45 (units (unknown) date) unknown) (unknown) (no (unknown) (unknown) 4 mg PO TID-QID (units (unknown) date) PRN (Reason: unknown) nausea and vomiting) Qty: 10 0RF (unknown) (no (unknown) (unknown) ? [ ] New (units (unknown) date) medication unknown) prescriptions sent to your pharmacy: [ ] (unknown) (no (unknown) (unknown) ? [ ] New (units (unknown) date) medication written unknown) as a paper prescription (unknown) (no (unknown) (unknown) ? [x] No (units (unknown) date) new medications unknown) given (unknown) (no (unknown) (unknown) ? (units (unkno wn) date) unknown) (unknown) (no (unknown) (unknown) ?? ? *Please (units (u nknown) date) continue to take unknown) your regular medications as directed. (unknown) (no (unknown) (unknown) ALT 33 (<35) IU/L (units (unknown) date) unknown) (unknown) (no (unknown) (unknown) AST 46 H (14-36) (units (unknown) date) IU/L unknown) (unknown) (no (unknown) (unknown) Activity (units (unkno wn) date) Restrictions/Addit unknown) ional Instructions: (unknown) (no (unknown) (unknown) Age/Sex: 21 / F (units (unknown) date) unknown) (unknown) (no (unknown) (unknown) Albumin 4.1 (units (un known) date) (3.5-5.0) g/dL unknown) (unknown) (no (unknown) (unknown) Albumin/Globulin (units (unknown) date) Ratio 1.2 unknown) (1.0-2.8) (unknown) (no (unknown) (unknown) Alkaline (units (unkno wn) date) Phosphatase 89 unknown) (38-126) U/L (unknown) (no (unknown) (unknown) Allergies (units (unkn own) date) unknown) (unknown) (no (unknown) (unknown) Allergy/AdvReac (units (unknown) date) Type Severity unknown) Reaction Status Date / Time (unknown) (no (unknown) (unknown) Approved by: (units (u nknown) date) apoorva Edwards M.D. on 12/01/2021 at 14:41 (unknown) (no (unknown) (unknown) BUN 10 (7-17) (units ( unknown) date) mg/dL unknown) (unknown) (no (unknown) (unknown) BUN/Creatinine (units (unknown) date) Ratio 18.9 (6-22) unknown) (unknown) (no (unknown) (unknown) Baso # (Auto) 100 (units (unknown) date) (0-100) /uL unknown) (unknown) (no (unknown) (unknown) Baso % (Auto) 1.4 (units (unknown) date) (0-2) % unknown) (unknown) (no (unknown) (unknown) Blood Pressure (units (unknown) date) 125/91 H 12/01/21 unknown) 14:13 (unknown) (no (unknown) (unknown) Blood Pressure (units (unknown) date) 125/91 H unknown) (unknown) (no (unknown) (unknown) Bones and chest (units (unknown) date) wall:? No unknown) suspicious bony abnormalities.? Soft tissues appear (unknown) (no (unknown) (unknown) CBC Auto Diff (units ( unknown) date) [Complete Blood unknown) Count AUTO DIFF] Stat (unknown) (no (unknown) (unknown) CMP (units (unkno wn) date) [Comprehensive unknown) Metabolic Panel] Stat (unknown) (no (unknown) (unknown) COMPARISON:? (units (u nknown) date) None. unknown) (unknown) (no (unknown) (unknown) Calcium 8.7 (units (un known) date) (8.4-10.2) mg/dL unknown) (unknown) (no (unknown) (unknown) Carbon Dioxide 28 (units (unknown) date) (22-32) mmol/L unknown) (unknown) (no (unknown) (unknown) Cardiovascular: (units (unknown) date) No chest pain or unknown) palpitations (unknown) (no (unknown) (unknown) Chest [XR chest (units (unknown) date) 2V] Stat unknown) (unknown) (no (unknown) (unknown) Chest was ordered (units (unknown) date) and was negative. unknown) Respiratory panel strep throat so ordered (unknown) (no (unknown) (unknown) Chest x-ray: (units (u nknown) date) unknown) (unknown) (no (unknown) (unknown) Chest: Lungs (units (u nknown) date) CTAB, no rales, unknown) rhonchi or wheezes. ?? (unknown) (no (unknown) (unknown) Chief Complaint: (units (unknown) date) Upper Respiratory unknown) Symptoms (unknown) (no (unknown) (unknown) Chloride 105 (units (u nknown) date) (98-107) mmol/L unknown) (unknown) (no (unknown) (unknown) Clinical (units (unkno wn) date) Impression: unknown) (unknown) (no (unknown) (unknown) Cosign (units (unkno wn) date) unknown) (unknown) (no (unknown) (unknown) Course (units (unkno wn) date) unknown) (unknown) (no (unknown) (unknown) Covid-19 + FLU (units (unknown) date) A/B + RSV - PCR unknown) Stat (unknown) (no (unknown) (unknown) Creatinine 0.53 (units (unknown) date) (0.52-1.04) mg/dL unknown) (unknown) (no (unknown) (unknown) : 2000 (units (unknown) date) Acct:[id number] unknown) (unknown) (no (unknown) (unknown) Date of Service: (units (unknown) date) 12/01/21 unknown) (unknown) (no (unknown) (unknown) Departure (units (unkn own) date) unknown) (unknown) (no (unknown) (unknown) Dictated by: (units (u nknown) date) apoorva Edwards M.D. on 12/01/2021 at 14:41 ? ? (unknown) (no (unknown) (unknown) Discharge Plan (units (unknown) date) unknown) (unknown) (no (unknown) (unknown) ED Attending (units (u nknown) date) Cosignature unknown) Attestation: (unknown) (no (unknown) (unknown) ED Orders (units (unkn own) date) unknown) (unknown) (no (unknown) (unknown) ER Physician: (units ( unknown) date) Mil Farrell unknown) P.A-C (unknown) (no (unknown) (unknown) Emergency Report (units (unknown) date) unknown) (unknown) (no (unknown) (unknown) Eos # (Auto) 200 (units (unknown) date) (0-450) /uL unknown) (unknown) (no (unknown) (unknown) Eos % (Auto) 2.0 (units (unknown) date) (2-4) % unknown) (unknown) (no (unknown) (unknown) Estimated GFR > (units (unknown) date) 60 (>60) mL/min unknown) (unknown) (no (unknown) (unknown) Exam Narrative: (units (unknown) date) unknown) (unknown) (no (unknown) (unknown) Exam (units (unkno wn) date) unknown) (unknown) (no (unknown) (unknown) Extremities: (units (u nknown) date) Warm, well unknown) perfused, FROM, no deformities, no edema. ?? (unknown) (no (unknown) (unknown) Eyes: PERRLA, (units ( unknown) date) EOM's full, unknown) conjunctivae clear. ? (unknown) (no (unknown) (unknown) FINDINGS:? (units (unk nown) date) unknown) (unknown) (no (unknown) (unknown) Gastrointestinal: (units (unknown) date) Nausea and unknown) vomiting (unknown) (no (unknown) (unknown) Gastrointestinal: (units (unknown) date) Soft; NT; ND; Pos unknown) BS with Neg. rebound tenderness. No scars or (unknown) (no (unknown) (unknown) General (units (unkno wn) date) unknown) (unknown) (no (unknown) (unknown) General: No (units (un known) date) fever, chills or unknown) fatigue. (unknown) (no (unknown) (unknown) General: normal (units (unknown) date) appearance, well unknown) developed, well nourished, alert, and awake. (unknown) (no (unknown) (unknown) Globulin 3.5 (units (u nknown) date) (1.7-4.1) g/dL unknown) (unknown) (no (unknown) (unknown) Glucose 89 (units (unk nown) date) (70-100) mg/dL unknown) (unknown) (no (unknown) (unknown) HEENT: No (units (unkn own) date) congestion, ear unknown) pain, rhinorrhea, sore throat or tinnitus (unknown) (no (unknown) (unknown) HPI - URI/Sore (units (unknown) date) Throat unknown) (unknown) (no (unknown) (unknown) HPI Narrative: (units (unknown) date) unknown) (unknown) (no (unknown) (unknown) Hct 36.8 (36-46) (units (unknown) date) % unknown) (unknown) (no (unknown) (unknown) Head: (units (unkno wn) date) Normocephalic, no unknown) lesions. (unknown) (no (unknown) (unknown) Heart: RRR, no (units (unknown) date) murmurs, rubs or unknown) gallops. (unknown) (no (unknown) (unknown) Hgb 12.3 (units (unkno wn) date) (12.0-16.0) g/dL unknown) (unknown) (no (unknown) (unknown) History of (units (unk nown) date) Present Illness unknown) (unknown) (no (unknown) (unknown) I was immediately (units (unknown) date) available in the unknown) department for consultation throughout this (unknown) (no (unknown) (unknown) IMPRESSION:? No (units (unknown) date) acute unknown) cardiopulmonary abnormality. (unknown) (no (unknown) (unknown) INDICATIONS:? (units ( unknown) date) Respiratory unknown) Symptoms (unknown) (no (unknown) (unknown) Imaging Data (units (u nknown) date) unknown) (unknown) (no (unknown) (unknown) Influenza A (units (un known) date) (RT-PCR) Flu a unknown) negative (NEGATIVE) (unknown) (no (unknown) (unknown) Influenza B (units (un known) date) (RT-PCR) Flu b unknown) negative (NEGATIVE) (unknown) (no (unknown) (unknown) Initial Vital (units ( unknown) date) Signs unknown) (unknown) (no (unknown) (unknown) Initial Vital (units ( unknown) date) Signs: unknown) (unknown) (no (unknown) (unknown) Instructions: DI (units (unknown) date) for Viral Upper unknown) Respiratory Infection -- Adult (unknown) (no (unknown) (unknown) [facility] (units (unknown) date) [address] unknown) [place] [address] (unknown) (no (unknown) (unknown) Lab Data (units (unkno wn) date) unknown) (unknown) (no (unknown) (unknown) Lab Results (units (un known) date) unknown) (unknown) (no (unknown) (unknown) Labs: (units (unkno wn) date) unknown) (unknown) (no (unknown) (unknown) Lungs and (units (unkn own) date) pleura:? Lungs are unknown) clear.? No pleural effusions or pneumothorax.? (unknown) (no (unknown) (unknown) Lymph # (Auto) (units (unknown) date) 2300 (1482-1693) unknown) /uL (unknown) (no (unknown) (unknown) Lymph % (Auto) (units (unknown) date) 22.4 L (25-40) % unknown) (unknown) (no (unknown) (unknown) MCH 28.6 (26-34) (units (unknown) date) PG unknown) (unknown) (no (unknown) (unknown) MCHC 33.3 (30-36) (units (unknown) date) % unknown) (unknown) (no (unknown) (unknown) MCV 85.7 (80-100) (units (unknown) date) fL unknown) (unknown) (no (unknown) (unknown) MDM - URI/Sore (units (unknown) date) Throat unknown) (unknown) (no (unknown) (unknown) MDM Narrative (units ( unknown) date) unknown) (unknown) (no (unknown) (unknown) Mediastinum:? (units ( unknown) date) Mediastinal unknown) contours are normal.? Heart size is normal.? (unknown) (no (unknown) (unknown) Medical decision (units (unknown) date) making narrative: unknown) (unknown) (no (unknown) (unknown) Medication (units (unk nown) date) Instructions unknown) Recorded (unknown) (no (unknown) (unknown) Mills # (Auto) 500 (units (unknown) date) (0-900) /uL unknown) (unknown) (no (unknown) (unknown) Mills % (Auto) 5.2 (units (unknown) date) (3-14) % unknown) (unknown) (no (unknown) (unknown) Musculoskeletal: (units (unknown) date) No pain in muscles unknown) or joints, no limitation of range of motion, (unknown) (no (unknown) (unknown) Narrative (units (unkn own) date) unknown) (unknown) (no (unknown) (unknown) Narrative: (units (unk nown) date) unknown) (unknown) (no (unknown) (unknown) Neuro: (units (unkno wn) date) Physiological, no unknown) localizing findings, CN3-12 intact. ?? (unknown) (no (unknown) (unknown) Neurological: (units ( unknown) date) Awake, alert and unknown) in not apparent distress. No Headaches, changes (unknown) (no (unknown) (unknown) Neut # (Auto) (units ( unknown) date) 6900 ([id number]) unknown) /uL (unknown) (no (unknown) (unknown) Neut % (Auto) (units ( unknown) date) 69.0 (50-75) % unknown) (unknown) (no (unknown) (unknown) No Action (units (unkn own) date) unknown) (unknown) (no (unknown) (unknown) Not in acute (units (u nknown) date) distress. ? unknown) (unknown) (no (unknown) (unknown) Ordered: (units (unkno wn) date) unknown) (unknown) (no (unknown) (unknown) Orders (units (unkno wn) date) unknown) (unknown) (no (unknown) (unknown) Oxygen Delivery (units (unknown) date) Method 12/01/21 unknown) 14:13 (unknown) (no (unknown) (unknown) Oxygen Delivery (units (unknown) date) Method Room Air unknown) (unknown) (no (unknown) (unknown) PROCEDURE:? XR (units (unknown) date) CHEST 2V unknown) (unknown) (no (unknown) (unknown) PSYCHIATRIC: The (units (unknown) date) mood is good, no unknown) blunted affect. Speech is clear. Thought (unknown) (no (unknown) (unknown) Patient (units (unkno wn) date) Disposition: Home unknown) (unknown) (no (unknown) (unknown) Patient History (units (unknown) date) unknown) (unknown) (no (unknown) (unknown) Patient agrees (units (unknown) date) with plan. unknown) (unknown) (no (unknown) (unknown) Patient has a (units ( unknown) date) 21-year-old female unknown) who presents to the emergency room today with (unknown) (no (unknown) (unknown) Patient is a (units (u nknown) date) 21-year-old female unknown) who presents to the emergency room today with (unknown) (no (unknown) (unknown) Patient: (units (unkno wn) date) Emily Johnson J unknown) MR#: M (unknown) (no (unknown) (unknown) Penicillins (units (un known) date) Allergy Verified unknown) 09/30/21 20:17 (unknown) (no (unknown) (unknown) Physical Exam: ? (units (unknown) date) unknown) (unknown) (no (unknown) (unknown) Plt Count 305 (units ( unknown) date) (150-400) X103/uL unknown) (unknown) (no (unknown) (unknown) Potassium 4.1 (units ( unknown) date) (3.4-5.1) mmol/L unknown) (unknown) (no (unknown) (unknown) Prescriptions: (units (unknown) date) unknown) (unknown) (no (unknown) (unknown) Previous Rx's (units ( unknown) date) unknown) (unknown) (no (unknown) (unknown) Pulse Oximetry 96 (units (unknown) date) 12/01/21 14:13 unknown) (unknown) (no (unknown) (unknown) Pulse Oximetry 96 (units (unknown) date) unknown) (unknown) (no (unknown) (unknown) Pulse Rate 98 H (units (unknown) date) 12/01/21 14:13 unknown) (unknown) (no (unknown) (unknown) Pulse Rate 98 H (units (unknown) date) unknown) (unknown) (no (unknown) (unknown) R.O.S.: (units (unkno wn) date) unknown) (unknown) (no (unknown) (unknown) RBC 4.30 (units (unkno wn) date) (4.0-5.2) X106/uL unknown) (unknown) (no (unknown) (unknown) RDW 13.3 (units (unkno wn) date) (11.6-14.8) % unknown) (unknown) (no (unknown) (unknown) RSV (PCR) (units (unkn own) date) Negative unknown) (Negative) (unknown) (no (unknown) (unknown) Radiologist's (units ( unknown) date) Impression: unknown) (unknown) (no (unknown) (unknown) Related Data (units (u nknown) date) unknown) (unknown) (no (unknown) (unknown) Resource line at (units (unknown) date) [phone]. They unknown) will ask some questions about your medical (unknown) (no (unknown) (unknown) Respiratory Panel (units (unknown) date) (Film Array) Stat unknown) (unknown) (no (unknown) (unknown) Respiratory Rate (units (unknown) date) 20 12/01/21 14:13 unknown) (unknown) (no (unknown) (unknown) Respiratory Rate (units (unknown) date) 20 unknown) (unknown) (no (unknown) (unknown) Respiratory: (units (u nknown) date) Cough and sore unknown) throat (unknown) (no (unknown) (unknown) Result diagrams: (units (unknown) date) unknown) (unknown) (no (unknown) (unknown) Review of Systems (units (unknown) date) unknown) (unknown) (no (unknown) (unknown) SARS-CoV-2 (PCR) (units (unknown) date) Negative unknown) (Negative) (unknown) (no (unknown) (unknown) Signed By: (units (unk nown) date) unknown) (unknown) (no (unknown) (unknown) Skin: No rash or (units (unknown) date) associated unknown) abnormalities (unknown) (no (unknown) (unknown) Skin: Normal, no (units (unknown) date) rashes, no lesions unknown) noted. ?? (unknown) (no (unknown) (unknown) Smoking Status: (units (unknown) date) Former smoker unknown) (unknown) (no (unknown) (unknown) Social History (units (unknown) date) (Reviewed 11/15/21 unknown) @ 10:32 by Markel Bermeo MD) (unknown) (no (unknown) (unknown) Sodium 140 (units (unk nown) date) (137-145) mmol/L unknown) (unknown) (no (unknown) (unknown) Stand Alone (units (un known) date) Forms: Work unknown) Release Note (unknown) (no (unknown) (unknown) Stated Complaint: (units (unknown) date) Nausea, fever, unknown) chills, vomiting (unknown) (no (unknown) (unknown) Substance Use (units ( unknown) date) Type: marijuana unknown) (unknown) (no (unknown) (unknown) Suggest you (units (un known) date) continue to unknown) hydrate and take [id number] medications for cough (unknown) (no (unknown) (unknown) Surgical changes (units (unknown) date) and devices:? unknown) None.? (unknown) (no (unknown) (unknown) TECHNIQUE:? 2 (units ( unknown) date) views of the chest unknown) were acquired.? (unknown) (no (unknown) (unknown) Temperature 96.6 (units (unknown) date) F L 12/01/21 14:13 unknown) (unknown) (no (unknown) (unknown) Temperature 96.6 (units (unknown) date) F L unknown) (unknown) (no (unknown) (unknown) Time Seen by (units (u nknown) date) Provider: 12/01/21 unknown) 13:49 (unknown) (no (unknown) (unknown) Total Bilirubin (units (unknown) date) 0.3 (0.2-1.3) unknown) mg/dL (unknown) (no (unknown) (unknown) Total Protein 7.6 (units (unknown) date) (6.3-8.2) g/dL unknown) (unknown) (no (unknown) (unknown) URI complaints to (units (unknown) date) include nausea unknown) vomiting migraine started about 3 days ago. (unknown) (no (unknown) (unknown) Upper respiratory (units (unknown) date) infection unknown) (unknown) (no (unknown) (unknown) Visit Report (units (u nknown) date) Forms: Patient unknown) Portal/API (unknown) (no (unknown) (unknown) Vital Signs - 8 (units (unknown) date) hr unknown) (unknown) (no (unknown) (unknown) Vital Signs (units (un known) date) unknown) (unknown) (no (unknown) (unknown) Vital signs: (units (u nknown) date) unknown) (unknown) (no (unknown) (unknown) WBC 10.0 (units (unkno wn) date) (4.5-11.0) X103/uL unknown) (unknown) (no (unknown) (unknown) [Embedded Image (units (unknown) date) Not Available] unknown) (unknown) (no (unknown) (unknown) [From Maalox (units (u nknown) date) Total Relief unknown) (unknown) (no (unknown) (unknown) advised patient (units (unknown) date) to return to unknown) emergency room if any emergent concerns arise. (unknown) (no (unknown) (unknown) advised that she (units (unknown) date) will be notified unknown) of any positive result of concern for (unknown) (no (unknown) (unknown) alcohol intake (units (unknown) date) frequency: unknown) holidays/special occasions only (unknown) (no (unknown) (unknown) also like a (units (un known) date) letter for work. unknown) (unknown) (no (unknown) (unknown) amoxicillin (units (un known) date) Allergy Verified unknown) 10/07/21 09:37 (unknown) (no (unknown) (unknown) and related URI (units (unknown) date) symptoms.? Advised unknown) return to emergency room if any emergent (unknown) (no (unknown) (unknown) appointment. Let (units (unknown) date) them know you were unknown) seen in the Emergency Department and that we (unknown) (no (unknown) (unknown) ask that you be (units (unknown) date) seen in follow up. unknown) We will electronically transmit a record of (unknown) (no (unknown) (unknown) bismuth (units (unkno wn) date) subsalicylate unknown) Allergy Verified 10/07/21 09:37 (unknown) (no (unknown) (unknown) chest pain or (units ( unknown) date) shortness of unknown) breath but is periodically fever and chills. Would (unknown) (no (unknown) (unknown) child who had (units ( unknown) date) upper respiratory unknown) complaints that preceded her ears. Denies any (unknown) (no (unknown) (unknown) cinnamon Allergy (units (unknown) date) Verified 10/07/21 unknown) 09:37 (unknown) (no (unknown) (unknown) complaint of (units (u nknown) date) cough sore throat unknown) body aches migraine and nausea and vomiting for (unknown) (no (unknown) (unknown) concerning (units (unk nown) date) symptoms, such as unknown) [fever greater than 101 F, shaking chills, (unknown) (no (unknown) (unknown) concerns arise.? (units (unknown) date) [ ] unknown) (unknown) (no (unknown) (unknown) diagnostic study (units (unknown) date) these holes that unknown) were C were negative. Patient discharged and (unknown) (no (unknown) (unknown) discomfort. 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 We are awaiting some (unknown) (no (unknown) (unknown) further results (units (unknown) date) of those are unknown) positive will be returned to utilize the nail.? (unknown) (no (unknown) (unknown) history and help (units (unknown) date) get you set up unknown) with a doctor in the community. (unknown) (no (unknown) (unknown) hydrocodone 5 (units ( unknown) date) mg-acetaminophen unknown) 325 1 tab PO Q4-6H PRN pain #10 tabs 10/01/21 (unknown) (no (unknown) (unknown) hydrocodone-aceta (units (unknown) date) minophen 5-325 mg unknown) tablet (unknown) (no (unknown) (unknown) in vision or (units (u nknown) date) other related unknown) neurological concerns. (unknown) (no (unknown) (unknown) major deformities (units (unknown) date) noted on Visual unknown) Inspection. (unknown) (no (unknown) (unknown) mg tablet (units (unkn own) date) unknown) (unknown) (no (unknown) (unknown) no paresthesia or (units (unknown) date) numbness. ?? unknown) (unknown) (no (unknown) (unknown) ondansetron 4 mg (units (unknown) date) disintegrating 4 unknown) mg PO TID-QID PRN nausea and 10/01/21 (unknown) (no (unknown) (unknown) ondansetron 4 mg (units (unknown) date) tablet,disintegrat unknown) ing (unknown) (no (unknown) (unknown) patient's visit. (units (unknown) date) I agree with unknown) documentation as above. Charla Appiah MD (unknown) (no (unknown) (unknown) process is (units (unk nown) date) linear, thought unknown) content is appropriate. The voice is without (unknown) (no (unknown) (unknown) significant (units (un known) date) inflection. unknown) (unknown) (no (unknown) (unknown) tablet vomiting (units (unknown) date) #10 tabs unknown) (unknown) (no (unknown) (unknown) the past 3 days. (units (unknown) date) States that she unknown) has roommates with another woman who has a (unknown) (no (unknown) (unknown) tobacco type: (units ( unknown) date) cigarettes and unknown) vaping (unknown) (no (unknown) (unknown) today's note if (units (unknown) date) your PCP is in our unknown) system (unknown) (no (unknown) (unknown) unremarkable.? (units (unknown) date) unknown) (unknown) (no (unknown) (unknown) with labs to rule (units (unknown) date) out any acute unknown) emergent concerns. All lab results and (unknown) (no (unknown) (unknown) worsening pain, (units (unknown) date) persistent unknown) vomiting or other bothersome symptoms] Social History No information. Vital Signs date measurement value units [id number] BP_diastolic BP_diastolic 81 mm[H g] +0000 BP_systolic BP_systolic 129 mm[Hg] +0000 respiration_rate respiration_rate 22 /min +0000 temperature_metric temperature_metric 36.61 C +0000 temperature_standard temperature_standard 9 7.9 F +0000 weight_metric weight_metric 151.95 kg +0000 weight_standard weight_standard 334.99 lb +0000 heart_rate heart_rate 78 /min
--- NOTE | 2021-12-06 18:13 | ED Physician Documentation ---
History of Present Illness - Stated complaint Stated Complaint: TOE INFECTION - Chief complaint Chief Complaint: General - Additonal information Additional information: 18-year-old female presents emergency department to obtain COVID-19 testing. Her work will not allow her to refer return without PCR testing. She is had a mild URI with cough and congestion for the last few days. Negative COVID at home. Fully vaccinated. Also reporting left great ingrown toenail. She attempted to clip the nail a few months ago that only made it worse. Since then is gotten progressively more erythematous and painful. Review of Systems Constitutional: reports: Reviewed and negative Nose: reports: Congestion Respiratory: reports: Cough GI: reports: Reviewed and negative Skin: reports: Other (Ingrown left great nail) Musculoskeletal: reports: Reviewed and negative Neurologic: reports: Reviewed and negative PD PAST MEDICAL HISTORY - Past Surgical History Past Surgical History: No - Present Medications Home Medications: Ambulatory Orders Medication Instructions Recorded Confirmed Banophen 50 mg ORAL HS 12/06/21 12/06/21 Citalopram Hydrobromide [Celexa] 20 mg ORAL DAILY 12/06/21 12/06/21 Gabapentin [Neurontin] 300 mg PO HS 12/06/21 12/06/21 Omeprazole 40 mg PO DAILY 12/06/21 12/06/21 busPIRone [Buspar] 5 mg PO TID 12/06/21 12/06/21 - Allergies Allergies/Adverse Reactions: Allergies Allergy/AdvReac Type Severity Reaction Status Date / Time aluminum hydroxide Allergy Anaphylaxis Verified 12/06/21 16:17 [From Maalox Maximum Strength] amoxicillin Allergy Anaphylaxis Verified 12/06/21 16:17 magnesium hydroxide Allergy Anaphylaxis Verified 12/06/21 16:17 [From Maalox Maximum Strength] Penicillins Allergy Anaphylaxis Verified 12/06/21 16:17 simethicone Allergy Anaphylaxis Verified 12/06/21 16:17 [From Maalox Maximum Strength] - Social History Does the pt smoke?: No Smoking Status: Never smoker Does the pt drink ETOH?: No Does the pt have substance abuse?: No - Immunizations Immunizations are current?: Yes - POLST Patient has POLST: No PD ED PE EXPANDED - General General: Alert, No acute distress, Other (Obese) - Respiratory Respiratory: Clear to ausultation anna - Extremities Extremities: Left foot (Left great toe significantly erythematous. Medial nail severely ingrown. Small amount of purulent drainage medial side.) Results - Vitals Vitals: Vital Signs - 24 hr 12/06/21 16:19 Temperature 36.5 C Heart Rate 103 H Respiratory 20 Rate Blood Pressure 143/108 H O2 Saturation 98 Oxygen O2 Source Room air - Labs Labs: Laboratory Tests 12/06/21 16:28 SARS-CoV-2 (PCR) NOT DETECTED Procedures - General procedure General procedure: Left great toe was thoroughly cleansed with chlorhexidine. Utilizing 1% lidocaine a digital block was achieved of the great toe. Once appropriate anesthesia was achieved the nail was scrubbed. Using forceps and a nail elevator the medial portion of the nail was elevated and trimmed away. Proximal cuticle bed intact PD MEDICAL DECISION MAKING - ED course Complexity details: considered differential, d/w patient ED course: 18-year-old female here requesting confirmatory testing of negative COVID-19 before she is allowed to return to work. Cardiopulmonary auscultation was unremarkable. Normal room air sats. COVID-19 test is negative. She is also been battling with a left Great ingrown toenail now for about 4 months. She did attempt to trim it at home but this is proven unsuccessful and she has a mild surrounding superficial infection. I was able to appropriately Trim the medial portion of the nailbed away. Patient is advised close follow-up with primary care doctor for referral to a engine mechanic as I suspect this will ingrown again in the future. Emergent return precautions otherwise discussed Departure - Departure Disposition: 01 Home, Self Care Clinical Impression: Viral upper respiratory infection, Ingrown nail of great toe of left foot Condition: Stable Record reviewed to determine appropriate education?: Yes Comments: Emily your COVID-19 testing today is negative. I have written you an work excuse. You are able to return to work on Friday. We were able to partially trim the nail that was ingrowing. This is likely to be a problem that reoccurs. I do recommend close follow-up with engine mechanic to have the nail formally excised and help present this in the future.
== END 2021-12-06 18:18 | disposition home or self-care (01) ==
LOC: ED 16:07
DX: L60.0 Ingrowing nail (principal); J06.9 Acute upper respiratory infection, unspecified; Z20.822 Contact with and (suspected) exposure to COVID-19
CPT/HCPCS: 11765; 99282; 99283

== ENCOUNTER 2022-06-21 10:04 | Outpatient (CLI) | payer SELFPAY | END 2022-06-21 23:59 | disposition short-term general hospital (02) | LOC: EMS 10:04 | DX: H92.02 Otalgia, left ear (principal); R42 Dizziness and giddiness; R11.2 Nausea with vomiting, unspecified; H53.2 Diplopia | CPT/HCPCS: A0425; A0429 ==

== ENCOUNTER 2022-09-18 21:51 | Emergency (ER) | payer SELFPAY ==
[2022-09-18 22:04] VITALS: BP 139/102
[2022-09-18] MEDS ORDERED: LIDOCAINE VISCOUS 2% 15 ML ORAL SYRINGE MM STA (22:15)
--- NOTE | 2022-09-18 22:17 | ED Physician Documentation ---
History of Present Illness - Stated complaint Stated Complaint: THROAT PX - Chief complaint Chief Complaint: General - History obtained from History obtained from: Patient - Additonal information Additional information: 22-year-old woman with history of GERD, past surgical history of tonsillectomy, presents with throat pain starting an hour prior to arrival while eating a vape pen. Patient states that she has had intermittent throat pain for a long time that is worse with laying flat. denies fever, sore throat, rhinorrhea, ear pain. PD PAST MEDICAL HISTORY - Past Surgical History Past Surgical History: No - Present Medications Home Medications: Ambulatory Orders Medication Instructions Recorded Confirmed Banophen 50 mg ORAL HS 12/06/21 12/06/21 Citalopram Hydrobromide [Celexa] 20 mg ORAL DAILY 12/06/21 12/06/21 Gabapentin [Neurontin] 300 mg PO HS 12/06/21 12/06/21 Omeprazole 40 mg PO DAILY 12/06/21 12/06/21 busPIRone [Buspar] 5 mg PO TID 12/06/21 12/06/21 - Allergies Allergies/Adverse Reactions: Allergies Allergy/AdvReac Type Severity Reaction Status Date / Time aluminum hydroxide Allergy Anaphylaxis Verified 12/06/21 16:17 [From Maalox Maximum Strength] amoxicillin Allergy Anaphylaxis Verified 12/06/21 16:17 magnesium hydroxide Allergy Anaphylaxis Verified 12/06/21 16:17 [From Maalox Maximum Strength] Penicillins Allergy Anaphylaxis Verified 12/06/21 16:17 simethicone Allergy Anaphylaxis Verified 12/06/21 16:17 [From Maalox Maximum Strength] - Social History Does the pt smoke?: No Smoking Status: Never smoker Does the pt drink ETOH?: No Does the pt have substance abuse?: No - Immunizations Immunizations are current?: Yes - POLST Patient has POLST: No PD ED PE NORMAL - Vitals Vital signs reviewed: Yes - General General: Alert and oriented X 3, No acute distress, Well developed/nourished - HEENT HEENT: Atraumatic, PERRL, EOMI, Moist mucous membranes, Pharynx benign - Neck Neck: Supple, no meningeal sign, No adenopathy, Thyroid normal - Derm Derm: Normal color, Warm and dry Results - Vitals Vitals: Vital Signs - 24 hr 09/18/22 21:58 Temperature 36.2 C L Heart Rate 80 Respiratory 16 Rate Blood Pressure 139/102 H O2 Saturation 96 Oxygen O2 Source Room air PD Medical Decision Making - ED course ED course: Well-appearing 22-year-old with history of GERD chronic throat pain, presents with throat pain after hitting a vape pen tonight. She has benign vital signs and exam. Symptomatic care discussed including cutting back on avoiding smoking. Recommended she follow-up with her ear nose and throat provider. Return precautions given. Departure - Departure Disposition: 01 Home, Self Care Clinical Impression: Throat pain in adult Condition: Stable Instructions: ED Neck Pain No Trauma Comments: You are seen in the emergency department for throat pain. Please follow-up with your ENT and return to the emergency department if you have new or worsening symptoms or other concerns. We recommend you avoid smoking or vaping since this can exacerbate your symptoms.
== END 2022-09-18 22:33 | disposition home or self-care (01) ==
LOC: ED 21:51
DX: R07.0 Pain in throat (principal); K21.9 Gastro-esophageal reflux disease without esophagitis; F17.290 Nicotine dependence, other tobacco product, uncomplicated; Z79.899 Other long term (current) drug therapy
CPT/HCPCS: 99282; 99283

== ENCOUNTER 2022-09-19 20:38 | Outpatient (CLI) | payer SELFPAY | END 2022-09-19 23:59 | disposition short-term general hospital (02) | LOC: EMS 20:38 | DX: R07.89 Other chest pain (principal); R11.2 Nausea with vomiting, unspecified; M54.2 Cervicalgia; R22.1 Localized swelling, mass and lump, neck | CPT/HCPCS: A0425; A0427 ==